=== PATIENT | female | born 1985 | race Caucasian/White ===

== ENCOUNTER 2022-05-09 07:30 | Outpatient (RCR) | payer OTHER, SELFPAY | END 2023-04-23 11:23 | disposition home or self-care (01) | PROVIDERS: PCP Family Medicine; Visit Provider Family Medicine | DX: M54.2 Cervicalgia (principal); Z51.89 Encounter for other specified aftercare | CPT/HCPCS: 97110; 97140 ==

== ENCOUNTER 2022-07-24 12:39 | Outpatient (CLI) | payer OTHER, SELFPAY ==
--- NOTE | 2022-07-24 13:00 | MR_ITS ---
[facility] [address] [facility] [address] Phone:?[phone] Fax:?[phone] Referring Physician Information: Jadiel Vasquez M.D. [address] [facility] [address] Phone:?[phone] Fax:?[phone] Patient:Akbar Cruz Gerson D.O.B:?1985 Sex:?Female Phone:?[phone] [facility] MRN:?[id number] Exam Date:?07/24/2022 ? EXAM: MRI EXAMINATION OF THE RIGHT KNEE CLINICAL INFORMATION: Right knee pain ongoing for several weeks. Status post injury. No history of surgery to this area. TECHNICAL INFORMATION: Coronal PD, T2 and STIR. Sagittal PD and T2 fat saturation. Axial PD and T2 fat saturation images were acquired. INTERPRETATION: Bones: No appreciable subchondral edema signal or cystic change. No evidence for an occult fracture, osseous contusion or stress reaction. No other abnormal bone marrow edema pattern is identified. Ligaments and tendons: The medial collateral ligament is seen to be intact. There are mild changes of soft tissue edema signal along the course of the ligament as may be related to a grade 1 sprain injury. The iliotibial band, fibular collateral ligament, biceps femoris tendon and popliteus tendon all are intact ament is intact. Extensor Mechanism: The patellar and quadriceps tendons are intact. The medial and lateral retinacula are intact. Knee Joint: There is a tiny knee joint effusion. No evidence for a discrete popliteal cyst. There are mild changes of semimembranosus/tibial collateral ligament bursitis. There is no discrete loose body seen within the joint. Medial Compartment: Slight thickened horizontal intrasubstance signal involves the posterior body and continues involving the posterior horn medial meniscus. No evidence for surface extension as tear, though. No displaced flap fragment or parameniscal cyst. There is no focal chondral defect. No other significant changes of chondromalacia. Lateral Compartment: There is no evidence for discrete lateral meniscal tear. No displaced flap fragment or parameniscal cyst. There is no focal chondral defect. No other significant changes of chondromalacia. Patellofemoral articulation: There is a grade 2 appearance of under malacia involving the central midline patella as well as the adjacent portions of the medial and lateral facets. No other significant chondromalacia. CONCLUSION:?The image quality is somewhat degraded by body habitus, but remains diagnostic. 1. Slightly thickened horizontal signal within the posterior body and continuing through the posterior horn medial meniscus. No evidence for surface extension as tear, and may be related to meniscal degeneration or contusion. 2. No evidence for a lateral meniscal tear. The cruciate ligaments are intact. 3. The MCL is seen to be intact. Mild soft tissue inflammatory changes along the course of the ligament as may be related to a grade 1 sprain injury. 4. Localized grade II chondromalacia involves the central patella. There is no chondral defect involving the knee. 5. There is a tiny joint effusion. Mild semimembranosus/tibial collateral ligament bursitis. KES Electronically signed on 07/26/2022 10:48:00 AM by Sulaiman Celaya M.D. Addendum A EXAM: MRI EXAMINATION OF THE RIGHT KNEE Addendum: Request made for review of lesion involving the distal femur. There is an approximate 1.3 cm low T2 signal intensity geographic bone lesion within the medial femoral epicondyle. As best seen on the axial images, this demonstrates irregular and spiculated margins. There are no other geographic bone lesions about the knee. This appearance would be in keeping with a bone island. KEBenito Electronically signed on 08/12/2022 9:49:00 AM by Sulaiman Celaya M.D.
== END 2022-07-24 12:40 | disposition home or self-care (01) ==
LOC: MRI 12:40
PROVIDERS: PCP Family Medicine; Visit Provider Family Medicine
DX: M25.561 Pain in right knee (principal); M22.42 Chondromalacia patellae, left knee; M76.41 Tibial collateral bursitis [Pellegrini-Stieda], right leg
CPT/HCPCS: 73721

== ENCOUNTER 2022-07-31 07:30 | Outpatient (RCR) | payer OTHER, SELFPAY | END 2022-10-04 14:14 | disposition home or self-care (01) | PROVIDERS: PCP Family Medicine; Visit Provider Podiatrist Foot & Ankle Surgery | DX: M76.61 Achilles tendinitis, right leg (principal); Z51.89 Encounter for other specified aftercare | CPT/HCPCS: 97140; 97161; 97760; 97763 ==

== ENCOUNTER 2023-01-01 08:53 | Outpatient (CLI) | payer OTHER, SELFPAY | END 2023-01-01 08:54 | disposition home or self-care (01) | LOC: NFLDREF 08:54 | PROVIDERS: PCP Family Medicine; Visit Provider Registered Nurse | DX: Z01.419 Encounter for gynecological examination (general) (routine) without abnormal findings (principal); Z13.6 Encounter for screening for cardiovascular disorders | CPT/HCPCS: 80061 ==

== ENCOUNTER 2023-09-24 09:29 | Outpatient (CLI) | payer OTHER, SELFPAY ==
--- OUTSIDE RECORDS SUMMARY | 2023-09-24 09:31 | XMS_ITS | Continuity of Care Document ---
Author Name Unknown Organization [facility] Address [address] [place] [address] Phone Care Team Providers Care Special Procedures Tech Name Role Phone Audra ANN, PhD, Leno Unavailable Unavai lable Allergies, Adverse Reactions, Alerts Substance Reaction Status Criticality gluten rash and stomach pain Active No Inf ormation PENICILLIN rash Active No Information Sulfa (Sulfonamide Antibiotics) rash Active No Information Medications Medication Instructions Dosage Effective Dates (start - stop) Status Comments GABAPENTIN (unknown strength) Not Available - Active CYCLOBENZAPRINE HCL (unknown strength) Not Available - Active Procedures Procedure Date Office/Outpatient Visit,New, Mod 2017 Advance Directives Directive Yes / No Effective Date File Name No Information Encounters Encounter Description Practice Location Reason(s) For Visit Diagnoses Date Provider Providers Copied on Encounter [facility], [address], [place], [place], [id number], [place] tel:[phone] [facility] No Information 8 Audra Burr. [facility] [place], [address], [place], [address], [place]. tel:[phone] Office/Outpat ient Visit,, Mod [facility], [address], [place], [place], [id number], [place] tel:[phone] [facility] - [place] Spondylolisth esis, lumbar region 0 8 Tor Duvall. [facility] [place], [address], [place], [place], [id number] , [place]. tel:[phone] Referring Provider: Leno Zhu [facility] [address], [place], [address]. tel:[phone] [facility], [address], [place], [place], [id number], [place] tel:[phone] [facility] [place] back pain Jan- 8 Zhu Leno. [facility], [address], [place], [address], [place]. tel:[phone] Family History Family Member Type Diagnosis Age At Onset No Information Payers Payer name Insurance type Covered republican ID Authoriza tion(s) No Information Social History Type Description Quantity Date Captured Comments Sex Female Smoking Status No Information Chief Complaint And Reason For Visit No Information Reason For Referral Reason For Referral No Information Plan Of Treatment Date Type Action Status Future Order: Radiology Order AP /Lat/Flex/Ext Lumb (APLatFlExL), Ordered on: Ordered History Of Present Illness Encounter Date Complaint History Of Prese nt Illness No Information Functional Status Date Functional Assessmen t No Information Instructions Date Instruction Additional Infor mation No Information Assessments Type Assessment Date No Information Patient Care Teams Name Effective Dates (start - stop) Status Members No Information
--- NOTE | 2023-09-24 09:45 | CRLHL7_ITS ---
For Patients: As a result of the Century Cures Act, medical imaging exams and procedure reports are released immediately into your electronic medical record. You may view this report before your referring provider. If you have questions, please contact your health care provider. INDICATION: First trimester scan, establish dates. TECHNIQUE: Real-time wdae-scale imaging of the pelvis was performed. FINDINGS: Sonographic imaging demonstrates a single living intrauterine gestation. The embryo demonstrates a regular cardiac rate measuring 134 beats per minute. The embryo`s crown-rump length measurement of 1.9 cm corresponds to a gestational age of 8 weeks 2 days with a sonographic due date of 05/03/2024. There is a normal-appearing yolk sac. Myomatous uterus. Multiple fibroids present. Pedunculated anterior fibroid measuring 7.2 x 6.7 x 5.3 centimeters. An anterior fibroid measuring 1.6 x 1.7 x 2 centimeters to the right of the uterus in the superior posterior right uterine fibroid measuring 3 x 2.9 x 3.3 centimeters. IMPRESSION: 1. Early intrauterine gestation at 8 weeks 2 days with ANGELITA of 05/03/2024. 2. Myomatous uterus Dictated by Gunjan Blackwell MD @ 09/29/2023 9:37:54 AM (Electronically Signed)
== END 2023-09-24 09:30 | disposition home or self-care (01) ==
LOC: US 09:30
PROVIDERS: PCP Family Medicine; Visit Provider Registered Nurse
DX: Z34.91 Encounter for supervision of normal pregnancy, unspecified, first trimester (principal); O34.11 Maternal care for benign tumor of corpus uteri, first trimester; Z3A.08 8 weeks gestation of pregnancy
CPT/HCPCS: 76817; 86703; 86706; 86803; 86850; 86900; 86901; 87086; 87340; 87491; 87591

== ENCOUNTER 2023-09-24 11:26 | Outpatient (CLI) | payer OTHER, SELFPAY ==
--- OUTSIDE RECORDS SUMMARY | 2023-09-24 11:29 | XMS_ITS | Continuity of Care Document ---
Author Name Unknown Organization [facility] Address [address] [place] [address] Phone Care Team Providers Care Fire Management Technician Name Role Phone Audra ANN, PhD, Leno [...] on Encounter [facility], [address], [place], [place], [id number], [place] tel:[phone] [facility] No Information 8 Audra Burr. [facility] [place], [address], [place], [address], [place]. tel:[phone] Office/Outpat ient Visit,, Mod [facility], [address], [place], [place], [id number], [place] tel:[phone] [facility] - [place] Spondylolisth esis, lumbar region 0 8 Tor Duvall. [facility] [place], [address], [place], [place], [id number] , [place]. tel:[phone] Referring Provider: Leno Zhu [facility] [address], [place], [address]. tel:[phone] [facility], [address], [place], [place], [id number], [place] tel:[phone] [facility] [place] back pain Jan- 8 Zhu Leno. [facility], [address], [place], [address], [place]. tel:[phone] Family History Family Member Type Diagnosis Age [...]
[2023-09-24 20:24] LABS: Chlamydia DNA Amplified* NOT DETECTED (No Detected); GC DNA Amplified* NOT DETECTED (No Detected)
== END 2023-09-24 11:27 | disposition home or self-care (01) ==
PROVIDERS: PCP Family Medicine; Visit Provider Registered Nurse
DX: Z34.91 Encounter for supervision of normal pregnancy, unspecified, first trimester (principal); O34.11 Maternal care for benign tumor of corpus uteri, first trimester; Z3A.08 8 weeks gestation of pregnancy
CPT/HCPCS: 86592; 86703; 86704; 86706; 86762; 86787; 86803; 86850; 86900; 86901; 87086; 87340; 87491; 87591

== ENCOUNTER 2024-01-14 10:29 | Outpatient (CLI) | payer OTHER, SELFPAY ==
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
--- OUTSIDE RECORDS SUMMARY | 2024-01-14 10:34 | XMS_ITS | Continuity of Care Document ---
Author Name Unknown Organization [facility] Address [address] [place] [address] Phone Care Team Providers Care Aircraft Structural Fitter Name Role Phone Audra ANN, PhD, Leno [...] on Encounter [facility], [address], [place], [place], [id number], [place] tel:[phone] [facility] No Information 8 Audra Burr. [facility] [place], [address], [place], [address], [place]. tel:[phone] Office/Outpat ient Visit,, Mod [facility], [address], [place], [place], [id number], [place] tel:[phone] [facility] [place] Spondylolisth esis, lumbar region 0 8 Tor Duvall. [facility] [place], [address], [place], [place], [id number] , [place]. tel:[phone] Referring Provider: Leno Zhu [facility] [address], [place], [address]. tel:[phone] [facility], [address], [place], [place], [id number], [place] tel:[phone] [facility] [place] back pain Jan- 8 Zhu Leno. [facility], [address], [place], [address], [place]. tel:[phone] Family History Family Member Type Diagnosis Age At Onset No Information Payers Payer name Insurance type Covered libertarian ID Authoriza tion(s) No Information Social History [...]
--- OUTSIDE RECORDS SUMMARY | 2024-01-14 10:35 | XMS_ITS | Encounter Summary ---
Author Name Unknown Organization [facility] Address [address] [place] [address] Care Team Providers Care Benefits Manager Name Role Phone Erin Calvo APRN, C.N.P., D.N.P. Primary Care Provider Reason for Visit * Reason Onset Date Comments Communication 01/12/2024 Encounter Details Date Type Department Care Team (Late st Contact Info) Description 01/12/2024 Clinical Communication Department of Obstetrics and Gynecology in [place], [place] [address] [place] [phone] Shraddha Mccann D.O. [address] [place] [phone] Communication Social History Tobacco Use Types Packs/Day Years Used Date Smoking Tobacco: Never Smokeless Tobacco: Never Alcohol Use Standard Drinks/Week Comments Not Currently 0 (1 standard drink = 0.6 oz pur e alcohol) i only drink once in a while [facility] Utilities Answer Date Recorded In the past 12 months has e electric, gas, oil, or water company threatened to shut off services in your home? No 12/09/2023 Humiliation, Afraid, Rape, and Kick questionnair e Answer Date Recorded Within the last year, have y ou been afraid of your partner or ex-partner? No 04/14/2022 Within the last year, have y ou been humiliated or emotionally abused in other ways by your partner or ex-partner? No Within the last year, have y ou been kicked, hit, slapped, or otherwise physically hurt by your partner or ex-partner? No 04/14/2022 Within the last year, have y ou been raped or forced to have any kind of sexual activity by your partner or ex-partner? No 04/14/2022 Social Connection and Isolation Panel [NHANES] A nswer Date Recorded In a typical week, how many times do you talk on the phone with family, friends, or neighbors? Three times a week 04/14/2022 How often do you get togethe r with friends or relatives? Three times a week 04/14/2022 How often do you attend chur ch or jain services? Never 04/14/2022 Do you belong to any clubs o r organizations such as mandaeism groups, unions, fraternal or athletic groups, or school groups? No 04/14/2022 How often do you attend meet ings of the clubs or organizations you belong to? Never 04/14/2022 Are you , , di vorced, , never , or living with a partner? 04/14/2022 AUDIT-C Answer Date Recorded Q1: How often do you have a drink containing alc ohol? Monthly or less 04/14/2022 Q2: How many drinks containi ng alcohol do you have on a typical day when you are drinking? 1 or 2 04/14/2022 Q3: How often do you have si x or more drinks on one occasion? Never 04/14/2022 Overall Financial Resource Strain (CARDIA) Answe r Date Recorded How hard is it for you to pa y for the very basics like food, housing, medical care, and heating? Not hard at all 02/03/2020 PHQ-2 Answer Date Recorded PHQ-2 Score 0 12/15/2023 [facility]ational Stress Questionnaire Answer Date Recorded Do you feel stress - tense, restless, nervous, or anxious, or unable to sleep at night because your mind is troubled all the time - these days? Not at all 04/14/2022 Exercise Vital Sign Answer Date Recorde d On average, how many days pe r week do you engage in moderate to strenuous exercise (like a brisk walk)? 3 days 12/09/2023 On average, how many minutes do you engage in exercise at this level? 20 min 12/09/2023 Hunger Vital Sign Answer Date Recorded Within the past 12 months, y ou worried that your food would run out before you got the money to buy more. Never true 12/09/19 24 Within the past 12 months, t he food you bought just didn't last and you didn't have money to get more. Never true 12/09/2023 PRAPARE - Transportation Answer Date Re corded In the past 12 months, has l ack of transportation kept you from medical appointments or from getting medications? No 02/2024 In the past 12 months, has l ack of transportation kept you from meetings, work, or from getting things needed for daily living? No 12/09/2023 Depression Answer Date Recor ded PHQ-9 Total Score (max 27) 0 12/14 Nutrition Answer Date Recorded Nutrition: EVOO Fat Source Yes 12/08 On average, how many serving s of fruits and vegetables do you eat per day (serving size is equal to 1 cup or approximately the size of a tennis ball)? 3-5 12/09/2023 Dental Answer Date Recorded Dental: Regular Dentist Yes 12/09/19 Employment Answer Date Recorded Employment status Employed and actively working without restrictions 12/09/2023 Housing Stability Answer Date Recorded What is your living situation today? I have a [facility] place to live 12/09/2023 Education Answer Date Recorded What is the highest level of school you have completed or the highest degree you have received? Associate degree: academic program 02/03/2020 Estimated Date of Delivery Comme nts Yes 05/01/2024 Based on Embryo Transfer Sex and Gender Information Value Date Recorded Sex Assigned at Female 04/14/2022 7:49 PM CDT Gender Identity Female 07/19/2017 10:12 AM CDT Sexual Orientation Straight 07/19/2017 10 :12 AM CDT documented as of this encounter Plan of Treatment Upcoming Encounters Date Type Department Care Team (Latest Contact Info) Description 01/30/2024 7:30 AM CDT Appointment Department of Obstetrics and Gynecology in [place], [place] [address] [place] [phone] Shraddha Mccann D.O. [address] [place] [phone] Discharge Disposition: Home or Self Care 01/30/2024 8:30 AM CDT Routine Department of Obstetrics and Gynecology in [place], [place] [address] [place] [phone] Mayank Morgan M.B.B.S. [address] [place] [phone] 02/26/2024 1:20 PM CDT Appointment Department of Cardiovascular Diseases in [place], [place] [address] [place] [phone] Shraddha Mccann D.OCarlos [address] [place] [phone] Discharge Disposition: Home or Self Care 02/26/2024 2:30 PM CDT Comprehensive Visit Division of Pediatric Cardiology in [place], [place] [address] [place] [phone] Junito Arce M.B.B.S. [address] [place] [phone] 02/26/2024 3:30 PM CDT Appointment Department of Obstetrics and Gynecology in [place], [place] [address] [place] [phone] Shraddha Mccann D.OCarlos [address] [place] [phone] Discharge Disposition: Home or Self Care 02/26/2024 4:00 PM CDT Routine Department of Obstetrics and Gynecology in [place], [place] [address] [place] [phone] Mayank Morgan M.B.B.S. [address] [place] [phone] documented as of this encounter Visit Diagnoses Not on filedocumented in this encounter Additional Health Concerns Assessment Noted Time PHQ-9 Depression Total Score: 0 12/15/19 24 3:08 PM CDT documented as of this encounter Care Teams Benefits Manager Relationship Specialty Start Date End Date Erin Calvo APRN, C.N.P., D.N.P. [address] [place] [phone] PCP - General 08/30/20 documented as of this encounter
--- OUTSIDE RECORDS SUMMARY | 2024-01-14 10:35 | XMS_ITS | Encounter Summary ---
Author Name Unknown Organization [facility] Address [address] [place] [address] Care Team Providers Care Aeroplane Pilot Name Role Phone Erin Calvo APRN C.N.P., D.N.P. Primary Care Provider Encounter Details Date Type Department Care Team (Latest Contact Info) Description 01/07/2024 10:03 AM CDT - 01/07/2024 1:22 PM CDT Hospital Encounter Department of Obstetrics and Gynecology in [place], [place] [address] [place] [phone] Aleksander Keller D.O. [address] [place] [phone] Primigravida Advanced Maternal Age Affecting Management (HCC) Discharge Disposition: Home or Self Care Social History Tobacco Use Types Packs/Day Years Used Date Smoking Tobacco: Never Smokeless Tobacco: Never Alcohol Use Standard Drinks/Week Comments Not Currently 0 (1 standard drink = 0.6 oz pur e alcohol) i only drink once in a while [facility] Utilities Answer Date Recorded In the past 12 months has th e electric, gas, oil, or water company [...] often do you attend chur ch or episcopal services? Never 04/14/2022 Do you belong to any clubs o r organizations such as orthodoxy groups, unions, fraternal or athletic groups, or [...] Answer Date Recorded PHQ-2 Score 0 12/15/2023 [facility] [place] [facility] Occupat ional Health - Occupational Stress Questionnaire Answer [...] money to buy more. Never true 12/09/19 Within the past 12 months, t he [...] your living situation today? I have a [facility] place to live 12/09/2023 Education Answer Date [...] AM CDT documented as of this encounter Medications at Time of Discharge Medication Sig Dispensed Refills Start Date End Date aspirin [address] tablet Take 81 mg by mouth daily. 0 vit calc,iron,folic (PRENAT.VITS,ANDI,MIN-IRON- FOLIC ORAL) Take 1 tablet by mouth daily. 0 07/10/2022 SUMAtriptan (IMITREX) 25 mg tablet Take 25 mg by mouth 2 (two) times a day as needed for migraine. 0 12/22/2022 documented as of this encounter Plan of Treatment Upcoming Encounters Date Type Department Care Team (Latest Contact Info) Description 01/30/2024 7:30 AM CDT Appointment Department of Obstetrics and Gynecology in [place], [place] [address] [place] [phone] Aleksander Keller D.O. [address] [place] [phone] Discharge Disposition: Home or Self Care 01/30/2024 8:30 AM CDT Routine Department of Obstetrics and Gynecology in [place], [place] [address] [place] [phone] Mayank Morgan M.B.B.S. [address] [place] [phone] 02/26/2024 1:20 PM CDT Appointment Department of Cardiovascular Diseases in [place], [place] [address] [place] [phone] Aleksander Keller D.O. [address] [place] [phone] Discharge Disposition: Home or Self Care 02/26/2024 2:30 PM CDT Comprehensive Visit Division of Pediatric Cardiology in [place], [place] [address] [place] [phone] Junito Arce M.B.B.S. [address] [place] [phone] 02/26/2024 3:30 PM CDT Appointment Department of Obstetrics and Gynecology in [place], [place] [address] [place] [phone] Aleksander Keller D.O. [address] [place] [phone] Discharge Disposition: Home or Self Care 02/26/2024 4:00 PM CDT Routine Department of Obstetrics and Gynecology in [place], [place] 200 [place] [phone] Mayank Morgan M.B.B.S. [address] [place] [phone] documented as of this encounter Procedures Procedure Name Priority Date/Time Associated Diagnosis Comments US OB FOLLOW-UP AND OR GROWTH FUNG RAD - Routine (most inpatients and all outpatients) 01/07/2024 11:04 AM CDT Primigravida Advanced Maternal Age Affecting Management (HCC) documented in this encounter Results * US OB Follow-up and or Growth Fung (01/07/2024 11:04 AM CDT) Anatomical Region Laterality Modality Body, Ultrasound OB RST LOS, Ultrasound ARZ LOS N/A Ultrasound Narrative 01/07/2024 12:15 PM CDT KALIE BERMUDEZ OB Exam, 01/07/2024 EXAM INFORMATION Patient Name: ??KALIE BERMUDEZ : ??1985 Age: ??38 yrs Sex: ??Female Ref Phys: ??ALEKSANDER KELLER Exam Date: 01/07/2024 Procedure: US OB FOLLOW-UP AND OR GROWTH FUNG Exam Site: [facility] OB #5 Plurality: 1 OBHx: [G:(1)] ?F Trm:() Pre:() C-Sec:() Ab-I:() Ab-S:() Ect:() Multi:() Sandhya:() INDICATIONS FOR SONOGRAPHY Advanced Maternal age IMPRESSION A transabdominal ultrasound was performed. growth;Single intrauterine with a positive heart in Breech presentation. The measurement corresponds to gestational age at the 89th centile. ?? Normal amniotic fluid. The placenta is anterior fundal with no evidence of Previa. The following structures were seen on today's ultrasound and appeared normal; RVOT, 3VV, 3VT, Aortic arch. Conclusion Normal growth for gestational age. ??Complete normal anatomy ultrasound. MEASUREMENTS ??venkata ??wks [+/-] (Range) % ?? BPD: 5.85 cm ?? 24w0d ??[+/-2.18] ??(5.20 - 6.37) 59% FL: ??4.09 cm ?? 23w2d ??[+/-1.80] ??(3.67 - 4.85) 28% HC: ??22.1 cm ?? 24w1d ??[+/-2.06] ??(19.99 - 23.91) 56% AC: ??20.92 cm ?? 25w3d ??[+/-2.18] ??(16.48 - 21.73) 91% RATIOS ??(Range) % ?? HC/AC: 1.06 ?(1.05 - 1.21) 9% ?? FL/BPD: 0.70 ? FL/AC: 0.20 ? COMPUTATIONS GA: ?? 23w4d [+/-1.40] Method: ??ANGELITA ANGELITA: ??05/01/2024 Sono GA: ??23w5d [+/-1.40] Method: ?? BPD, HC, AC, FL Weight: ??723 gms. ??1 lb 9 oz. ??89% Method: ??BPD, HC, AC, FL OBSERVATIONS Amniotic Fluid Fluid Volume: ??Normal Presentation: ?Breech Size: ?Normal for dates Growth: ??Within normal limits. FHR: ??138 bpm ANATOMY Normal: RVOT, 3VV, 3VT, Aortic arch Preliminary Read by Mayra Hare RFeliberto.M.S. on 01/07/2024 11:03:57 AM. Arcade Attendant: ??Mayra Hare R.D.M.SCarlos Thank You For This Referral Procedure Note Mayank Morgan M.B.B.S. - 01/07/2024 KALIE BERMUDEZ OB Exam, 01/07/2024 EXAM INFORMATION Patient Name: KALIE BERMUDEZ : 1985 Age: 38 yrs Sex: Female Ref Phys: ALEKSANDER KELLER Exam Date: 01/07/2024 Procedure: US OB FOLLOW-UP AND OR GROWTH FUNG Exam Site: [facility] OB #5 Plurality: 1 OBHx: [G:(1)] F Trm:() Pre:() C-Sec:() Ab-I:() Ab-S:() Ect:() Multi:() Sandhya:() INDICATIONS FOR SONOGRAPHY Advanced Maternal age IMPRESSION A transabdominal ultrasound was performed. growth;Single intrauterine with a positive heart inBreech presentation. The measurement corresponds to gestational ageat the 89th centile. Normal amniotic fluid. The placenta is anteriorfundal with no evidence of Previa. The following structures were seen on today's ultrasound and appearednormal; RVOT, 3VV, 3VT, Aortic arch. Conclusion Normal growth for gestational age. Complete normalanatomy ultrasound. MEASUREMENTS venkata wks [+/-] (Range) % BPD: 5.85 cm 24w0d [+/-2.18] (5.20 - 6.37) 59% FL: 4.09 cm 23w2d [+/-1.80] (3.67 - 4.85) 28% HC: 22.1 cm 24w1d [+/-2.06] (19.99 - 23.91) 56% AC: 20.92 cm 25w3d [+/-2.18] (16.48 - 21.73) 91% RATIOS (Range) % HC/AC: 1.06 (1.05 - 1.21) 9% FL/BPD: 0.70 FL/AC: 0.20 COMPUTATIONS GA: 23w4d [+/-1.40] Method: NAGELITA ANGELITA: 05/01/2024 Sono GA: 23w5d [+/-1.40] Method: BPD, HC, AC, FL Weight: 723 gms. 1 lb 9 oz. 89% Method: BPD, HC, AC, FL OBSERVATIONS Amniotic Fluid Fluid Volume: Normal Presentation: Breech Size: Normal for dates Growth: Within normal limits. FHR: 138 bpm ANATOMY Normal: RVOT, 3VV, 3VT, Aortic arch Preliminary Read by Mayra Hare R.D.MCarlosSCarlos on 01/07/2024 11:03:57 AM. Arcade Attendant: Mayra Hare R.D.M.S. Thank You For This Referral Aleksander Keller D.O. IMG OB US PROCEDURES documented in this encounter Visit Diagnoses Diagnosis Primigravida Advanced Maternal Age Affecting Management (HCC) documented in this encounter Additional Health Concerns Assessment Noted Time PHQ-9 Depression Total Score: 0 12/15/19 24 3:08 PM CDT documented as of this encounter Care Teams Aeroplane Pilot Relationship Specialty Start Date End Date Erin Calvo APRN, C.N.P., D.N.P. [address] [place] [phone] PCP - General 08/30/20 documented as of this encounter
--- OUTSIDE RECORDS SUMMARY | 2024-01-14 10:35 | XMS_ITS | Encounter Summary ---
Author Name Unknown Organization [facility] Address [address] [place] [address] Care Team Providers Care Marketing Intelligence Manager Name Role Phone Erin Calvo APRN C.N.PCarlos, D.N.P. Primary Care Provider Reason for Referral * Outpatient (Routine) - Authorized Specialty Diagnoses / Procedures Referred By Kassie cooley Referred To Contact Obstetrics and Gynecology Shraddha Mccann D.O. [address] [place] [phone] [facility] Referral ID Status Reason Start Date Expiration Date V isits Requested Visits Authorized [id number] Authorized 01/09/2024 07/10/2025 1 1 Scheduling Instructions 01/27-01/29 with a Fellow Encounter Details Date Type Department Care Team (Late st Contact Info) Description 01/09/2024 Orders Only Department of Obstetrics and Gynecology in [place], [place] [address] [place] [phone] Rayne Wheatley R.N. [address] [place] [phone] Primigravida Advanced Maternal Age Affecting Management (HCC) (Primary Dx) Social History Tobacco Use Types Packs/Day Years Used Date Smoking Tobacco: Never Smokeless Tobacco: Never Alcohol Use Standard Drinks/Week Comments Not Currently 0 (1 standard drink = 0.6 oz pur e alcohol) i only drink once in a while [facility] Utilities Answer Date Recorded In the [...] often do you attend chur ch or orthodoxy services? Never 04/14/2022 Do you belong to any clubs o r organizations such as buddhism groups, unions, fraternal or athletic groups, or [...] Answer Date Recorded PHQ-2 Score 0 12/15/2023 [facility] [place] of Occupat ional Health - Occupational Stress [...] your living situation today? I have a [facility] place to live 12/09/2023 Education Answer Date [...] Appointment Department of Obstetrics and Gynecology in [place], [place] [address] [place] [phone] Shraddha Mccann D.O. [address] [place] [phone] Discharge Disposition: Home or Self Care 01/30/2024 8:30 AM CDT Routine Department of Obstetrics and Gynecology in [place], [place] [address] [place] [phone] Mayank Morgan M.B.B.S. [address] [place] [phone] 02/26/2024 1:20 PM CDT Appointment Department of Cardiovascular Diseases in [place], [place] [address] [place] [phone] Shraddha Mccann D.O. [address] [place] [phone] Discharge Disposition: Home or Self Care 02/26/2024 2:30 PM CDT Comprehensive Visit Division of Pediatric Cardiology in [place], [place] [address] [place] [phone] Junito Arce M.B.B.S. [address] [place] [phone] 02/26/2024 3:30 PM CDT Appointment Department of Obstetrics and Gynecology in [place], [place] [address] [place] [phone] Shraddha Mccann D.OCarlos [address] [place] [phone] Discharge Disposition: Home or Self Care 02/26/2024 4:00 PM CDT Routine Department of Obstetrics and Gynecology in [place], [place] [address] [place] [phone] Mayank Morgan M.B.B.SCarlos [address] [place] [phone] Scheduled Orders Name Type Priority Associated Diagnoses Orde r Schedule US OB Follow up and or Growth with BPP without NST Imaging RAD - Routine (most inpatients and all outpatients) Primigravida Advanced Maternal Age Affecting Management (HCC) Expected: 01/28/2024, Expires: 04/09/2025 Scheduled Referrals Name Type Priority Associated Diagnoses Order Schedule Obstetrics and Gynecology office visit (clinic) Outpatient Referral Routine Expected: 01/28/2024, Expires: 04/09/2025 documented as of this encounter Visit Diagnoses Diagnosis Primigravida Advanced Maternal Age Affecting Management (HCC)- Primary documented in this encounter Additional Health Concerns Assessment Noted Time PHQ-9 Depression Total Score: 0 12/15/19 24 3:08 PM CDT documented as of this encounter Care Teams Marketing Intelligence Manager Relationship Specialty Start Date End Date Erin Calvo APRN, C.N.P., D.N.P. [address], [place] [phone] PCP - General 08/30/20 documented as of this encounter
--- OUTSIDE RECORDS SUMMARY | 2024-01-14 10:35 | XMS_ITS | Encounter Summary ---
Author Name Unknown Organization [facility] Address [address] [place] [address] Care Team Providers Care Paper Ruler Name Role Phone Erin Calvo APRN, C.N.P., D.N.P. 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 [address] [place] [address] [facility] Referral ID Status Reason Start Date Expiration Date Visits Re quested Visits Authorized [id number] Closed 12/16/2023 06/16/2025 1 1 Encounter Details Date Type Department Care Team (Latest Contact Info) Description 01/07/2024 3:00 PM CDT Comprehensive Visit Division of Pediatric Cardiology in [place], [place] [address] [place] [phone] Junito Arce M.B.B.S. [address] [place] [phone] Primigravida Advanced Maternal Age Affecting Management (HCC) Social History Tobacco Use Types Packs/Day Years Used Date Smoking Tobacco: Never Smokeless Tobacco: Never Alcohol Use Standard Drinks/Week Comments Not Currently 0 (1 standard drink = 0.6 oz pur e alcohol) i only drink once in a while [facility] Utilities Answer Date Recorded In the past 12 months has e [employer], [employer], oil, or water [employer] threatened to shut off services in your [...] often do you attend chur ch or faith services? Never 04/14/2022 Do you belong to any clubs o r organizations such as pentecostal groups, unions, fraternal or athletic groups, or [...] Answer Date Recorded PHQ-2 Score 0 12/15/2023 [facility] of Occupat ional Health - Occupational Stress [...] your living situation today? I have a [facility] place to live 12/09/2023 Education Answer [...] AM CDT documented as of this encounter Consult Notes * Junito Arce M.B.B.S. - 01/07/2024 3:00 PM CDT [facility] Cardiology Consultation Joni Regalado Date of Consultation: 01/07/2024 Patient: Kalie Boss Date of : 1985, Age: 38 y.o. , CSN: [id number] Address: [address] [place] [phone] Referral: Shraddha Mccann D.O. [address] [place] [phone] SUBJECTIVE CHIEF COMPLAINT: cardiovascular screening. HISTORY OF PRESENT ILLNESS: I had the pleasure of meeting Kalie for the first time in our Cardiology Clinic for cardiovascular screening. Kalie is a 38 y.o. at 23w4d of gestation via IVF . Estimated Date of Delivery: 05/01/24. Obstetric ultrasound showed no significant abnormalities but the survey was incomplete in terms of cardiac views and therefore she has been referred for echocardiographic screening. Prior genetic evaluation in this fetus: Low risk NIPT No known family history of congenital heart disease, cardiomyopathy, arrhythmia, sudden premature or early coronary artery disease. Current Medications: aspirin [address] tablet, Take 81 mg by mouth daily. vit calc,iron,folic (PRENAT.VITS,ANDI,[id number] ORAL), Take 1 tablet by mouth daily. SUMAtriptan (IMITREX) 25 mg tablet, Take 25 mg by mouth 2 (two) times a day as needed for migraine. Allergies Allergen Reactions Gluten Other (see comments) and Rash Penicillins Other (see comments) and Hives only, no other systemic symptoms Sulfa (Sulfonamide Antibiotics) Other (see comments) Nickel Rash Past Medical History: Diagnosis Date Amblyopia Bilateral 1989 Leiomyoma (Fibroid) Uterus Migraine Headache with aura depending on type of migraine Other Injury Of Unspecified Body Region April 21 2017 Sprue Celiac Past Surgical History: Procedure Laterality Date EXTRACTION TOOTH OTHER SURGICAL HISTORY 2008 ganglion cyst removal from left wrist OVUM / OOCYTE RETRIEVAL Social History Socioeconomic History Marital status: Spouse name: Leno Highest education level: Associate degree: academic program Tobacco Use Smoking status: Never Smokeless tobacco: Never Vaping Use Vaping Use: never used Substance and Sexual Activity Alcohol use: Not Currently Comment: i only drink once in a while Drug use: No Sexual activity: Yes Partners: Male control/protection: None Social Determinants of Health Food Insecurity: No Food Insecurity (12/09/2023) Hunger Vital Sign Worried About Running Out of Food in the Last Year: Never true Ran Out of Food in the Last Year: Never true Transportation Needs: No Transportation Needs (12/09/2023) PRAPARE - Transportation Lack of Transportation (Medical): No Lack of Transportation (Non-Medical): No Physical Activity: Insufficiently Active (12/09/2023) Exercise Vital Sign Days of Exercise per Week: 3 days Minutes of Exercise per Session: 20 min Intimate Partner Violence: Not At Risk (04/14/2022) Humiliation, Afraid, Rape, and Kick questionnaire Fear of Current or Ex-Partner: No Emotionally Abused: No Physically Abused: No Sexually Abused: No Housing Stability: Low Risk (12/09/2023) Housing Stability Housing: Living Situation: I have a steady place to live Family History Problem Relation Age of Onset Diabetes Mother Borderline Blood clot Mother Diabetes Father Non-Hodgkin's lymphoma Sister Lymphoma Sister Non Hodgkin's Diabetes Maternal Grandmother Diabetes Maternal Grandfather Polycythemia vera Maternal Grandfather Skin cancer Maternal Grandfather Heart disease Paternal Grandfather OBJECTIVE DIAGNOSTICS Echo Narrative: For the complete report, see the Order-Level Documents. Final Impressions 1. echocardiogram performed due to in vitro fertilization. 2. Estimated date of delivery 05/01/2024. Gestational age 23 weeks , 4 days. 3. Ramsay . 4. lie: vertex. 5. echocardiogram reveals normal sinus rhythm at a heart rate of 139 contr/min with frequent conducted premature atrial contractions (occasionally in bigeminal pattern). 6. Normal cardiac anatomy. 7. Normal cardiac dimensions. 8. Normal biventricular function. 9. Normal Doppler velocities. 10. Normal aortic arch. 11. Normal ductal arch. 12. Normal patency of the foramen ovale. 13. Normal umbilical cord Doppler velocities and profile. Three vessel cord. 14. No pericardial effusion. No hydrops. 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 Normal great artery relationships. ASSESSMENT / PLAN #1 IVF #2 Frequent premature atrial contractions (occasionally in bigeminal pattern) #3 Normal cardiac anatomy Kalie is a 38 y.o. at 23w4d of gestation who was referred for echocardiographic screening due to IVF and unable to adequately visualize cardiac views on the prior scans. In summary, the echocardiogram appeared normal in terms of cardiac anatomy but we did notice frequent premature atrial contractions towards the end of the study. All premature atrial contractions or conducted and occasionally they were in a bigeminal pattern. There were otherwise no cardiac abnormalities and normal biventricular size, systolic function and no evidence of any pericardial effusion. I reviewed normal cardiac anatomy and physiology. Therefore I discussed with the family that premature atrial contractions are common during the life and generally suggest an increased risk for congenital cardiac problems therefore it is important to rule out any additional cardiac defects. We were able to rule out any additional major congenital cardiac defects based on the echocardiogram today. PAC's if occurring in an isolated fashion, do not cause any problem but occasionally they can also transform into a faster rhythms call supraventricular tachycardia. On the scan today, there were no runs of tachycardia and most of the premature atrial contractions were happening in an isolated manner which is reassuring. Recommendations: She will continue to follow-up with [facility] and if there are any concerns regarding tachycardia on any of her future follow-up evaluations or heart sounds, we will be very happy to see her back foradditional evaluation sooner. Since the patient is from out of town I discussed with Dr. Mccann and as she will be coming in for occasional ultrasound evaluations with [facility] team; we will be happy to see her for a limited scan during any of those appointments around 28-32 weeks gestation. Generally, there is no need for transthoracic echocardiogram on the unless there are clinical concerns. We do suggest an ECG the baby after if there are any concern for irregular heartbeat on auscultation Limitations: We reviewed the function of the patent foramen ovale and the ductus arteriosus, with typical spontaneous closure of both postnatally. We reviewed, however that a portion of adults have persistent patency of the patent foramen ovale. We discussed that the purpose of echocardiogram is to rule out gross cardiovascular abnormalities and determination of some minor defects is out of the scope offetal echocardiography. The routine limitations of echocardiography were also discussed, namely the inability to rule out small defects of atrial or ventricular septum, coarctation of aorta, valve abnormalities including bicuspid aortic valve, or partial anomalous pulmonary venous return. Thank you for allowing me to see Kalie today. Please feel free to call should any questions or concerns arise. Amna Regalado.S. documented in this encounter Plan of Treatment Upcoming Encounters Date Type Department Care Team (Latest Contact Info) Description 01/30/2024 7:30 AM CDT Appointment Department of Obstetrics and Gynecology in [place], [place] [address] [place] [phone] Shraddha Mccann D.O. [address] [place] [phone] Discharge Disposition: Home or Self Care 01/30/2024 8:30 AM CDT Routine Department of Obstetrics and Gynecology in [place], [place] [address] [place] [phone] Mayank Morgan M.B.B.S. [address] [place] [phone] 02/26/2024 1:20 PM CDT Appointment Department of Cardiovascular Diseases in [place], [place] [address] [place] [phone] Shraddha Mccann D.O. [address] [place] [phone] Discharge Disposition: Home or Self Care 02/26/2024 2:30 PM CDT Comprehensive Visit Division of Pediatric Cardiology in [place], [place] [address] [place] [phone] Junito Arce M.B.B.S. [address] [place] [phone] 02/26/2024 3:30 PM CDT Appointment Department of Obstetrics and Gynecology in [place], [place] [address] [place] [phone] Shraddha Mccann D.O. [address] [place] [phone] Discharge Disposition: Home or Self Care 02/26/2024 4:00 PM CDT Routine Department of Obstetrics and Gynecology in [place], [place] [address] [place] [phone] Mayank Morgan M.B.BCarlosS. [address] [place] [phone] documented as of this encounter Visit Diagnoses Diagnosis Primigravida Advanced Maternal Age Affecting Management (HCC) documented in this encounter Additional Health Concerns Assessment Noted Time PHQ-9 Depression Total Score: 0 12/15/19 24 3:08 PM CDT documented as of this encounter Care Teams Paper Ruler Relationship Specialty Start Date End Date Erin Calvo APRN, C.N.P., D.N.P. [address] [place] [phone] PCP - General 08/30/20 documented as of this encounter
--- OUTSIDE RECORDS SUMMARY | 2024-01-14 10:35 | XMS_ITS | Encounter Summary ---
Author Name Unknown Organization [facility] Address [address] [place] [address] Care Team Providers Care Manager Of Financial Reporting Name Role Phone Erin Calvo APRN, C.N.P., D.N.P. Primary Care Provider Reason for Visit * Reason Onset Date Comments Communication 01/12/2024 Encounter Details Date Type Department Care Team (Late st Contact Info) Description 01/12/2024 Clinical Communication Department of Obstetrics and Gynecology in [place], [place] [address] [place] [phone] Shraddha Mccann D.O. [address] [place] [phone] Communication Social History Tobacco Use Types Packs/Day Years Used Date Smoking Tobacco: Never Smokeless Tobacco: Never Alcohol Use Standard Drinks/Week Comments Not Currently 0 (1 standard drink = 0.6 oz pur e alcohol) i only drink once in a while [facility] Utilities Answer Date Recorded In the past [...] often do you attend chur ch or evangelical services? Never 04/14/2022 Do you belong to any clubs o r organizations such as protestant groups, unions, fraternal or athletic groups, or [...] Answer Date Recorded PHQ-2 Score 0 12/15/2023 [facility] - Occupational Stress Questionnaire Answer [...] your living situation today? I have a [facility] place to live 12/09/2023 Education Answer [...] Appointment Department of Obstetrics and Gynecology in [place], [place] [address] [place] [phone] Shraddha Mccann D.O. [address] [place] [phone] Discharge Disposition: Home or Self Care 01/30/2024 8:30 AM CDT Routine Department of Obstetrics and Gynecology in [place], [place] [address] [place] [phone] Mayank Morgan M.B.B.S. [address] [place] [phone] 02/26/2024 1:20 PM CDT Appointment Department of Cardiovascular Diseases in [place], [place] [address] [place] [phone] Shraddha Mccann D.OCarlos [address] [place] [phone] Discharge Disposition: Home or Self Care 02/26/2024 2:30 PM CDT Comprehensive Visit Division of Pediatric Cardiology in [place], [place] [address] [place] [phone] Junito Arce M.B.B.S. [address] [place] [phone] 02/26/2024 3:30 PM CDT Appointment Department of Obstetrics and Gynecology in [place], [place] [address] [place] [phone] Shraddha Mccann D.OCarlos [address] [place] [phone] Discharge Disposition: Home or Self Care 02/26/2024 4:00 PM CDT Routine Department of Obstetrics and Gynecology in [place], [place] [address] [place] [phone] Mayank Morgan M.B.B.S. [address] [place] [phone] documented as of this encounter Visit Diagnoses Not on filedocumented in this encounter Additional Health Concerns Assessment Noted Time PHQ-9 Depression Total Score: 0 12/15/19 24 3:08 PM CDT documented as of this encounter Care Teams Manager Of Financial Reporting Relationship Specialty Start Date End Date Erin Calvo APRN, C.N.P., D.N.P. [address] [place] [phone] PCP - General 08/30/20 documented as of this encounter
--- OUTSIDE RECORDS SUMMARY | 2024-01-14 10:35 | XMS_ITS | Clinical Summary ---
Author Name Unknown Organization [facility] Address [address] [place] [address] Care Team Providers Care Filter Worker Name Role Phone Erin Calvo APRN, C.N.P., D.N.P. Primary Care Provider Source Comments Patient records contain information from all sites at [facility]. For routine questions regarding patient records, call [phone] during business hours, M-F 8:00 AM - 5:00 PM Central Time. Record requests for emergency care only can be directed to [phone] at any time.[facility] Allergies Active Allergy Reactions Criticality Noted Date Comments Gluten Other (see comments),Rash 07/04/2014 Nickel Rash Low 10/22/2023 Penicillins Other (see comments),Hives only, no other systemic symptoms 12/18/2010 Sulfa (Sulfonamide Antibiotics) Other (see comments) 12/18/2010 Medications Medication Sig Dispensed Refills Start Date End Date Status vit calc,iron,folic (PRENAT.VITS,ANDI,MIN-I ANGEL-FOLIC ORAL) Take 1 tablet by mouth daily. 0 07/10/2022 Active SUMAtriptan (IMITREX) 25 mg tablet Take 25 mg by mouth 2 (two) times a day as needed for migraine. 0 12/22/[address] tablet Take 81 mg by mouth daily. 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 Estimated Date of Delivery Comme nts Yes 05/01/2024 Based on Embryo Transfer Encounters Date Type Department Care Team Description 01/13/2024 Orders Only Department of Obstetrics and Gynecology in [place], [place] [address] [place] [address] Rayne Wheatley R.N. Primigravida Advanced Maternal Age Affecting Management (HCC) (Primary Dx) 01/12/2024 Clinical Communication Department of Obstetrics and Gynecology in [place], [place] [address] [place] [address] Shraddha Keller D.O. Communication 01/12/2024 Clinical Communication Department of Obstetrics and Gynecology in [place], [place] [address] [place] [address] Shraddha Keller D.O. Communication 01/09/2024 Orders Only Department of Obstetrics and Gynecology in [place], [place] [address] [place] [address] Rayne Wheatley R.N. Primigravida Advanced Maternal Age Affecting Management (HCC) (Primary Dx) 01/07/2024 3:00 PM CDT Comprehensive Visit Division of Pediatric Cardiology in [place], [place] [address] [place] [address] Junito Arce M.B.B.S. Primigravida Advanced Maternal Age Affecting Management (HCC) 01/07/2024 1:23 PM CDT - 01/07/2024 11:59 PM CDT Hospital Encounter Department of Cardiovascular Diseases in [place], [place] [address] [place] [address] Shraddha Keller D.O. Primigravida Advanced Maternal Age Affecting Management (HCC) Discharge Disposition: Home or Self Care 01/07/2024 11:00 AM CDT Routine Department of Obstetrics and Gynecology in [place], [place] [address] [place] [address] Shraddha Keller D.O. Mabel Medrano, R.N. Primigravida Advanced Maternal Age Affecting Management (HCC) 01/07/2024 10:03 AM CDT - 01/07/2024 1:22 PM CDT Hospital Encounter Department of Obstetrics and Gynecology in [place], [place] [address] [place] [address] Shraddha Keller D.O. Primigravida Advanced Maternal Age Affecting Management (HCC) Discharge Disposition: Home or Self Care 12/16/2023 4:00 PM CDT Lab Department of Laboratory Medicine and Pathology, [facility] in [place], [place] [address] [place] [phone] Zulema Avila M.D., Ph.D. Primigravida Advanced Maternal Age Affecting Management (HCC) 12/16/2023 3:00 PM CDT Routine Department of Obstetrics and Gynecology in [address] [address] Shraddha Keller D.O. Primigravida Advanced Maternal Age Affecting Management (HCC) (Primary Dx) 12/16/2023 2:00 PM CDT Comprehensive Visit Department of Obstetrics and Gynecology in [place], [place] [address] [place] [phone] Chrystal Araya M.D. Ridder, Paige H MCarlosS., [facility] Genetic Carrier Of Other Disease (Primary Dx); Primigravida Advanced Maternal Age Affecting Management (HCC) 12/16/2023 12:33 PM CDT - 12/16/2023 11:59 PM CDT Hospital Encounter Department of Obstetrics and Gynecology in [place], [place] [address] [place] [address] Chrystal Araya M.D. Primigravida Advanced Maternal Age Affecting Management (HCC) Discharge Disposition: Home or Self Care 12/15/2023 3:30 PM CDT Clinical Communication Virtual Review in [place], [place] [address] [place] [address] Pre-visit Intake 10/29/2023 9:30 AM FLOOR SPECIALIST Nurse Only Department of Obstetrics and Gynecology in [place], [place] [address] [place] [phone] Lashae Pitts R.N. 10/24/2023 Clinical Communication Department of Obstetrics and Gynecology in [place], [place] [address] [place] [phone] Prescheduling, Provider MFM Triage from Last 3 Months Immunizations Name Administration Dates Next Due DTaP (Infanrix, Tripedia) 06/16/2007 Family History Medical History Relation Name Comments Diabetes Father martinez Cruz Diabetes Maternal Grandfather Aydin Zeng Polycythemia vera Maternal Grandfather Aydin Zeng Skin cancer Maternal Grandfather Aydin Zeng Diabetes Maternal Grandmother Blood clot Mother Luna Cruz Diabetes Mother Luna Cruz Borderline Heart disease Paternal Grandfather Lymphoma Sister 1 Malissa Non Hodgkin's Non-Hodgkin's lymphoma Sister 1 Malissa Relation Name Status Comments Father martinez Cruz Alive Maternal Grandfather Aydin Zeng Maternal Grandmother Mother Luna Cruz Alive Other Fetus - In Utero Paternal Grandfather Paternal Grandmother Sister 1 Malissa Alive Sister 2 Alive Social History Tobacco Use Types Packs/Day Years Used Date Smoking Tobacco: Never Smokeless Tobacco: Never Tobacco Cessation:Counseling Given: Not Answered Alcohol Use Standard Drinks/Week Comments Not Currently 0 (1 standard drink = 0.6 oz pur e alcohol) i only drink once in a while [facility] Utilities Answer Date Recorded In the past 12 months has th e [employer], gas, oil, or water [employer] threatened to shut off services in your [...] 04/14/2022 How often do you attend chur or advent services? Never 04/14/2022 Do you belong to any clubs o r organizations such as rastafarian groups, unions, fraternal or athletic groups, or [...] Answer Date Recorded PHQ-2 Score 0 12/15/2023 [facility] - Occupational Stress [...] your living situation today? I have a [facility] place to live 12/09/2023 Education Answer Date [...] Orientation Straight 07/19/2017 10 :12 AM CDT Last Filed Vital Signs Vital Sign Reading Time Taken Comments Blood Pressure 95/63 01/07/2024 10:59 AM CDT Pulse 81 01/07/2024 10:59 AM CDT Temperature 36.9 ??C (98.4 ??F) 01/07/2024 10:59 AM C DT Respiratory Rate 14 06/03/2018 6:34 PM CDT Oxygen Saturation 98% 01/07/2024 10:59 AM CDT Inhaled Oxygen Concentration - - Weight 102 kg (224 lb 13.9 oz) 12/16/2023 2:39 P M CDT Height 168.4 cm (5' 6.3) 08/04/2019 10:39 AM CD T Body Mass Index 35.97 08/04/2019 10:39 AM CDT Plan of Treatment Upcoming Encounters Date Type Department Care Team (Latest Contact Info) Description 01/30/2024 7:30 AM CDT Appointment Department of Obstetrics and Gynecology in [place], [place] [address] [place] [phone] Shraddha Keller D.OCarlos [address] [place] [phone] Discharge Disposition: Home or Self Care 01/30/2024 8:30 AM CDT Routine Department of Obstetrics and Gynecology in [place], [place] [address] [place] [phone] Mayank Morgan M.B.B.S. [address] [place] [phone] 02/26/2024 1:20 PM CDT Appointment Department of Cardiovascular Diseases in [place], [place] [address] [place] [phone] Shraddha Keller D.O. [address] [place] [phone] Discharge Disposition: Home or Self Care 02/26/2024 2:30 PM CDT Comprehensive Visit Division of Pediatric Cardiology in [place], [place] [address] [place] [phone] Junito Arce M.B.B.S. [address] [place] [phone] 02/26/2024 3:30 PM CDT Appointment Department of Obstetrics and Gynecology in [place], [place] [address] [place] [address] Shraddha Keller D.O. [address] [place] [address] Discharge Disposition: Home or Self Care 02/26/2024 4:00 PM CDT Routine Department of Obstetrics and Gynecology in [place], [place] [address] [place] [address] Mayank Morgan M.B.BCarlosS. [address] [place] [phone] Health Maintenance Due Date Last Done Comments HIV Screening 1985 Hepatitis C Screening 1985 Hepatitis B Vaccines (1 of 3 - 19+ 3-dose series) 2004 Lipid (Cholesterol) Screening 07/04/2019 07/04/2014 Cervical Cancer Screening 04/27/2024 04/27/2021, DTaP,Tdap,and Td Vaccines (7 - Td or Tdap) 03/21/2031 03/21/2021, 06/16/2007, 06/16/2007, Additional history exists COVID-19 Vaccine Completed 07/11/2023, , 01/22/2021, Additional history exists Influenza Vaccine Completed 07/11/2023, 07/11/2023 Depression Screening (Annual PHQ-2) Completed 12/15/2023 HPV Vaccines Aged Out No longer eligi ble based on patient's age to complete this topic Pneumococcal vaccine (0-64 years) Aged Out No longer eligible based on patient's age to complete this topic RSV vaccine - (32-36 weeks) or 60+ years (No Doses Required) Completed Procedures Procedure Name Priority Date/Time Associated Diagnosis Comments ECHO 2D WITH COLOR AND DOPPLER Routine 01/07/2024 2:29 PM CDT Primigravida Advanced Maternal Age Affecting Management (HCC) OB FOLLOW-UP AND OR GROWTH FUNG RAD - Routine (most inpatients and all outpatients) 01/07/2024 11:04 AM CDT Primigravida Advanced Maternal Age Affecting Management (HCC) PANORAMA SCREEN Routine 12/16/2023 3:39 PM CDT Primigravida Advanced Maternal Age Affecting Management (HCC) US OB ADVANCED LEVEL FUNG RAD - Routine (most inpatients and all outpatients) 12/16/2023 2:36 PM CDT Primigravida Advanced Maternal Age Affecting Management (HCC) from Last 3 Months Results * ECHO 2D WITH COLOR AND DOPPLER (01/07/2024 2:29 PM CDT) Ejection Fraction [facility] Anatomical Region Laterality Modality Other 01/07/2024 1:25 PM CDT Impressions 01/07/2024 3:18 PM CDT 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 Normal great artery relationships. For the complete report, see the Order-Level Documents. Narrative 01/07/2024 3:18 PM CDT For the complete report, see the Order-Level Documents. Final Impressions 1. echocardiogram performed due to in vitro fertilization. 2. Estimated date of delivery 05/01/2024. ??Gestational age 23 weeks , 4 days. 3. Fung . 4. lie: vertex. 5. echocardiogram reveals [...] cord. 14. No pericardial effusion. No hydrops. Procedure Note Junito Arce M.B.B.S. - 01/07/2024 For the complete report, see the Order-Level Documents. Final Impressions 1. echocardiogram performed due to in vitro fertilization. 2. Estimated date of delivery 05/01/2024. Gestational age 23 weeks , 4days. 3. Fung . 4. lie: vertex. 5. echocardiogram reveals normal sinus rhythm at a heart rate of 139contr/min with frequent conducted premature atrial contractions(occasionally in bigeminal pattern). 6. Normal cardiac anatomy. 7. Normal cardiac dimensions. 8. Normal biventricular function. 9. Normal Doppler velocities. 10. Normal aortic arch. 11. Normal ductal arch. 12. Normal patency of the foramen ovale. 13. Normal umbilical cord Doppler velocities and profile. Three vesselcord. 14. No pericardial effusion. No hydrops. 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 Normal great artery relationships. For the complete report, see the Order-Level Documents. Shraddha Keller D.O. CV ECHO PROCEDURES * US OB Follow-up and or Growth Fung (01/07/2024 11:04 AM CDT) Anatomical Region Laterality Modality Body, Ultrasound OB RST LOS, Ultrasound ARZ LOS N/A Ultrasound Narrative 01/07/2024 12:15 PM CDT KALIE BERMUDEZ OB Exam, 01/07/2024 EXAM INFORMATION Patient Name: ??KALIE BERMUDEZ : ??1985 Age: ??38 yrs Sex: ??Female Ref Phys: ??SHRADDHA KELLER Exam Date: 01/07/2024 Procedure: US OB FOLLOW-UP AND OR GROWTH FUNG Exam Site: [facility] OB #5 Plurality: 1 OBHx: [G:(1)] [...] Mayra Hare RFeliberto.M.S. on 01/07/2024 11:03:57 AM. Fleet Sales Manager: ??Mayra Hare R.D.M.SCarlos Thank You For This Referral Procedure Note Mayank Morgan M.B.B.S. - 01/07/2024 KALIE BERMUDEZ OB Exam, 01/07/2024 EXAM INFORMATION Patient Name: KALIE BERMUDEZ : 1985 Age: 38 yrs Sex: Female Ref Phys: SHRADDHA KELLER Exam Date: 01/07/2024 Procedure: US OB FOLLOW-UP AND OR GROWTH FUNG Exam Site: [facility] OB #5 Plurality: 1 OBHx: [G:(1)] [...] FL/AC: 0.20 COMPUTATIONS GA: 23w4d [+/-1.40] Method: ANGELITA ANGELITA: 05/01/2024 Sono GA: 23w5d [+/-1.40] Method: BPD, HC, AC, FL Weight: 723 gms. 1 lb 9 oz. 89% Method: BPD, HC, AC, FL OBSERVATIONS Amniotic Fluid Fluid Volume: Normal Presentation: Breech Size: Normal for dates Growth: Within normal limits. FHR: 138 bpm ANATOMY Normal: RVOT, 3VV, 3VT, Aortic arch Preliminary Read by Mayra Hare R.D.M.S. on 01/07/2024 11:03:57 AM. Fleet Sales Manager: Mayra Hare R.D.M.SCarlos Thank You For This Referral Shraddha Keller D.O. IMG OB US PROCEDURES * [facility] Screen - Sent Out Lab (12/16/2023 3:39 PM CDT) [facility] Screen SEE COMMENT 12/23/2023 9:06 AM CDT MAURICIO Comment: For final report, select Lab-Send Out Lab Results hyperlink below. Blood (Blood, Venous) 12/16/2023 3:39 PM CDT 12/17/2023 10:23 AM CDT INC. Ese - 12/23/2023 9:06 AM CDT Specimen Information: Specimen ID: [id number] Specimen Type: Blood Specimen Collection Start Date: 12/16/2023 ??3:39 PM Specimen Received Date: 12/17/2023 10:23 AM Specimen ID: [id number] Specimen Type: Blood Specimen Collection Start Date: 12/16/2023 ??3:39 PM Specimen Received Date: 12/17/2023 10:23 AM Zulema Avila M.D., Ph.D. LAB GENETIC TEST ING [facility] [address] [place] [address], [facility] Inc[facility] [place] [address] [place] [address] * US OB Advanced Level Fung (12/16/2023 2:36 PM CDT) Anatomical Region Laterality Modality Body, Ultrasound OB RST LOS, Ultrasound ARZ LOS N/A Ultrasound Narrative 12/16/2023 3:03 PM CDT KALIE BERMUDEZ OB Exam, 12/16/2023 EXAM INFORMATION Patient Name: ??KALIE BERMUDEZ : ??1985 Age: ??37 yrs Sex: ??Female Ref Phys: ??CHRYSTAL SANDRA ARAYA Exam Date: 12/16/2023 Procedure: US OB ADVANCED LEVEL FUNG Exam Site: [facility] OB #[id number] Plurality: 1 INDICATIONS FOR SONOGRAPHY Advanced Maternal age Detailed Survey BMI, IVF IMPRESSION Transabdominal ultrasound was performed. Advanced Anatomy Scan 1. Fung . 2. No abnormalities identified. However, the anatomy survey remains incomplete due to position. Recommend follow up in 1-4 weeks for completion of anatomy survey (see anatomy section of this report for images needing completion). 3. The EFW is >98th percentile. 4. The Placenta is anterior/fundal without evidence of previa. 5. The amniotic fluid appears normal. 6. Limited views of the adnexa without obvious abnormalities. 7. Subserosal fibroid seen on anterior fundal portion of uterus, measuring 5.44 x 3.79 x 5.25 cm. Fibroid is located adjacent to placenta and boarders are hard to define due to maternal body habitus. Consider growth assessments during third trimester. MEASUREMENTS ??venkata ??wks [+/-] (Range) % ?? BPD: 5.19 cm ?? 21w5d ??[+/-1.73] ??(4.19 - 5.36) 92% FL: ??3.69 cm ?? 21w5d ??[+/-1.80] ??(2.80 - 3.98) 84% HC: ??18.95 cm ?? 21w2d ??[+/-1.48] ??(16.25 - 20.17) 77% AC: ??17.51 cm ?? 22w3d ??[+/-2.06] ??(12.79 - 18.05) 94% HL: ??3.36 cm ?? 21w1d ? (2.63 - 3.63) 71% RATIOS ??(Range) % ?? HC/AC: 1.08 ?(1.08 - 1.26) 8% ?? FL/BPD: 0.71 ? FL/AC: 0.21 ? LONG BONES SURVEY ??cm ??wks [+/-] (Range) % ?? Humerus: 3.36 cm ?? 21w1d ? (2.63 - 3.63) 71% Ulna: ?? 3.15 cm ? Radius: 2.56 cm ? Femur: 3.69 cm ?? 21w5d ??[+/-1.80] ??(2.80 - 3.98) 84% Tibia: 3.18 cm ? Fibula: 3.04 cm ? COMPUTATIONS GA: ?? 20w3d [+/-1.40] Method: ??ANGELITA ANGELITA: ??05/01/2024 Sono GA: ??21w3d [+/-1.40] Method: ?? BPD, HC, AC, FL Weight: ??496 gms. ??1 lb 1 oz. ??>98% Method: ??BPD, HC, AC, FL OBSERVATIONS Amniotic Fluid Fluid Volume: ??Normal Placenta: ??Placenta is Anterior, Fundal. ??There is no evidence of a placenta previa. Presentation: ?Cephalic Size: ?Large for dates Growth: ??Large for dates. FHR: ??155 bpm ANATOMY Normal: Sag and Trans Cervical spine, Sag and Trans Thoracic spine, Sag and Trans Lumbar spine, Sag and Trans Sacral spine, Cerebellum, Vermis, Cisterna magna, Cerebral ventricle, Choroid plexus, Nuchal thickness, CSP, Midline falx, Palate, Maxilla, Mandible, Tongue, 4 chamber heart, Interventricular septum, Situs, LVOT, Ductal arch, SVC/IVC, Chest/Heart/lungs, Diaphragm, Anterior abdominal wall, Abdominal cord insertion, Placental cord insert , 3 vessel cord, Stomach, Kidneys (coronal and trans), Renal arteries, Bladder, Face, Upper lip/nose, Profile/Nasal Bone, Orbits/lens, Upper extremities, Lower extremities, Hands, Feet Not Seen: RVOT, 3VV, 3VT, Aortic arch Preliminary Read by Tamiko Mancini on 12/16/2023 2:27:18 PM. Fleet Sales Manager: ??Tamiko Mancini Thank You For This Referral Procedure Note Eliseo Desouza M.D. - 12/16/2023 KALIE BERMUDEZ OB Exam, 12/16/2023 EXAM INFORMATION Patient Name: AIDANKALIE : 1985 Age: 37 yrs Sex: Female Ref Phys: CHRYSTAL ARAYA Exam Date: 12/16/2023 Procedure: US OB ADVANCED LEVEL FUNG Exam Site: [facility] OB #[id number] Plurality: 1 INDICATIONS FOR SONOGRAPHY Advanced Maternal age Detailed Survey BMI, IVF IMPRESSION Transabdominal ultrasound was performed. Advanced Anatomy Scan 1. Fung . 2. No abnormalities identified. However, the anatomy survey remainsincomplete due to position. Recommend follow up in 1-4 weeks forcompletion of anatomy survey (see anatomy section of this report forimages needing completion). 3. The EFW is >98th percentile. 4. The Placenta is anterior/fundal without evidence of previa. 5. The amniotic fluid appears normal. 6. Limited views of the adnexa without obvious abnormalities. 7. Subserosal fibroid seen on anterior fundal portion of uterus, measuring5.44 x 3.79 x 5.25 cm. Fibroid is located adjacent to placenta andboarders are hard to define due to maternal body habitus. Consider fetalgrowth assessments during third trimester. MEASUREMENTS venkata wks [+/-] (Range) % BPD: 5.19 cm 21w5d [+/-1.73] (4.19 - 5.36) 92% FL: 3.69 cm 21w5d [+/-1.80] (2.80 - 3.98) 84% HC: 18.95 cm 21w2d [+/-1.48] (16.25 - 20.17) 77% AC: 17.51 cm 22w3d [+/-2.06] (12.79 - 18.05) 94% HL: 3.36 cm 21w1d (2.63 - 3.63) 71% RATIOS (Range) % HC/AC: 1.08 (1.08 - 1.26) 8% FL/BPD: 0.71 FL/AC: 0.21 LONG BONES SURVEY cm wks [+/-] (Range) % Humerus: 3.36 cm 21w1d (2.63 - 3.63) 71% Ulna: 3.15 cm Radius: 2.56 cm Femur: 3.69 cm 21w5d [+/-1.80] (2.80 - 3.98) 84% Tibia: 3.18 cm Fibula: 3.04 cm COMPUTATIONS GA: 20w3d [+/-1.40] Method: ANGELITA ANGELITA: 05/01/2024 Sono GA: 21w3d [+/-1.40] Method: BPD, HC, AC, FL Weight: 496 gms. 1 lb 1 oz. >98% Method: BPD, HC, AC, FL OBSERVATIONS Amniotic Fluid Fluid Volume: Normal Placenta: Placenta is Anterior, Fundal. There is no evidence of aplacenta previa. Presentation: Cephalic Size: Large for dates Growth: Large for dates. FHR: 155 bpm ANATOMY Normal: Sag and Trans Cervical spine, Sag and Trans Thoracic spine, Sagand Trans Lumbar spine, Sag and Trans Sacral spine, Cerebellum, Vermis,Cisterna magna, Cerebral ventricle, Choroid plexus, Nuchal thickness, CSP,Midline falx, Palate, Maxilla, Mandible, Tongue, 4 chamber heart, Interventricular septum, Situs, LVOT,Ductal arch, SVC/IVC, Chest/Heart/lungs, Diaphragm, Anterior abdominalwall, Abdominal cord insertion, Placental cord insert , 3 vessel cord,Stomach, Kidneys (coronal and trans), Renal arteries, Bladder, Face, Upper lip/nose, Profile/Nasal Bone,Orbits/lens, Upper extremities, Lower extremities, Hands, Feet Not Seen: RVOT, 3VV, 3VT, Aortic arch Preliminary Read by Tamiko Mancini on 12/16/2023 2:27:18 PM. Fleet Sales Manager: Tamiko Mancini Thank You For This Referral Chrystal Araya M.D. IMG OB US [place] OCEDURES from Last 3 Months Care Teams Filter Worker Relationship Specialty Start Date End Date Erin Calvo APRN, C.N.P., D.N.P. [address] [address] PCP - General 08/30/20
--- OUTSIDE RECORDS SUMMARY | 2024-01-14 10:35 | XMS_ITS ---
Author Name Unknown Organization [facility] Address [address] [place] [address] Care Team Providers Care Bass Viol Repairer Name Role Phone Unavailable Unavailable Unavailable Surgery Details Not on file Complications Check Surgery Details section. Procedure Estimated Blood Loss Check Surgery Details section. Procedure Findings Check Surgery Details section. Procedure Specimens Taken Check Surgery Details section.
--- OUTSIDE RECORDS SUMMARY | 2024-01-14 10:35 | XMS_ITS | Referral Summary ---
Author Name Unknown Organization [facility] Address [address] [place] [address] Care Team Providers Care Commercial Helicopter Pilot Name Role Phone Erin Calvo APRN C.N.Yasmany, D.N.P. Primary Care Provider Source Comments Patient records contain information from all sites at [facility]. For routine questions regarding patient records, call [phone] during business hours, M-F 8:00 AM - 5:00 PM Central Time. Record requests for emergency care only can be directed to [phone] at any time.[facility] Encounters Date Type Department Care Team Description 01/13/2024 Orders Only Department of Obstetrics and Gynecology in [place], [place] [address] [place] [address] Rayne Wheatley R.N. 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 Communication 01/12/2024 Clinical Communication Department of Obstetrics and Gynecology in [place], [place] [address] [place] [phone] Shraddha Keller D.O. Communication 01/09/2024 Orders Only Department of Obstetrics and Gynecology in [place], [place] [address] [place] [address] Rayne Wheatley RCarlosN. 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 Mabel Medrano RBerenice. 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 Primigravida Advanced Maternal Age Affecting Management (HCC) 01/07/2024 1:23 PM CDT - 01/07/2024 11:59 PM CDT Hospital Encounter Department of Cardiovascular Diseases in [place], [place] [address] [place] [phone] Shraddha Keller D.O. 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 10/24/2023 Clinical Communication Department of Obstetrics and Gynecology in [address] [phone] Prescheduling, Provider MFM Triage from Last 3 Months Allergies Active Allergy Reactions Criticality Noted Date [...] nts Yes 05/01/2024 Based on Embryo Transfer Immunizations Name Administration Dates Next Due DTaP ([employer], [employer]) 06/16/2007 Social History Tobacco Use Types Packs/Day Years Used Date Smoking Tobacco: Never Smokeless Tobacco: Never Tobacco Cessation:Counseling Given: Not Answered Alcohol Use Standard Drinks/Week Comments Not Currently 0 (1 standard drink = 0.6 oz pur e alcohol) i only drink once in a while [facility] Utilities Answer Date Recorded In the past 12 months has e [employer], gas, oil, or water [employer] threatened to shut off services in your [...] often do you attend chur ch or orthodox services? Never 04/14/2022 Do you belong to any clubs o r organizations such as mandaen groups, unions, fraternal or athletic groups, or [...] Answer Date Recorded PHQ-2 Score 0 12/15/2023 [facility] of Occupat ional Health - Occupational Stress [...] your living situation today? I have a [facility] place to live 12/09/2023 Education Answer [...] Appointment Department of Obstetrics and Gynecology in [place], [place] [address] [place] [address] Shraddha Keller D.O. [address] [place] [phone] Discharge Disposition: Home or Self Care 01/30/2024 8:30 AM CDT Routine Department of Obstetrics and Gynecology in [place], [place] [address] [place] [phone] Mayank Morgan M.B.B.S. [address] [place] [phone] 02/26/2024 1:20 PM CDT Appointment Department of Cardiovascular Diseases in [place], [place] [address] [place] [phone] Shraddha Keller D.O. [address] [place] [phone] Discharge Disposition: Home or Self Care 02/26/2024 2:30 PM CDT Comprehensive Visit Division of Pediatric Cardiology in [place], [place] [address] [place] [phone] Junito Arce M.B.B.S. [address] [place] [phone] 02/26/2024 3:30 PM CDT Appointment Department of Obstetrics and Gynecology in [place], [place] [address] [place] [phone] Shraddha Keller D.OCarlos [address] [place] [phone] Discharge Disposition: Home or Self Care 02/26/2024 4:00 PM CDT Routine Department of Obstetrics and Gynecology in [place], [place] [address] [place] [phone] Mayank Morgan M.B.B.S. 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 OB #5 Plurality: 1 OBHx: [G:(1)] ?F [...] Mayra Hare R.D.MCarlosSCarlos on 01/07/2024 11:03:57 AM. Rework Machine Operator: ??Mayra Hare R.D.M.S. Thank You For This Referral Procedure Note Mayank Morgan M.B.B.S. - 01/07/2024 KALIE BERMUDEZ OB Exam, 01/07/2024 EXAM INFORMATION Patient Name: AIDANKALIE : 1985 Age: 38 yrs Sex: Female Ref Phys: SHRADDHA KELLER Exam Date: 01/07/2024 Procedure: US OB FOLLOW-UP AND OR GROWTH FUNG Exam Site: [facility] OB #5 Plurality: 1 OBHx: [G:(1)] F [...] Aortic arch Preliminary Read by Mayra Hare R.D.M.SCarlos on 01/07/2024 11:03:57 AM. Rework Machine Operator: Mayra Hare R.D.MCarlosSCarlos Thank You For This Referral Shraddha Keller D.O. IMG OB US PROCEDURES * Panorama Screen - Sent Out Lab (12/16/2023 3:39 PM CDT) [facility] Panorama Screen SEE COMMENT 12/23/2023 9:06 AM CDT MAURICIO Comment: For final report, select Lab-Send Out Lab Results hyperlink below. Blood (Blood, Venous) 12/16/2023 3:39 PM CDT 12/17/2023 10:23 AM CDT INC. Ese - 12/23/2023 9:06 AM CDT Specimen Information: Specimen ID: [id number] Specimen Type: Blood Specimen Collection Start Date: 12/16/2023 ??3:39 PM Specimen Received Date: 12/17/2023 10:23 AM Specimen ID: [id number] Specimen Type: Blood Specimen Collection Start Date: 12/16/2023 ??3:39 PM Specimen Received Date: 12/17/2023 10:23 AM Zulema Avila M.D., Ph.D. LAB GENETIC TEST ING [employer] [address] [place] [address], [facility] [employer]IC[employer] [address] [place] [address] * US OB Advanced Level Fung (12/16/2023 2:36 PM CDT) Anatomical Region Laterality Modality Body, Ultrasound OB RST LOS, Ultrasound ARZ LOS N/A Ultrasound Narrative 12/16/2023 3:03 PM CDT KALIE BERMUDEZ OB Exam, 12/16/2023 EXAM INFORMATION Patient Name: ??KALIE BERMUDEZ : ??1985 Age: ??37 yrs Sex: ??Female Ref Phys: ??CHRYSTAL MARRUFOISSE ARAYA Exam Date: 12/16/2023 Procedure: US OB ADVANCED LEVEL FUNG Exam Site: [facility] OB #126 Plurality: 1 INDICATIONS FOR SONOGRAPHY [...] by Tamiko Mancini on 12/16/2023 2:27:18 PM. Rework Machine Operator: ??Tamiko Mancini Thank You For This Referral Procedure Note Eliseo Desouza M.D. - 12/16/2023 KALIE BERMUDEZ OB Exam, 12/16/2023 EXAM INFORMATION Patient Name: KALIE BERMUDEZ : 1985 Age: 37 yrs Sex: Female Ref Phys: CHRYSTAL ARAYA Exam Date: 12/16/2023 Procedure: US OB ADVANCED LEVEL FUNG Exam Site: [facility] OB #126 Plurality: 1 INDICATIONS FOR SONOGRAPHY [...] by Tamiko Mancini on 12/16/2023 2:27:18 PM. Rework Machine Operator: Tamiko Mancini Thank You For This Referral Chrystal VARGAS OB US NE OCEDURES from Last 3 Months Care Teams Commercial Helicopter Pilot Relationship Specialty Start Date End Date Erin Calvo APRN, C.N.P., D.N.P. [address] [place] [address] [facility] - General 08/30/20
--- OUTSIDE RECORDS SUMMARY | 2024-01-14 10:35 | XMS_ITS | Encounter Summary ---
Author Name Unknown Organization [facility] Address [address] [place] [address] Care Team Providers Care Chemistry Faculty Member Name Role Phone Erin Calvo APRN, C.N.PCarlos, D.N.P. Primary Care Provider Encounter Details Date Type Department Care Team (Latest Contact Info) Description 01/07/2024 11:00 AM CDT Routine Department of Obstetrics and Gynecology in [place], [place] [address] [place] [phone] Shraddha Mccann, Yeny [address] [place] [phone] Mabel Medrano R.N. 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 Never 04/14/2022 Do you belong to any clubs o r organizations such as hoahaoism groups, unions, fraternal or athletic groups, or [...] Answer Date Recorded PHQ-2 Score 0 12/15/2023 [facility] of Occupat ional Health - Occupational Stress [...] your living situation today? I have a [facility] place to live 12/09/2023 Education Answer [...] AM CDT documented as of this encounter Last Filed Vital Signs Vital Sign Reading Time Taken Comments Blood Pressure 95/63 01/07/2024 10:59 AM CDT Pulse 81 01/07/2024 10:59 AM CDT Temperature 36.9 ??C (98.4 ??F) 01/07/2024 10:59 AM C DT Respiratory Rate - - Oxygen Saturation 98% 01/07/2024 10:59 AM CDT Inhaled Oxygen Concentration - - Weight - - Height - - Body Mass Index - - documented in this encounter Progress Notes * Mabel Medrano R.N. - 01/07/2024 11:00 AM CDT Patient here for an U/S to complete anatomy. All views obtained. Growth was 89%. Denies headaches, visual changes, epigastric pain, LOF, or vaginal bleeding. No other concerns today. Proceeding to Echo. documented in this encounter Plan of Treatment Upcoming Encounters Date Type Department Care Team (Latest Contact Info) Description 01/30/2024 7:30 AM CDT Appointment Department of Obstetrics and Gynecology in [place], [place] [address] [place] [phone] Shraddha Mccann D.O. [address] [place] [phone] Discharge Disposition: Home or Self Care 01/30/2024 8:30 AM CDT Routine Department of Obstetrics and Gynecology in [place], [place] [address] [place] [phone] Mayank Morgan M.B.B.S. [address] [place] [phone] 02/26/2024 1:20 PM CDT Appointment Department of Cardiovascular Diseases in [place], [place] [address] [place] [phone] Shraddha Mccann D.O. [address] [place] [phone] Discharge Disposition: Home or Self Care 02/26/2024 2:30 PM CDT Comprehensive Visit Division of Pediatric Cardiology in [place], [place] [address] [place] [phone] Junito Arce M.B.B.S. [address] [place] [phone] 02/26/2024 3:30 PM CDT Appointment Department of Obstetrics and Gynecology in [place], [place] [address] [place] [phone] Shraddha Mccann D.O. [address] [place] [phone] Discharge Disposition: Home or Self Care 02/26/2024 4:00 PM CDT Routine Department of Obstetrics and Gynecology in [place], [place] [address] [place] [phone] Mayank Morgan M.B.B.S. 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 [address] [place] [phone] PCP - General 08/30/20 documented as of this encounter
--- OUTSIDE RECORDS SUMMARY | 2024-01-14 10:35 | XMS_ITS | Encounter Summary ---
Author Name Unknown Organization [facility] Address [address] [place] [address] Care Team Providers Care Loan Services Professional Name Role Phone Erin Calvo APRN C.N.P., D.N.P. 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 [address] [place] [address] [facility] Referral ID Status Reason Start Date Expiration Date V isits Requested Visits Authorized [id number] Authorized 01/13/2024 07/14/2025 1 1 * Outpatient (Routine) - Authorized Specialty Diagnoses / Procedures Referred By Contnakul t Referred To Contact Obstetrics and Gynecology Shraddha Mccann D.O. [address] [place] [address] [facility] Referral ID Status Reason Start Date Expiration Date V isits Requested Visits Authorized [id number] Authorized 01/13/2024 07/14/2025 1 1 Encounter Details Date Type Department Care Team (Late st Contact Info) Description 01/13/2024 Orders Only Department of Obstetrics and Gynecology in [place], [place] [address] [place] [phone] Rayne Wheatley R.N. 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 Never 04/14/2022 Do you belong to any clubs o r organizations such as congregation groups, unions, fraternal or athletic groups, or [...] Answer Date Recorded PHQ-2 Score 0 12/15/2023 [facility] of Occupat ional Health - Occupational Stress [...] your living situation today? I have a [facility] place to live 12/09/2023 Education Answer [...] Appointment Department of Obstetrics and Gynecology in [place], [place] [address] [place] [phone] Shraddha Mccann D.O. [address] [place] [phone] Discharge Disposition: Home or Self Care 01/30/2024 8:30 AM CDT Routine Department of Obstetrics and Gynecology in [place], [place] [address] [place] [phone] Mayank Morgan M.B.B.S. [address] [place] [phone] 02/26/2024 1:20 PM CDT Appointment Department of Cardiovascular Diseases in [place], [place] [address] [place] [phone] Shraddha Mccann D.O. [address] [place] [phone] Discharge Disposition: Home or Self Care 02/26/2024 2:30 PM CDT Comprehensive Visit Division of Pediatric Cardiology in [place], [place] [address] [place] [phone] Junito Arce M.B.B.S. [address] [place] [phone] 02/26/2024 3:30 PM CDT Appointment Department of Obstetrics and Gynecology in [place], [place] [address] [place] [phone] Shraddha Mccann D.O. [address] [place] [phone] Discharge Disposition: Home or Self Care 02/26/2024 4:00 PM CDT Routine Department of Obstetrics and Gynecology in [place], [place] [address] [place] [phone] Mayank Morgan M.B.B.S. 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) Expected: 02/24/2024, Expires: 04/13/2025 Echo Echocardiography Routine Primigravida Advanced Maternal Age Affecting Management (HCC) Expected: 02/24/2024, Expires: 04/13/2025 Scheduled Referrals Name Type Priority Associated Diagnoses Order Schedule Obstetrics and Gynecology office visit (clinic) Outpatient Referral Routine Expected: 02/24/2024, Expires: 04/13/2025 Pediatric Cardiology - clinic consult (clinic) Outpatient Referral Routine Primigravida Advanced Maternal Age Affecting Management (HCC) Expected: 02/24/2024, Expires: 04/13/2025 documented as of this encounter Visit Diagnoses Diagnosis Primigravida Advanced Maternal Age Affecting Management (HCC)- Primary documented in this encounter Additional Health Concerns Assessment Noted Time PHQ-9 Depression Total Score: 0 12/15/19 24 3:08 PM CDT documented as of this encounter Care Teams Loan Services Professional Relationship Specialty Start Date End Date Erin Calvo APRN, C.N.P., D.N.P. [address] [place] [phone] PCP - General 08/30/20 documented as of this encounter
--- OUTSIDE RECORDS SUMMARY | 2024-01-14 10:36 | XMS_ITS | Encounter Summary ---
Author Name Unknown Organization [facility] Address [address] [place] [address] Care Team Providers Care Apartment Maintenance Name Role Phone Erin Calvo APRN, C.N.P., D.N.P. Primary Care Provider Reason for Visit * Reason Onset Date Comments Pre-visit Intake 12/15/2023 Encounter Details Date Type Department Care Team (Latest Contact Info) Description 12/15/2023 3:30 PM CDT Clinical Communication Virtual Review in [place], [place] 200 [place] [address] Pre-visit Intake Social History Tobacco Use Types Packs/Day Years Used Date Smoking Tobacco: Never Smokeless Tobacco: Never Tobacco Cessation:Counseling Given: Not Answered Alcohol Use Standard Drinks/Week Comments Not Currently 0 (1 standard drink = 0.6 oz pur e alcohol) i only drink once in a while [facility] Utilities Answer Date Recorded In the past 12 months has [employer], gas, oil, or water [employer] threatened to shut off services in your [...] often do you attend chur ch or oriental orthodox services? Never 04/14/2022 Do you belong to any clubs o r organizations such as confucianist groups, unions, fraternal or athletic groups, or [...] Answer Date Recorded PHQ-2 Score 0 12/15/2023 [facility] of Occupat ional Health - Occupational Stress [...] your living situation today? I have a [facility] place to live 12/09/2023 Education Answer Date [...] Appointment Department of Obstetrics and Gynecology in [place], [place] 200 [place] [phone] Shraddha Mccann D.O. [address] [place] [phone] Discharge Disposition: Home or Self Care 01/30/2024 8:30 AM CDT Routine Department of Obstetrics and Gynecology in [place], [place] [address] [place] [phone] Mayank Morgan M.B.B.S. [address] [place] [phone] 02/26/2024 1:20 PM CDT Appointment Department of Cardiovascular Diseases in [place], [place] [address] [place] [phone] Shraddha Mccann D.OCarlos [address] [place] [phone] Discharge Disposition: Home or Self Care 02/26/2024 2:30 PM CDT Comprehensive Visit Division of Pediatric Cardiology in [place], [place] [address] [place] [phone] Junito Arce M.B.B.S. [address] [place] [phone] 02/26/2024 3:30 PM CDT Appointment Department of Obstetrics and Gynecology in [place], [place] [address] [place] [phone] Shraddha Mccann D.OCarlos [address] [place] [phone] Discharge Disposition: Home or Self Care 02/26/2024 4:00 PM CDT Routine Department of Obstetrics and Gynecology in [place], [place] [address] [place] [phone] Mayank Morgan M.B.B.S. [address] [place] [phone] documented as of this encounter Visit Diagnoses Not on filedocumented in this encounter Additional Health Concerns Assessment Noted Time PHQ-9 Depression Total Score: 0 12/15/19 24 3:08 PM CDT documented as of this encounter Care Teams Apartment Maintenance Relationship Specialty Start Date End Date Erin Calvo APRN, C.N.P., D.N.P. [address] [place] [phone] PCP - General 08/30/20 documented as of this encounter
--- OUTSIDE RECORDS SUMMARY | 2024-01-14 10:36 | XMS_ITS | Encounter Summary ---
Author Name Unknown Organization [facility] Address [address] [place] [address] Care Team Providers Care Hotel Receptionist Name Role Phone Erin Calvo APRN C.N.PCarlos, D.N.P. Primary Care Provider Reason for Referral * Specialty Diagnoses / Procedures Referred By Contac t Referred To Contact Shraddha Keller D.O. 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 [address] [place] [address] [facility] Referral ID Status Reason Start Date Expiration Date Visits Re quested Visits Authorized [id number] Closed 12/16/2023 06/16/2025 1 1 Reason for Visit * Appointment Request (Routine) - Authorized Specialty Diagnoses / Procedures Referred By Kassie cooley Referred To Contact Maternal and Medicine Diagnoses Morbid Obesity (HCC) Primigravida Advanced Maternal Age Affecting Management (HCC) Examination Test With Positive Result (HCC) Rylie Anderson M.D. [address] [place] [phone] Referral ID Status Reason Start Date Expiration Date V isits Requested Visits Authorized [id number] Authorized 10/23/2023 10/22/2024 2 2 Encounter Details Date Type Department Care Team (Latest Contact Info) Description 12/16/2023 3:00 PM CDT Routine Department of Obstetrics and Gynecology in [place], [place] [address] [place] [phone] Shraddha Keller D.O. 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 Never 04/14/2022 Do you belong to any clubs o r organizations such as temple groups, unions, fraternal or athletic groups, or [...] Answer Date Recorded PHQ-2 Score 0 12/15/2023 [facility] of Occupat ional Health - Occupational Stress [...] your living situation today? I have a [facility] place to live 12/09/2023 Education Answer [...] Sign Reading Time Taken Comments Blood Pressure 99/67 12/16/2023 2:39 PM CDT Pulse 70 12/16/2023 2:39 PM CDT Temperature - - Respiratory Rate - - Oxygen Saturation 100% 12/16/2023 2:39 PM CDT Inhaled Oxygen Concentration - - Weight 102 kg (224 lb 13.9 oz) 12/16/2023 2:39 P M CDT Height - - Body Mass Index 35.97 08/04/2019 10:39 AM CDT documented in this encounter Consult Notes * Shraddha Keller D.O. - 12/16/2023 3:00 PM CDT Maternal Medicine Consultation MATTIE Jade is a 37 /o at 20w3d (dated by FET) as a new patient consultation from Dr. Rylie Anderson in [place] for IVF , elevated BMI (BMI 36) She is overall feeling well. Denies regular CTX, LOF, vaginal bleeding. OB History Para Term AB Living 1 SAB IAB Ectopic Molar Multiple Live Births # Outcome Date GA Lbr David/2nd Weight Sex Delivery Anes PTL Lv 1 Current Her antepartum course is complicated by: 1) IVF (Patient Oocyte @36years, Partner Sperm) - transferred 1 euploid embryo, 1st transfer 2) BMI 36 3) Uterine fibroids - 12/15: Subserosal fibroid seen on anterior fundal portion of uterus, measuring 5.44 x 3.79 x 5.25 cm. Fibroid is located adjacent to placenta and boarders are hard to define due to maternal body habitus. Genetics: had PIGT completed (normal), interested in NIPT- ordered today OBJECTIVE VITAL SIGNS PHYSICAL EXAMINATION Gen: NAD, well appearing Chest: non-labored respirations Abdomen: gravid DIAGNOSTICS Advanced Anatomy US 12/15 1. Guido . 2. No abnormalities identified. However, the [...] hard to define due to maternal body habitus.Consider growth assessments during third trimester. Blood Type: Antibody Screen: Lab Results Component Value Date HGB 14.4 12/22/2022 HCT 42.2 12/22/2022 PLT 262 12/22/2022 ASSESSMENT / PLAN Kalie is a 37 /o at 20w3d (dated by FET) as a new patient consultation from Dr. Rylie Anderson in [place] for IVF , elevated BMI (BMI 36). Today, we reviewed the results of her ultrasound- overall no sonographic abnormalities, however completion of anatomy limited due to position. Will plan for completion of anatomy survey in 1-4 weeks, with echocardiogram. In Vitro Fertilization Although most of these pregnancies are uncomplicated, IVF is associated with adverse outcomes primarily caused by the increased risks of prematurity and low birthweight. These rates are often compounded by the higher rates of twinning, but a meta-analysis of guido pregnancies demonstrated that IVF is associated with higher odds of delivery ([facility] Consult Series #60). IVF procedure alone does not appear to lead to higher prevalence of chromosomal anomalies when compared to spontaneous pregnancies, however several factors may play a role in the increased risk, including advanced maternal age and polycystic ovarian syndrome. Regardless of preimplantation genetic testing, we discussed options for genetic testing, including diagnostic testing via amniocentesis. Discussed these procedures. She is interested in proceeding with cell free DNA testing today,which was ordered after genetics consultation. Recommend low dose aspirin for patients with pregnancies achieved with IVF for preeclampsia prophylaxis, due to additional risk factors. She is currently taking this. [place]-analyses demonstrate associations between IVF with or without ICSI and congenital malformations, although it remains unclear if this association is because of infertility, factors associated with procedure or both. Underwent detailed anatomy survey today- still needs completion of some views. In addition, a higher rate of total congenital heart disease (CHD) with IVF with or without ICSI is noted. Due to this, we recommend echocardiogram at 22-24 weeks gestation for pregnancies achieved with IVF and ICSI. This was ordered today. Several implantation disorders are more common with IVF, including higher risk abnormal placental shape, placenta previa (OR 2.72; 95% CI, 2.04-3.04 in guido pregnancies), placenta accreta and marginal or velamentous cord insertion. Careful attention to the placental location, placental shape and cord insertion to rule out placental abnormalities (ie previa, PAS), including vasa previa. Discussed increased risk of small for gestational age (SGA) infants is documented for guido pregnancies achieved with IVF. An assessment of growth in the third trimester, however serial growth ultrasounds are not recommended for the sole indication of IVF. Pregnancies achieved with IVF have a 2-to3- fold increased risk of stillbirth even after controlling for maternal age, parity and multifetal gestations ([facility] consult series #60). Given the increased risk of stillbirth, we suggest weekly surveillance beginning by 36 0/7 weeks of gestation for pregnancies achieved with IVF. Obesity in We discussed the risks of obesity which include the following: Maternal: increased risk for gestational diabetes, pre-eclampsia, section, and infectious morbidity. May be more difficult to administer epidural/spinal, and higher risk for complications ofgeneral anesthesia. Also at increased risk for hemorrhage and surgical complications. : increased risks of congenital anomalies, miscarriage, still . Recommend serial growth ultrasounds and testing for chronic HTN, as above. Seen and evaluated with Dr. Morgan. All questions answered to the best of my ability. Summary of Recommendations: A) Plan to obtain NIPT testing- this was ordered/scheduled today B) Continue daily ASA 81 mg C) Close observation of blood pressure due to increased risk of pre-eclampsia. - Obtain baseline pre-eclampsia labs with proteinuria assessment today D) Obtain echocardiogram at 22-24 weeks gestation- ordered today - plan for completion of anatomy survey at that time E) Obtain third trimester growth ultrasound at 32 weeks gestation F) Initiate weekly testing with NST or BPP starting at 36 weeks gestation Shraddha Keller D.O. PGY5- Maternal Medicine documented in this encounter Plan of Treatment Upcoming Encounters Date Type Department Care Team (Latest Contact Info) Description 01/30/2024 7:30 AM CDT Appointment Department of Obstetrics and Gynecology in [place], [place] [address] [place] [phone] Shraddha Keller D.O. [address] [place] [address] Discharge Disposition: Home or Self Care 01/30/2024 8:30 AM CDT Routine Department of Obstetrics and Gynecology in [place], [place] [address] [place] [phone] Mayank Morgan M.B.B.S. [address] [place] [phone] 02/26/2024 1:20 PM CDT Appointment Department of Cardiovascular Diseases in [place], [place] [address] [place] [phone] Shraddha Keller D.OCarlos [address] [place] [phone] Discharge Disposition: Home or Self Care 02/26/2024 2:30 PM CDT Comprehensive Visit Division of Pediatric Cardiology in [place], [place] [address] [place] [phone] Junito Arce M.B.B.S. [address] [place] [phone] 02/26/2024 3:30 PM CDT Appointment Department of Obstetrics and Gynecology in [place], [place] [address] [place] [phone] Shraddha Keller D.OCarlos [address] [place] [phone] Discharge Disposition: Home or Self Care 02/26/2024 4:00 PM CDT Routine Department of Obstetrics and Gynecology in [place], [place] [address] [place] [phone] Mayank Morgan M.B.B.S. [address] [place] [phone] Scheduled Referrals Name Type Priority Associated Diagnoses Order Schedule Pediatric Cardiology - clinic consult (clinic) Outpatient Referral Routine Primigravida Advanced Maternal Age Affecting Management (HCC) Expected: 01/06/2024 (Approximate), Expires: 03/17/2025 Obstetrics and Gynecology - [facility] education visit (clinic) Outpatient Referral Routine Primigravida Advanced Maternal Age Affecting Management (HCC) Expected: 01/06/2024 (Approximate), Expires: 03/17/2025 documented as of this encounter Results * ECHO 2D WITH COLOR AND DOPPLER (01/07/2024 2:29 PM CDT) Ejection Fraction [facility] Anatomical Region Laterality Modality Other 01/07/2024 1:25 [...] age 23 weeks , 4 days. 3. Guido . 4. lie: vertex. 5. echocardiogram reveals [...] Gestational age 23 weeks , 4days. 3. Guido . 4. lie: vertex. 5. echocardiogram reveals [...] * US OB Follow-up and or Growth Guido (01/07/2024 11:04 AM CDT) Anatomical Region Laterality Modality Body, Ultrasound OB RST LOS, Ultrasound ARZ LOS N/A Ultrasound Narrative 01/07/2024 12:15 PM CDT KALIE BERMUDEZ OB Exam, 01/07/2024 EXAM INFORMATION Patient Name: ??KALIE BERMUDEZ : ??1985 Age: ??38 yrs Sex: ??Female Ref Phys: ??SHRADDHA KELLER Exam Date: 01/07/2024 Procedure: US OB FOLLOW-UP AND OR GROWTH GUIDO Exam Site: [facility] OB #5 Plurality: 1 OBHx: [G:(1)] [...] Aortic arch Preliminary Read by Mayra Hare R.Marley.M.SCarlos on 01/07/2024 11:03:57 AM. Harvest Field Ticketer: ??Mayra Hare R.D.M.S. Thank You For This Referral Procedure Note Mayank Morgan M.B.B.S. - 01/07/2024 KALIE BERMUDEZ Exam, 01/07/2024 EXAM INFORMATION Patient Name: KALIE BERMUDEZ : 1985 Age: 38 yrs Sex: Female Ref Phys: SHRADDHA KELLER Exam Date: 01/07/2024 Procedure: US OB FOLLOW-UP AND OR GROWTH GIUDO Exam Site: [facility] OB #5 Plurality: 1 OBHx: [G:(1)] [...] Mayra Hare R.D.M.S. on 01/07/2024 11:03:57 AM. Harvest Field Ticketer: Mayra Hare R.D.M.S. Thank You For This Referral Shraddha Keller D.O. IMG OB US PROCEDURES documented in this encounter Visit Diagnoses Diagnosis Primigravida Advanced Maternal Age Affecting Management (HCC)- Primary Primigravida Advanced Maternal Age Affecting Management (HCC) Primigravida Advanced Maternal Age Affecting Management (HCC) documented in this encounter Additional Health Concerns Assessment Noted Time PHQ-9 Depression Total Score: 0 12/15/19 24 3:08 PM CDT documented as of this encounter Care Teams Hotel Receptionist Relationship Specialty Start Date End Date Erin Calvo APRN, C.N.P., D.N.P. [address] [place] [phone] PCP - General 08/30/20 documented as of this encounter
--- OUTSIDE RECORDS SUMMARY | 2024-01-14 10:36 | XMS_ITS | Encounter Summary ---
Author Name Unknown Organization [facility] Address [address] [place] [id number] Care Team Providers Care Roll Finisher Name Role Phone Erin Calvo APRN, C.N.P., D.N.P. 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 [address] [place] [phone] [facility] Referral ID Status Reason Start Date Expiration Date Visits Re quested Visits Authorized [id number] Closed 10/29/2023 04/29/2025 1 1 Encounter Details Date Type Department Care Team (Latest Contact Info) Description 12/16/2023 2:00 PM CDT Comprehensive Visit Department of Obstetrics and Gynecology in [place], [place] [address] [place] [phone] Ana M Caro M.D. 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 Never 04/14/2022 Do you belong to any clubs o r organizations such as sikh groups, unions, fraternal or athletic groups, or [...] Date Recorded PHQ-2 Score 0 12/15/2023 [facility] - Occupational Stress Questionnaire Answer Date Recorded [...] your living situation today? I have a [facility] place to live 12/09/2023 Education Answer Date [...] as of this encounter Consult Notes * Kristin Phillips M.S., [facility] - 12/16/2023 2:00 PM CDT Images from the original note were not included. REASON FOR VISIT genetic screening HISTORY OF PRESENT ILLNESS History: Estimated Date of Delivery: 05/01/24 EGA: 20w3d Kalie was referred by Ana M Caro M.D. for genetic counseling to discuss genetic screening options. Kalie is accompanied by her partner, Michael. This was conceived with IVF, at [facility]. Kalie underwent expanded carrier screening before through [facility], including 176 conditions, and she and her partner were not found to be carriers for any of the same disorders. 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 Full report will be scanned into wizboo tab. She also underwent PGT-A, and they transferred a euploid embryo. Ultrasound today: 1. Ramsay . 2. No abnormalities identified. However, the [...] body habitus.Consider growth assessments during third trimester. FAMILY HISTORY A focused family history was obtained from the patient today. Kalie denies a family history of intellectual disability, defects, genetic conditions, multiple miscarriages or stillbirths on her side and her partner's side of the family. There is no reported consanguinity. ASSESSMENT/PLAN #1 37 y.o.-year-old, female referred at approximately 20w3d #2 genetic screening It was a pleasure to meet Kalie today to discuss early genetic screening options. Screening tests are designed to provide an individualized risk but are not definitive diagnostic tests. ANEUPLOIDY SCREENING Aneuploidy screening is used to assist in identifying pregnancies at increased risk for chromosome aneuploidy including, but not limited to, Down syndrome, trisomy 18, trisomy 13, Tan syndrome [id number] deletion syndrome. The underlying etiologies and clinical features of these conditions werereviewed. cell-free DNA testing is a aneuploidy screening option which detects cell-free DNA in a maternal blood sample after 10 weeks gestation. Cell- free DNA is analyzed for over-representation of material from chromosomes 13, 18, and 21. If there is an over-representation of material from one of these chromosomes, a trisomy is suspected. The X and Y chromosomes are also analyzed to determine sex. For sex, trisomy 18, and trisomy 21, the detection rate is 99%. The detection rate for trisomy 13 is 92%. The false positive rate for all conditions is less than 1%. We talked about the difference between PGT-A and NIPT. Cell free DNA screening also assesses the risk for sex chromosome anomalies including Tan syndrome, Klinefelter syndrome, Triple X syndrome and Wesly's (XYY) syndrome. These conditions are highly variable and may or may not significantly alter management. Detection rates are approximately 90- 93% for sex chromosome aneuploidy. Cell free DNA screening can detect some cases of triploidy. In 3-5% of cases, the results are uninformative, and a second sample may be requested or other methods of aneuploidy testing will be recommended. These complications are seen more commonly in women with an elevated BMI (>30). The limitations of genetic screening include that it does not screen for all possible genetic or congenital conditions, a negative result does not ensure an unaffected , and that screening can have unexpected or unintentional findings. A negative result indicates the is a low risk for aneuploidy and a positive result indicates a significantly increased risk. False positives and false negatives are possible. It is recommended that all positive results are followed up by diagnostic testing such as CVS or amniocentesis. Diagnostic tests such as CVS and amniocentesis can provide definitive results about the risk of aneuploidy or other genetic conditions. CVS is typically conducted between 10 and 13 weeks' gestation, has a 1/500 risk for miscarriage, and has a greater than 98% detection rate for aneuploidy. Amniocentesis is performed after 14 weeks' gestation, has a 1/900 risk for miscarriage associated with the procedure, and has an aneuploidy detection rate greater than 99%. Further screening, a level II ultrasound at 18 to 20 weeks' gestation, is also an option to the patient. Approximately 50% of fetuses with Down syndrome and greater than 90% of fetuses with trisomy 13 or 18 display some abnormality that is detectable by a detailed ultrasound at this timeframe in . Greater than 95% of fetuses with a neural tube defect with be detected at this ultrasound. Risk assessment: The risk of chromosome abnormalities in a increases with maternal age. Kalie will be 38 y.o. at the time of delivery, her chance of having a baby with Down syndrome at delivery is 1 in 145. The risk for any chromosome abnormality at delivery is 1 in 125. The actual risk is significantly less, given reportedly normal PGT-A results. CARRIER SCREENING We briefly reviewed the carrier screening which was previously completed. I encouraged Klaie Rodriguez to share their results with their family members. PLAN: Cell free DNA screening was pursued via the Panorama Screen Kalie will complete a blood draw today Kalie verbalized understanding of the above information and is encouraged to contact me with anyadditional questions. Patient Education: The impression and plans were explained in detail. There were no apparent barriers to learning or understanding. Questions were answered. 100% of 10 minutes spent on counseling and coordination of care. Kristin Phillips M.S., NITO documented in this encounter Plan of Treatment Upcoming Encounters Date Type Department Care Team (Latest Contact Info) Description 01/30/2024 7:30 AM CDT Appointment Department of Obstetrics and Gynecology in [place], [place] [address] [place] [phone] Shraddha Mccann D.O. [address] [place] [phone] Discharge Disposition: Home or Self Care 01/30/2024 8:30 AM CDT Routine Department of Obstetrics and Gynecology in [place], [place] [address] [place] [phone] Mayank Morgan M.B.B.S. [address] [place] [phone] 02/26/2024 1:20 PM CDT Appointment Department of Cardiovascular Diseases in [place], [place] [address] [place] [phone] Shraddha Mccann D.O. [address] [place] [phone] Discharge Disposition: Home or Self Care 02/26/2024 2:30 PM CDT Comprehensive Visit Division of Pediatric Cardiology in [place], [place] [address] [place] [phone] Junito Arce M.B.B.S. [address] [place] [phone] 02/26/2024 3:30 PM CDT Appointment Department of Obstetrics and Gynecology in [place], [place] [address] [place] [phone] Shraddha Mccann D.OCarlos [address] [place] [phone] Discharge Disposition: Home or Self Care 02/26/2024 4:00 PM CDT Routine Department of Obstetrics and Gynecology in [place], [place] [address] [place] [phone] Mayank Morgan M.B.B.S. [address] [place] [phone] documented as of this encounter Results * Panorama Screen - Sent Out Lab (12/16/2023 3:39 PM CDT) Panorama Screen SEE COMMENT 12/23/2023 9:06 AM CDT [facility] Comment: For final report, select Lab-Send Out Lab Results hyperlink below. Blood (Blood, Venous) 12/16/2023 3:39 PM CDT 12/17/2023 10:23 AM CDT Narrative [employer] - 12/23/2023 9:06 AM CDT Specimen Information: Specimen ID: [id number] Specimen Type: Blood Specimen Collection Start Date: 12/16/2023 ??3:39 PM Specimen Received Date: 12/17/2023 10:23 AM Specimen ID: [id number] Specimen Type: Blood Specimen Collection Start Date: 12/16/2023 ??3:39 PM Specimen Received Date: 12/17/2023 10:23 AM Zulema Avila M.D., Ph.D. LAB GENETIC TEST ING [employer] [address] [place] [phone], [facility] [employer] [address] [place] [address] documented in this encounter Visit Diagnoses Diagnosis Genetic Carrier Of Other Disease- Primary Primigravida Advanced Maternal Age Affecting Management (HCC) Primigravida Advanced Maternal Age Affecting Management (HCC) documented in this encounter Additional Health Concerns Assessment Noted Time PHQ-9 Depression Total Score: 0 12/15/19 24 3:08 PM CDT documented as of this encounter Care Teams Roll Finisher Relationship Specialty Start Date End Date Erin Calvo APRN, C.N.P., D.N.P. [address] [place] [phone] PCP - General 08/30/20 documented as of this encounter
--- OUTSIDE RECORDS SUMMARY | 2024-01-14 10:36 | XMS_ITS | Encounter Summary ---
Author Name Unknown Organization [facility] Address [address] [place] [address] Care Team Providers Care Cell Preparer Name Role Phone Erin Calvo APRN, C.N.P., D.N.P. Primary Care Provider Encounter Details Date Type Department Care Team (Late st Contact Info) Description 12/16/2023 4:00 PM CDT Lab Department of Laboratory Medicine and Pathology, [facility] in [place], [place] [address] [place] [phone] Zulema Avila M.D., Ph.D. 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 Never 04/14/2022 Do you belong to any clubs o r organizations such as episcopalian groups, unions, fraternal or athletic groups, or [...] Answer Date Recorded PHQ-2 Score 0 12/15/2023 [facility] of Occupat ional Health - Occupational Stress [...] your living situation today? I have a [facility] place to live 12/09/2023 Education Answer [...] Appointment Department of Obstetrics and Gynecology in [place], [place] [address] [place] [address] Shraddha Mccann D.O. [address] [place] [phone] Discharge Disposition: Home or Self Care 01/30/2024 8:30 AM CDT Routine Department of Obstetrics and Gynecology in [place], [place] [address] [place] [phone] Mayank Morgan M.B.B.SCarlos [address] [place] [phone] 02/26/2024 1:20 PM CDT Appointment Department of Cardiovascular Diseases in [place], [place] [address] [place] [phone] Shraddha Mccann D.O. [address] [place] [phone] Discharge Disposition: Home or Self Care 02/26/2024 2:30 PM CDT Comprehensive Visit Division of Pediatric Cardiology in [place], [place] [address] [place] [phone] Junito Arce M.B.B.SCarlos [address] [place] [phone] 02/26/2024 3:30 PM CDT Appointment Department of Obstetrics and Gynecology in [address] [phone] Shraddha Mccann D.O. [address] [place] [phone] Discharge Disposition: Home or Self Care 02/26/2024 4:00 PM CDT Routine Department of Obstetrics and Gynecology in [address] [phone] Mayank Morgan M.B.B.S. 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 Blood (Blood, Venous) 12/16/2023 3:39 PM CDT 12/17/2023 10:23 AM CDT [facility] - 12/23/2023 9:06 AM CDT Specimen Information: Specimen ID: [id number] Specimen Type: Blood Specimen Collection Start Date: 12/16/2023 ??3:39 PM Specimen Received Date: 12/17/2023 10:23 AM Specimen ID: [id number] Specimen Type: Blood Specimen Collection Start Date: 12/16/2023 ??3:39 PM Specimen Received Date: 12/17/2023 10:23 AM Zulema Avila M.D., Ph.D. LAB GENETIC TEST [facility] [employer] [address] [phone], [facility] 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 [address] [place] [phone] PCP - General 08/30/20 documented as of this encounter
--- OUTSIDE RECORDS SUMMARY | 2024-01-14 10:36 | XMS_ITS | Encounter Summary ---
Author Name Unknown Organization [facility] Address [address] [place] [address] Care Team Providers Care Compensation Manager Name Role Phone Erin Calvo APRN, C.N.P., D.N.P. Primary Care Provider Reason for Visit * Reason Onset Date Comments MFM Triage 10/24/2023 Encounter Details Date Type Department Care Team (Late st Contact Info) Description 10/24/2023 Clinical Communication Department of Obstetrics and Gynecology in [place], [place] [address] [place] [address] Prescheduling, Provider MFM Triage Social History Tobacco Use Types Packs/Day Years Used Date Smoking Tobacco: Never Smokeless Tobacco: Never Alcohol Use Standard Drinks/Week Comments No 0 (1 standard drink = 0.6 oz pur e alcohol) Humiliation, Afraid, Rape, and Kick questionnair e [...] often do you attend chur ch or denominational services? Never 04/14/2022 Do you belong to any clubs o r organizations such as confucianism groups, unions, fraternal or athletic groups, or [...] PHQ-2 Answer Date Recorded PHQ-2 Score 0 12/17/2019 [facility] of Occupat ional Health - [...] exercise (like a brisk walk)? 3 days 04/14/2022 On average, how many minutes do you engage in exercise at this level? 20 min 04/14/2022 Hunger Vital Sign Answer Date Recorded Within the past 12 months, y ou worried that your food would run out before you got the money to buy more. Never true 04/14/20 22 Within the past 12 months, t he food you bought just didn't last and you didn't have money to get more. Never true 04/14/2022 PRAPARE - Transportation Answer Date Re corded In the past 12 months, has l ack of transportation kept you from medical appointments or from getting medications? No 04/05 In the past 12 months, has l ack of transportation kept you from meetings, work, or from getting things needed for daily living? No 04/14/2022 Housing Stability Vital Sign Answer Mitchell e Recorded In the last 12 months, was t here a time when you were not able to pay the mortgage or rent on time? No 04/14/2022 In the last 12 months, how many places have you lived? 1 04/14/2022 In the last 12 months, was t here a time when you did not have a steady place to sleep or slept in a longterm (including now)? No 04/14/2022 Nutrition Answer Date Recorded Nutrition: EVOO Fat Source Yes 04/14 On average, how many serving s of fruits and vegetables do you eat per day (serving size is equal to 1 cup or approximately the size of a tennis ball)? 2-3 04/14/2022 Dental Answer Date Recorded Dental: Regular Dentist No 04/14/20 Employment Answer Date Recorded Employment status Employed and actively working without restrictions 04/14/2022 Education Answer Date Recorded What is the highest level of school you have completed or the highest degree you have received? Associate degree: academic program 02/03/2020 Sex and Gender Information Value Date Recorded Sex Assigned at Female 04/14/2022 7:49 PM CDT Gender Identity Female 07/19/2017 10:12 AM CDT Sexual Orientation Straight 07/19/2017 10 :12 AM CDT documented as of this encounter Plan of Treatment Upcoming Encounters Date Type Department Care Team (Latest Contact Info) Description 01/30/2024 7:30 AM CDT Appointment Department of Obstetrics and Gynecology in [place], [place] 200 [place] [phone] Shraddha Mccann D.O. [address] [place] [phone] Discharge Disposition: Home or Self Care 01/30/2024 8:30 AM CDT Routine Department of Obstetrics and Gynecology in [place], [place] [address] [place] [phone] Mayank Morgan M.B.B.S. [address] [place] [phone] 02/26/2024 1:20 PM CDT Appointment Department of Cardiovascular Diseases in [place], [place] [address] [place] [phone] Shraddha Mccann D.OCarlos [address] [place] [phone] Discharge Disposition: Home or Self Care 02/26/2024 2:30 PM CDT Comprehensive Visit Division of Pediatric Cardiology in [address] [phone] Junito Arce M.B.B.S. [address] [place] [phone] 02/26/2024 3:30 PM CDT Appointment Department of Obstetrics and Gynecology in [place], [place] [address] [place] [phone] Shraddha Mccann D.O. [address] [place] [phone] Discharge Disposition: Home or Self Care 02/26/2024 4:00 PM CDT Routine Department of Obstetrics and Gynecology in [address] [phone] Mayank Morgan M.B.B.S. [address] [place] [phone] documented as of this encounter Visit Diagnoses Not on filedocumented in this encounter Additional Health Concerns Assessment Noted Time PHQ-9 Depression Total Score: 7 09/15/20 19 9:36 AM STAFF RN documented as of this encounter Care Teams Compensation Manager Relationship Specialty Start Date End Date Erin Calvo APRN, C.N.P., D.N.P. [address] [place] [phone] PCP - General 08/30/20 documented as of this encounter
--- OUTSIDE RECORDS SUMMARY | 2024-01-14 10:36 | XMS_ITS | Encounter Summary ---
Author Name Unknown Organization [facility] Address [address] [place] [address] Care Team Providers Care Aircraft Instrument Tester Name Role Phone Erin Calvo APRN, C.N.P., D.N.P. 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 200 [place] [address] [facility] Referral ID Status Reason Start Date Expiration Date Visits Re quested Visits Authorized [id number] Closed 10/29/2023 04/29/2025 1 1 Scheduling Instructions Obesity, ivf , AMA did do genetic testing of embryo STRIAL TECHNICIAN Encounter Details Date Type Department Care Team (Late st Contact Info) Description 10/29/2023 9:30 AM INDUSTRIAL TECHNICIAN Nurse Only Department of Obstetrics and Gynecology in [place], [place] [address] [place] [phone] Lashae Pitts, RCarlosNCarlos [address] [place] [phone] Social History Tobacco Use Types Packs/Day Years [...] week 04/14/2022 How often do you attend [facility] or nondenominational services? Never 04/14/2022 Do you belong to any clubs o r organizations such as congregational groups, unions, fraternal or athletic groups, or [...] Answer Date Recorded PHQ-2 Score 0 12/17/2019 [facility] of Occupat ional Health - Occupational Stress [...] money to buy more. Never true 04/14/20 Within the past 12 months, t he [...] place to sleep or slept in a skilled nursing (including now)? No 04/14/2022 Nutrition Answer Date [...] AM CDT documented as of this encounter Progress Notes * Lashae Pitts R.N. - 10/29/2023 9:30 AM CST A chart review was completed with Kalie Bermudez. She is being referred by Dr. Rylie Anderson in [place] for AMA, obesity, IVF preg EDC using transfer date. Using the MFM Indication to be Seen guideline, the timeframe we would like her to be seen is between 12/09 and 12/18. MFM pre-visit orders: Additional appointments were ordered as follows: genetics. These recommendations were discussed with the patient. Kalie Bermudez was informed that the [facility] team will be reaching out to schedule her appointments in the near future. She verbalized understanding and denied any further questions. Lashae Pitts R.N. STRIAL TECHNICIAN documented in this encounter Miscellaneous Notes * Addendum Note - Lashae Pitts R.N. - 10/29/2023 9:30 AM CSTAddended by: LASHAE PITTS on: 10/29/2023 03:07 PM Modules accepted: Orders STRIAL TECHNICIAN documented in this encounter Plan of Treatment Upcoming Encounters Date Type Department Care Team (Latest Contact Info) Description 01/30/2024 7:30 AM CDT Appointment Department of Obstetrics and Gynecology in [place], [place] 200 [place] [phone] Shraddha Mccann D.O. [address] [place] [address] Discharge Disposition: Home or Self Care 01/30/2024 8:30 AM CDT Routine Department of Obstetrics and Gynecology in [place], [place] [address] [place] [phone] Mayank Morgan M.B.B.S. [address] [place] [phone] 02/26/2024 1:20 PM CDT Appointment Department of Cardiovascular Diseases in [place], [place] [address] [place] [phone] Shraddha Mccann D.OCarlos [address] [place] [phone] Discharge Disposition: Home or Self Care 02/26/2024 2:30 PM CDT Comprehensive Visit Division of Pediatric Cardiology in [place], [place] [address] [place] [phone] Junito Arce M.B.B.S. [address] [place] [phone] 02/26/2024 3:30 PM CDT Appointment Department of Obstetrics and Gynecology in [place], [place] [address] [place] [phone] Shraddha Mccann D.OCarlos [address] [place] [phone] Discharge Disposition: Home or Self Care 02/26/2024 4:00 PM CDT Routine Department of Obstetrics and Gynecology in [place], [place] [address] [place] [phone] Mayank Morgan M.B.B.S. 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) Expected: 12/10/2023, Expires: 01/27/2025 documented as of this encounter Results * US OB Advanced Level Fung (12/16/2023 2:36 PM CDT) Anatomical Region Laterality Modality Body, Ultrasound OB RST LOS, Ultrasound ARZ LOS N/A Ultrasound Narrative 12/16/2023 3:03 PM CDT KALIE BERMUDEZ OB Exam, 12/16/2023 EXAM INFORMATION Patient Name: ??KALIE BERMUDEZ : ??1985 Age: ??37 yrs Sex: ??Female Ref Phys: ??CHRYSTAL SANDRA ARAYA Exam Date: 12/16/2023 Procedure: US OB ADVANCED LEVEL FUNG Exam Site: [facility] OB #[id number] Plurality: 1 INDICATIONS FOR SONOGRAPHY [...] by Tamiko Mancini on 12/16/2023 2:27:18 PM. Linen Supply Load Builder: ??Tamiko Mancini Thank You For This Referral Procedure Note Eliseo Desouza M.D. - 12/16/2023 KALIE BERMUDEZ OB Exam, 12/16/2023 EXAM INFORMATION Patient Name: KALIE BERMUDEZ RAINA : 1985 Age: 37 yrs Sex: Female Ref Phys: CHRYSTAL ARAYA Exam Date: 12/16/2023 Procedure: US OB ADVANCED LEVEL FUNG Exam Site: [facility] OB #[id number] Plurality: 1 INDICATIONS FOR SONOGRAPHY [...] by Tamiko Mancini on 12/16/2023 2:27:18 PM. Linen Supply Load Builder: Tamiko Mancini Thank You For This Referral Chrystal Araya M.D. 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 [address] [phone] PCP - General 08/30/20 documented as of this encounter
--- OUTSIDE RECORDS SUMMARY | 2024-01-14 10:36 | XMS_ITS | Encounter Summary ---
Author Name Unknown Organization [facility] Address [address] [place] [phone] Care Team Providers Care Game Programer Name Role Phone Erin Calvo APRN, C.N.P., D.N.P. Primary Care Provider Encounter Details Date Type Department Care Team (Latest Contact Info) Description 12/16/2023 12:33 PM CDT - 12/16/2023 11:59 PM CDT Hospital Encounter Department of Obstetrics and Gynecology in [place], [place] [address] [place] [address] Chrystal Araya M.D. 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 Never 04/14/2022 Do you belong to any clubs o r organizations such as gnosticism groups, unions, fraternal or athletic groups, or [...] Answer Date Recorded PHQ-2 Score 0 12/15/2023 [facility] [place] of Occupat ional Health - Occupational Stress [...] your living situation today? I have a [facility] place to live 12/09/2023 Education Answer [...] Appointment Department of Obstetrics and Gynecology in [place], [place] [address] [place] [phone] Shraddha Mccann D.O. [address] [place] [phone] Discharge Disposition: Home or Self Care 01/30/2024 8:30 AM CDT Routine Department of Obstetrics and Gynecology in [place], [place] [address] [place] [phone] Mayank Morgan M.B.B.S. [address] [place] [phone] 02/26/2024 1:20 PM CDT Appointment Department of Cardiovascular Diseases in [place], [place] [address] [place] [phone] Shraddha Mccann D.O. [address] [place] [phone] Discharge Disposition: Home or Self Care 02/26/2024 2:30 PM CDT Comprehensive Visit Division of Pediatric Cardiology in [place], [place] [address] [place] [phone] Junito Arce M.B.B.S. [address] [place] [phone] 02/26/2024 3:30 PM CDT Appointment Department of Obstetrics and Gynecology in [place], [place] [address] [place] [phone] Shraddha Mccann D.OCarlos [address] [place] [phone] Discharge Disposition: Home or Self Care 02/26/2024 4:00 PM CDT Routine Department of Obstetrics and Gynecology in [place], [place] [address] [place] [phone] Mayank Morgan M.B.B.S. 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 Warp Trucker: ??Tamiko Mancini Thank You For This Referral Procedure Note Eliseo Desouza M.D. - 12/16/2023 KALIE BERMUDEZ OB Exam, 12/16/2023 EXAM INFORMATION Patient Name: KALIE BERMUDEZ : 1985 Age: 37 yrs Sex: Female Ref Phys: CHRYSTAL ARAYA Exam Date: 12/16/2023 Procedure: US OB ADVANCED LEVEL FUNG Exam Site: [facility] OB #126 Plurality: 1 INDICATIONS FOR [...] by Tamiko Mancini on 12/16/2023 2:27:18 PM. 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 [address] [place] [phone] PCP - General 08/30/20 documented as of this encounter
--- OUTSIDE RECORDS SUMMARY | 2024-01-14 10:36 | XMS_ITS | Encounter Summary ---
Author Name Unknown Organization [facility] Address [address] [place] [address] Care Team Providers Care Post Tensioning Ironworker Helper Name Role Phone Erin Calvo APRN, C.N.P., D.N.P. 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 [address] [place] [address] [facility] Referral ID Status Reason Start Date Expiration Date Visits Re quested Visits Authorized [id number] Closed 12/16/2023 12/15/2024 1 1 Encounter Details Date Type Department Care Team (Latest Contact Info) Description 01/07/2024 1:23 PM CDT - 01/07/2024 11:59 PM CDT Hospital Encounter Department of Cardiovascular Diseases in [place], [place] [address] [place] [address] Shraddha Mccann D.O. 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 Never 04/14/2022 Do you belong to [...] Answer Date Recorded PHQ-2 Score 0 12/15/2023 [facility] of Occupat ional Health - Occupational Stress [...] your living situation today? I have a [facility] place to live 12/09/2023 Education Answer [...] Appointment Department of Obstetrics and Gynecology in [place], [place] [address] [place] [phone] Shraddha Mccann D.O. [address] [place] [phone] Discharge Disposition: Home or Self Care 01/30/2024 8:30 AM CDT Routine Department of Obstetrics and Gynecology in [place], [place] [address] [place] [phone] Mayank Morgan M.B.BCarlosS. [address] [place] [phone] 02/26/2024 1:20 PM CDT Appointment Department of Cardiovascular Diseases in [place], [place] [address] [place] [phone] Shraddha Mccann D.O. [address] [place] [phone] Discharge Disposition: Home or Self Care 02/26/2024 2:30 PM CDT Comprehensive Visit Division of Pediatric Cardiology in [place], [place] [address] [place] [phone] Junito Arce M.B.B.S. [address] [place] [phone] 02/26/2024 3:30 PM CDT Appointment Department of Obstetrics and Gynecology in [place], [place] [address] [place] [phone] Shraddha Mccann D.O. [address] [place] [phone] Discharge Disposition: Home or Self Care 02/26/2024 4:00 PM CDT Routine Department of Obstetrics and Gynecology in [place], [place] [address] [place] [phone] Mayank Morgan M.B.B.S. 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 3. Ramsay . 4. lie: vertex. 5. [...] complete report, see the Order-Level Documents. Shraddha A Pone D.O. 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 [address] [place] [address] PCP - General 08/30/20 documented as of this encounter
--- NOTE | 2024-01-14 11:00 | US_ITS ---
Patient: DONNA MONTEMAYOR [facility] Facility:?[facility] Patient ID:?[id number] Site Patient ID:?[id number]. Site :?1985 Study:?US-OB Pelvis OB LMT-01/14/2024 11:38:37 AM Ordering Physician:Ayanna Glasgow Final Report: INDICATION: possible hydrops COMPARISON: 09/24/2023 TECHNIQUE: Real time wade scale imaging of the fetus was performed. FINDINGS: The cervix is closed and measures 3.8 cm. Placenta anterior. Placental edge 12.3 cm from the internal cervical os. Breech position. Renal pelvis measures 2.4 millimeters bilaterally, considered normal. Four-quadrant FROYLAN 23.0 cm. Single deepest pocket 6.8 cm. heart rate 137 beats per minute. IMPRESSION: Amniotic fluid volume is within normal limits. Dictated by Hussein Franco MD @ 01/15/2024 9:32:11 AM Signed by:?Hussein Franco MD @01/15/2024 9:32:11 AM (Electronic Signature)
== END 2024-01-14 10:30 | disposition home or self-care (01) ==
PROVIDERS: PCP Family Medicine; Visit Provider Obstetrics & Gynecology
DX: O36.8390 Maternal care for abnormalities of the fetal heart rate or rhythm, unspecified trimester, not applicable or unspecified (principal)
CPT/HCPCS: 76815

== ENCOUNTER 2024-01-21 12:48 | Outpatient (CLI) | payer OTHER, SELFPAY ==
--- OUTSIDE RECORDS SUMMARY | 2024-01-21 12:50 | XMS_ITS | Encounter Summary ---
Author Name Unknown Organization [facility] Address [address] [place] [address] Care Team Providers Care House Servant Name Role Phone Erin Calvo APRN C.N.P., D.N.P. 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 [address] [place] [address] 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 [address] [place] [address] [facility] Referral ID Status Reason Start Date Expiration Date V isits Requested Visits Authorized [id number] Authorized 01/13/2024 07/14/2025 1 1 * Outpatient (Routine) - Authorized Specialty Diagnoses / Procedures Referred By Contnakul t Referred To Contact Obstetrics and Gynecology Shraddha Mccann D.O. [address] [place] [address] [facility] Referral ID Status Reason Start Date Expiration Date V isits Requested Visits Authorized [id number] Authorized 01/13/2024 07/14/2025 1 1 Encounter Details Date Type Department Care Team (Late st Contact Info) Description 01/13/2024 Orders Only Department of Obstetrics and Gynecology in [place], [place] [address] [place] [phone] Rayne Wheatley R.N. 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 Never 04/14/2022 Do you belong to any clubs o r organizations such as druze groups, unions, fraternal or athletic groups, or [...] Answer Date Recorded PHQ-2 Score 0 12/15/2023 [facility] of Occupat ional Health - Occupational [...] your living situation today? I have a [facility] place to live 12/09/2023 Education [...] Appointment Department of Obstetrics and Gynecology in [place], [place] [address] [place] [phone] Shraddha Mccann D.O. [address] [place] [phone] Discharge Disposition: Home or Self Care 01/30/2024 8:30 AM CDT Routine Department of Obstetrics and Gynecology in [place], [place] [address] [place] [phone] Mayank Morgan M.B.B.S. [address] [place] [phone] 02/26/2024 1:20 PM CDT Appointment Department of Cardiovascular Diseases in [place], [place] [address] [place] [phone] Shraddha Mccann D.O. [address] [place] [phone] Discharge Disposition: Home or Self Care 02/26/2024 2:30 PM CDT Comprehensive Visit Division of Pediatric Cardiology in [place], [place] [address] [place] [phone] Junito Arce M.B.B.S. [address] [place] [phone] 02/26/2024 3:30 PM CDT Appointment Department of Obstetrics and Gynecology in [place], [place] [address] [place] [phone] Shraddha Mccann D.O. [address] [place] [phone] Discharge Disposition: Home or Self Care 02/26/2024 4:00 PM CDT Routine Department of Obstetrics and Gynecology in [place], [place] [address] [place] [phone] Mayank Morgan M.B.B.S. [address] [place] [phone] Scheduled Orders Name Type Priority Associated Diagnoses [...] documented as of this encounter Care Teams House Servant Relationship Specialty Start Date End Date Erin Calvo APRN, C.N.P., D.N.P. [address] [place] [phone] PCP - General 08/30/20 documented as of this encounter
--- OUTSIDE RECORDS SUMMARY | 2024-01-21 12:50 | XMS_ITS | Continuity of Care Document ---
Author Name Unknown Organization [facility] Address [address] [place] [address] Phone Care Team Providers Care Community Association Manager Name Role Phone Audra ANN, PhD, Leno Unavailable Unavai lable Allergies, Adverse Reactions, Alerts Substance Reaction Status Criticality gluten rash and stomach pain Active No Inf ormation PENICILLIN rash Active No Information Sulfa (Sulfonamide Antibiotics) rash Active No Information Medications Medication Instructions Dosage Effective Dates (start - stop) Status Comments CYCLOBENZAPRINE HCL (unknown strength) Not Available - Active GABAPENTIN (unknown strength) Not Available - Active Procedures Procedure Date Office/Outpatient Visit,New, Mod 2017 Advance Directives Directive Yes / No Effective Date File Name No Information Encounters Encounter Description Practice Location Reason(s) For Visit Diagnoses Date Provider Providers Copied on Encounter [facility], [address], [place], [place], [id number], [place] tel:[phone] [facility] No Information 8 Audra Burr. [facility], [address], [place], [address], [place]. tel:[phone] Office/Outpat ient Visit,, Mod [facility], [address], [place], [place], [id number], [place] tel:[phone] [facility] Spondylolisth esis, lumbar region 0 8 Tor Duvall. [facility], [address], [place], [place], [id number] , [place]. tel:[phone] Referring Provider: Leno Zhu [facility] [address], [place], [address]. tel:[phone] [facility], [address], [place], [place], [id number], [place] tel:[phone] [facility] [place] Low back pain Jan- 8 Zhu Leno. [facility], [address], [place], [address], [place]. tel:[phone] Family History Family Member Type Diagnosis Age [...]
--- OUTSIDE RECORDS SUMMARY | 2024-01-21 12:50 | XMS_ITS | Clinical Summary ---
Author Name Unknown Organization [facility] Address [address] [place] [address] Care Team Providers Care Immigration Lawyer Name Role Phone Erin Calvo APRN, C.N.P., D.N.P. Primary Care Provider Source Comments Patient records contain information from all sites at [facility]. For routine questions regarding patient records, call [phone] during business hours, M-F 8:00 AM - 5:00 PM Central Time. Record requests for emergency care only can be directed to [phone] at any time.[facility] Allergies Active Allergy Reactions Criticality Noted Date Comments Gluten Other (see comments),Rash 07/04/2014 Nickel Rash Low 10/22/2023 Penicillins Other (see comments),Hives only, no other systemic symptoms 12/18/2010 Sulfa (Sulfonamide Antibiotics) Other (see comments) 12/18/2010 Medications Medication Sig Dispensed Refills Start Date End Date Status vit calc,iron,folic (PRENAT.VITS,ANDI,MIN-I ANGEL-FOLIC ORAL) Take 1 tablet by mouth daily. 07/10/2022 Active SUMAtriptan (IMITREX) 25 mg tablet Take 25 mg by mouth 2 (two) times a day as needed for migraine. 12/22/[address] tablet Take 81 mg by mouth daily. Active Active Problems Problem Noted Date Diagnosed [...] Only Department of Obstetrics and Gynecology in [place], [place] [address] [place] [address] Rayne Wheatley R.N. 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 Communication 01/12/2024 Clinical Communication Department of Obstetrics and Gynecology in [place], [place] [address] [place] [address] Shraddha Keller D.O. Communication 01/09/2024 Orders Only Department of Obstetrics and Gynecology in [place], [place] [address] [place] [address] Rayne Wheatley RCarlosN. 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 Mabel Medrano RBerenice. 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 Kristin Phillips M.S., 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 10/24/2023 Clinical Communication Department of Obstetrics and Gynecology in [place], [place] [address] [place] [phone] Prescheduling, Provider MFM Triage from Last 3 Months Immunizations Name Administration Dates Next Due DTaP (Infanrix, Tripedia) 06/16/2007 Family History Medical History Relation Name Comments Diabetes Father martinez Montemayor Diabetes Maternal Grandfather Aydin Zeng Polycythemia vera Maternal Grandfather Aydin Zeng Skin cancer Maternal Grandfather Aydin Zeng Diabetes Maternal Grandmother Blood clot Mother Luna Montemayor Diabetes Mother Luna Montemayor Borderline Heart disease Paternal Grandfather Lymphoma Sister 1 Malissa Non Hodgkin's Non-Hodgkin's lymphoma Sister 1 Malissa Relation Name Status Comments Father martinez Montemayor Alive Maternal Grandfather Aydin Zeng Maternal Grandmother Mother Luna Montemayor Alive Other Fetus - In Utero Paternal Grandfather Paternal Grandmother Sister 1 Malissa Alive Sister 2 Alive Social History Tobacco Use Types Packs/Day Years Used Date Smoking Tobacco: Never Smokeless Tobacco: Never Tobacco Cessation:Counseling Given: Not Answered Alcohol Use Standard Drinks/Week Comments Not Currently 0 (1 standard drink = 0.6 oz pur e alcohol) i only drink once in a while [facility] Utilities Answer Date Recorded In the past 12 months has e [employer], gas, oil, or water [employer] threatened to shut off services in your [...] often do you attend chur ch or scientologist services? Never 04/14/2022 Do you belong to any clubs o r organizations such as restoration groups, unions, fraternal or athletic groups, or [...] Answer Date Recorded PHQ-2 Score 0 12/15/2023 [facility] - Occupational [...] your living situation today? I have a [facility] place to live 12/09/2023 Education Answer [...] Appointment Department of Obstetrics and Gynecology in [place], [place] [address] [place] [phone] Shraddha Keller D.O. [address] [place] [phone] Discharge Disposition: Home or Self Care 01/30/2024 8:30 AM CDT Routine Department of Obstetrics and Gynecology in [place], [place] [address] [place] [phone] Mayank Morgan M.B.B.S. [address] [place] [phone] 02/26/2024 1:20 PM CDT Appointment Department of Cardiovascular Diseases in [place], [place] [address] [place] [phone] Shraddha Keller D.O. [address] [place] [phone] Discharge Disposition: Home or Self Care 02/26/2024 2:30 PM CDT Comprehensive Visit Division of Pediatric Cardiology in [place], [place] [address] [place] [phone] Junito Arce M.B.B.S. [address] [place] [phone] 02/26/2024 3:30 PM CDT Appointment Department of Obstetrics and Gynecology in [place], [place] [address] [place] [phone] Shraddha Keller D.O. 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) LIPID PANEL, S Routine 07/04/2014 11:29 AM CDT PATHOLOGY STRAIGHT EDGER CYTOLOGY Routine 07/04/2014 12:00 AM CDT from Last 3 Months or Most Recently Relevant to Health Maintenance Results * ECHO 2D WITH COLOR AND DOPPLER (01/07/2024 2:29 PM CDT) Ejection Fraction [facility] Anatomical Region Laterality Modality Other 01/07/2024 [...] OB Exam, 01/07/2024 EXAM INFORMATION Patient Name: ??SIM-MARYRAMILAKALIE HOPE : ??1985 Age: ??38 yrs Sex: ??Female Ref Phys: ??SHRADDHA KELLER Exam Date: 01/07/2024 Procedure: US OB FOLLOW-UP AND OR GROWTH FUNG Exam Site: [facility] OB #5 Plurality: 1 OBHx: [G:(1)] ?F [...] Mayra Hare R.D.M.SCarlos on 01/07/2024 11:03:57 AM. Industrial Machine Assembler: ??Mayra Hare R.D.M.SCarlos Thank You For This Referral Procedure Note Mayank Morgan M.B.B.S. - 01/07/2024 SIMKALIE ESPINAL OB Exam, 01/07/2024 EXAM INFORMATION Patient Name: KALIE BERMUDEZ RAINA : 1985 Age: 38 yrs Sex: Female Ref Phys: SHRADDHA KELLER Exam Date: 01/07/2024 Procedure: US OB FOLLOW-UP AND OR GROWTH FUNG Exam Site: [facility] OB #5 Plurality: 1 OBHx: [G:(1)] F [...] Mayra Hare R.D.M.S. on 01/07/2024 11:03:57 AM. Industrial Machine Assembler: Mayra Hare R.D.M.SCarlos Thank You For This Referral Shraddha Keller D.O. IMG OB US PROCEDURES * Panorami Screen - Sent Out Lab (12/16/2023 3:39 PM CDT) Pathologist [facility] Screen SEE COMMENT 12/23/2023 9:06 AM CDT MAURICIO Comment: For final report, select Lab-Send Out Lab Results hyperlink below. Blood (Blood, Venous) 12/16/2023 3:39 PM CDT 12/17/2023 10:23 AM CDT Narrative [employer] - 12/23/2023 9:06 AM CDT Specimen Information: Specimen ID: [id number] Specimen Type: Blood Specimen Collection Start Date: 12/16/2023 ??3:39 PM Specimen Received Date: 12/17/2023 10:23 AM Specimen ID: [id number] Specimen Type: Blood Specimen Collection Start Date: 12/16/2023 ??3:39 PM Specimen Received Date: 12/17/2023 10:23 AM Zulema Avila M.D., Ph.D. LAB GENETIC TEST ING [employer] [address] [place] [address], [facility] MAURICIO [employer], Yves. [address] [place] [address] * US OB Advanced Level Fung (12/16/2023 2:36 PM CDT) Anatomical Region Laterality Modality Body, Ultrasound OB RST LOS, Ultrasound ARZ LOS N/A Ultrasound Narrative 12/16/2023 3:03 PM CDT KALIE BERMUDEZ OB Exam, 12/16/2023 EXAM INFORMATION Patient Name: ??KALEI BERMUDEZ : ??1985 Age: ??37 yrs Sex: ??Female Ref Phys: ??CHRYSTAL ARAYA Exam Date: 12/16/2023 Procedure: US OB ADVANCED LEVEL FUNG Exam Site: [facility] OB #126 Plurality: 1 INDICATIONS FOR SONOGRAPHY [...] by Tamiko Mancini on 12/16/2023 2:27:18 PM. Industrial Machine Assembler: ??Tamiko Mancini Thank You For This Referral Procedure Note Eliseo Desouza M.D. - 12/16/2023 KALIE BERMUDEZ OB Exam, 12/16/2023 EXAM INFORMATION Patient Name: KALIE BERMUDEZ RAINA : 1985 Age: 37 yrs Sex: Female Ref Phys: CHRYSTAL ARAYA Exam Date: 12/16/2023 Procedure: US OB ADVANCED LEVEL FUNG Exam Site: [facility] OB #126 Plurality: 1 INDICATIONS FOR SONOGRAPHY [...] by Tamiko Mancini on 12/16/2023 2:27:18 PM. Industrial Machine Assembler: Tamiko Mancini Thank You For This Referral Chrystal Araya M.D. IMG OB US DC OCEDURES * (ABNORMAL) Lipid Panel (07/04/2014 11:29 AM CDT) Calculated LDL 121(H) 0 - 100 MGDL POWERCHART Total Cholesterol/HDL Ratio 4.16 2.20 - 4.40 POWERCHART Cholesterol, Total 187 <=200 MGDL POWERCHART HX HDL 45 40 - 60 MGDL POWERCHART Triglycerides 106 <=150 MGDL POWERCHART HXLDL/HDL 3 POWERCHART Blood 07/04/2014 11:2 9 AM CDT Tomasz Powell M.D. LAB BLOOD ADD-ON POWERCHART * Pathology STRAIGHT EDGER Cytology (07/04/2014 12:00 AM CDT) 07/04/2014 Narrative [facility] - 07/13/2014 2:23 PM CDT [facility] in [place] [address] [facility] [address] [place], [place] ??[phone] Patient Name: KALIE MONTEMAYOR Collected: 07/04/2014 Address: City/State/Zip: [facility] [address] [place], [place] ??[id number] Received: Reported: 07/05/2014 07/11/2014 Soc. Sec. #: ?/Age/Sex 1985 (Age: 28) ??F Physician(s): YUNI POWELL MD Copy To: ? [facility] ??[id number] [address] [facility], ??[place] ??[address] CYTOPATHOLOGY STRAIGHT EDGER REPORT FINAL CYTOLOGIC DIAGNOSIS Pap Smear - ThinPrep: NEGATIVE FOR INTRAEPITHELIAL LESION OR MALIGNANCY ENDOCERVICAL CELLS/COMPONENT PRESENT. SATISFACTORY SPECIMEN FOR EVALUATION. Electronically Signed Out By amb/07/11/2014 MADELYN Brownrobert MD(ASCP) The Pap test is a screening procedure and, as such, is subject to both false positive and false negative results as evidenced by published data. ??It is not a diagnostic test and results should be interpreted in the context of the patient's history and other clinical findings. ??Obtaining periodic Pap tests may help to minimize the consequences of any false negatives that may occur. Procedures/Addenda: HUMAN PAPILLOMA VIRUS TESTING (HPV) ? Date Ordered: ? 07/13/2014 ? Status: ??Signed Out Date Complete: ? 07/13/2014 ? By: ??JANET Ponce CT(ASCP) Date Reported: ? 07/13/2014 INTERPRETATION: Test: CervistaTM High Risk HPV Result: NEGATIVE FOR HIGH RISK HPV Specimen Description: ThinPrep? ? ? Pap Test PreservCyt Solution The FDA-approved Hologic CervistaTM HPV High Risk Test is an in vitro diagnostic test for the qualitative detection of DNA from 14 high-risk Human Papillomavirus (HPV) types (16, 18, 31, 33, 35, 39, 45, 51, 52, 56, 58, 59, 66, and 68) in cervical specimen using the Invader? ? ? chemistry, a signal amplification method for detection of specific nucleic acid sequences. Interpretation for patients with ASC-US cytology: Low likelihood of underlying high-grade CIN2-3 or cancer; results are not intended to prevent women from proceeding to colposcopy. Interpretation for patients with NILM cytology who are over 30 years old: Very low likelihood of underlying high-grade KIRTI or cancer; results do not preclude future HPV infection or cytologic abnormalities with underlying CIN2-3 or cancer. SPECIMEN(S) RECEIVED: Pap Smear - ThinPrep CLINICAL HISTORY: Date of Last PAP: UNKNOWN Other Clinical Conditions: HPV TYPING REQUESTED Tomasz Powell M.D. LAB PAP COPATH [facility] LAB from Last 3 Months or Most Recently Relevant to Health Maintenance Care Teams Immigration Lawyer Relationship Specialty Start Date End Date Erin Calvo APRN, C.N.P., D.N.P. [address] [place] [address] PCP - General 08/30/20
--- OUTSIDE RECORDS SUMMARY | 2024-01-21 12:50 | XMS_ITS | Referral Summary ---
Author Name Unknown Organization [facility] Address [address] [place] [address] Care Team Providers Care Chief Engineer'S Helper Name Role Phone Erin Calvo APRN C.N.Yasmany, D.N.P. Primary Care Provider Source Comments Patient records contain information from all sites at [facility]. For routine questions regarding patient records, call [phone] during business hours, M-F 8:00 AM - 5:00 PM Central Time. Record requests for emergency care only can be directed to [phone] at any time.[facility] Encounters Date Type Department Care Team Description 01/13/2024 Orders Only Department of Obstetrics and Gynecology in [place], [place] [address] [place] [address] Rayne Wheatley R.N. 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 Communication 01/12/2024 Clinical Communication Department of Obstetrics and Gynecology in [place], [place] [address] [place] [phone] Shraddha Keller D.O. Communication 01/09/2024 Orders Only Department of Obstetrics and Gynecology in [place], [place] [address] [place] [address] Rayne Wheatley RCarlosN. 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 Mabel Medrano RBerenice. 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 Primigravida Advanced Maternal Age Affecting Management (HCC) 01/07/2024 1:23 PM CDT - 01/07/2024 11:59 PM CDT Hospital Encounter Department of Cardiovascular Diseases in [place], [place] [address] [place] [phone] Shraddha Keller D.O. 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 10/24/2023 Clinical Communication Department of Obstetrics and Gynecology in [address] [phone] Prescheduling, Provider MFM Triage from Last 3 [...] in a while [facility] [employer] Answer Date Recorded In the past 12 months has e [employer], gas, oil, or water [employer] threatened to shut off services in your [...] week 04/14/2022 How often do you attend formerly [facility] or faith services? Never 04/14/2022 Do you belong to any clubs o r organizations such as mormon groups, unions, fraternal or athletic groups, or [...] Answer Date Recorded PHQ-2 Score 0 12/15/2023 [facility] of Occupat ional Health - [...] your living situation today? I have a [facility] place to live 12/09/2023 Education [...] Appointment Department of Obstetrics and Gynecology in [place], [place] [address] [place] [address] Shraddha Keller D.O. [address] [place] [phone] Discharge Disposition: Home or Self Care 01/30/2024 8:30 AM CDT Routine Department of Obstetrics and Gynecology in [place], [place] [address] [place] [phone] Mayank Morgan M.B.B.S. [address] [place] [phone] 02/26/2024 1:20 PM CDT Appointment Department of Cardiovascular Diseases in [place], [place] [address] [place] [phone] Shraddha Keller D.O. [address] [place] [phone] Discharge Disposition: Home or Self Care 02/26/2024 2:30 PM CDT Comprehensive Visit Division of Pediatric Cardiology in [place], [place] [address] [place] [phone] Junito Arce M.B.B.SCarlos [address] [place] [phone] 02/26/2024 3:30 PM CDT Appointment Department of Obstetrics and Gynecology in [place], [place] [address] [place] [phone] Shraddha Keller D.OCarlos [address] [place] [phone] Discharge Disposition: Home or Self Care 02/26/2024 4:00 PM CDT Routine Department of Obstetrics and Gynecology in [place], [place] [address] [place] [phone] Mayank Morgan M.B.B.S. [address] [place] [phone] Procedures Procedure Name Priority Date/Time Associated Diagnosis [...] S Routine 07/04/2014 11:29 AM CDT PATHOLOGY HIGH WORKER CYTOLOGY Routine 07/04/2014 12:00 AM CDT from Last 3 Months or Most Recently Relevant to Health Maintenance Results * ECHO 2D WITH COLOR AND DOPPLER (01/07/2024 2:29 PM CDT) Ejection Fraction [facility] EILA Anatomical Region Laterality Modality Other 01/07/2024 1:25 [...] FOLLOW-UP AND OR GROWTH FUNG Exam Site: [facility] OB #5 Plurality: 1 OBHx: [G:(1)] [...] Mayra Hare R.D.M.SCarlos on 01/07/2024 11:03:57 AM. Professor Criminal Justice: ??Mayra Hare R.D.M.SCarlos Thank You For This Referral Procedure Note Mayank Morgan M.B.B.S. - 01/07/2024 KALIE BERMUDEZ OB Exam, 01/07/2024 EXAM INFORMATION Patient Name: AIDANKALIE : 1985 Age: 38 yrs Sex: Female Ref Phys: SHRADDHA KELLER Exam Date: 01/07/2024 Procedure: US OB FOLLOW-UP AND OR GROWTH FUNG Exam Site: [facility] OB #5 Plurality: 1 OBHx: [G:(1)] [...] Mayra Hare R.D.MCarlosSCarlos on 01/07/2024 11:03:57 AM. Professor Criminal Justice: Mayra Hare R.D.MCarlosSCarlos Thank You For This Referral Shraddha VARGAS OB US PROCEDURES * Panorama Screen - Sent Out Lab (12/16/2023 3:39 PM CDT) [facility] Panorama Screen SEE COMMENT 12/23/2023 9:06 AM CDT MAUIRCIO Comment: For final report, select Lab-Send Out Lab Results hyperlink below. Blood (Blood, Venous) 12/16/2023 3:39 PM CDT 12/17/2023 10:23 AM CDT Dmitriy ZHOU, CARLOS A. - 12/23/2023 9:06 AM CDT Specimen Information: Specimen ID: [id number] Specimen Type: Blood Specimen Collection Start Date: 12/16/2023 ??3:39 PM Specimen Received Date: 12/17/2023 10:23 AM Specimen ID: [id number] Specimen Type: Blood Specimen Collection Start Date: 12/16/2023 ??3:39 PM Specimen Received Date: 12/17/2023 10:23 AM Zulema Avila M.D., Ph.D. LAB GENETIC TEST [employer] [address] [place] [address], [facility] [employer] [address] [place] [address] * US OB Advanced Level Fung (12/16/2023 2:36 PM CDT) Anatomical Region Laterality Modality Body, Ultrasound OB RST LOS, Ultrasound ARZ LOS N/A Ultrasound Narrative 12/16/2023 3:03 PM CDT KALIE BERMUDEZ OB Exam, 12/16/2023 EXAM INFORMATION Patient Name: ??KALIE BERMUDEZ : ??1985 Age: ??37 yrs Sex: ??Female Ref Phys: ??CHRYSTAL SANDRA ARAYA Exam Date: 12/16/2023 Procedure: US OB ADVANCED LEVEL FUNG Exam Site: [facility] OB #126 Plurality: 1 INDICATIONS FOR [...] by Tamiko Mancini on 12/16/2023 2:27:18 PM. Professor Criminal Justice: ??Tamiko Mancini Thank You For This Referral Procedure Note Eliseo Desouza M.D. - 12/16/2023 KALIE BERMUDEZ OB Exam, 12/16/2023 EXAM INFORMATION Patient Name: KALIE BERMUDEZ : 1985 Age: 37 yrs Sex: Female Ref Phys: CHRYSTAL ARAYA Exam Date: 12/16/2023 Procedure: US OB ADVANCED LEVEL FUNG Exam Site: [facility] OB #126 Plurality: 1 INDICATIONS FOR [...] by Tamiko Mancini on 12/16/2023 2:27:18 PM. Professor Criminal Justice: Tamiko Mancini Thank You For This Referral Chrystal VARGAS OB US AK OCEDURES * (ABNORMAL) Lipid Panel (07/04/2014 11:29 AM CDT) Calculated LDL 121(H) 0 - 100 MGDL POWERCHART Total Cholesterol/HDL Ratio 4.16 2.20 - 4.40 POWERCHART Cholesterol, Total 187 <=200 MGDL POWERCHART HX HDL 45 40 - 60 MGDL POWERCHART Triglycerides 106 <=150 MGDL POWERCHART HXLDL/HDL 3 POWERCHART Blood 07/04/2014 11:2 9 AM CDT Tomasz Powell M.D. LAB BLOOD ADD-ON POWERCHART * Pathology HIGH WORKER Cytology (07/04/2014 12:00 AM CDT) 07/04/2014 Narrative [facility] LAB - 07/13/2014 2:23 PM CDT [facility] in [place] [address] [place], [place] ??[phone] Patient Name: KALIE MONTEMAYOR Collected: 07/04/2014 Address: City/State/Zip: [address] ??[id number] Received: Reported: 07/05/2014 07/11/2014 Soc. Sec. #: ?/Age/Sex 1985 (Age: 28) ??F Physician(s): YUNI POWELL MD Copy To: ? [facility] ??[id number] [address] [facility] ??[address] CYTOPATHOLOGY HIGH WORKER REPORT FINAL CYTOLOGIC DIAGNOSIS Pap Smear - ThinPrep: NEGATIVE FOR INTRAEPITHELIAL LESION OR MALIGNANCY ENDOCERVICAL CELLS/COMPONENT PRESENT. SATISFACTORY SPECIMEN FOR EVALUATION. Electronically Signed Out By amb/07/11/[address](ASCP) The Pap test is a screening procedure [...] Out Date Complete: ? 07/13/2014 ? By: ??[facility](AS[facility]) Date Reported: ? 07/13/2014 INTERPRETATION: Test: [...] Powell M.D. LAB PAP COPATH O [facility] Organization Address City/State/ZIP Co de Phone Number [facility] from Last 3 Months or Most Recently Relevant to Health Maintenance Care Teams Chief Engineer'S Helper Relationship Specialty Start Date End Date Erin Calvo APRN, C.N.P., D.N.P. [address] [place] [address] (work) PCP - General 08/30/20
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
--- OUTSIDE RECORDS SUMMARY | 2024-01-21 12:50 | XMS_ITS ---
Author Name Unknown Organization [facility] Address [address] [place] [address] Care Team Providers Care Prior Authorization Nurse Name Role Phone Unavailable Unavailable Unavailable Surgery Details Not on file Complications Check Surgery Details section. Procedure Estimated Blood Loss Check Surgery Details section. Procedure Findings Check Surgery Details section. Procedure Specimens Taken Check Surgery Details section.
--- OUTSIDE RECORDS SUMMARY | 2024-01-21 12:51 | XMS_ITS | Encounter Summary ---
Author Name Unknown Organization [facility] Address [address] [place] [address] Care Team Providers Care Cosmetic Sales Advisor Name Role Phone Erin Calvo APRN, C.N.P., D.N.P. Primary Care Provider Encounter Details Date Type Department Care Team (Latest Contact Info) Description 12/16/2023 12:33 PM CDT - 12/16/2023 11:59 PM CDT Hospital Encounter Department of Obstetrics and Gynecology in [place], [place] [address] [place] [address] Chrystal Araya M.D. 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 Utilities Answer Date Recorded In [...] often do you attend chur ch or baptism services? Never 04/14/2022 Do you belong to any clubs o r organizations such as bahai groups, unions, fraternal or athletic groups, or [...] Answer Date Recorded PHQ-2 Score 0 12/15/2023 [facility] of Occupat ional Health - Occupational Stress [...] your living situation today? I have a [facility] place to live 12/09/2023 Education Answer [...] tablet Take 81 mg by mouth daily. vit calc,iron,folic (PRENAT.VITS,ANDI,MIN-IRON- FOLIC ORAL) Take 1 tablet by mouth daily. 07/10/2022 SUMAtriptan (IMITREX) 25 mg tablet Take 25 mg by mouth 2 (two) times a day as needed for migraine. 12/22/2022 documented as of this encounter Plan of Treatment Upcoming Encounters Date Type Department Care Team (Latest Contact Info) Description 01/30/2024 7:30 AM CDT Appointment Department of Obstetrics and Gynecology in [place], [place] [address] [place] [phone] Shraddha Mccann D.O. [address] [place] [phone] Discharge Disposition: Home or Self Care 01/30/2024 8:30 AM CDT Routine Department of Obstetrics and Gynecology in [place], [place] [address] [place] [phone] Mayank Morgan M.B.B.S. [address] [place] [phone] 02/26/2024 1:20 PM CDT Appointment Department of Cardiovascular Diseases in [place], [place] [address] [place] [phone] Shraddha Mccann D.O. [address] [place] [phone] Discharge Disposition: Home or Self Care 02/26/2024 2:30 PM CDT Comprehensive Visit Division of Pediatric Cardiology in [place], [place] [address] [place] [phone] Junito Arce M.B.B.S. [address] [place] [phone] 02/26/2024 3:30 PM CDT Appointment Department of Obstetrics and Gynecology in [place], [place] [address] [place] [phone] Shraddha Mccann D.O. [address] [place] [phone] Discharge Disposition: Home or Self Care 02/26/2024 4:00 PM CDT Routine Department of Obstetrics and Gynecology in [place], [place] [address] [place] [phone] Mayank Morgan M.B.B.S. [address] [place] [phone] documented as of this encounter Procedures Procedure [...] US OB ADVANCED LEVEL FUNG Exam Site: [facility] OB #126 Plurality: 1 INDICATIONS FOR SONOGRAPHY [...] by Tamiko Mancini on 12/16/2023 2:27:18 PM. Coordinator Of Online Programs: ??Tamiko Mancini Thank You For This Referral Procedure Note Eliseo Desouza M.D. - 12/16/2023 KALIE BERMUDEZ OB Exam, 12/16/2023 EXAM INFORMATION Patient Name: KALIE BERMUDEZ : 1985 Age: 37 yrs Sex: Female Ref Phys: CHRYSTAL ARAYA Exam Date: 12/16/2023 Procedure: US OB ADVANCED LEVEL FUNG Exam Site: [facility] OB #126 Plurality: 1 INDICATIONS FOR SONOGRAPHY [...] by Tamiko Mancini on 12/16/2023 2:27:18 PM. Coordinator Of Online Programs: Tamiko Mancini Thank You For This Referral Chrystal Araya M.D. 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 [address] [place] [phone] PCP - General 08/30/20 documented as of this encounter
--- OUTSIDE RECORDS SUMMARY | 2024-01-21 12:51 | XMS_ITS | Encounter Summary ---
Author Name Unknown Organization [facility] Address [address] [place] [address] Care Team Providers Care Electrical Tester Battery Name Role Phone Erin Calvo APRN, C.N.P., D.N.P. 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 [address] [place] [address] [facility] Referral ID Status Reason Start Date Expiration Date Visits Re quested Visits Authorized [id number] Closed 10/29/2023 04/29/2025 1 1 Scheduling Instructions Obesity, ivf , AMA did do genetic testing of embryo STRIAL ROBOTICS MECHANIC Encounter Details Date Type Department Care Team (Late st Contact Info) Description 10/29/2023 9:30 AM INDUSTRIAL ROBOTICS MECHANIC Nurse Only Department of Obstetrics and Gynecology in [place], [place] [address] [place] [phone] Lashae Pitts, RCarlosNCarlos [address] [place] [phone] Social History Tobacco Use Types Packs/Day Years [...] week 04/14/2022 How often do you attend [facility] or worship services? Never 04/14/2022 Do you belong to any clubs o r organizations such as judaism groups, unions, fraternal or athletic groups, or [...] Answer Date Recorded PHQ-2 Score 0 12/17/2019 [facility] - Occupational [...] place to sleep or slept in a long term (including now)? No 04/14/2022 Nutrition Answer Date [...] being referred by Dr. Rylie Anderson in [place] for AMA, obesity, IVF preg EDC using [...] any further questions. Lashae Pitts R.N. STRIAL ROBOTICS MECHANIC documented in this encounter Miscellaneous Notes * Addendum Note - Lashae Pitts R.N. - 10/29/2023 9:30 AM CSTAddended by: LASHAE PITTS on: 10/29/2023 03:07 PM Modules accepted: Orders STRIAL ROBOTICS MECHANIC documented in this encounter Plan of Treatment Upcoming Encounters Date Type Department Care Team (Latest Contact Info) Description 01/30/2024 7:30 AM CDT Appointment Department of Obstetrics and Gynecology in [place], [place] 200 [place] [address] Shraddha Mccann D.O. [address] [place] [phone] Discharge Disposition: Home or Self Care 01/30/2024 8:30 AM CDT Routine Department of Obstetrics and Gynecology in [place], [place] [address] [place] [phone] Mayank Morgan M.B.B.S. [address] [place] [phone] 02/26/2024 1:20 PM CDT Appointment Department of Cardiovascular Diseases in [place], [place] [address] [place] [phone] Shraddha Mccann D.OCarlos [address] [place] [phone] Discharge Disposition: Home or Self Care 02/26/2024 2:30 PM CDT Comprehensive Visit Division of Pediatric Cardiology in [place], [place] [address] [place] [phone] Junito Arce M.B.B.S. [address] [place] [phone] 02/26/2024 3:30 PM CDT Appointment Department of Obstetrics and Gynecology in [place], [place] [address] [place] [phone] Shraddha Mccann D.OCarlos [address] [place] [phone] Discharge Disposition: Home or Self Care 02/26/2024 4:00 PM CDT Routine Department of Obstetrics and Gynecology in [place], [place] [address] [place] [phone] Mayank Morgan M.B.B.S. [address] [place] [phone] Scheduled Referrals Name Type Priority Associated Diagnoses [...] US OB ADVANCED LEVEL FUNG Exam Site: [facility]126 Plurality: 1 INDICATIONS FOR [...] by Tamiko Mancini on 12/16/2023 2:27:18 PM. Nutrition Services Worker: ??Tamiko Mancini Thank You For This Referral Procedure Note Eliseo Desouza M.D. - 12/16/2023 KALIE BERMUDEZ OB Exam, 12/16/2023 EXAM INFORMATION Patient Name: KALIE BERMUDEZ RAINA : 1985 Age: 37 yrs Sex: Female Ref Phys: CHRYSTAL ARAYA Exam Date: 12/16/2023 Procedure: US OB ADVANCED LEVEL FUNG Exam Site: [facility]126 Plurality: 1 INDICATIONS FOR [...] by Tamiko Mancini on 12/16/2023 2:27:18 PM. Nutrition Services Worker: Tamiko Mancini Thank You For This Referral Chrystal Araya M.D. 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 [address], [place] [phone] PCP - General 08/30/20 documented as of this encounter
--- OUTSIDE RECORDS SUMMARY | 2024-01-21 12:51 | XMS_ITS | Encounter Summary ---
Author Name Unknown Organization [facility] Address [address] [place] [address] Care Team Providers Care Back End Architect Name Role Phone Erin Calvo APRN, C.N.P., D.N.P. Primary Care Provider Reason for Visit * Reason Onset Date Comments Pre-visit Intake 12/15/2023 Encounter Details Date Type Department Care Team (Latest Contact Info) Description 12/15/2023 3:30 PM CDT Clinical Communication Virtual Review in [place], [place] 200 [place] [address] Pre-visit Intake Social History Tobacco Use Types Packs/Day Years Used Date Smoking Tobacco: Never Smokeless Tobacco: Never Tobacco Cessation:Counseling Given: Not Answered Alcohol Use Standard Drinks/Week Comments Not Currently 0 (1 standard drink = 0.6 oz pur e alcohol) i only drink once in a while [facility] Utilities Answer Date Recorded In the past 12 months has [employer], gas, oil, or water [employer] threatened to shut off services in your [...] often do you attend chur ch or presybeterian services? Never 04/14/2022 Do you belong to any clubs o r organizations such as yazidism groups, unions, fraternal or athletic groups, or [...] Answer Date Recorded PHQ-2 Score 0 12/15/2023 [facility] - Occupational Stress [...] your living situation today? I have a [facility] place to live 12/09/2023 Education Answer [...] Appointment Department of Obstetrics and Gynecology in [place], [place] 200 [place] [phone] Shraddha Mccann D.O. [address] [place] [address] Discharge Disposition: Home or Self Care 01/30/2024 8:30 AM CDT Routine Department of Obstetrics and Gynecology in [place], [place] [address] [place] [phone] Mayank Morgan M.B.B.S. [address] [place] [phone] 02/26/2024 1:20 PM CDT Appointment Department of Cardiovascular Diseases in [place], [place] [address] [place] [phone] Shraddha Mccann D.OCarlos [address] [place] [phone] Discharge Disposition: Home or Self Care 02/26/2024 2:30 PM CDT Comprehensive Visit Division of Pediatric Cardiology in [place], [place] [address] [place] [phone] Junito Arce M.B.B.S. [address] [place] [phone] 02/26/2024 3:30 PM CDT Appointment Department of Obstetrics and Gynecology in [place], [place] [address] [place] [phone] Shraddha Mccann D.OCarlos [address] [place] [phone] Discharge Disposition: Home or Self Care 02/26/2024 4:00 PM CDT Routine Department of Obstetrics and Gynecology in [place], [place] [address] [place] [phone] Mayank Morgan M.B.B.S. [address] [place] [phone] documented as of this encounter Visit Diagnoses Not on filedocumented in this encounter Additional Health Concerns Assessment Noted Time PHQ-9 Depression Total Score: 0 12/15/19 24 3:08 PM CDT documented as of this encounter Care Teams Back End Architect Relationship Specialty Start Date End Date Erin Calvo APRN, C.N.P., D.N.P. [address] [place] [phone] PCP - General 08/30/20 documented as of this encounter
--- OUTSIDE RECORDS SUMMARY | 2024-01-21 12:51 | XMS_ITS | Encounter Summary ---
Author Name Unknown Organization [facility] Address [address] [place] [address] Care Team Providers Care Consulting Psychiatrist Name Role Phone Erin Calvo APRN, C.N.P., D.N.P. Primary Care Provider Reason for Visit * Reason Onset Date Comments Communication 01/12/2024 Encounter Details Date Type Department Care Team (Late st Contact Info) Description 01/12/2024 Clinical Communication Department of Obstetrics and Gynecology in [place], [place] [address] [place] [phone] Shraddha Mccann D.O. [address] [place] [phone] Communication Social History Tobacco Use Types Packs/Day Years Used Date Smoking Tobacco: Never Smokeless Tobacco: Never Alcohol Use Standard Drinks/Week Comments Not Currently 0 (1 standard drink = 0.6 oz pur e alcohol) i only drink once in a while [facility] Utilities Answer Date Recorded In [...] often do you attend chur ch or hindu services? Never 04/14/2022 Do you belong to [...] Answer Date Recorded PHQ-2 Score 0 12/15/2023 [facility] - [facility]ational Stress Questionnaire [...] your living situation today? I have a [employer] place to live 12/09/2023 Education Answer Date [...] Appointment Department of Obstetrics and Gynecology in [place], [place] [address] [place] [phone] Shraddha Mccann D.O. [address] [place] [phone] Discharge Disposition: Home or Self Care 01/30/2024 8:30 AM CDT Routine Department of Obstetrics and Gynecology in [place], [place] [address] [place] [phone] Mayank Morgan M.B.B.S. [address] [place] [phone] 02/26/2024 1:20 PM CDT Appointment Department of Cardiovascular Diseases in [place], [place] [address] [place] [phone] Shraddha Mccann D.OCarlos [address] [place] [phone] Discharge Disposition: Home or Self Care 02/26/2024 2:30 PM CDT Comprehensive Visit Division of Pediatric Cardiology in [place], [place] [address] [place] [phone] Junito Arce M.B.B.S. [address] [place] [phone] 02/26/2024 3:30 PM CDT Appointment Department of Obstetrics and Gynecology in [place], [place] [address] [place] [phone] Shraddha Mccann D.OCarlos [address] [place] [phone] Discharge Disposition: Home or Self Care 02/26/2024 4:00 PM CDT Routine Department of Obstetrics and Gynecology in [place], [place] [address] [place] [phone] Mayank Morgan M.B.B.S. [address] [place] [phone] documented as of this encounter Visit Diagnoses Not on filedocumented in this encounter Additional Health Concerns Assessment Noted Time PHQ-9 Depression Total Score: 0 12/15/19 24 3:08 PM CDT documented as of this encounter Care Teams Consulting Psychiatrist Relationship Specialty Start Date End Date Erin Calvo APRN, C.N.P., D.N.P. [address] [place] [phone] PCP - General 08/30/20 documented as of this encounter
--- OUTSIDE RECORDS SUMMARY | 2024-01-21 12:51 | XMS_ITS | Encounter Summary ---
Author Name Unknown Organization [facility] Address [address] [place] [address] Care Team Providers Care Negative Cleaner Name Role Phone Erin Calvo APRN, C.N.P., D.N.P. 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 [address] [place] [address] [facility] Referral ID Status Reason Start Date Expiration Date Visits Re quested Visits Authorized [id number] Closed 10/29/2023 04/29/2025 1 1 Encounter Details Date Type Department Care Team (Latest Contact Info) Description 12/16/2023 2:00 PM CDT Comprehensive Visit Department of Obstetrics and Gynecology in [place], [place] [address] [place] [phone] Ana M Caro M.D. 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 Never 04/14/2022 Do you [...] PHQ-2 Score 0 12/15/2023 [facility] - Occupational Stress Questionnaire Answer Date Recorded [...] encounter Consult Notes * Kristin Phillips M.S., [facility] - 12/16/2023 2:00 PM CDT Images from the original note were not included. REASON FOR VISIT genetic screening HISTORY OF PRESENT ILLNESS History: Estimated Date of Delivery: 05/01/24 EGA: 20w3d Kalie was referred by Ana M Caro M.D. for genetic counseling to discuss genetic screening options. Kalie is accompanied by her partner, Michael. This was conceived with IVF, at [facility]. Kalie underwent expanded carrier screening before through [facility], including 176 conditions, and she and her partner were not found to be carriers for any of the same disorders. 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 Full report will be scanned into [employer] tab. 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 The underlying etiologies and clinical [...] screening which was previously completed. I encouraged Kalie Rodriguez to share their results with their [...] Department of Obstetrics and Gynecology in [place], [place] [address] [place] [address] Shraddha Mccann D.O. [address] [place] [phone] Discharge Disposition: Home or Self Care 01/30/2024 8:30 AM CDT Routine Department of Obstetrics and Gynecology in [place], [place] [address] [place] [phone] Mayank Morgan M.B.B.S. [address] [place] [phone] 02/26/2024 1:20 PM CDT Appointment Department of Cardiovascular Diseases in [place], [place] [address] [place] [phone] Shraddha Mccann D.O. [address] [place] [phone] Discharge Disposition: Home or Self Care 02/26/2024 2:30 PM CDT Comprehensive Visit Division of Pediatric Cardiology in [place], [place] [address] [place] [phone] Junito Arce M.B.B.S. [address] [place] [phone] 02/26/2024 3:30 PM CDT Appointment Department of Obstetrics and Gynecology in [place], [place] [address] [place] [phone] Shraddha Mccann D.OCarlos [address] [place] [phone] Discharge Disposition: Home or Self Care 02/26/2024 4:00 PM CDT Routine Department of Obstetrics and Gynecology in [place], [place] [address] [place] [phone] Mayank Morgan M.B.B.S. [address] [place] [phone] documented as of this encounter Results * Panorama Screen - Sent Out Lab (12/16/2023 3:39 PM CDT) Panorama Screen SEE COMMENT 12/23/2023 9:06 AM CDT [facility] Comment: For final report, select Lab-Send Out Lab Results hyperlink below. Blood (Blood, Venous) 12/16/2023 3:39 PM CDT 12/17/2023 10:23 AM CDT Narrative [employer] - 12/23/2023 9:06 AM CDT Specimen Information: Specimen ID: [id number] Specimen Type: Blood Specimen Collection Start Date: 12/16/2023 ??3:39 PM Specimen Received Date: 12/17/2023 10:23 AM Specimen ID: [id number] Specimen Type: Blood Specimen Collection Start Date: 12/16/2023 ??3:39 PM Specimen Received Date: 12/17/2023 10:23 AM Zulema Avila M.D., Ph.D. LAB GENETIC TEST ING [employer] [address] [place] [address], [facility] [employer] 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 [address] [place] [phone] PCP - General 08/30/20 documented as of this encounter
--- OUTSIDE RECORDS SUMMARY | 2024-01-21 12:51 | XMS_ITS | Encounter Summary ---
Author Name Unknown Organization [facility] Address [address] [place] [address] Care Team Providers Care Recreational Director Name Role Phone Erin Calvo APRN C.N.P., D.N.P. Primary Care Provider Encounter Details Date Type Department Care Team (Latest Contact Info) Description 01/07/2024 10:03 AM CDT - 01/07/2024 1:22 PM CDT Hospital Encounter Department of Obstetrics and Gynecology in [place], [place] [address] [place] [address] Shraddha Keller D.O. 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 Never 04/14/2022 Do you belong to any clubs o r organizations such as yazidi groups, unions, fraternal or athletic groups, or [...] Answer Date Recorded PHQ-2 Score 0 12/15/2023 [facility] [place] [facility] Occupat ional Health - Occupational Stress [...] your living situation today? I have a [facility] place to live 12/09/2023 Education Answer [...] Appointment Department of Obstetrics and Gynecology in [place], [place] [address] [place] [phone] Shraddha Keller D.O. [address] [place] [phone] Discharge Disposition: Home or Self Care 01/30/2024 8:30 AM CDT Routine Department of Obstetrics and Gynecology in [place], [place] [address] [place] [phone] Mayank Morgan M.B.B.S. [address] [place] [phone] 02/26/2024 1:20 PM CDT Appointment Department of Cardiovascular Diseases in [place], [place] [address] [place] [phone] Shraddha Keller D.O. [address] [place] [phone] Discharge Disposition: Home or Self Care 02/26/2024 2:30 PM CDT Comprehensive Visit Division of Pediatric Cardiology in [place], [place] [address] [place] [phone] Junito Arce M.B.B.S. [address] [place] [phone] 02/26/2024 3:30 PM CDT Appointment Department of Obstetrics and Gynecology in [place], [place] [address] [place] [phone] Shraddha Keller D.O. [address] [place] [phone] Discharge Disposition: Home or Self Care 02/26/2024 4:00 PM CDT Routine Department of Obstetrics and Gynecology in [place], [place] 200 [place] [phone] Mayank Morgan M.B.B.S. [address] [place] [phone] documented as of this encounter Procedures Procedure [...] FOLLOW-UP AND OR GROWTH FUNG Exam Site: [facility] OB #5 Plurality: 1 OBHx: [G:(1)] [...] Mayra Hare RFeliberto.M.S. on 01/07/2024 11:03:57 AM. Miter Sawyer: ??Mayra Hare R.D.M.SCarlos Thank You For This Referral Procedure Note Mayank Morgan M.B.B.S. - 01/07/2024 KALIE BERMUDEZ OB Exam, 01/07/2024 EXAM INFORMATION Patient Name: KALIE BERMUDEZ : 1985 Age: 38 yrs Sex: Female Ref Phys: SHRADDHA KELLER Exam Date: 01/07/2024 Procedure: US OB FOLLOW-UP AND OR GROWTH FUNG Exam Site: [facility] OB #5 Plurality: 1 OBHx: [G:(1)] [...] Mayra Hare R.D.MCarlosSCarlos on 01/07/2024 11:03:57 AM. Miter Sawyer: Mayra Hare R.D.M.S. Thank You For This Referral Shraddha Keller D.O. 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 [address] [place] [phone] PCP - General 08/30/20 documented as of this encounter
--- OUTSIDE RECORDS SUMMARY | 2024-01-21 12:51 | XMS_ITS | Encounter Summary ---
Author Name Unknown Organization [facility] Address [address] [place] [address] Care Team Providers Care Prosthetist Name Role Phone Erin Calvo APRN, C.N.P., D.N.P. Primary Care Provider Encounter Details Date Type Department Care Team (Late st Contact Info) Description 12/16/2023 4:00 PM CDT Lab Department of Laboratory Medicine and Pathology, [facility] in [place], [place] [address] [place] [phone] Zulema Avila M.D., Ph.D. 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 I have a [facility] place to live 12/09/2023 Education [...] Appointment Department of Obstetrics and Gynecology in [place], [place] [address] [place] [address] Shraddha Mccann D.O. [address] [place] [phone] Discharge Disposition: Home or Self Care 01/30/2024 8:30 AM CDT Routine Department of Obstetrics and Gynecology in [place], [place] [address] [place] [phone] Mayank Morgan M.B.B.SCarlos [address] [place] [phone] 02/26/2024 1:20 PM CDT Appointment Department of Cardiovascular Diseases in [place], [place] [address] [place] [phone] Shraddha Mccann D.O. [address] [place] [phone] Discharge Disposition: Home or Self Care 02/26/2024 2:30 PM CDT Comprehensive Visit Division of Pediatric Cardiology in [place], [place] [address] [place] [phone] Junito Arce M.B.B.SCarlos [address] [place] [phone] 02/26/2024 3:30 PM CDT Appointment Department of Obstetrics and Gynecology in [address] [phone] Shraddha Mccann D.O. [address] [place] [phone] Discharge Disposition: Home or Self Care 02/26/2024 4:00 PM CDT Routine Department of Obstetrics and Gynecology in [address] [phone] Mayank Morgan M.B.B.S. [address] [place] [phone] documented as of this encounter Procedures Procedure [...] 9:06 AM CDT Specimen Information: Specimen ID: [id number] Specimen Type: Blood Specimen Collection Start Date: 12/16/2023 ??3:39 PM Specimen Received Date: 12/17/2023 10:23 AM Specimen ID: [id number] Specimen Type: Blood Specimen Collection Start Date: 12/16/2023 ??3:39 PM Specimen Received Date: 12/17/2023 10:23 AM Zulema Avila M.D., Ph.D. LAB GENETIC TEST [facility] [employer] [address] [phone], [facility] [employer] 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 [address] [place] [phone] PCP - General 08/30/20 documented as of this encounter
--- OUTSIDE RECORDS SUMMARY | 2024-01-21 12:51 | XMS_ITS | Encounter Summary ---
Author Name Unknown Organization [facility] Address [address] [place] [address] Care Team Providers Care Ink Blender Name Role Phone Erin Calvo APRN, C.N.PCarlos, D.N.P. Primary Care Provider Encounter Details Date Type Department Care Team (Latest Contact Info) Description 01/07/2024 11:00 AM CDT Routine Department of Obstetrics and Gynecology in [place], [place] [address] [place] [phone] Shraddha Mccann, Yeny [address] [place] [phone] Mabel Medrano R.N. 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 Never 04/14/2022 Do you belong to [...] Answer Date Recorded PHQ-2 Score 0 12/15/2023 [facility] [place] of Occupat ional Health - Occupational Stress [...] your living situation today? I have a [facility] place to live 12/09/2023 Education Answer [...] Appointment Department of Obstetrics and Gynecology in [place], [place] [address] [place] [phone] Shraddha Mccann D.O. [address] [place] [phone] Discharge Disposition: Home or Self Care 01/30/2024 8:30 AM CDT Routine Department of Obstetrics and Gynecology in [place], [place] [address] [place] [address] Mayank Morgan M.B.B.S. [address] [place] [phone] 02/26/2024 1:20 PM CDT Appointment Department of Cardiovascular Diseases in [place], [place] [address] [place] [phone] Shraddha Mccann D.O. [address] [place] [phone] Discharge Disposition: Home or Self Care 02/26/2024 2:30 PM CDT Comprehensive Visit Division of Pediatric Cardiology in [place], [place] [address] [place] [phone] Junito Arce M.B.B.S. [address] [place] [phone] 02/26/2024 3:30 PM CDT Appointment Department of Obstetrics and Gynecology in [place], [place] [address] [place] [phone] Shraddha Mccann D.O. [address] [place] [phone] Discharge Disposition: Home or Self Care 02/26/2024 4:00 PM CDT Routine Department of Obstetrics and Gynecology in [place], [place] [address] [place] [phone] Mayank Morgan M.B.B.S. 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 [address] [place] [phone] PCP - General 08/30/20 documented as of this encounter
--- OUTSIDE RECORDS SUMMARY | 2024-01-21 12:51 | XMS_ITS | Encounter Summary ---
Author Name Unknown Organization [facility] Address [address] [place] [address] Care Team Providers Care Post Graduate Intern Name Role Phone Erin Calvo APRN C.N.P., D.N.P. 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 [address] [place] [address] [facility] Referral ID Status Reason Start Date Expiration Date Visits Re quested Visits Authorized [id number] Closed 12/16/2023 12/15/2024 1 1 Encounter Details Date Type Department Care Team (Latest Contact Info) Description 01/07/2024 1:23 PM CDT - 01/07/2024 11:59 PM CDT Hospital Encounter Department of Cardiovascular Diseases in [place], [place] [address] [place] [address] Shraddha Mccann D.O. 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 Never 04/14/2022 Do you belong to any clubs o r organizations such as denominational groups, unions, fraternal or athletic groups, or [...] Answer Date Recorded PHQ-2 Score 0 12/15/2023 [facility] of Occupat ional Health - Occupational [...] your living situation today? I have a [facility] place to live 12/09/2023 Education Answer [...] Appointment Department of Obstetrics and Gynecology in [place], [place] [address] [place] [phone] Shraddha Mccann D.O. [address] [place] [phone] Discharge Disposition: Home or Self Care 01/30/2024 8:30 AM CDT Routine Department of Obstetrics and Gynecology in [place], [place] [address] [place] [phone] Mayank Morgan M.B.BCarlosS. [address] [place] [phone] 02/26/2024 1:20 PM CDT Appointment Department of Cardiovascular Diseases in [place], [place] [address] [place] [phone] Shraddha Mccann D.O. [address] [place] [phone] Discharge Disposition: Home or Self Care 02/26/2024 2:30 PM CDT Comprehensive Visit Division of Pediatric Cardiology in [place], [place] [address] [place] [phone] Junito Arce M.B.B.S. [address] [place] [phone] 02/26/2024 3:30 PM CDT Appointment Department of Obstetrics and Gynecology in [place], [place] [address] [place] [address] Shraddha Mccann D.O. [address] [place] [phone] Discharge Disposition: Home or Self Care 02/26/2024 4:00 PM CDT Routine Department of Obstetrics and Gynecology in [place], [place] [address] [place] [phone] Mayank Morgan M.B.B.S. 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 Shraddha Mccann D.O. 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 [address] [place] [phone] PCP - General 08/30/20 documented as of this encounter
--- OUTSIDE RECORDS SUMMARY | 2024-01-21 12:51 | XMS_ITS | Encounter Summary ---
Author Name Unknown Organization [facility] Address [address] [place] [address] Care Team Providers Care Cytogenetic Technologist Name Role Phone Erin Calvo APRN, C.N.P., D.N.P. Primary Care Provider Reason for Visit * Reason Onset Date Comments MFM Triage 10/24/2023 Encounter Details Date Type Department Care Team (Late st Contact Info) Description 10/24/2023 Clinical Communication Department of Obstetrics and Gynecology in [place], [place] [address] [place] [address] Prescheduling, Provider MFM Triage Social History Tobacco [...] often do you attend chur ch or anabaptism services? Never 04/14/2022 Do you belong to [...] Answer Date Recorded PHQ-2 Score 0 12/17/2019 [facility] of Occupat ional Health - [...] place to sleep or slept in a usp (including now)? No 04/14/2022 Nutrition Answer Date [...] Appointment Department of Obstetrics and Gynecology in [place], [place] 200 [place] [phone] Shraddha Mccann D.O. [address] [place] [address] Discharge Disposition: Home or Self Care 01/30/2024 8:30 AM CDT Routine Department of Obstetrics and Gynecology in [place], [place] [address] [place] [phone] Mayank Morgan M.B.B.S. [address] [place] [phone] 02/26/2024 1:20 PM CDT Appointment Department of Cardiovascular Diseases in [place], [place] [address] [place] [phone] Shraddha Mccann D.OCarlos [address] [place] [phone] Discharge Disposition: Home or Self Care 02/26/2024 2:30 PM CDT Comprehensive Visit Division of Pediatric Cardiology in [address] [phone] Junito Arce M.B.B.S. [address] [place] [phone] 02/26/2024 3:30 PM CDT Appointment Department of Obstetrics and Gynecology in [place], [place] [address] [place] [phone] Shraddha Mccann D.O. [address] [place] [phone] Discharge Disposition: Home or Self Care 02/26/2024 4:00 PM CDT Routine Department of Obstetrics and Gynecology in [address] [phone] Mayank Morgan M.B.B.S. [address] [place] [phone] documented as of this encounter Visit Diagnoses Not on filedocumented in this encounter Additional Health Concerns Assessment Noted Time PHQ-9 Depression Total Score: 7 09/15/20 19 9:36 AM NONDESTRUCTIVE TESTER documented as of this encounter Care Teams Cytogenetic Technologist Relationship Specialty Start Date End Date Erin Calvo APRN, C.N.P., D.N.P. [address] [place] [phone] PCP - General 08/30/20 documented as of this encounter
--- OUTSIDE RECORDS SUMMARY | 2024-01-21 12:51 | XMS_ITS | Encounter Summary ---
Author Name Unknown Organization [facility] Address [address] [place] [address] Care Team Providers Care Inorganic Chemical Technician Name Role Phone Erin Calvo APRN C.N.PCarlos, D.N.P. Primary Care Provider Reason for Referral * Specialty Diagnoses / Procedures Referred By Contac t Referred To Contact Shraddha Keller D.O. 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 [address] [place] [phone] Referral ID Status Reason Start Date Expiration Date V isits Requested Visits Authorized [id number] Authorized 10/23/2023 10/22/2024 2 2 Encounter Details Date Type Department Care Team (Latest Contact Info) Description 12/16/2023 3:00 PM CDT Routine Department of Obstetrics and Gynecology in [place], [place] [address] [place] [phone] Shraddha Keller D.O. 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 Never 04/14/2022 Do you belong to any clubs o r organizations such as mosque groups, unions, fraternal or athletic groups, or [...] Date Recorded PHQ-2 Score 0 12/15/2023 [facility] of Occupat ional Health - Occupational Stress [...] your living situation today? I have a [facility] place to live 12/09/2023 Education Answer [...] patient consultation from Dr. Rylie Anderson in [place] for IVF , elevated BMI (BMI 36) [...] patient consultation from Dr. Rylie Anderson in [place] for IVF , elevated BMI (BMI 36). [...] is associated with higher odds of delivery ([facility] Consult Series #60). IVF procedure alone does [...] risk factors. She is currently taking this. [place]-analyses demonstrate associations between IVF with or without [...] for maternal age, parity and multifetal gestations ([facility] consult series #60). Given the increased risk [...] Appointment Department of Obstetrics and Gynecology in [place], [place] [address] [place] [phone] Shraddha Keller D.O. [address] [place] [address] Discharge Disposition: Home or Self Care 01/30/2024 8:30 AM CDT Routine Department of Obstetrics and Gynecology in [place], [place] [address] [place] [phone] Mayank Morgan M.B.B.S. [address] [place] [phone] 02/26/2024 1:20 PM CDT Appointment Department of Cardiovascular Diseases in [place], [place] [address] [place] [phone] Shraddha Keller D.OCarlos [address] [place] [phone] Discharge Disposition: Home or Self Care 02/26/2024 2:30 PM CDT Comprehensive Visit Division of Pediatric Cardiology in [place], [place] [address] [place] [phone] Junito Arce M.B.B.S. [address] [place] [phone] 02/26/2024 3:30 PM CDT Appointment Department of Obstetrics and Gynecology in [place], [place] [address] [place] [phone] Shraddha Keller D.OCarlos [address] [place] [phone] Discharge Disposition: Home or Self Care 02/26/2024 4:00 PM CDT Routine Department of Obstetrics and Gynecology in [place], [place] [address] [place] [phone] Mayank Morgan M.B.B.S. 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 Pack Puller: ??Mayra Hare R.D.M.S. Thank You For This Referral Procedure Note Mayank Morgan M.B.B.S. - 01/07/2024 KALIE BERMUDEZ Exam, 01/07/2024 EXAM INFORMATION Patient Name: KALIE BERMUDEZ : 1985 Age: 38 yrs Sex: Female Ref Phys: SHRADDHA KELLER Exam Date: 01/07/2024 Procedure: US OB FOLLOW-UP AND OR GROWTH GUIDO Exam Site: [facility] OB #5 Plurality: 1 OBHx: [G:(1)] F [...] Mayra Hare R.D.M.S. on 01/07/2024 11:03:57 AM. Pack Puller: Mayra Hare R.D.M.S. Thank You For This [...] documented as of this encounter Care Teams Inorganic Chemical Technician Relationship Specialty Start Date End Date Erin Calvo APRN, C.N.P., D.N.P. [address] [place] [phone] PCP - General 08/30/20 documented as of this encounter
--- OUTSIDE RECORDS SUMMARY | 2024-01-21 12:51 | XMS_ITS | Encounter Summary ---
Author Name Unknown Organization [facility] Address [address] [place] [address] Care Team Providers Care Websphere Process Server Developer Name Role Phone Erin Calvo APRN, C.N.P., D.N.P. Primary Care Provider Reason for Visit * Reason Onset Date Comments Communication 01/12/2024 Encounter Details Date Type Department Care Team (Late st Contact Info) Description 01/12/2024 Clinical Communication Department of Obstetrics and Gynecology in [place], [place] [address] [place] [phone] Shraddha Mccann D.O. [address] [place] [phone] Communication Social History Tobacco Use Types Packs/Day Years Used Date Smoking Tobacco: Never Smokeless Tobacco: Never Alcohol Use Standard Drinks/Week Comments Not Currently 0 (1 standard drink = 0.6 oz pur e alcohol) i only drink once in a while [facility] Utilities Answer Date Recorded In [...] often do you attend chur ch or taoism services? Never 04/14/2022 Do you belong to any clubs o r organizations such as episcopal groups, unions, fraternal or athletic groups, or [...] Answer Date Recorded PHQ-2 Score 0 12/15/2023 [facility] - Occupational Stress Questionnaire Answer [...] your living situation today? I have a [facility] place to live 12/09/2023 Education [...] Appointment Department of Obstetrics and Gynecology in [place], [place] [address] [place] [address] Shraddha Mccann D.O. [address] [place] [address] Discharge Disposition: Home or Self Care 01/30/2024 8:30 AM CDT Routine Department of Obstetrics and Gynecology in [place], [place] [address] [place] [phone] Mayank Morgan M.B.B.S. [address] [place] [phone] 02/26/2024 1:20 PM CDT Appointment Department of Cardiovascular Diseases in [place], [place] [address] [place] [phone] Shraddha Mccann D.OCarlos [address] [place] [phone] Discharge Disposition: Home or Self Care 02/26/2024 2:30 PM CDT Comprehensive Visit Division of Pediatric Cardiology in [place], [place] [address] [place] [phone] Junito Arce M.B.B.S. [address] [place] [phone] 02/26/2024 3:30 PM CDT Appointment Department of Obstetrics and Gynecology in [place], [place] [address] [place] [address] Shraddha Mccann D.OCarlos [address] [place] [phone] Discharge Disposition: Home or Self Care 02/26/2024 4:00 PM CDT Routine Department of Obstetrics and Gynecology in [place], [place] [address] [place] [phone] Mayank Morgan M.B.B.S. [address] [place] [phone] documented as of this encounter Visit Diagnoses Not on filedocumented in this encounter Additional Health Concerns Assessment Noted Time PHQ-9 Depression Total Score: 0 12/15/19 24 3:08 PM CDT documented as of this encounter Care Teams Websphere Process Server Developer Relationship Specialty Start Date End Date Erin Calvo APRN, C.N.P., D.N.P. [address] [place] [phone] PCP - General 08/30/20 documented as of this encounter
--- OUTSIDE RECORDS SUMMARY | 2024-01-21 12:51 | XMS_ITS | Encounter Summary ---
Author Name Unknown Organization [facility] Address [address] [place] [address] Care Team Providers Care Environmental Lawyer Name Role Phone Erin Calvo APRN C.N.PCarlos, D.N.P. Primary Care Provider Reason for Referral * Outpatient (Routine) - Authorized Specialty Diagnoses / Procedures Referred By Kassie t Referred To Contact Obstetrics and Gynecology Shraddha Mccann D.O. [address] [place] [phone] [facility] Referral ID Status Reason Start Date Expiration Date V isits Requested Visits Authorized [id number] Authorized 01/09/2024 07/10/2025 1 1 Scheduling Instructions 01/27-01/29 with a Fellow Encounter Details Date Type Department Care Team (Late st Contact Info) Description 01/09/2024 Orders Only Department of Obstetrics and Gynecology in [place], [place] [address] [place] [phone] Rayne Wheatley R.N. 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 Never 04/14/2022 Do you belong to any clubs o r organizations such as advent groups, unions, fraternal or athletic groups, or [...] Answer Date Recorded PHQ-2 Score 0 12/15/2023 [facility] [place] of Occupat ional Health - Occupational Stress [...] your living situation today? I have a [facility] place to live 12/09/2023 Education Answer Date [...] Appointment Department of Obstetrics and Gynecology in [place], [place] [address] [place] [phone] Shraddha Mccann D.O. [address] [place] [phone] Discharge Disposition: Home or Self Care 01/30/2024 8:30 AM CDT Routine Department of Obstetrics and Gynecology in [place], [place] [address] [place] [phone] Mayank Morgan M.B.B.S. [address] [place] [phone] 02/26/2024 1:20 PM CDT Appointment Department of Cardiovascular Diseases in [place], [place] [address] [place] [phone] Shraddha Mccann D.O. [address] [place] [phone] Discharge Disposition: Home or Self Care 02/26/2024 2:30 PM CDT Comprehensive Visit Division of Pediatric Cardiology in [place], [place] [address] [place] [phone] Junito Arce M.B.B.S. [address] [place] [phone] 02/26/2024 3:30 PM CDT Appointment Department of Obstetrics and Gynecology in [place], [place] [address] [place] [phone] Shraddha Mccann D.OCarlos [address] [place] [phone] Discharge Disposition: Home or Self Care 02/26/2024 4:00 PM CDT Routine Department of Obstetrics and Gynecology in [place], [place] [address] [place] [phone] Mayank Morgan M.B.B.SCarlos [address] [place] [phone] Scheduled Orders Name Type Priority Associated Diagnoses [...] documented as of this encounter Care Teams Environmental Lawyer Relationship Specialty Start Date End Date Erin Calvo APRN, C.N.P., D.N.P. [address], [place] [phone] PCP - General 08/30/20 documented as of this encounter
--- OUTSIDE RECORDS SUMMARY | 2024-01-21 12:51 | XMS_ITS | Encounter Summary ---
Author Name Unknown Organization [facility] Address [address] [place] [address] Care Team Providers Care Mix Mill Tender Name Role Phone Erin Calvo APRN, C.N.P., D.N.P. 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 [address] [place] [phone] [facility] Referral ID Status Reason Start Date Expiration Date Visits Re quested Visits Authorized [id number] Closed 12/16/2023 06/16/2025 1 1 Encounter Details Date Type Department Care Team (Latest Contact Info) Description 01/07/2024 3:00 PM CDT Comprehensive Visit Division of Pediatric Cardiology in [place], [place] [address] [place] [phone] Junito Arce M.B.B.S. 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 Never 04/14/2022 Do you belong to any clubs o r organizations such as taoism groups, unions, fraternal or athletic groups, or [...] Answer Date Recorded PHQ-2 Score 0 12/15/2023 [facility] [place] of Occupat ional Health - Occupational Stress [...] your living situation today? I have a [facility] place to live 12/09/2023 Education Answer [...] Arce M.B.B.S. - 01/07/2024 3:00 PM CDT [facility] Cardiology Consultation Joni Regalado Date of Consultation: 01/07/2024 Patient: Kalie Boss Date of : 1985, Age: 38 y.o. , CSN: [id number] Address: [address] [place] [phone] Referral: Shraddha Mccann D.O. [address] [place] [phone] SUBJECTIVE CHIEF COMPLAINT: cardiovascular screening. HISTORY OF [...] 81 mg by mouth daily. vit calc,iron,folic (PRENAT.VITS,ADNI,QWS-HAAP-QQWRQ ORAL), Take 1 tablet by mouth daily. [...] Recommendations: She will continue to follow-up with [facility] and if there are any concerns regarding tachycardia on any of her future follow-up evaluations or heart sounds, we will be very happy to see her back foradditional evaluation sooner. Since the patient is from out of town I discussed with Dr. Mccann and as she will be coming in for occasional ultrasound evaluations with [facility] team; we will be happy to see [...] Appointment Department of Obstetrics and Gynecology in [place], [place] [address] [place] [phone] Shraddha Mccann D.O. [address] [place] [phone] Discharge Disposition: Home or Self Care 01/30/2024 8:30 AM CDT Routine Department of Obstetrics and Gynecology in [place], [place] [address] [place] [phone] Mayank Morgan M.B.B.S. [address] [place] [phone] 02/26/2024 1:20 PM CDT Appointment Department of Cardiovascular Diseases in [place], [place] [address] [place] [phone] Shraddha Mccann D.O. [address] [place] [phone] Discharge Disposition: Home or Self Care 02/26/2024 2:30 PM CDT Comprehensive Visit Division of Pediatric Cardiology in [place], [place] [address] [place] [phone] Junito Arce M.B.B.S. [address] [place] [phone] 02/26/2024 3:30 PM CDT Appointment Department of Obstetrics and Gynecology in [place], [place] [address] [place] [address] Shraddha Mccann D.O. [address] [place] [phone] Discharge Disposition: Home or Self Care 02/26/2024 4:00 PM CDT Routine Department of Obstetrics and Gynecology in [place], [place] [address] [place] [phone] Mayank Morgan M.B.BCarlosS. 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 [address] [place] [phone] PCP - General 08/30/20 documented as of this encounter
--- NOTE | 2024-01-21 13:00 | US_ITS ---
Patient: DONNA MONTEMAYOR [facility] Facility[facility] RIS Patient ID:?[id number] Site Patient ID:?[id number]. Site :?1985 Study:?US-OB Pelvis OB F/U-01/21/2024 1:52:56 PM Ordering Physician:?Ayanna Saldivar Final Report: INDICATION: Possible Hydrops-HX A-Fib seen at [facility] COMPARISON: 01/14/2024 TECHNIQUE: Real-time wade-scale imaging of the pelvis was performed. FINDINGS: Vertex position. Anterior placenta. Stomach is normal. Normal bladder. Renal pelvis measures 2 millimeters bilaterally, considered within normal limits. heart rate 144 beats per minute. FROYLAN 14.9 cm. Single deepest pocket 5.5 cm. Lower uterine segment uterine fibroid measures 4.5 x 3.2 x 4.8 cm. IMPRESSION: Normal amniotic fluid. No evidence of subcutaneous edema. Dictated by Hussein Franco MD @ 01/22/2024 11:27:57 AM Signed by:?Hussein Frnaco MD @01/22/2024 11:27:57 AM (Electronic Signature)
== END 2024-01-21 12:49 | disposition home or self-care (01) ==
LOC: US 12:49
PROVIDERS: PCP Family Medicine; Visit Provider Obstetrics & Gynecology
DX: O36.5930 Maternal care for other known or suspected poor fetal growth, third trimester, not applicable or unspecified (principal)
CPT/HCPCS: 76816

== ENCOUNTER 2024-02-11 07:28 | Outpatient (CLI) | payer OTHER, SELFPAY ==
--- OUTSIDE RECORDS SUMMARY | 2024-02-15 06:34 | XMS_ITS | Clinical Summary ---
Author Name Unknown Organization [facility] Address [place], [place] [address] Care Team Providers Care Spinner Tender Name Role Phone Staff, Other Clinical Primary [...] on 04/21 at 10:10 CDT. Comments Yes Immunizations Name Administration Dates Next Due DTP [...] Comments Blood Pressure 126/74 11/16/2023 6:20 AM [facility] Pulse 85 11/16/2023 6:20 AM [facility] Temperature 37 ??C (98.6 ??F) 11/16/2023 6:20 AM [facility] Respiratory Rate 16 11/16/2023 6:20 AM [facility] Oxygen Saturation 100% 11/16/2023 6:20 AM [facility] Inhaled Oxygen Concentration - - Weight 103.5 kg (228 lb 3.2 oz) 11/16/2023 6:20 AM [facility] Height 160 cm (5' 3) 11/16/2023 6:20 AM [facility] Body Mass Index 40.42 11/16/2023 6:20 AM [facility] Plan of Treatment Health Maintenance Due Date [...] Procedure Name Priority Date/Time Associated Diagnosis Comments FIRE MANAGEMENT OFFICER THIN PREP PAP SCREEN IMAGED Routine 04/27/2021 10:30 AM CDT from Last 3 Months or Most Recently Relevant to Health Maintenance Results * FIRE MANAGEMENT OFFICER THIN PREP PAP SCREEN IMAGED (04/27/2021 10:30 AM CDT) Case Report Gynecologic Cytology Report ? Case: [id number] ? Authorizing Provider: ??Unknown, Doctor ?Collected: ? 04/27/2021 1030 ? Ordering Location: ? [facility] ?Received: ?04/27/2021 1733 ? First Screen: ?Oliverio Tsang ? Pathologist: ? Clair Nye, DO ? Specimen: ?FIRE MANAGEMENT OFFICER ThinPrep Vial Screening, Cervical/Vaginal ? 05/09/2021 3:34 PM CDT [facility] INTERPRETATION/ RESULT NEGATIVE FOR INTRAEPITHELIAL LESION OR MALIGNANCY (NIL) (none) 05/09/2021 3:34 PM T [facility] R NON-NEOPLASTIC FINDING(S) Reactive cellular changes associated with inflammation/repa ir 05/09/2021 3:34 PM CDT [facility] SPECIMEN ADEQUACY Satisfactory for evaluation Endocervical component present 05/09/2021 3:34 PM CDT [facility] HPV REQUEST HPV and PAP 05/09/2021 3:34 PM [facility] Last Pap Date 05/09/2021 3:34 PM T [facility] Comment:unknown Additional Information 05/09/2021 3:34 PM T [facility] Comment: Interpreted at [facility] Central Laboratory - [address], [place] [address] Automated Review Successful 05/09/2021 3:34 PM [facility] Comment:Specimen processed s uccessfully by automated barber device, ThinPrep Imaging System, [employer] ANCILLARY TESTING FIRE MANAGEMENT OFFICER HPV Ordered, Please see separate report 05/09/2021 3:34 PM [facility] Note The pap test is [...] pre-malignant and malignant lesions. 05/09/2021 3:34 PM T [facility] Other (Cervical/Vagina l) 04/27/2021 10:30 AM CDT 04/27/2021 5:33 PM CDT Doctor Unknown PATHOLOGY/CYTOLOGY [employer] LABORATORY-CENTRAL LABORATORY [address] [place] [address], from Last 3 Months or Most Recently Relevant to Health Maintenance Advance Directives * Full Code (Latest Code Status on File) Date Activated Date Inactivated Comments 12/21/2022 11:56 PM 12/22/2022 1:04 PM Question Answer Comments Code Status Discussion: Reviewed Preferences Care Teams Spinner Tender Relationship Specialty Start Date End Date Staff, Other Clinical . PCP - General 01/17/22
--- OUTSIDE RECORDS SUMMARY | 2024-02-15 06:34 | XMS_ITS | Continuity of Care Document ---
Author Name Unknown Organization [facility] Address [address] [place] [address] Phone Care Team Providers Care Instructor Bridge Name Role Phone Audra ANN, PhD, Leno [...] on Encounter [facility], [address], [place], [place], [id number], [place] tel:[phone] [facility] No Information 8 Audra Burr. [facility], [address], [place], [address], [place]. tel:[phone] Office/Outpat ient Visit,, Mod [facility], [address], [place], [place], [id number], [place] tel:[phone] [facility] [place] Spondylolisth esis, lumbar region 0 8 Tor [place]. [facility], [address], [place], [place], [id number] , [place]. tel:[phone] Referring Provider: Leno Zhu [facility] [address], [place], [address]. tel:[phone] [facility], [address], [place], [place], [id number], [place] tel:[phone] [facility] [place] Low back pain Jan- 8 Zhu Leno. [facility], [address], [place], [address], [place]. [phone] Family History Family Member Type Diagnosis Age At Onset No Information Payers Payer name Insurance type Covered democrat ID Authoriza tion(s) No Information Social History [...]
== END 2024-02-11 07:29 | disposition home or self-care (01) ==
LOC: NFLDREF 02-15 06:33
PROVIDERS: PCP Family Medicine; Referring Provider Family Medicine; Visit Provider Obstetrics & Gynecology
DX: Z34.83 Encounter for supervision of other normal pregnancy, third trimester (principal)
CPT/HCPCS: 82951; 82952; 86592

== ENCOUNTER 2024-03-05 09:30 | Inpatient (IN) | payer OTHER, SELFPAY ==
[2024-03-05] VITALS (38 sets, daily range): BP systolic 92–116; BP diastolic 53–70; PULSE 70–112; RESP 14–24; TEMP 36.1–37.1; O2SAT 91–100; BMI 42.2; BMI 42.1
--- OUTSIDE RECORDS SUMMARY | 2024-03-05 10:00 | XMS_ITS | Data Portability ---
Author Organization [place] - [facility], [employer] Address [address] [place] [address] Assessment Encounter Date Assessment Date Assessment LastModified by Organization Details LastModified Time 12/25/2022 12/25/2022 Underwent phenol and alcohol procedures of bilateral Hallux nails as previously documented. Patient will be seen in 2 weeks for a recheck. Not available 12/25/2022 12:24:59 01/08/2023 01/08/2023 Patient was informed that the left Hallux has significant maceration and we will proceed with betadine application on a two times a day basis to dry this location and encourage scab formation. The patient will be seen in 2 weeks for a recheck. Right side is well ahead at this stage in the process. Not available 01/08/2023 10:35:38 01/29/2023 01/29/2023 Patient was informed that the left Hallux has now dried and has stable scab formation present. There is evidence of faith able erythema consistent with post procedure, however no evidence of cardinal signs of infection. The patient was tearful about the recovery process, however was encouraged that no interventions are necessary and that this side is slightly delayed compared to the right at this time. Not available 01/29/2023 16:05:46 Plan of Treatment Reminders Order Date Submit Date Provider Last Modified By Organization Details Last Modified Time Details Appointments None record ed. Lab None record ed. Referral None record ed. Procedures None record ed. Surgeries None record ed. Imaging None record ed. Medication Orders None record ed. Patient TargetsNo targets recorded. Patient InstructionsNo instructions recorded. Reason for Referral None Reported. Problems Name Status Onset Date Resolution Date Notes Provider Name and Address Organization Details Recorded Time Ingrowing nail Active 11/04/19 20 Ingrowing nail; Original Code: [id number] Original Codesystem: SNOMED CT Classifi cation: Medical Con firmation Status: Confirmed Not Available [facility] 12/10/2022 09:17:22 Problem Notes None recorded. Procedures Surgical History Date Name Laterality Status Provider Name and Address Organization Details Recorded Time [address] Aguilar completed Yung Harp, DPM [address] [place], [address], [facility] 12/25/2022 12:24:01 Imaging Results None recorded. Procedure Notes None recorded. Medical Equipment None Reported. Allergies Allergen ID Allergen Name Allergen Category Reaction Reaction Severity Criticality Documentation Date Start Date Code Code System Note Provider Name and Address Organization Details Recorded Time Medicinal product containin g penicilli n and acting as antibacte rial agent (product) medicatio n Not available Not available Not available 12/10/2022 32635 05 SNOMED Comme nt: React ion Class : Aller gy Al lergy Ident ifier : 3 All ergy Categ ory: Aller gy Categ ories Iden tifie r Assig jaz Autho rity: [address] _[place]_F [place] ; Not Available [facility] 3 08:56:33 71076 Substance with sulfonami de structure and antibacte rial mechanism of action (substanc e) medicatio n Not available Not available Not available 12/25/2022 85093 8003 SNOMED Margarita mcdaniel [place] - [facility] 3 11:27:27 54144 nickel environme nt Not available Not available Not available 12/25/2022 91436 29 RxNorm Margarita mcdaniel [place] - [facility] 3 11:27:39 Medications Name Sig Start Date Stop Date Status Note LastModified by Organization Details LastModified Time sumatriptan 25 mg tablet TAKE 1 TABLET BY MOUTH TWICE DAILY NEEDED FOR MIGRAINE OR HEADACHE. GIVE AT MINIMUM OF 2 HOURS APART. MAX DOSE 200MG PER 24 HOURS active Not Available Not Available No t Available methylpredni solone 4 mg tablets in a dose pack FOLLOW PACKAGE DIRECTIONS active Not Available Not Available N ot Available doxycycline hyclate 100 mg tablet TAKE 1 TABLET BY MOUTH TWICE DAILY active Not Available Not Available No t Available nitrofuranto in monohydrate/ macrocrystal s 100 mg capsule TAKE 1 CAPSULE BY MOUTH EVERY 12 HOURS FOR 5 DAYS active Not Available Not Available N ot Available cholecalcife rol (vitamin D3) 1,250 mcg (50,000 unit) capsule TAKE 1 TABSULE BY MOUTH ONCE A WEEK active Not Available Not Available No t Available Vitals Date Recorded Body height Body weight Provider Name and Address Organization Details Last Updated DateTime 12/25/2022 160.02 cm 939657.98 g Margarita Mullen [place] [facility] 12/25/2022 11:31:36 Social History None recorded. Functional Status None recorded. Mental Status None recorded. Family History Nothing Reported. Medical History No medical history recorded. Gynecological HistoryNo gynecological history recorded. Obstetrics History GPAL:G 0 P 0 0 0 0 Past Encounters Encounter ID Performer Location Encounter Start Date Encounter Closed Date Diagnosis/Indication Diagnosis SNOMED-CT Code [id number] [facility] [address] [place] [phone] 12/25/2022 11:29:51 12/26/2022 10:04:28 Ingrowing nail [id number] [facility] [address] [place] [phone] 01/08/2023 10:18:28 01/09/2023 09:56:40 Ingrowing nail [id number] [facility] [address] [place] [phone] 01/29/2023 15:44:49 01/30/2023 09:38:57 Ingrowing nail [id number] Health Concerns Section Related Observation LastModified by Organization Detai ls LastModified Time None Recorded Concern Status LastModified by Organization Details LastModified Time None Recorded Advance Directives Directive None Recorded Payers Encounter Date Sequence Insurance Name Policy Number Policy Taylor Covered Member ID Taylor Member ID Guarantor Name 01/29/2023 1 [employer] (PPO) [employer]B Kalie Leger lack [id number] Kalie Zacariasack 01/08/2023 1 [employer] - [employer] (PPO) IFB Kalie Laddin-Drel lack [id number] Kalie Cruz Drellack 12/25/2022 1 [employer] - [employer] (PPO) IFB Kalie Laddin-Drel lack [id number] Kalie Domínguezllack Notes Date Note Type Note Provider Name and Address Organization Details Recorded Time 12/25/2022 text/html HPI Notes: Art villatoro is a 36 year old new patient female who was previously evaluated by my partner many years prior to undergo phenol and alcohol procedures to the right big toe. Patient mentions that she did notice some regrowth since the initial procedure and she is starting to have the same discomfort that prompted the original procedure to the right big toenail now on the left side. Presents today for definitive treatment. Yung Harp DPM [address] [place] [address], [phone], [facility] 12/25/2022 12:25:01 01/08/2023 text/html HPI Notes: Art villatoro is a 37 year old female established patient who presents to clinic today for re evaluation of bilateral Hallux nail phenol and alcohol procedures performed on 12/25/2022. The patient mentions that she has adhered to the previous recommendations without difficulty and mentions that the right toe has stopped draining, however the left has continued drainage at this time. Yung Harp DPM [address] [place] [address], [phone], [facility] 01/08/2023 10:35:41 01/29/2023 text/html HPI Notes: Art villatoro is a 37 year old female established patient who presents to clinic today for re evaluation of bilateral Hallux nail phenol and alcohol procedures performed on 12/25/2022. The patient mentions that she has adhered to the previous recommendations without difficulty and mentions that the right toe has completely healed, however the left has continued pain. The patient mentions that the left toe has ceased draining since last visit. Yung Harp DPM [address] [place], [address], [place] - [facility] 01/29/2023 16:05:49 OBGyn Episode No OBEpisode recorded.
--- OUTSIDE RECORDS SUMMARY | 2024-03-05 10:00 | XMS_ITS | Continuity of Care Document ---
Author Organization [facility] Address [address] [place] [address] Phone Care Team Providers Care Proofsheet Corrector Name Role Phone Audra ANN, PhD, Leno Edmondson Unavai lable Allergies, Adverse Reactions, Alerts Substance Reaction Status Criticality gluten rash and stomach pain Active No Inf ormation PENICILLIN rash Active No Information Sulfa (Sulfonamide Antibiotics) rash Active No Information Medications Medication Instructions Dosage Effective Dates (start - stop) Status Comments CYCLOBENZAPRINE HCL (unknown strength) Not Available - Active GABAPENTIN (unknown strength) Not Available - Active Procedures Procedure Date Office/Outpatient Visit,[place], [facility] 2017 Advance Directives Directive Yes / No Effective Date File Name No Information Encounters Encounter Description Practice Location Reason(s) For Visit Diagnoses Date Provider Providers Copied on Encounter [facility], [address], [place], [place], [id number], [place] tel:[phone] [facility] No Information 8 Audra Burr. [facility], [address], [place], [address], [place]. [phone] Office/Outpat ient Visit,, [facility], [address], [facility] [place], [place], [id number], [place] tel:[phone] [facility] [place] Spondylolisth esis, lumbar region 0 [address] [place]. [facility], [address], [place], [place], [id number] , [place]. tel:[phone] Referring Provider: Leno Zhu, [facility] [address], [place], [address]. tel:[phone] [facility], [address], [place], [place], [id number], [place] tel:[phone] [facility] [place] [facility] back pain Jan- 8 Audra Burr. [facility], [address], [place], [address], [place]. [phone] Family History Family Member Type Diagnosis Age At Onset No Information Payers Payer name Insurance type Covered green party ID Authoriza tion(s) No Information Social History [...]
--- OUTSIDE RECORDS SUMMARY | 2024-03-05 10:01 | XMS_ITS | Encounter Summary ---
Author Organization [facility] Address [address] [place] [address] Care Team Providers Care Ornament Setter Name Role Phone Erin Calvo APRN C.N.PCarlos, D.N.P. Primary Care Provider Encounter Details Date Type Department Care Team (Latest Contact Info) Description 02/26/2024 3:02 PM CDT - 02/26/2024 11:59 PM CDT Hospital Encounter Department of Obstetrics and Gynecology in [place], [place] [address] [place] [address] Aleksander Keller D.O. [address] [place] [phone] Primigravida Advanced Maternal Age Affecting Management (HCC) Discharge Disposition: Home or Self Care Social History Tobacco Use Types Packs/Day Years Used Date Smoking Tobacco: Never Smokeless Tobacco: Never Alcohol Use Standard Drinks/Week Comments Not Currently 0 (1 standard drink = 0.6 oz pur e alcohol) i only drink once in a while [facility] Utilities Answer Date Recorded In the [...] How often do you attend chur or cheondoism services? Never 04/14/2022 Do you belong to any clubs o r organizations such as cheondoism groups, unions, fraternal or athletic groups, or [...] Answer Date Recorded PHQ-2 Score 0 12/15/2023 [facility] [place] [facility] - Occupational Stress [...] your living situation today? I have a [facility] place to live 12/09/2023 [...] as of this encounter Plan of Treatment Not on file documented as of this encounter Procedures Procedure Name Priority Date/Time Associated Diagnosis Comments US OB FOLLOW-UP AND OR GROWTH FUNG RAD - Routine (most inpatients and all outpatients) 02/26/2024 3:21 PM CDT Primigravida Advanced Maternal Age Affecting Management (HCC) documented in this encounter Results * US OB Follow-up and or Growth Fung (02/26/2024 3:21 PM CDT) Anatomical Region Laterality Modality Body, Ultrasound OB RST LOS, Ultrasound ARZ LOS N/A Ultrasound Narrative 02/26/2024 6:03 PM CDT KALIE BERMUDEZ OB Exam, 02/26/2024 EXAM INFORMATION Patient Name: ??KALIE BERMUDEZ : ??1985 Age: ??38 yrs Sex: ??Female Ref Phys: ??ALEKSANDER KELLER Exam Date: 02/26/2024 Procedure: US OB FOLLOW-UP AND OR GROWTH FUNG Exam Site: [facility] 4 Plurality: 1 LMP: 07/26/2023 GA By LMP: ??30w5d OBHx: [G:(1)] ?F Trm:() Pre:() C-Sec:() Ab-I:() Ab-S:() Ect:() Multi:() Sandhya:() INDICATIONS FOR SONOGRAPHY Advanced Maternal age Increased BMI, growth IMPRESSION Transabdominal ultrasound was performed. Growth Fung in Cephalic presentation. EFW 85%, 1919 grams. ??Incidental reassuring Biophysical Profile score of 8/8 with a MVP of 7.29 cm. MEASUREMENTS ??venkata ??wks [+/-] (Range) % ?? BPD: 8.1 cm ?32w4d ??[+/-3.08] ??(7.15 - 8.33) 88% FL: ??5.62 cm ?? 29w4d ??[+/-2.08] ??(5.41 - 6.59) 10% HC: ??28.59 cm ?? 31w3d ??[+/-2.98] ??(27.09 - 31.01) 32% AC: ??29.68 cm ?? 33w5d ??[+/-2.96] ??(24.10 - 29.36) >98% RATIOS ??(Range) % ?? HC/AC: 0.96 ?(0.97 - 1.18) 3% ?? FL/BPD: 0.69 ? FL/AC: 0.19 ? COMPUTATIONS GA: ?? 30w5d [+/-2.44] Method: ??ANGELITA ANGELITA: ??05/01/2024 Sono GA: ??30w6d [+/-2.44] Method: ?? BPD, HC, AC, FL Weight: ??1919 gms. ??4 lb 3 oz. ??85% Method: ??BPD, HC, AC, FL OBSERVATIONS Amniotic Fluid Fluid Volume: ??Normal MVP: ??7.29 cm Presentation: ?Cephalic Size: ?Normal for dates Growth: ??Within normal limits. FHR: ??137 bpm Biophysical Profile Variables Score: 2=Normal, 0=Abnormal. ?? Movements: ??2 ??Breathing Movements: 2 ?? Tone: ??2 ??Amniotic Fluid Volume: ??2 Total Score = ??8 COMMENTS Preliminary Read by Main Mcpherson, MorganM.S. on 02/26/2024 3:21:09 PM. [place]: ??Main Mcpherson R.D.M.S. Thank You For This Referral Procedure Note Eliseo Desouza M.D. - 02/26/2024 KALIE BERMUDEZ OB Exam, 02/26/2024 EXAM INFORMATION Patient Name: KALIE BERMUDEZ : 1985 Age: 38 yrs Sex: Female Ref Phys: ALEKSANDER KELLER Exam Date: 02/26/2024 Procedure: US OB FOLLOW-UP AND OR GROWTH FUNG Exam Site: [facility] 4 Plurality: 1 LMP: 07/26/2023 GA By LMP: 30w5d OBHx: [G:(1)] F Trm:() Pre:() C-Sec:() Ab-I:() Ab-S:() Ect:() Multi:() Sandhya:() INDICATIONS FOR SONOGRAPHY Advanced Maternal age Increased BMI, growth IMPRESSION Transabdominal ultrasound was performed. Growth Fung in Cephalic presentation. EFW 85%, 1919 grams. Incidentalreassuring Biophysical Profile score of 8 with a MVP of 7.29 cm. MEASUREMENTS venkata wks [+/-] (Range) % BPD: 8.1 cm 32w4d [+/-3.08] (7.15 - 8.33) 88% FL: 5.62 cm 29w4d [+/-2.08] (5.41 - 6.59) 10% HC: 28.59 cm 31w3d [+/-2.98] (27.09 - 31.01) 32% AC: 29.68 cm 33w5d [+/-2.96] (24.10 - 29.36) >98% RATIOS (Range) % HC/AC: 0.96 (0.97 - 1.18) 3% FL/BPD: 0.69 FL/AC: 0.19 COMPUTATIONS GA: 30w5d [+/-2.44] Method: ANGELITA ANGELITA: 05/01/2024 Sono GA: 30w6d [+/-2.44] Method: BPD, HC, AC, FL Weight: 1919 gms. 4 lb 3 oz. 85% Method: BPD, HC, AC, FL OBSERVATIONS Amniotic Fluid Fluid Volume: Normal MVP: 7.29 cm Presentation: Cephalic Size: Normal for dates Growth: Within normal limits. FHR: 137 bpm Biophysical Profile Variables Score: 2=Normal, 0=Abnormal. Movements: 2 Breathing Movements: 2 Tone: 2 Amniotic Fluid Volume: 2 Total Score = 8/8 COMMENTS Preliminary Read by Main Mcpherson R.D.M.S. on 02/26/2024 3:21:09 PM. [place]: Main Mcpherson R.D.MCarlosSCarlos Thank You For This Referral Aleksander Keller D.O. IMG OB US PROCEDURES documented in this encounter Visit Diagnoses Diagnosis Primigravida Advanced Maternal Age Affecting Management (HCC) documented in this encounter Additional Health Concerns Assessment Noted Time PHQ-9 Depression Total Score: 0 12/15/19 24 3:08 PM CDT documented as of this encounter Care Teams Ornament Setter Relationship Specialty Start Date End Date Erin Calvo APRN, C.N.P., D.N.P. [address] [place] [address] PCP - General 08/30/20 documented as of this encounter
--- OUTSIDE RECORDS SUMMARY | 2024-03-05 10:01 | XMS_ITS | Clinical Summary ---
Author Organization [facility] Address [address] [place] [address] Care Team Providers Care Head Charrer Name Role Phone Erin Calvo APRN, C.N.P., D.N.P. Primary Care Provider Source Comments Patient records contain information from all sites at [facility]. For routine questions regarding patient records, call [phone] during business hours, M-F 8:00 AM - 5:00 PM Central Time. Record requests for emergency care only can be directed to [phone] at any time.[facility] Allergies Active Allergy Reactions Criticality Noted Date [...] Encounters Date Type Department Care Team Description 02/26/2024 4:00 PM CDT Routine Department of Obstetrics and Gynecology in [place], [place] [address] [place] [phone] Mayank Morgan M.B.B.S. 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 Primigravida Advanced Maternal Age Affecting Management (HCC) Discharge Disposition: Home or Self Care 02/26/2024 2:30 PM CDT Comprehensive Visit Division of Pediatric Cardiology in [place], [place] [address] [place] [address] Junito Arce M.B.B.S. Primigravida Advanced Maternal Age Affecting Management (HCC) 02/26/2024 1:01 PM CDT - 02/26/2024 3:01 PM CDT Hospital Encounter Department of Cardiovascular Diseases in [place], [place] [address] [place] [phone] Shraddha Keller D.O. Primigravida Advanced Maternal Age Affecting Management (HCC) Discharge Disposition: Home or Self Care 02/22/2024 Patient Self-Triage [facility] CARE Symptom Traditional Chinese Herbalist, Provider 01/30/2024 8:30 AM CDT Routine Department of Obstetrics and Gynecology in [place], [place] [address] [place] [address] Mayank Morgan M.B.B.S. 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 Primigravida Advanced Maternal Age Affecting Management (HCC) Discharge Disposition: Home or Self Care 01/30/2024 Orders Only Department of Obstetrics and Gynecology in [place], [place] [address] [place] [phone] Lashae Pitts R.N. 01/13/2024 Orders Only Department of Obstetrics and Gynecology in [place], [place] [address] [place] [phone] Rayne Wheatley R.N. Primigravida Advanced Maternal Age Affecting Management (HCC) (Primary Dx) 01/12/2024 Clinical Communication Department of Obstetrics and Gynecology in [place], [place] [address] [place] [phone] Shraddha Keller D.O. Communication 01/12/2024 Clinical Communication Department of Obstetrics and Gynecology in [place], [place] [address] [place] [phone] Shraddha Keller D.O. Communication 01/09/2024 Orders Only Department of Obstetrics and Gynecology in [place], [place] [address] [place] [phone] Rayne Wheatley R.N. Primigravida Advanced Maternal Age Affecting Management (HCC) (Primary Dx) 01/07/2024 3:00 PM CDT Comprehensive Visit Division of Pediatric Cardiology in [place], [place] [address] [place] [phone] Junito Arce M.B.B.S. Primigravida Advanced Maternal Age Affecting Management (HCC) 01/07/2024 1:23 PM CDT - 01/07/2024 11:59 PM CDT Hospital Encounter Department of Cardiovascular Diseases in [place], [place] [address] [place] [address] Shraddha Keller D.O. Primigravida Advanced Maternal Age Affecting Management (HCC) Discharge Disposition: Home or Self Care 01/07/2024 11:00 AM CDT Routine Department of Obstetrics and Gynecology in [place], [place] [address] [place] [address] Shraddha Keller D.O. Barby, Theresa A, RBerenice. Primigravida Advanced Maternal Age Affecting Management (HCC) 01/07/2024 10:03 AM CDT - 01/07/2024 1:22 PM CDT Hospital Encounter Department of Obstetrics and Gynecology in [place], [place] [address] [place] [address] Shraddha Keller D.O. Primigravida Advanced Maternal Age Affecting Management (HCC) Discharge Disposition: Home or Self Care 12/16/2023 4:00 PM CDT Lab Department of Laboratory Medicine and Pathology, [facility] in [place], [place] [address] [place] [address] Zulema Avila M.D., Ph.D. Primigravida Advanced Maternal Age Affecting Management (HCC) 12/16/2023 3:00 PM CDT Routine Department of Obstetrics and Gynecology in [place], [place] [address] [place] [address] Shraddha Keller D.O. Primigravida Advanced Maternal Age Affecting Management (HCC) (Primary Dx) 12/16/2023 2:00 PM CDT Comprehensive Visit Department of Obstetrics and Gynecology in [place], [place] [address] [place] [address] Chrystal Araya M.D. Kristin Phillips M.S., [facility] Genetic Carrier Of Other Disease (Primary Dx); Primigravida Advanced Maternal Age Affecting Management (HCC) 12/16/2023 12:33 PM CDT - 12/16/2023 11:59 PM CDT Hospital Encounter Department of Obstetrics and Gynecology in [place], [place] [address] [place] [address] Chrystal Araya M.D. Primigravida Advanced Maternal Age Affecting Management (HCC) Discharge Disposition: Home or Self Care 12/15/2023 3:30 PM CDT Clinical Communication Virtual Review in [place], [place] [address] [place] [address] Pre-visit Intake from Last 3 Months Immunizations Name Administration [...] In the past 12 months has e [employer], gas, oil, or water [employer] threatened to shut off services in your [...] often do you attend chur ch or jew services? Never 04/14/2022 Do you belong to any clubs o r organizations such as religion groups, unions, fraternal or athletic groups, or [...] Answer Date Recorded PHQ-2 Score 0 12/15/2023 [facility] - Occupational [...] Sign Reading Time Taken Comments Blood Pressure 93/66 02/26/2024 4:00 PM CDT Pulse 85 02/26/2024 4:00 PM CDT Temperature 36.7 ??C (98 ??F) 02/26/2024 4:00 PM CDT Respiratory Rate 14 06/03/2018 6:34 PM CDT Oxygen Saturation 98% 02/26/2024 4:00 PM CDT Inhaled Oxygen Concentration - - Weight 108 kg (237 lb 10.5 oz) 02/26/2024 4:00 P M CDT Height 168.4 cm (5' 6.3) 08/04/2019 10:39 AM CD T Body Mass Index 38.01 08/04/2019 10:39 AM CDT Plan of Treatment Health Maintenance Due Date [...] Primigravida Advanced Maternal Age Affecting Management (HCC) ECHO 2D LIMITED DOPPLER Routine 02/26/2024 1:49 PM CDT Primigravida Advanced Maternal Age Affecting Management (HCC) US OB FOLLOW UP WITH BPP W/O NON-STRESS RAD - Routine (most inpatients and all outpatients) 01/30/2024 7:51 AM CDT Primigravida Advanced Maternal Age Affecting Management (HCC) ECHO 2D WITH COLOR AND DOPPLER Routine [...] S Routine 07/04/2014 11:29 AM CDT PATHOLOGY NETWORK ANNOUNCER CYTOLOGY Routine 07/04/2014 12:00 AM CDT from Last 3 Months or Most Recently Relevant to Health Maintenance Results * US OB Follow-up and or Growth Fung (02/26/2024 3:21 PM CDT) Only the most recent of2 resultswithin the time period is included. Anatomical Region Laterality Modality Body, Ultrasound OB RST LOS, Ultrasound ARZ LOS N/A Ultrasound Narrative 02/26/2024 6:03 PM CDT KALIE BERMUDEZ OB Exam, 02/26/2024 EXAM INFORMATION Patient Name: ??KALIE BERMUDEZ : ??1985 Age: ??38 yrs Sex: ??Female Ref Phys: ??SHRADDHA KELLER Exam Date: 02/26/2024 Procedure: US OB FOLLOW-UP AND OR GROWTH FUNG Exam Site: [facility] OB 4 Plurality: 1 LMP: 07/26/2023 GA [...] ??Amniotic Fluid Volume: ??2 Total Score = ??8/8 COMMENTS Preliminary Read by Main Mcpherson R.D.M.S. on 02/26/2024 3:21:09 PM. Boatwright: ??Main Mcpherson R.D.M.S. Thank You For This Referral Procedure Note Eliseo Desouza M.D. - 02/26/2024 SIMKALIE ESPINAL OB Exam, 02/26/2024 EXAM INFORMATION Patient Name: ABELARDO BERMUDEZMANUELA MONIQUE : 1985 Age: 38 yrs Sex: Female Ref Phys: SHRADDHA KELLER Exam Date: 02/26/2024 Procedure: US OB FOLLOW-UP AND OR GROWTH FUNG Exam Site: [facility] OB 4 Plurality: 1 LMP: 07/26/2023 GA By LMP: 30w5d OBHx: [G:(1)] F Trm:() Pre:() C-Sec:() Ab-I:() Ab-S:() Ect:() Multi:() Sandhya:() INDICATIONS FOR SONOGRAPHY Advanced Maternal age Increased BMI, growth IMPRESSION Transabdominal ultrasound was performed. Growth Fung in Cephalic presentation. EFW 85%, 1919 grams. Incidentalreassuring Biophysical Profile score of 8/8 with a [...] Main Mcpherson R.D.M.S. on 02/26/2024 3:21:09 PM. 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 Normal great artery relationships. For the complete report, see the Order-Level Documents. Narrative 02/26/2024 1:59 PM CDT For the complete report, see the Order-Level Documents. Final Impressions 1. echocardiogram performed due to abnormal rhythm; Follow up echo for premature atrial contractions. 2. Estimated date of delivery 05/01/2024. ??Gestational age 30 weeks , 5 days. 3. Fung . 4. lie: vertex. 5. echocardiogram reveals normal sinus rhythm at a heart rate of 129 contr/min. 6. Normal cardiac anatomy. 7. Normal cardiac dimensions. 8. Normal biventricular function. 9. Normal Doppler velocities. 10. Normal patency of the foramen ovale. 11. Normal umbilical cord Doppler velocities and profile. Three vessel cord. 12. No pericardial effusion. No hydrops. 13. Compared to the report of 01/07/2024 the following changes have occurred: The PAC's are no longer present. ??Side by side comparison of images performed. Procedure Note uJnito Arce M.B.B.S. - 02/26/2024 For the complete report, see the Order-Level Documents. Final Impressions 1. echocardiogram performed due to abnormal rhythm; Follow upecho for premature atrial contractions. 2. Estimated date of delivery 05/01/2024. Gestational age 30 weeks , 5days. 3. Fung . 4. lie: vertex. 5. echocardiogram reveals normal sinus rhythm at a heart rate of 129contr/min. 6. Normal cardiac anatomy. 7. Normal cardiac dimensions. 8. Normal biventricular function. 9. Normal Doppler velocities. 10. Normal patency of the foramen ovale. 11. Normal umbilical cord Doppler velocities and profile. Three vesselcord. 12. No pericardial effusion. No hydrops. 13. Compared to the report of 01/07/2024 the following changes haveoccurred: The PAC's are no longer present. Side by side comparison ofimages performed. 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 Normal great artery relationships. For the complete report, see the Order-Level Documents. Shraddha A Pone D.O. CV ECHO PROCEDURES * US OB Follow up and or Growth with BPP without NST (01/30/2024 7:51 AM CDT) Anatomical Region Laterality Modality Body, Ultrasound OB RST LOS, Ultrasound ARZ LOS N/A Ultrasound Narrative 01/30/2024 8:15 AM CDT KALIE BERMUDEZ OB Exam, 01/30/2024 EXAM INFORMATION Patient Name: ??KALIE BERMUDEZ : ??1985 Age: ??38 yrs Sex: ??Female Ref Phys: ??SHRADDHA KELLER Exam Date: 01/30/2024 Procedure: US OB FOLLOW UP WITH BPP W/O NON-STRESS Exam Site: [facility] OB #2 Plurality: 1 OBHx: [G:(1)] ?F Trm:() Pre:() C-Sec:() Ab-I:() Ab-S:() Ect:() Multi:() Sandhya:() INDICATIONS FOR SONOGRAPHY assess heart rate. BPP and Growth. Previous irregular heart rate IMPRESSION Growth Fetus: Live fung intrauterine . Presentation: Breech. Growth: Appropriate for gestational age (EFW 1098 grams, 69th percentile, AC 58th percentile). Amniotic fluid volume: Normal (MVP 5.74 cm). Others: heart beat normal rate and regular rhythm during duration of ??examination. Known subserosal uterine leiomyoma. Biophysical Profile Biophysical profile: 05/13. Conclusion: Live fung intrauterine in breech presentation. Appropriate growth and normal amniotic fluid volume. BPP 05/13. Known subserosal uterine leiomyoma. MEASUREMENTS ??venkata ??wks [+/-] (Range) % ?? BPD: 7.11 cm ?? 28w4d ??[+/-2.18] ??(6.16 - 7.34) 88% FL: ??5.09 cm ?? 27w2d ??[+/-2.08] ??(4.52 - 5.69) 48% HC: ??26.44 cm ?? 28w5d ??[+/-2.06] ??(23.51 - 27.43) 83% AC: ??22.99 cm ?? 27w2d ??[+/-2.18] ??(20.12 - 25.37) 58% CI: ??75.4 ?(71.06 - 85.54) 32% RATIOS ??(Range) % ?? HC/AC: 1.15 ?(1.05 - 1.22) 60% ?? FL/BPD: 0.72 ? FL/AC: 0.22 ? COMPUTATIONS GA: ?? 26w6d [+/-1.80] Method: ??ANGELITA ANGELITA: ??05/01/2024 Sono GA: ??27w4d [+/-1.80] Method: ?? BPD, HC, AC, FL Weight: ??1098 gms. ??2 lb 6 oz. ??69% Method: ??BPD, HC, AC, FL OBSERVATIONS Amniotic Fluid Fluid Volume: ??Normal MVP: ??5.74 cm Presentation: ?Breech Growth: ??Within normal limits. FHR: ??146 bpm Biophysical Profile Variables Score: 2=Normal, 0=Abnormal. ?? Movements: ??2 ??Breathing Movements: 2 ?? Tone: ??2 ??Amniotic Fluid Volume: ??2 Total Score = ??8 COMMENTS Preliminary Read by Chuck Colorado on 01/30/2024 8:06:42 AM. Boatwright: ??Chuck Colorado Thank You For This Referral Procedure Note Chrystal Araya M.D. - 01/30/2024 KALIE BERMUDEZ OB Exam, 01/30/2024 EXAM INFORMATION Patient Name: KALIE BERMUDEZ : 1985 Age: 38 yrs Sex: Female Ref Phys: SHRADDHA KELLER Exam Date: 01/30/2024 Procedure: US OB FOLLOW UP WITH BPP W/O NON-STRESS Exam Site: [facility] OB #2 Plurality: 1 OBHx: [G:(1)] F Trm:() Pre:() C-Sec:() Ab-I:() Ab-S:() Ect:() Multi:() Sandhya:() INDICATIONS FOR SONOGRAPHY assess heart rate. BPP and Growth. Previous irregular heart rate IMPRESSION Growth Fetus: Live fung intrauterine . Presentation: Breech. Growth: Appropriate for gestational age (EFW 1098 grams, 69th percentile,AC 58th percentile). Amniotic fluid volume: Normal (MVP 5.74 cm). Others: heart beat normal rate and regular rhythm during duration ofexamination. Known subserosal uterine leiomyoma. Biophysical Profile Biophysical profile: 05/13. Conclusion: Live fung intrauterine in breech presentation. Appropriate growth and normal amniotic fluid volume. BP 05/13. Known subserosal uterine leiomyoma. MEASUREMENTS venkata wks [+/-] (Range) % BPD: 7.11 cm 28w4d [+/-2.18] (6.16 - 7.34) 88% FL: 5.09 cm 27w2d [+/-2.08] (4.52 - 5.69) 48% HC: 26.44 cm 28w5d [+/-2.06] (23.51 - 27.43) 83% AC: 22.99 cm 27w2d [+/-2.18] (20.12 - 25.37) 58% CI: 75.4 (71.06 - 85.54) 32% RATIOS (Range) % HC/AC: 1.15 (1.05 - 1.22) 60% FL/BPD: 0.72 FL/AC: 0.22 COMPUTATIONS GA: 26w6d [+/-1.80] Method: ANGELITA ANGELITA: 05/01/2024 Sono GA: 27w4d [+/-1.80] Method: BPD, HC, AC, FL Weight: 1098 gms. 2 lb 6 oz. 69% Method: BPD, HC, AC, FL OBSERVATIONS Amniotic Fluid Fluid Volume: Normal MVP: 5.74 cm Presentation: Breech Growth: Within normal limits. FHR: 146 bpm Biophysical Profile Variables Score: 2=Normal, 0=Abnormal. Movements: 2 Breathing Movements: 2 Tone: 2 Amniotic Fluid Volume: 2 Total Score = 8/8 COMMENTS Preliminary Read by Chuck Colorado on 01/30/2024 8:06:42 AM. Boatwright: Chuck Colorado Thank You For This Referral Shraddha Keller D.O. IMG OB US PROCEDURES * ECHO 2D WITH COLOR AND DOPPLER (01/07/2024 2:29 PM CDT) Ejection Fraction [facility] Anatomical Region Laterality Modality Other 01/07/2024 [...] Shraddha Keller D.O. CV ECHO PROCEDURES * [facility] Screen - Sent Out Lab (12/16/2023 3:39 PM CDT) [facility] Screen SEE COMMENT 12/23/2023 9:06 AM CDT MAURICIO Comment: For final report, select Lab-Send Out Lab Results hyperlink below. Blood (Blood, Venous) 12/16/2023 3:39 PM CDT 12/17/2023 10:23 AM CDT [facility] [employer] - 12/23/2023 9:06 AM CDT Specimen Information: Specimen ID: [id number] Specimen Type: Blood Specimen Collection Start Date: 12/16/2023 ??3:39 PM Specimen Received Date: 12/17/2023 10:23 AM Specimen ID: [id number] Specimen Type: Blood Specimen Collection Start Date: 12/16/2023 ??3:39 PM Specimen Received Date: 12/17/2023 10:23 AM Zulema Avila M.D., Ph.D. LAB GENETIC TEST ING [employer] [address] [place] [address], [facility] [employer] [address] [place] [address] * US OB Advanced Level Fung (12/16/2023 2:36 PM CDT) Anatomical Region Laterality Modality Body, Ultrasound OB RST LOS, Ultrasound ARZ LOS N/A Ultrasound Narrative 12/16/2023 3:03 PM CDT KALIE BERMUDEZ OB Exam, 12/16/2023 EXAM INFORMATION Patient Name: ??KALIE BERMUDEZ : ??1985 Age: ??37 yrs Sex: ??Female Ref Phys: ??CHRYSTAL FLORES ARAYA Exam Date: 12/16/2023 Procedure: US OB ADVANCED LEVEL FUNG Exam Site: [facility] OB #126 Plurality: 1 INDICATIONS FOR SONOGRAPHY [...] by Tamiko Mancini on 12/16/2023 2:27:18 PM. Boatwright: ??Tamiko Mancini Thank You For This Referral Procedure Note Eliseo Desouza M.D. - 12/16/2023 KALIE BERMUDEZ OB Exam, 12/16/2023 EXAM INFORMATION Patient Name: KALIE BERMUDEZ : 1985 Age: 37 yrs Sex: Female Ref Phys: CHRYSTAL ARAYA Exam Date: 12/16/2023 Procedure: US OB ADVANCED LEVEL FUNG Exam Site: [facility] OB #126 Plurality: 1 INDICATIONS FOR SONOGRAPHY [...] by Tamiko Mancini on 12/16/2023 2:27:18 PM. Boatwright: Tamiko Mancini Thank You For This Referral Chrystal Araya M.D. IMMary OB US FL OCEDURES * (ABNORMAL) Lipid Panel (07/04/2014 11:29 AM CDT) Calculated LDL 121(H) 0 - 100 MGDL POWERCHART Total Cholesterol/HDL Ratio 4.16 2.20 - 4.40 POWERCHART Cholesterol, Total 187 <=200 MGDL POWERCHART HX HDL 45 40 - 60 MGDL POWERCHART Triglycerides 106 <=150 MGDL POWERCHART HXLDL/HDL 3 POWERCHART Blood 07/04/2014 11:2 9 AM CDT Tomasz Powell M.D. LAB BLOOD ADD-ON POWERCHART * Pathology NETWORK ANNOUNCER Cytology (07/04/2014 12:00 AM CDT) 07/04/2014 Narrative [facility] - 07/13/2014 2:23 PM CDT [facility] in [place] [address] [place], [place] ??[id number] Patient Name: KALIE MONTEMAYOR Collected: 07/04/2014 Address: City/State/Zip: [address] ??[phone] Received: Reported: 07/05/2014 07/11/2014 Soc. Sec. #: ?/Age/Sex 1985 (Age: 28) ??F Physician(s): YUNI POWELL MD Copy To: ? [facility] ??[id number] [address] [facility] [facility], ??[place] ??[address] CYTOPATHOLOGY NETWORK ANNOUNCER REPORT FINAL CYTOLOGIC DIAGNOSIS Pap Smear - ThinPrep: NEGATIVE FOR INTRAEPITHELIAL LESION OR MALIGNANCY ENDOCERVICAL CELLS/COMPONENT PRESENT. SATISFACTORY SPECIMEN FOR EVALUATION. Electronically Signed Out By amb/07/11/[address] [facility] The Pap test is a screening [...] TYPING REQUESTED Tomasz Powell M.D. LAB PAP LUIS VERA [facility] Organization Address City/State/ZIP Co de Phone Number [facility] LAB from Last 3 Months or Most Recently Relevant to Health Maintenance Care Teams Head Charrer Relationship Specialty Start Date End Date Erin Calvo APRN, C.N.P., D.N.P. [address] [place] [phone] [facility] - General 08/30/20
--- OUTSIDE RECORDS SUMMARY | 2024-03-05 10:01 | XMS_ITS ---
Author Organization [facility] Address [address] [place] [address] Care Team Providers Care Golf Course Manager Name Role Phone Unavailable Unavailable Unavailable Surgery Details Not on file Complications Check Surgery Details section. Procedure Estimated Blood Loss Check Surgery Details section. Procedure Findings Check Surgery Details section. Procedure Specimens Taken Check Surgery Details section.
--- OUTSIDE RECORDS SUMMARY | 2024-03-05 10:01 | XMS_ITS | Encounter Summary ---
Author Organization [facility] Address [address] [place] [id number] Care Team Providers Care Claim Inspector Name Role Phone Erin Calvo APRN, C.N.PCarlos, D.N.P. Primary Care Provider Encounter Details Date Type Department Care Team (Late st Contact Info) Description 01/30/2024 Orders Only Department of Obstetrics and Gynecology in [place], [place] [address] [place] [address] Lashae Pitts, RCarlosNCarlos [address] [place] [phone] Social History Tobacco Use Types Packs/Day Years Used Date Smoking Tobacco: Never Smokeless Tobacco: Never Alcohol Use Standard Drinks/Week Comments Not Currently 0 (1 standard drink = 0.6 oz pur e alcohol) i only drink once in a while [facility] Utilities Answer Date Recorded In the past 12 months has [employer], gas, oil, or water [employer] threatened to shut off services in your [...] How often do you attend chur or taoism services? Never 04/14/2022 Do you belong to any clubs o r organizations such as yarsanism groups, unions, fraternal or athletic groups, or [...] Answer Date Recorded PHQ-2 Score 0 12/15/2023 [facility] - Occupational [...] your living situation today? I have a [facility] place to live 12/09/2023 Education Answer [...] on file documented as of this encounter Visit Diagnoses Not on filedocumented in this encounter Additional Health Concerns Assessment Noted Time PHQ-9 Depression Total Score: 0 12/15/19 3:08 PM CDT documented as of this encounter Care Teams Claim Inspector Relationship Specialty Start Date End Date Erin Calvo APRN, C.N.P., D.N.P. [address], [place] [phone] PCP - General 08/30/20 documented as of this encounter
--- OUTSIDE RECORDS SUMMARY | 2024-03-05 10:01 | XMS_ITS | Referral Summary ---
Author Organization [facility] Address [address] [place] [address] Care Team Providers Care Oxygen System Tester Name Role Phone Erin Calvo APRN C.N.Yasmany, D.N.P. Primary Care Provider Source Comments Patient records contain information from all sites at [facility]. For routine questions regarding patient records, call [phone] during business hours, M-F 8:00 AM - 5:00 PM Central Time. Record requests for emergency care only can be directed to [phone] at any time.[facility] Encounters Date Type Department Care Team Description 02/26/2024 2:30 PM CDT Comprehensive Visit Division of Pediatric Cardiology in [place], [place] [address] [place] [address] Junito Arce M.B.B.S. Primigravida Advanced Maternal Age Affecting Management (HCC) 02/26/2024 4:00 PM CDT Routine Department of Obstetrics and Gynecology in [place], [place] [address] [place] [phone] Mayank Morgan M.B.B.S. Maternal Care For Other Suspected Abnormality And Damage Cardiac Anomalies Single Gestation (HCC) (Primary Dx) 02/26/2024 3:02 PM CDT - 02/26/2024 11:59 PM CDT Hospital Encounter Department of Obstetrics and Gynecology in [place], [place] [address] [place] [phone] Shraddha Keller D.O. Primigravida Advanced Maternal Age Affecting Management (HCC) Discharge Disposition: Home or Self Care 02/26/2024 1:01 PM CDT - 02/26/2024 3:01 PM CDT Hospital Encounter Department of Cardiovascular Diseases in [place], [place] [address] [place] [phone] Shraddha Keller D.O. Primigravida Advanced Maternal Age Affecting Management (HCC) Discharge Disposition: Home or Self Care 02/22/2024 Patient Self-Triage [facility] Symptom Assurance Manager Insurance, Provider 01/30/2024 Orders Only Department of Obstetrics and Gynecology in [place], [place] [address] [place] [phone] Lashae Pitts R.N. 01/30/2024 8:30 AM CDT Routine Department of Obstetrics and Gynecology in [address] [phone] Mayank Morgan M.B.B.S. Maternal Care For Other Suspected Abnormality And Damage Cardiac Anomalies Single Gestation (HCC) (Primary Dx) 01/30/2024 7:19 AM CDT - 01/30/2024 11:59 PM CDT Hospital Encounter Department of Obstetrics and Gynecology in [address] [phone] Shraddha Keller D.O. Primigravida Advanced Maternal Age Affecting Management (HCC) Discharge Disposition: Home or Self Care 01/13/2024 Orders Only Department of Obstetrics and Gynecology in [place], [place] [address] [place] [phone] Rayne Whetaley RMandi Primigravida Advanced Maternal Age Affecting Management (HCC) (Primary Dx) 01/12/2024 Clinical Communication Department of Obstetrics and Gynecology in [place], [place] [address] [place] [phone] Shraddha Keller D.O. Communication 01/12/2024 Clinical Communication Department of Obstetrics and Gynecology in [place], [place] [address] [place] [address] Shraddha Keller D.O. Communication 01/09/2024 Orders Only Department of Obstetrics and Gynecology in [place], [place] [address] [place] [address] Rayne Wheatley R.N. Primigravida Advanced Maternal Age Affecting Management (HCC) (Primary Dx) 01/07/2024 10:03 AM CDT - 01/07/2024 1:22 PM CDT Hospital Encounter Department of Obstetrics and Gynecology in [place], [place] [address] [place] [address] Shraddha Keller D.O. Primigravida Advanced Maternal Age Affecting Management (HCC) Discharge Disposition: Home or Self Care 01/07/2024 11:00 AM CDT Routine Department of Obstetrics and Gynecology in [place], [place] [address] [place] [address] Shraddha Keller D.O. Barby, Theresa A, R.N. Primigravida Advanced Maternal Age Affecting Management (HCC) 01/07/2024 3:00 PM CDT Comprehensive Visit Division of Pediatric Cardiology in [place], [place] [address] [place] [address] Junito Arce M.B.B.S. Primigravida Advanced Maternal Age Affecting Management (HCC) 01/07/2024 1:23 PM CDT - 01/07/2024 11:59 PM CDT Hospital Encounter Department of Cardiovascular Diseases in [place], [place] [address] [place] [address] Shraddha Keller D.O. Primigravida Advanced Maternal Age Affecting Management (HCC) Discharge Disposition: Home or Self Care 12/16/2023 4:00 PM CDT Lab Department of Laboratory Medicine and Pathology, [facility], in [place], [place] [address] [place] [address] Zulema Aivla M.D., Ph.D. Primigravida Advanced Maternal Age Affecting Management (HCC) 12/16/2023 2:00 PM CDT Comprehensive Visit Department of Obstetrics and Gynecology in [place], [place] [address] [place] [address] Chrystal Araya M.D. 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 Primigravida Advanced Maternal Age Affecting Management (HCC) Discharge Disposition: Home or Self Care 12/16/2023 3:00 PM CDT Routine Department of Obstetrics and Gynecology in [place], [place] [address] [place] [phone] Shraddha Keller D.O. Primigravida Advanced Maternal Age Affecting Management (HCC) (Primary Dx) 12/15/2023 3:30 PM CDT Clinical Communication Virtual Review in [place], [place] 200 [place] [phone] Pre-visit Intake from Last 3 Months Allergies Active Allergy [...] i only drink once in a while [facility] Utilities Answer Date Recorded In the past 12 months has e [employer], gas, oil, or water [employer] threatened to shut off services in your [...] often do you attend chur ch or caodaism services? Never 04/14/2022 Do you belong to any clubs o r organizations such as anabaptist groups, unions, fraternal or athletic groups, or [...] Answer Date Recorded PHQ-2 Score 0 12/15/2023 [facility] - Occupational Stress Questionnaire Answer Date [...] your living situation today? I have a [facility] place to live 12/09/2023 Education [...] 08/04/2019 10:39 AM CDT Plan of Treatment Not on file Procedures Procedure Name Priority Date/Time Associated Diagnosis [...] S Routine 07/04/2014 11:29 AM CDT PATHOLOGY HERBOLOGIST CYTOLOGY Routine 07/04/2014 12:00 AM CDT from [...] OR GROWTH FUNG Exam Site: [facility] OB 4 Plurality: 1 LMP: 07/26/2023 GA [...] ??Amniotic Fluid Volume: ??2 Total Score = ??05/13 COMMENTS Preliminary Read by Main Mcpherson R.D.M.SCarlos on 02/26/2024 3:21:09 PM. Web Site Admin: ??Main Mcpherson R.D.MCarlosSCarlos Thank You For This Referral Procedure Note Eliseo Desouza M.D. - 02/26/2024 AIDAN KALIE RAINA OB Exam, 02/26/2024 EXAM INFORMATION Patient Name: KALIE BERMUDEZ RAINA : 1985 Age: 38 yrs Sex: Female Ref Phys: SHRADDHA KELLER Exam Date: 02/26/2024 Procedure: US OB FOLLOW-UP AND OR GROWTH FUNG Exam Site: [facility] OB 4 Plurality: 1 LMP: 07/26/2023 GA [...] 8/8 COMMENTS Preliminary Read by Main Mcpherson R.D.MCarlosSCarlos on 02/26/2024 3:21:09 PM. Web Site Admin: Main Mcpherson R.D.M.S. Thank You For This Referral Shraddha A Pone D.O. IMG OB US PROCEDURES * ECHO 2D LIMITED DOPPLER (02/26/2024 1:49 PM CDT) Ejection Fraction [facility] Anatomical Region Laterality Modality Echocardiography 02/26/2024 [...] side comparison of images performed. Procedure Note Junito Arce M.B.B.S. - 02/26/2024 For the complete [...] OB Exam, 01/30/2024 EXAM INFORMATION Patient Name: ??JACKIKALIE BARRIENTOS : ??1985 Age: ??38 yrs Sex: ??Female Ref Phys: ??SHRADDHA KELLER Exam Date: 01/30/2024 Procedure: US OB FOLLOW UP WITH BPP W/O NON-STRESS Exam Site: [facility] OB #2 Plurality: 1 OBHx: [G:(1)] ?F [...] Score = ??8/8 COMMENTS Preliminary Read by Chuck Colorado on 01/30/2024 8:06:42 AM. Web Site Admin: ??Chuck Colorado Thank You For This Referral Procedure Note Chrystal Araya M.D. - 01/30/2024 SIMKALIE ESPINAL OB Exam, 01/30/2024 EXAM INFORMATION Patient Name: KALIE BERMUDEZ RAINA : 1985 Age: 38 yrs Sex: Female Ref Phys: SHRADDHA Bianca KELLER Exam Date: 01/30/2024 Procedure: US OB FOLLOW UP WITH BPP W/O NON-STRESS Exam Site: [facility] OB #2 Plurality: 1 OBHx: [G:(1)] F [...] BPP 05/13. Known subserosal uterine leiomyoma. MEASUREMENTS venkata [...] by Chuck Colorado on 01/30/2024 8:06:42 AM. Web Site Admin: Chuck Colorado Thank You For This Referral Shraddha Keller D.O. IMG OB US PROCEDURES * ECHO 2D WITH COLOR AND DOPPLER (01/07/2024 2:29 PM CDT) Ejection Fraction CV [facility] Anatomical Region Laterality Modality Other 01/07/2024 1:25 [...] see the Order-Level Documents. Shraddha Keller D.O. ECHO PROCEDURES * [facility] Screen - Sent Out Lab (12/16/2023 3:39 PM CDT) [facility] Screen SEE COMMENT 12/23/2023 9:06 AM CDT MAURIC[facility] Comment: For final report, select Lab-Send Out Lab Results hyperlink below. Blood (Blood, Venous) 12/16/2023 3:39 PM CDT 12/17/2023 10:23 AM CDT Narrative [employer] - 12/23/2023 9:06 AM CDT Specimen Information: Specimen ID: [id number] Specimen Type: Blood Specimen Collection Start Date: 12/16/2023 ??3:39 PM Specimen Received Date: 12/17/2023 10:23 AM Specimen ID: [id number] Specimen Type: Blood Specimen Collection Start Date: 12/16/2023 ??3:39 PM Specimen Received Date: 12/17/2023 10:23 AM Zulema Avila M.D., Ph.D. LAB GENETIC TEST ING [employer] [address] [place] [address], [facility] [employer] [address] [place] [address] * US OB Advanced Level Fung (12/16/2023 [...] ADVANCED LEVEL FUNG Exam Site: [facility] OB #126 Plurality: 1 INDICATIONS FOR [...] by Tamiko Mancini on 12/16/2023 2:27:18 PM. Web Site Admin: ??Tamiko Mancini Thank You For This Referral Procedure Note Eliseo Desouza M.D. - 12/16/2023 KALIE BERMUDEZ OB Exam, 12/16/2023 EXAM INFORMATION Patient Name: KALIE BERMUDEZ : 1985 Age: 37 yrs Sex: Female Ref Phys: CHRYSTAL ARAYA Exam Date: 12/16/2023 Procedure: US OB ADVANCED LEVEL FUNG Exam Site: [facility] OB #126 Plurality: 1 INDICATIONS FOR [...] by Tamiko Mancini on 12/16/2023 2:27:18 PM. Web Site Admin: Tamiko Mancini Thank You For This Referral Chrystal Araya M.D. IMG OB US DE OCEDURES * (ABNORMAL) Lipid Panel (07/04/2014 11:29 AM CDT) Calculated LDL 121(H) 0 - 100 MGDL POWERCHART Total Cholesterol/HDL Ratio 4.16 2.20 - 4.40 POWERCHART Cholesterol, Total 187 <=200 MGDL POWERCHART HX HDL 45 40 - 60 MGDL POWERCHART Triglycerides 106 <=150 MGDL POWERCHART HXLDL/HDL 3 POWERCHART Blood 07/04/2014 11:2 9 AM CDT Tomasz Powell M.D. LAB BLOOD ADD-ON POWERCHART * Pathology HERBOLOGIST Cytology (07/04/2014 12:00 AM CDT) 07/04/2014 Narrative [facility] - 07/13/2014 2:23 PM CDT [facility] in [place] [address] ??[phone] Patient Name: KALIE MONTEMAYOR Collected: 07/04/2014 [facility]: [facility]/State/Zip: [address] ??[id number] Received: Reported: 07/05/2014 07/11/2014 Soc. Sec. #: ?/Age/Sex 1985 (Age: 28) ??F Physician(s): YUNI POWELL MD Copy To: ? [facility] ??[id number] [facility], ??[place] ??[address] CYTOPATHOLOGY HERBOLOGIST REPORT FINAL CYTOLOGIC DIAGNOSIS Pap Smear - ThinPrep: NEGATIVE FOR INTRAEPITHELIAL LESION OR MALIGNANCY ENDOCERVICAL CELLS/COMPONENT PRESENT. SATISFACTORY SPECIMEN FOR EVALUATION. Electronically Signed Out By amb/07/11/[address](ASCP) The Pap test is a screening [...] Date Complete: ? 07/13/2014 ? By: ??JANET Ropertenisha CT(ASCP) Date Reported: ? 07/13/2014 INTERPRETATION: Test: CervistaTM High Risk HPV Result: NEGATIVE FOR HIGH RISK HPV Specimen Description: ThinPrep? ? ? Pap Test PreservCyt Solution The FDA-approved [employer]ic CervistaTM HPV High Risk Test is an [...] Powell M.D. LAB PAP [facility] from Last 3 Months or Most Recently Relevant to Health Maintenance Care Teams Oxygen System Tester Relationship Specialty Start Date End Date Erin Clavo APRN, C.N.P., D.N.P. [address] [place] [address] PCP - General 08/30/20
--- OUTSIDE RECORDS SUMMARY | 2024-03-05 10:01 | XMS_ITS | Encounter Summary ---
Author Organization [facility] Address [address] [place] [address] Care Team Providers Care Brokerage Clerk Name Role Phone Erin Calvo APRN C.N.PCarlos, D.N.P. Primary Care Provider Reason for Visit * Reason Comments Routine Visit MFM * Outpatient (Routine) - Closed Specialty Diagnoses / Procedures Referred By Kassie cooley Referred To Contact Obstetrics and Gynecology Shraddha Mccann D.O. [address] [place] [phone] [facility] Referral ID Status Reason Start Date Expiration Date Visits Re quested Visits Authorized [id number] Closed 01/13/2024 07/14/2025 1 1 Encounter Details Date Type Department Care Team (Latest Contact Info) Description 02/26/2024 4:00 PM CDT Routine Department of Obstetrics and Gynecology in [place], [place] [address] [place] [phone] Mayank Morgan M.B.BCarlosS. [address] [place] [phone] Maternal Care For Other Suspected Abnormality And Damage Cardiac Anomalies Single Gestation (HCC) (Primary Dx) Social History Tobacco Use Types Packs/Day Years Used Date Smoking Tobacco: Never Smokeless Tobacco: Never Alcohol Use Standard Drinks/Week Comments Not Currently 0 (1 standard drink = 0.6 oz pur e alcohol) i only drink once in a while [facility] Utilities Answer Date Recorded In the past 12 months has e [employer], gas, oil, or water company threatened to [...] often do you attend chur ch or mandaeism services? Never 04/14/2022 Do you belong to any clubs o r organizations such as evangelical groups, unions, fraternal or athletic groups, or [...] Answer Date Recorded PHQ-2 Score 0 12/15/2023 [facility] - Occupational Stress Questionnaire Answer Date [...] ??F) 02/26/2024 4:00 PM CDT Respiratory Rate - - Oxygen Saturation 98% 02/26/2024 4:00 PM CDT Inhaled Oxygen Concentration - - Weight 108 kg (237 lb 10.5 oz) 02/26/2024 4:00 P M CDT Height - - Body Mass Index 38.01 08/04/2019 10:39 AM CDT documented in this encounter Progress Notes * Mayank Morgan M.B.B.S. - 02/26/2024 4:00 PM CDT SUBJECTIVE CHIEF COMPLAINT / REASON FOR VISIT Kalie Monique Karyn is a 38 y.o. . No LMP recorded. Patient is . Her Estimated Date of Delivery: 05/01/24 determined by LMP consistent with 8 week ultrasound. Gestational age is 30w5d. She returns today for follow-up in the setting of cardiac arrhythmia. 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 PACs. OBJECTIVE VITAL SIGNS Vitals: 02/26/24 1600 BP: 93/66 Pulse: 85 Temp: 36.7 ??C SpO2: 98% DIAGNOSTICS Ultrasound: 02/26/24 Growth Ramsay in Cephalic presentation. Composite biometry consistent with gestational age. EFW 85%, 1919 grams. Incidental reassuring Biophysical Profile score of 8/8 with a MVP of 7.29 cm. echo:02/26/24 Final Impressions 1. echocardiogram performed due to abnormal rhythm; Follow up echo for premature atrialcontractions. 2. Estimated date of delivery 05/01/2024. Gestational age 30 weeks , 5 days. 3. Ramsay . 4. lie: vertex. [...] occurred: The PAC's are no longer present. Side by side comparison of images performed. 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 Normal great artery relationships. ASSESSMENT / PLAN Medical Problems Problem List Body Mass Index 40.0 To 44.9 Adult ([facility]) Body mass index (BMI) 40.0-44.9, adult\.br\Rule activated problem due to BMI 40- 44 posted on 04/21 at 10:10 CDT. 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 Kalie Eneida Boss is here today for follow-up in the setting of PACs. I discussed with Kalie and her partner today's ultrasound and echo findings including normal growth and fluid and resolution of cardiac arrhythmia. No further follow-up is recommended at [facility] in [place]. Delivery can be conducted locally. Gestational age at delivery and mode of delivery as per usual obstetrical indications. I personally spent 10 minutes in care of the patient today. Time includes both non face to face andface to face patient care. Amna Chung.S. Maternal- Medicine documented in this encounter Plan of Treatment Not on file documented as of this encounter Visit Diagnoses Diagnosis Maternal Care For Other Suspected Abnormality And Damage Cardiac Anomalies Single Gestation (HCC)- Primary documented in this encounter Additional Health Concerns Assessment Noted Time PHQ-9 Depression Total Score: 0 12/15/19 24 3:08 PM CDT documented as of this encounter Care Teams Brokerage Clerk Relationship Specialty Start Date End Date Erin Calvo APRN, C.N.P., D.N.P. [address] [place] [phone] PCP - General 08/30/20 documented as of this encounter
--- OUTSIDE RECORDS SUMMARY | 2024-03-05 10:01 | XMS_ITS | Clinical Summary ---
Author Organization [facility] Address [place], [place] [address] Care Team Providers Care Professor Of Music Name Role Phone Staff, Other Clinical Primary [...] Comments Blood Pressure 126/74 11/16/2023 6:20 AM CIVIL DRAFTSMAN Pulse 85 11/16/2023 6:20 AM CIVIL DRAFTSMAN Temperature 37 ??C (98.6 ??F) 11/16/2023 6:20 AM CIVIL DRAFTSMAN Respiratory Rate 16 11/16/2023 6:20 AM CIVIL DRAFTSMAN Oxygen Saturation 100% 11/16/2023 6:20 AM CIVIL DRAFTSMAN Inhaled Oxygen Concentration - - Weight 103.5 kg (228 lb 3.2 oz) 11/16/2023 6:20 AM CIVIL DRAFTSMAN Height 160 cm (5' 3) 11/16/2023 6:20 AM CIVIL DRAFTSMAN Body Mass Index 40.42 11/16/2023 6:20 AM CIVIL DRAFTSMAN Plan of Treatment Health Maintenance Due Date [...] Procedure Name Priority Date/Time Associated Diagnosis Comments RESEARCH AND DEVELOPMENT TESTER THIN PREP PAP SCREEN IMAGED Routine 04/27/2021 10:30 AM CDT from Last 3 Months or Most Recently Relevant to Health Maintenance Results * RESEARCH AND DEVELOPMENT TESTER THIN PREP PAP SCREEN IMAGED (04/27/2021 10:30 AM CDT) Case Report Gynecologic Cytology Report ? Case: [id number] ? Authorizing Provider: ??Unknown, Doctor ?Collected: ? 04/27/2021 1030 ? Ordering Location: ? [facility] ?Received: ?04/27/2021 1733 ? First Screen: ?Trinh, Oliverio ? Pathologist: ? Clair Nye, DO ? Specimen: ?RESEARCH AND DEVELOPMENT TESTER ThinPrep Vial Screening, Cervical/Vaginal ? 05/09/2021 3:34 PM CDT [facility] INTERPRETATION/ RESULT NEGATIVE FOR INTRAEPITHELIAL LESION OR MALIGNANCY (NIL) (none) 05/09/2021 3:34 PM CDT [facility] R NON-NEOPLASTIC FINDING(S) Reactive cellular changes associated with inflammation/repa ir 05/09/2021 3:34 PM CDT [facility] SPECIMEN ADEQUACY Satisfactory for evaluation Endocervical component present 05/09/2021 3:34 PM CDT [facility] HPV REQUEST HPV and PAP 05/09/2021 3:34 PM CDT [facility] Last Pap Date 05/09/2021 3:34 PM T [facility] Comment:unknown Additional Information 05/09/2021 3:34 PM CDT [facility] Comment: Interpreted at [facility] Laboratory - [address] [address] Automated Review Successful 05/09/2021 3:34 PM CDT [facility] Comment:Specimen processed s uccessfully by automated accounts payable specialist device, ThinPrep Imaging System, [employer] ANCILLARY TESTING RESEARCH AND DEVELOPMENT TESTER HPV Ordered, Please see separate report 05/09/2021 3:34 PM T [facility] Note The pap test is a [...] and malignant lesions. 05/09/2021 3:34 PM CDT [facility] Other (Cervical/Vagina l) 04/27/2021 10:30 AM CDT 04/27/2021 5:33 PM CDT Doctor Unknown PATHOLOGY/CYTOLOGY [facility] [address] [place] [address], from Last 3 Months or Most Recently Relevant to Health Maintenance Advance Directives * Full Code (Latest Code Status on File) Date Activated Date Inactivated Comments 12/21/2022 11:56 PM 12/22/2022 1:04 PM Question Answer Comments Code Status Discussion: Reviewed Preferences Care Teams Professor Of Music Relationship Specialty Start Date End Date Staff, Other Clinical . PCP - General 01/17/22
--- OUTSIDE RECORDS SUMMARY | 2024-03-05 10:01 | XMS_ITS | Encounter Summary ---
Author Organization [facility] Address [address] [place] [address] Care Team Providers Care Remedy Developer Name Role Phone Erin Calvo APRN, C.N.P., D.N.P. Primary Care Provider Encounter Details Date Type Department Care Team (Late st Contact Info) Description 02/22/2024 Patient Self-Triage [facility] Symptom Cross Country/Track And Field Coach, Provider Social History Tobacco Use Types Packs/Day Years Used Date Smoking Tobacco: Never Smokeless Tobacco: Never Alcohol Use Standard Drinks/Week Comments Not Currently 0 (1 standard drink = 0.6 oz pur e alcohol) i only drink once in a while [facility] Utilities Answer Date Recorded In the [...] often do you attend chur ch or restoration services? Never 04/14/2022 Do you belong to any clubs o r organizations such as zoroastrian groups, unions, fraternal or athletic groups, or [...] Answer Date Recorded PHQ-2 Score 0 12/15/2023 [facility] ional Health - [...] living situation today? I have a [facility] place to live 12/09/2023 Education Answer Date [...] documented as of this encounter Care Teams Remedy Developer Relationship Specialty Start Date End Date Erin Calvo APRN, C.N.P., D.N.P. [address] [place] [phone] PCP - General 08/30/20 documented as of this encounter
--- OUTSIDE RECORDS SUMMARY | 2024-03-05 10:01 | XMS_ITS | Encounter Summary ---
Author Organization [facility] Address [address] [place] [address] Care Team Providers Care Field Insurance Sales Manager Name Role Phone Erin Calvo APRN C.N.PCarlos, D.N.P. 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 [address] [place] [address] [facility] Referral ID Status Reason Start Date Expiration Date Visits Re quested Visits Authorized [id number] Closed 01/13/2024 01/12/2025 1 1 Reason for Visit * Outpatient (Routine) - Closed Specialty Diagnoses / Procedures Referred By Contac t Referred To Contact Diagnoses Primigravida Advanced Maternal Age Affecting Management (HCC) Procedures Echo Shraddha Mccann D.O. [address] [place] [address] [facility] Referral ID Status Reason Start Date Expiration Date Visits Re quested Visits Authorized [id number] Closed 01/13/2024 01/12/2025 1 1 Encounter Details Date Type Department Care Team (Latest Contact Info) Description 02/26/2024 1:01 PM CDT - 02/26/2024 3:01 PM CDT Hospital Encounter Department of Cardiovascular Diseases in [place], [place] [address] [place] [address] Shraddha Mcacnn D.O. [address] [place] [address] Primigravida Advanced Maternal Age Affecting Management (HCC) Discharge Disposition: Home or Self Care Social History Tobacco Use Types Packs/Day Years Used Date Smoking Tobacco: Never Smokeless Tobacco: Never Alcohol Use Standard Drinks/Week Comments Not Currently 0 (1 standard drink = 0.6 oz pur e alcohol) i only drink once in a while [facility] Utilities Answer Date Recorded In the past 12 months has e [employer], gas, oil, or water [employer] threatened to shut off services in your [...] often do you attend chur ch or sikh services? Never 04/14/2022 Do you belong to [...] Answer Date Recorded PHQ-2 Score 0 12/15/2023 [facility] - [...] Priority Date/Time Associated Diagnosis Comments ECHO 2D LIMITED DOPPLER Routine 02/26/2024 1:49 PM CDT Primigravida Advanced Maternal Age Affecting Management (HCC) documented in this encounter Results * ECHO 2D LIMITED DOPPLER (02/26/2024 1:49 PM CDT) Ejection Fraction [facility] Anatomical Region Laterality Modality Echocardiography 02/26/2024 [...] Gestational age 30 weeks , 5days. 3. Ramsay . 4. lie: vertex. 5. [...] complete report, see the Order-Level Documents. Shraddha BOWMAN ECHO PROCEDURES documented in this encounter Visit Diagnoses Diagnosis Primigravida Advanced Maternal Age Affecting Management (HCC) documented in this encounter Additional Health Concerns Assessment Noted Time PHQ-9 Depression Total Score: 0 12/15/19 24 3:08 PM CDT documented as of this encounter Care Teams Field Insurance Sales Manager Relationship Specialty Start Date End Date Erin Calvo APRN, C.N.P., D.N.P. [address] [place] [address] PCP - General 08/30/20 documented as of this encounter
--- OUTSIDE RECORDS SUMMARY | 2024-03-05 10:01 | XMS_ITS | Encounter Summary ---
Author Organization [facility] Address [address] [place] [address] Care Team Providers Care Quarrying Manager Name Role Phone Erin Calvo APRN C.N.PCarlos, D.N.P. 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 [address] [place] [address] [facility] Referral ID Status Reason Start Date Expiration Date Visits Re quested Visits Authorized [id number] Closed 01/13/2024 07/14/2025 1 1 * Outpatient (Routine) - Closed Specialty Diagnoses / Procedures Referred By Contnakul t Referred To Contact Obstetrics and Gynecology Shraddha Keller D.O. [address] [place] [address] [facility] Referral ID Status Reason Start Date Expiration Date Visits Re quested Visits Authorized [id number] Closed 01/13/2024 07/14/2025 1 1 Encounter Details Date Type Department Care Team (Late st Contact Info) Description 01/13/2024 Orders Only Department of Obstetrics and Gynecology in [place], [place] [address] [place] [address] Rayne Wheatley R.N. 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 Never 04/14/2022 Do you belong to any clubs o r organizations such as latter-day groups, unions, fraternal or athletic groups, or [...] Answer Date Recorded PHQ-2 Score 0 12/15/2023 [facility] - [...] your living situation today? 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) Expected: 02/24/2024, Expires: 04/13/2025 documented as of this encounter Results * US OB Follow-up and or Growth Fung (02/26/2024 3:21 PM CDT) Anatomical Region Laterality Modality Body, Ultrasound OB RST LOS, Ultrasound ARZ LOS N/A Ultrasound Narrative 02/26/2024 6:03 PM CDT KALIE BERMUDEZ OB Exam, 02/26/2024 EXAM INFORMATION Patient Name: ??KALIE BERMUDEZ : ??1985 Age: ??38 yrs Sex: ??Female Ref Phys: ??SHRADDHASNOW BAINSShannan Exam Date: 02/26/2024 Procedure: US OB FOLLOW-UP AND OR GROWTH FUNG Exam Site: [facility] 4 Plurality: 1 LMP: 07/26/2023 GA [...] Main Mcpherson R.D.M.SCarlos on 02/26/2024 3:21:09 PM. Bracelet Maker Novelty: ??Main Mcpherson R.D.MCarlosSCarlos Thank You For This Referral Procedure Note Eliseo Desouza M.D. - 02/26/2024 KALIE BERMUDEZ OB Exam, 02/26/2024 EXAM INFORMATION Patient Name: AIDAN KALIE MONIQUE : 1985 Age: 38 yrs Sex: Female Ref Phys: SHRADDHA KELLER Exam Date: 02/26/2024 Procedure: US OB FOLLOW-UP AND OR GROWTH FUNG Exam Site: [facility] 4 Plurality: 1 LMP: 07/26/2023 GA By LMP: 30w5d OBHx: [G:(1)] F Trm:() Pre:() C-Sec:() Ab-I:() Ab-S:() Ect:() Multi:() Sandhya:() INDICATIONS FOR SONOGRAPHY Advanced Maternal age Increased BMI, growth IMPRESSION Transabdominal ultrasound was performed. Growth Fnug in Cephalic presentation. EFW 85%, 1919 grams. [...] Main Mcpherson R.D.MCarlosSCarlos on 02/26/2024 3:21:09 PM. Bracelet Maker Novelty: Main Mcpherson R.D.M.S. Thank You For This Referral Shraddha Keller D.O. IMG OB US PROCEDURES * ECHO 2D LIMITED DOPPLER (02/26/2024 1:49 PM CDT) Ejection Fraction [facility] Anatomical Region Laterality Modality Echocardiography 02/26/2024 [...] of images performed. Procedure Note Junito Arce M.B.BCarlosS. - 02/26/2024 For the complete report, see [...] Documents. Shraddha Keller D.O. 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 [address] [place] [address] PCP - General 08/30/20 documented as of this encounter
--- OUTSIDE RECORDS SUMMARY | 2024-03-05 10:01 | XMS_ITS | Encounter Summary ---
Author Organization [facility] Address [address] [place] [address] Care Team Providers Care Log Buncher Name Role Phone Erin Calvo APRN, C.N.PCarlos, D.N.P. 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 [address] [place] [address] [facility] Referral ID Status Reason Start Date Expiration Date Visits Re quested Visits Authorized [id number] Closed 01/13/2024 07/14/2025 1 1 Encounter Details Date Type Department Care Team (Latest Contact Info) Description 02/26/2024 2:30 PM CDT Comprehensive Visit Division of Pediatric Cardiology in [place], [place] [address] [place] [phone] Junito Arce M.B.B.S. 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 Never 04/14/2022 Do you belong to [...] Answer Date Recorded PHQ-2 Score 0 12/15/2023 [facility] - Occupational Stress Questionnaire Answer Date [...] your living situation today? [facility] 12/09/2023 Education Answer Date [...] as of this encounter Progress Notes * Junito Arce M.B.B.S. - 02/26/2024 2:30 PM CDT [facility] Cardiology Consultation Joni Regalado Date of Consultation: 02/26/2024 Patient: Kalie Boss Date of : 1985, Age: 38 y.o. , CSN: [id number] Address: [address] [place] [address] Referral: Shraddha Mccann D.O. [address] [place] [address] SUBJECTIVE CHIEF COMPLAINT: cardiovascular screening. HISTORY OF PRESENT ILLNESS: I had the pleasure of meeting Kalie for the first time in our Cardiology Clinic for cardiovascular screening. Kalie is a 38 y.o. at 30 weeks and 5 days of gestation via IVF . Estimated Date of Delivery: 05/01/24. Obstetric ultrasound showed no significant abnormalities but the survey was incomplete in terms of cardiac views and therefore she has been referred for echocardiographic screening. Her echocardiogram was normal in terms of cardiac anatomy butshowed concern for multiple frequent premature atrial contractions in a bigeminal pattern due to which she was advised to have a follow-up evaluation. Prior genetic evaluation in this fetus: Low risk NIPT No known family history of congenital heart disease, cardiomyopathy, arrhythmia, sudden premature or early coronary artery disease. Current Medications: aspirin [address] tablet, Take 81 mg by mouth daily. vit calc,iron,folic (PRENAT.VITS,ANDI,FRL-YBZT-WOPHU ORAL), Take 1 tablet by mouth daily. [...] Laterality Date EXTRACTION TOOTH OTHER SURGICAL HISTORY 2007 ganglion cyst removal from left wrist OVUM / OOCYTE RETRIEVAL Social History Socioeconomic History Marital status: Spouse name: Leno Highest education level: Associate degree: academic program Tobacco Use Smoking status: Never Smokeless tobacco: Never Vaping Use Vaping status: never used Substance and Sexual Activity Alcohol [...] place to live Family History Problem Relation Name Age of Onset Diabetes Mother Luna Cruz Borderline Blood clot Mother Luna Cruz Diabetes Father martinez Cruz Non-Hodgkin's lymphoma Sister Malissa Lymphoma Sister Malissa Non Hodgkin's Diabetes Maternal Grandmother Diabetes Maternal Grandfather Aydin Zeng Polycythemia vera Maternal Grandfather Aydin Zeng Skin cancer Maternal Grandfather Aydin Zeng Heart disease Paternal Grandfather OBJECTIVE DIAGNOSTICS 1. echocardiogram performed due to abnormal rhythm; [...] Side by side comparison of images performed. ASSESSMENT / PLAN #1 IVF #2 Premature atrial contractions, likely resolved #3 Normal cardiac anatomy Kalie is a 38 y.o. at 30 weeks gestation who was was initially referred for echocardiographic screening due to IVF and was noted to have normal cardiac anatomy but frequent premature atrial contractions which were occasionally in a bigeminal pattern. She has here for afollow-up evaluation. Her follow-up echocardiogram today revealed no evidence of any rhythm abnormalities or premature atrial contractions. Moreover during her follow-up with primary obstetric team as well as MFM team, there has been no concerns for any irregular heart rate or faster heart rate. echocardiogram revealed normal biventricular size, systolic function and no evidence of any pericardial effusionwhich is also very reassuring. Therefore I discussed with the family that premature atrial contractions are common during the life and generally are self-resolving in settings of no additional cardiac abnormalities. On the scan today, there were no premature atrial contractions or runs of tachycardia which suggest that they have likely self-resolved. Recommendations: No need for a follow-up echocardiogram considering reassuring study today. She will continue to follow up with her primary OB/MFM team and if there are any concerns or tachycardia, we are always happy to see her back. Based on the echocardiogram today, local delivery should be perfectly reasonable as long as MFM team agrees. Generally, there is no need for transthoracic [...] call should any questions or concerns arise. Davy Regalado. 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 [address], [place] [address] PCP - General 08/30/20 documented as of this encounter
--- OUTSIDE RECORDS SUMMARY | 2024-03-05 10:01 | XMS_ITS | Encounter Summary ---
Author Organization [facility] Address [address] [place] [address] Care Team Providers Care Hand Rigger Name Role Phone Erin Calvo APRN C.N.PCarlos, D.N.P. Primary Care Provider Reason for Visit * Outpatient (Routine) - Closed Specialty Diagnoses / Procedures Referred By Kassie cooley Referred To Contact Obstetrics and Gynecology Shraddha Mccann D.O. [address] [place] [phone] [facility] Referral ID Status Reason Start Date Expiration Date Visits Re quested Visits Authorized [id number] Closed 01/09/2024 07/10/2025 1 1 Encounter Details Date Type Department Care Team (Latest Contact Info) Description 01/30/2024 8:30 AM CDT Routine Department of Obstetrics and Gynecology in [place], [place] [address] [place] [phone] Mayank Morgan M.B.BCarlosS. [address] [place] [phone] Maternal Care For Other Suspected Abnormality And Damage Cardiac Anomalies Single Gestation (HCC) (Primary Dx) Social History Tobacco Use Types Packs/Day Years Used Date Smoking Tobacco: Never Smokeless Tobacco: Never Alcohol Use Standard Drinks/Week Comments Not Currently 0 (1 standard drink = 0.6 oz pur e alcohol) i only drink once in a while [facility] Utilities Answer Date Recorded In the past 12 months has th e electric, [employer], oil, or water [employer] threatened to shut off services in your [...] often do you attend chur ch or mormonism services? Never 04/14/2022 Do you belong to any clubs o r organizations such as oriental orthodox groups, unions, fraternal or athletic groups, or [...] Sign Reading Time Taken Comments Blood Pressure 100/68 01/30/2024 8:01 AM CDT Pulse 82 01/30/2024 8:01 AM CDT Temperature - - Respiratory Rate - - Oxygen Saturation 99% 01/30/2024 8:01 AM CDT Inhaled Oxygen Concentration - - Weight 106 kg (233 lb 11 oz) 01/30/2024 8:01 AM CDT Height - - Body Mass Index 37.38 08/04/2019 10:39 AM CDT documented in this encounter Progress Notes * Mayank Morgan M.B.B.S. - 01/30/2024 8:30 AM CDT SUBJECTIVE CHIEF COMPLAINT / REASON FOR VISIT Kalie CruzGerson is a 38 y.o. . No LMP recorded. Patient is . Her Estimated Date of Delivery: 05/01/24 determined by embryo transfer . Gestational age is 26w6d. She returnstoday for ultrasound assessment of growth and heart pattern. HISTORY OF PRESENT CONDITION #1 Body Mass Index 40.0 To 44.9 Adult ([facility]) #2 frequent PACs OBJECTIVE VITAL SIGNS There were no vitals filed for this visit. DIAGNOSTICS Ultrasound: 01/30/24 IMPRESSION Growth Fetus: Live guido intrauterine . Presentation: Breech. Growth: Appropriate for gestational age (EFW 1098 grams, 69th percentile, AC 58th percentile). Amniotic fluid volume: Normal (MVP 5.74 cm). Others: heart beat normal rate and regular rhythm during duration of examination. Known subserosal uterine leiomyoma. Biophysical Profile Biophysical profile: 05/13. Conclusion: Live guido intrauterine in breech presentation. Appropriate growth and normal amniotic fluid volume. BPP 05/13. Known subserosal uterine leiomyoma. ASSESSMENT / PLAN Medical Problems Problem List Body Mass Index 40.0 To 44.9 Adult ([facility]) Body mass index (BMI) 40.0-44.9, adult\.br\Rule activated problem due to BMI 40- 44 posted on 04/21 at 10:10 CDT. 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 Kalie is a 37 /o at 26w6d (dated by FET) Is being seen by [facility] for complicated by elevated BMI of 36, IVF conception and frequent PACs. She underwent advanced level anatomy ultrasound that was completed at reported as normal. echo was performed and reported normal anatomy with multiple episodes of PACs occasionally in bigeminy pattern. With recommended follow-up of the heart pattern during . Cell free DNA was reported as low risk. She is currently on aspirin 81 mg for preeclampsia prevention. Her baseline preeclampsia testing was normal. Kalie did not undergo early diabetes screening, however she has a random glucose of 140 the was performed few weeks ago. We will obtain GTT 100 g testing. Her ultrasound today showed normal growth and normal heart pattern with no PACs documented. Summary of Recommendations: Continue daily ASA 81 mg I recommend to forego the glucose challenge test considering the glucose level of her random testing. Therefore I recommend to obtain GTT 100 mg. If abnormal, initiation gestational diabetes protocol. Obtain third trimester growth ultrasound at 32 weeks gestation Initiate weekly testing with NST or BPP starting at 36 weeks gestation. Testing can be initiated at 32 weeks if she developed gestational diabetes or hypertension. Delivery planning will be contingent on the progression of the and development of preeclampsia and or gestational diabetes. She would like to deliver in [facility], She is scheduled for echo next month is theecho was normal apart from occasional PACs a local delivery is appropriate. I personally spent 20 minutes in care of the patient today. Time includes both non face to face andface to face patient care. Amna Chung.S. Maternal- medicine documented in this encounter Plan of Treatment Not on file documented as of this encounter Visit Diagnoses Diagnosis Maternal Care For Other Suspected Abnormality And Damage Cardiac Anomalies Single Gestation (HCC)- Primary documented in this encounter Additional Health Concerns Assessment Noted Time PHQ-9 Depression Total Score: 0 12/15/19 24 3:08 PM CDT documented as of this encounter Care Teams Hand Rigger Relationship Specialty Start Date End Date Erin Calvo APRN, C.N.P., D.N.P. [address] [place] [phone] PCP - General 08/30/20 documented as of this encounter
--- OUTSIDE RECORDS SUMMARY | 2024-03-05 10:01 | XMS_ITS | Encounter Summary ---
Author Organization [facility] Address [address] [place] [address] Care Team Providers Care City Planning Engineer Name Role Phone Erin Calvo APRN C.N.PCarlos, D.N.P. Primary Care Provider Encounter Details Date Type Department Care Team (Latest Contact Info) Description 01/30/2024 7:19 AM CDT - 01/30/2024 11:59 PM T Hospital Encounter Department of Obstetrics and Gynecology in [place], [place] [address] [place] [address] Aleksander Keller D.O. 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 Never 04/14/2022 Do you belong to any clubs o r organizations such as samaritan groups, unions, fraternal or athletic groups, or [...] Recorded PHQ-2 Score 0 12/15/2023 [facility] of Occupat ional Health - Occupational Stress [...] your living situation today? 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) documented in this encounter Results * US OB Follow up and or Growth with BPP without NST (01/30/2024 7:51 AM CDT) Anatomical Region Laterality Modality Body, Ultrasound OB RST LOS, Ultrasound ARZ LOS N/A Ultrasound Narrative 01/30/2024 8:15 AM CDT KALIE BERMUDEZ OB Exam, 01/30/2024 EXAM INFORMATION Patient Name: ??KALIE BERMUDEZ : ??1985 Age: ??38 yrs Sex: ??Female Ref Phys: ??ALEKSANDER KELLER Exam Date: 01/30/2024 Procedure: US OB FOLLOW UP WITH BPP W/O NON-STRESS Exam Site: [facility] OB #2 Plurality: 1 OBHx: [G:(1)] ?F Trm:() Pre:() C-Sec:() Ab-I:() Ab-S:() Ect:() Multi:() Sandhya:() INDICATIONS FOR SONOGRAPHY assess heart rate. BPP and Growth. Previous irregular heart rate IMPRESSION Growth Fetus: Live guido intrauterine . [...] by Chuck [place] on 01/30/2024 8:06:42 AM. Alemite Operator: ??Chuck [place] Thank You For This Referral Procedure Note Ana M Caro M.D. - 01/30/2024 KALIE BERMUDEZ OB Exam, 01/30/2024 EXAM INFORMATION Patient Name: SIMKALIE ESPINAL : 1985 Age: 38 yrs Sex: Female Ref Phys: ALEKSANDER Valenzuela KRISHNA Exam Date: 01/30/2024 Procedure: US OB FOLLOW UP WITH BPP W/O NON-STRESS Exam Site: [facility] OB #2 Plurality: 1 OBHx: [G:(1)] F Trm:() Pre:() C-Sec:() Ab-I:() Ab-S:() Ect:() Multi:() Sandhya:() INDICATIONS FOR SONOGRAPHY assess heart rate. BPP and Growth. Previous irregular heart rate IMPRESSION Growth Fetus: Live guido intrauterine . [...] by Chuck Colorado on 01/30/2024 8:06:42 AM. Alemite Operator: Chuck Colorado Thank You For This Referral Aleksander Keller D.O. 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 [address] [place] [phone] PCP - General 08/30/20 documented as of this encounter
--- OUTSIDE RECORDS SUMMARY | 2024-03-05 10:02 | XMS_ITS | Encounter Summary ---
Author Organization [facility] Address [address] [place] [address] Care Team Providers Care Sports Health Club Membership Advisors Name Role Phone Erin Calvo APRN C.N.PCarlos, D.N.P. Primary Care Provider Encounter Details Date Type Department Care Team (Latest Contact Info) Description 01/07/2024 10:03 AM CDT - 01/07/2024 1:22 PM T Hospital Encounter Department of Obstetrics and Gynecology in [place], [place] [address] [place] [address] Aleksander Keller D.O. 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 Never 04/14/2022 Do you belong to any clubs o r organizations such as zoroastrianism groups, unions, fraternal or athletic groups, or [...] Date Recorded PHQ-2 Score 0 12/15/2023 [facility] of Occupat ional Health - Occupational Stress [...] your living situation today? I have a [facility] place to live 12/09/2023 Education Answer [...] ??38 yrs Sex: ??Female Ref Phys: ??ALEKSANDER KLELER Exam Date: 01/07/2024 Procedure: US OB FOLLOW-UP [...] Mayra Hare R.Marley.M.SCarlos on 01/07/2024 11:03:57 AM. Dial Painter: ??Mayra Hare R.D.M.S. Thank You For This [...] Mayra Hare R.D.MCarlosSCarlos on 01/07/2024 11:03:57 AM. Dial Painter: Mayra Hare R.D.M.S. Thank You For This Referral Aleksander Keller D.O. 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 [address] [place] [phone] PCP - General 08/30/20 documented as of this encounter
--- OUTSIDE RECORDS SUMMARY | 2024-03-05 10:02 | XMS_ITS | Encounter Summary ---
Author Organization [facility] Address [address] [place] [address] Care Team Providers Care Account Supervisor Name Role Phone Erin Calvo APRN, C.N.P., D.N.P. Primary Care Provider Reason for Visit * Reason Onset Date Comments Pre-visit Intake 12/15/2023 Encounter Details Date Type Department Care Team (Latest Contact Info) Description 12/15/2023 3:30 PM CDT Clinical Communication Virtual Review in [place], [place] [address] [place] [address] Pre-visit Intake Social History Tobacco Use Types Packs/Day Years Used Date Smoking Tobacco: Never Smokeless Tobacco: Never Tobacco Cessation:Counseling Given: Not Answered Alcohol Use Standard Drinks/Week Comments Not Currently 0 (1 standard drink = 0.6 oz pur e alcohol) i only drink once in a while [facility] Utilities Answer Date Recorded In the past 12 months has [id number], gas, oil, or water [employer] threatened to shut off services in your [...] often do you attend chur ch or christianity services? Never 04/14/2022 Do you belong to [...] Answer Date Recorded PHQ-2 Score 0 12/15/2023 [facility] of Occupat ional Health - Occupational [...] your living situation today? I have a [facility] place to live 12/09/2023 Education Answer [...] documented as of this encounter Care Teams Account Supervisor Relationship Specialty Start Date End Date Erin Calvo APRN, C.N.P., D.N.P. [address] [place] [phone] PCP - General 08/30/20 documented as of this encounter
--- OUTSIDE RECORDS SUMMARY | 2024-03-05 10:02 | XMS_ITS | Encounter Summary ---
Author Organization [facility] Address [address] [place] [address] Care Team Providers Care Anthropometrist Name Role Phone Erin Calvo APRN, C.N.P., D.N.P. Primary Care Provider Encounter Details Date Type Department Care Team (Latest Contact Info) Description 12/16/2023 12:33 PM CDT - 12/16/2023 11:59 PM CDT Hospital Encounter Department of Obstetrics and Gynecology in [place], [place] [address] [place] [address] Chrystal Araya M.D. 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 Never 04/14/2022 Do you belong to [...] Answer Date Recorded PHQ-2 Score 0 12/15/2023 [facility] of Occupat ional Health - Occupational Stress [...] your living situation today? I [facility] a [facility] place [facility] 12/09/2023 Education [...] ADVANCED LEVEL FUNG Exam Site: [facility] OB #126 Plurality: 1 INDICATIONS FOR [...] by Tamiko Mancini on 12/16/2023 2:27:18 PM. Piling Cutter: ??Tamiko Mancini Thank You For This Referral Procedure Note Eliseo Desouza M.D. - 12/16/2023 KALIE BERMUDEZ OB Exam, 12/16/2023 EXAM INFORMATION Patient Name: KALIE BERMUDEZ : 1985 Age: 37 yrs Sex: Female Ref Phys: CHRYSTAL ARAYA Exam Date: 12/16/2023 Procedure: US OB ADVANCED LEVEL FUNG Exam Site: [facility] OB #126 Plurality: 1 INDICATIONS FOR [...] by Tamiko Mancini on 12/16/2023 2:27:18 PM. 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 [address] [place] [phone] PCP - General 08/30/20 documented as of this encounter
--- OUTSIDE RECORDS SUMMARY | 2024-03-05 10:02 | XMS_ITS | Encounter Summary ---
Author Organization [facility] Address [address] [place] [address] Care Team Providers Care Tufting Machine Fixer Name Role Phone Erin Calvo APRN, C.N.P., D.N.P. Primary Care Provider Reason for Visit * Reason Onset Date Comments Communication 01/12/2024 Encounter Details Date Type Department Care Team (Late st Contact Info) Description 01/12/2024 Clinical Communication Department of Obstetrics and Gynecology in [place], [place] [address] [place] [phone] Shraddha Mccann D.O. [address] [place] [phone] Communication Social History Tobacco Use Types Packs/Day Years Used Date Smoking Tobacco: Never Smokeless Tobacco: Never Alcohol Use Standard Drinks/Week Comments Not Currently 0 (1 standard drink = 0.6 oz pur e alcohol) i only drink once in a while [facility] Utilities Answer Date Recorded In the past [...] Answer Date Recorded PHQ-2 Score 0 12/15/2023 [facility] of Occupat ional Health - Occupational [...] your living situation today? I have a [facility] place to live 12/09/2023 Education [...] documented as of this encounter Care Teams Tufting Machine Fixer Relationship Specialty Start Date End Date Erin Calvo APRN, C.N.P., D.N.P. [address] [place] [phone] PCP - General 08/30/20 documented as of this encounter
--- OUTSIDE RECORDS SUMMARY | 2024-03-05 10:02 | XMS_ITS | Encounter Summary ---
Author Organization [facility] Address [address] [place] [address] Care Team Providers Care Hide Inspector And Sorter Name Role Phone Erin Calvo APRN C.N.PCarlos, D.N.P. 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 [address] [place] [address] [facility] Referral ID Status Reason Start Date Expiration Date Visits Re quested Visits Authorized [id number] Closed 10/29/2023 04/29/2025 1 1 Encounter Details Date Type Department Care Team (Latest Contact Info) Description 12/16/2023 2:00 PM CDT Comprehensive Visit Department of Obstetrics and Gynecology in [place], [place] [address] [place] [phone] Ana M Caro M.D. 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 REASON FOR VISIT genetic screening HISTORY OF PRESENT ILLNESS History: Estimated Date of Delivery: 05/01/24 EGA: 20w3d Kalie was referred by Ana M Caro M.D. for genetic counseling to discuss genetic screening options. Kalie is accompanied by her partner, Michael. This was conceived with IVF, at [facility]. Kalie underwent expanded carrier screening before through [employer], including 176 conditions, and she and her partner were not found to be carriers for any of the same disorders. 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 Full report will be scanned into [employer] tab. 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 The underlying etiologies and clinical [...] on file documented as of this encounter Results * Panorama Screen - Sent Out Lab (12/16/2023 3:39 PM CDT) Panorama Screen SEE COMMENT 12/23/2023 9:06 AM CDT [facility] Comment: For final report, select Lab-Send Out Lab Results hyperlink below. Blood (Blood, Venous) 12/16/2023 3:39 PM CDT 12/17/2023 10:23 AM CDT Narrative [employer] - 12/23/2023 9:06 AM CDT Specimen Information: Specimen ID: [id number] Specimen Type: Blood Specimen Collection Start Date: 12/16/2023 ??3:39 PM Specimen Received Date: 12/17/2023 10:23 AM Specimen ID: [id number] Specimen Type: Blood Specimen Collection Start Date: 12/16/2023 ??3:39 PM Specimen Received Date: 12/17/2023 10:23 AM Zulema Avila M.D., Ph.D. LAB GENETIC TEST ING [employer] [address] [place] [address], [facility] [employer] 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 [address] [place] [phone] PCP - General 08/30/20 documented as of this encounter
--- OUTSIDE RECORDS SUMMARY | 2024-03-05 10:02 | XMS_ITS | Encounter Summary ---
Author Organization [facility] Address [address] [place] [address] Care Team Providers Care Register Of Deeds Name Role Phone Erin Calvo APRN, C.N.PCarlos, D.N.P. 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 [address] [place] [address] [facility] Referral ID Status Reason Start Date Expiration Date Visits Re quested Visits Authorized [id number] Closed 12/16/2023 06/16/2025 1 1 Encounter Details Date Type Department Care Team (Latest Contact Info) Description 01/07/2024 3:00 PM CDT Comprehensive Visit Division of Pediatric Cardiology in [place], [place] [address] [place] [phone] Junito Arce M.B.B.S. 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 Never 04/14/2022 Do you belong to [...] Date Recorded PHQ-2 Score 0 12/15/2023 [facility] of Occupat ional [facility] - Occupational Stress Questionnaire Answer [...] your living situation today? [facility] 12/09/2023 Education Answer Date [...] Arce M.B.B.S. - 01/07/2024 3:00 PM CDT [facility] Cardiology Consultation Joni Regalado Date of Consultation: 01/07/2024 Patient: Kalie Boss Date of : 1985, Age: 38 y.o. , CSN: [id number] Address: [address] [place] [phone] Referral: Shraddha Mccann D.O. [address] [place] [address] SUBJECTIVE CHIEF COMPLAINT: cardiovascular screening. HISTORY OF [...] 81 mg by mouth daily. vit calc,iron,folic (PRENAT.VITS,ANDI,[id number] ORAL), Take 1 tablet by mouth daily. [...] Recommendations: She will continue to follow-up with [facility] and if there are any concerns regarding tachycardia on any of her future follow-up evaluations or heart sounds, we will be very happy to see her back foradditional evaluation sooner. Since the patient is from out of town I discussed with Dr. Mccann and as she will be coming in for occasional ultrasound evaluations with [facility] team; we will be happy to [...] call should any questions or concerns arise. Charles RegaladoS. 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 [address] [place] [phone] PCP - General 08/30/20 documented as of this encounter
--- OUTSIDE RECORDS SUMMARY | 2024-03-05 10:02 | XMS_ITS | Encounter Summary ---
Author Organization [facility] Address [address] [place] [address] Care Team Providers Care Manager Animation Name Role Phone Erin Calvo APRN C.N.PCarlos, D.N.P. Primary Care Provider Reason for Referral * Specialty Diagnoses / Procedures Referred By Contac t Referred To Contact Shraddha Keller D.O. 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 [address] [place] [phone] Referral ID Status Reason Start Date Expiration Date V isits Requested Visits Authorized [id number] Authorized 10/23/2023 10/22/2024 2 2 Encounter Details Date Type Department Care Team (Latest Contact Info) Description 12/16/2023 3:00 PM CDT Routine Department of Obstetrics and Gynecology in [place], [place] [address] [place] [phone] Shraddha Keller D.O. 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 Never 04/14/2022 Do you belong to any clubs o r organizations such as religious groups, unions, fraternal or athletic groups, or [...] Answer Date Recorded PHQ-2 Score 0 12/15/2023 [facility] [place] of Occupat ional Health - Occupational Stress [...] your living situation today? I have a [facility] place to live 12/09/2023 Education Answer [...] patient consultation from Dr. Rylie Anderson in [place] for IVF , elevated BMI (BMI 36) [...] patient consultation from Dr. Rylie Anderson in [place] for IVF , elevated BMI (BMI 36). [...] is associated with higher odds of delivery ([facility] Consult Series #60). IVF procedure alone [...] risk factors. She is currently taking this. [place]-analyses demonstrate associations between IVF with or without [...] for maternal age, parity and multifetal gestations ([facility] consult series #60). 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 on 01/07/2024 11:03:57 AM. Transportation Engineer: ??Mayra Hare R.D.M.S. Thank You For This Referral Procedure Note Mayank Morgan M.B.B.S. - 01/07/2024 KALIE BERMUDEZ OB Exam, 01/07/2024 EXAM INFORMATION Patient Name: KALIE BERMUDEZ : 1985 Age: 38 yrs Sex: Female Ref Phys: SHRADDHA KELLER Exam Date: 01/07/2024 Procedure: US OB FOLLOW-UP AND OR GROWTH GUIDO Exam Site: [facility] OB #5 Plurality: 1 OBHx: [G:(1)] [...] Mayra Hare R.D.M.S. on 01/07/2024 11:03:57 AM. Transportation Engineer: Mayra Hare R.D.M.SCarlos Thank You For This [...] as of this encounter Care Teams Manager Animation Relationship Specialty Start Date End Date Erin Calvo APRN, C.N.P., D.N.P. [address] [place] [phone] PCP - General 08/30/20 documented as of this encounter
--- OUTSIDE RECORDS SUMMARY | 2024-03-05 10:02 | XMS_ITS | Encounter Summary ---
Author Organization [facility] Address [address] [place] [address] Care Team Providers Care Associate Financial Advisor Name Role Phone Erin Calvo APRN, C.N.PCarlos, D.N.P. Primary Care Provider Encounter Details Date Type Department Care Team (Latest Contact Info) Description 01/07/2024 11:00 AM CDT Routine Department of Obstetrics and Gynecology in [place], [place] [address] [place] [phone] Shraddha Mccann D.O. [address] [place] [phone] Mabel Medrano R.N. 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 I have a [facility] place to live 12/09/2023 Education Answer [...] documented as of this encounter Care Teams Associate Financial Advisor Relationship Specialty Start Date End Date Erin Calvo APRN, C.N.P., D.N.P. [address] [place] [phone] PCP - General 08/30/20 documented as of this encounter
--- OUTSIDE RECORDS SUMMARY | 2024-03-05 10:02 | XMS_ITS | Encounter Summary ---
Author Organization [facility] Address [address] [place] [address] Care Team Providers Care Multimedia Coordinator Name Role Phone Erin Calvo APRN C.N.PCarlos, D.N.P. Primary Care Provider Encounter Details Date Type Department Care Team (Late st Contact Info) Description 12/16/2023 4:00 PM CDT Lab Department of Laboratory Medicine and Pathology, [facility] in [place], [place] [address] [place] [phone] Zulema Avila M.D., Ph.D. 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 Utilities Answer Date Recorded In the past [...] How often do you attend chur or bahai services? Never 04/14/2022 Do you [...] PHQ-2 Score 0 12/15/2023 [facility] [place] of Occupat ional Health - Occupational Stress [...] situation today? I have a [facility] place to live 12/09/2023 Education Answer [...] 9:06 AM CDT Specimen Information: Specimen ID: [id number] Specimen Type: Blood Specimen Collection Start Date: 12/16/2023 ??3:39 PM Specimen Received Date: 12/17/2023 10:23 AM Specimen ID: [id number] Specimen Type: Blood Specimen Collection Start Date: 12/16/2023 ??3:39 PM Specimen Received Date: 12/17/2023 10:23 AM Zulema Avila M.D., Ph.D. LAB GENETIC TEST [facility] [employer] [address] [place] [phone], [facility] [employer] 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 [address] [place] [phone] PCP - General 08/30/20 documented as of this encounter
--- OUTSIDE RECORDS SUMMARY | 2024-03-05 10:02 | XMS_ITS | Encounter Summary ---
Author Organization [facility] Address [address] [place] [address] Care Team Providers Care Collections Rep Name Role Phone Erin Calvo APRN C.N.PCarlos, D.N.P. 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 [address] [place] [phone] [facility] Referral ID Status Reason Start Date Expiration Date Visits Re quested Visits Authorized [id number] Closed 12/16/2023 12/15/2024 1 1 Encounter Details Date Type Department Care Team (Latest Contact Info) Description 01/07/2024 1:23 PM CDT - 01/07/2024 11:59 PM CDT Hospital Encounter Department of Cardiovascular Diseases in [place], [place] [address] [place] [phone] Shraddha Mccann D.O. 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) Discharge Disposition: Home or Self Care Social History Tobacco Use Types Packs/Day Years Used Date Smoking Tobacco: Never Smokeless Tobacco: Never Alcohol Use Standard Drinks/Week Comments Not Currently 0 (1 standard drink = 0.6 oz pur e alcohol) i only drink once in a while [facility] Utilities Answer Date Recorded In the past 12 months has e [employer], gas, oil, or water [employer] threatened to shut off services in your [...] any clubs o r organizations such as roman catholic groups, unions, fraternal or athletic groups, or [...] 0 12/15/2023 [facility] of Occupat ional Health - Occupational [...] DOPPLER (01/07/2024 2:29 PM CDT) Ejection Fraction [facility] Anatomical Region Laterality Modality Other 01/07/2024 [...] documented as of this encounter Care Teams Collections Rep Relationship Specialty Start Date End Date Erin Calvo APRN, C.N.P., D.N.P. [address] [place] [phone] PCP - General 08/30/20 documented as of this encounter
--- OUTSIDE RECORDS SUMMARY | 2024-03-05 10:02 | XMS_ITS | Encounter Summary ---
Author Organization [facility] Address [address] [place] [address] Care Team Providers Care Cementer Machine Name Role Phone Erin Calvo APRN C.N.PCarlos, D.N.P. Primary Care Provider Reason for Referral * Outpatient (Routine) - Closed Specialty Diagnoses / Procedures Referred By Kassie cooley Referred To Contact Obstetrics and Gynecology Shraddha Keller D.O. [address] [place] [phone] [facility] Referral ID Status Reason Start Date Expiration Date Visits Re quested Visits Authorized [id number] Closed 01/09/2024 07/10/2025 1 1 Scheduling Instructions 01/27-01/29 with a Fellow Encounter Details Date Type Department Care Team (Late st Contact Info) Description 01/09/2024 Orders Only Department of Obstetrics and Gynecology in [place], [place] [address] [place] [phone] Rayne Wheatley R.N. [address] [place] [phone] Primigravida Advanced Maternal Age Affecting Management (HCC) (Primary Dx) Social History Tobacco Use Types Packs/Day Years Used Date Smoking Tobacco: Never Smokeless Tobacco: Never Alcohol Use Standard Drinks/Week Comments Not Currently 0 (1 standard drink = 0.6 oz pur e alcohol) i only drink once in a while [facility] Utilities Answer Date Recorded In [...] any clubs o r organizations such as catholic groups, unions, fraternal or athletic groups, [...] Answer Date Recorded PHQ-2 Score 0 12/15/2023 [facility] of Occupat ional [facility] - Occupational Stress Questionnaire Answer Date Recorded [...] Expires: 04/09/2025 documented as of this encounter Results * US OB Follow [...] BPP W/O NON-STRESS Exam Site: [facility] OB #2 Plurality: 1 OBHx: [G:(1)] [...] Score = ??05/13 COMMENTS Preliminary Read by Chuck Colorado on 01/30/2024 8:06:42 AM. Sheriff'S Detective: ??Chuck Colorado Thank You For This Referral Procedure Note Ana M Caro M.D. - 01/30/2024 KALIE BERMUDEZ OB Exam, 01/30/2024 EXAM INFORMATION Patient Name: KALIE BERMUDEZ RAINA : 1985 Age: 38 yrs Sex: Female Ref Phys: SHRADDHA Valenzuela HERSONShannan Exam Date: 01/30/2024 Procedure: US OB FOLLOW UP WITH BPP W/O NON-STRESS Exam Site: [facility] OB #2 Plurality: 1 OBHx: [G:(1)] [...] by Chuck Colorado on 01/30/2024 8:06:42 AM. Sheriff'S Detective: Chuck Colorado Thank You For This Referral Shraddha VARGAS OB US PROCEDURES documented in this encounter Visit Diagnoses Diagnosis Primigravida Advanced Maternal Age Affecting Management (HCC)- Primary Primigravida Advanced Maternal Age Affecting Management (HCC) documented in this encounter Additional Health Concerns Assessment Noted Time PHQ-9 Depression Total Score: 0 12/15/19 24 3:08 PM CDT documented as of this encounter Care Teams Cementer Machine Relationship Specialty Start Date End Date Erin Calvo APRN, C.N.P., D.N.P. [address] [facility] [place] [phone] PCP - General 08/30/20 documented as of this encounter
--- OUTSIDE RECORDS SUMMARY | 2024-03-05 10:02 | XMS_ITS | Encounter Summary ---
Author Organization [facility] Address [address] [place] [address] Care Team Providers Care Supervisor Telephone Answering Service Name Role Phone Erin Calvo APRN, C.N.P., D.N.P. Primary Care Provider Reason for Visit * Reason Onset Date Comments Communication 01/12/2024 Encounter Details Date Type Department Care Team (Late st Contact Info) Description 01/12/2024 Clinical Communication Department of Obstetrics and Gynecology in [place], [place] [address] [place] [phone] Shraddha Mccann D.O. [address] [place] [phone] Communication Social History Tobacco Use Types Packs/Day Years Used Date Smoking Tobacco: Never Smokeless Tobacco: Never Alcohol Use Standard Drinks/Week Comments Not Currently 0 (1 standard drink = 0.6 oz pur e alcohol) i only drink once in a while [facility] Utilities Answer Date Recorded In [...] often do you attend chur ch or shinto services? Never 04/14/2022 Do you belong to any clubs o r organizations such as amish groups, unions, fraternal or athletic groups, or [...] Answer Date Recorded PHQ-2 Score 0 12/15/2023 [facility] of Occupat ional Health - Occupational [...] documented as of this encounter Care Teams Supervisor Telephone Answering Service Relationship Specialty Start Date End Date Erin Calvo APRN, C.N.P., D.N.P. [address] [place] [phone] PCP - General 08/30/20 documented as of this encounter
--- OUTSIDE RECORDS SUMMARY | 2024-03-05 10:03 | XMS_ITS | Continuity of Care Document ---
Author Organization [facility] Address [address] [place] [address] Phone Care Team Providers Care Preventative Maintenance Technician Name Role Phone Audra ANN, PhD, [...] - Active Procedures Procedure Date Office/Outpatient Visit,[place] [facility] [place] Advance Directives Directive Yes / No Effective Date File Name No Information Encounters Encounter Description Practice Location Reason(s) For Visit Diagnoses Date Provider Providers Copied on Encounter [facility], [address], [place], [place], [id number], [place] tel:[phone] [facility] No Information 8 Audra Burr. [facility] [place], [address], [place], [address], [place]. [phone] Office/Outpat ient Visit,, [facility] [place] [facility], [address], [facility] [place], [place], [id number], [place] tel:[phone] [facility] [place] Spondylolisth esis, lumbar region 0 8 Tor [place]. [facility] [place], [address], [place], [place], [id number] , [place]. tel:[phone] Referring Provider: Leno Zhu, [facility] [address], [place], [address]. tel:[phone] [facility], [address], [place], [place], [id number], [place] tel:[phone] [facility] [place] Low back pain Jan- 8 Audra Burr. [facility], [address], [place], [address], [place]. [phone] Family History Family Member Type Diagnosis Age [...]
[2024-03-05] MEDS: BETAMETHASONE SOD PHOS/ACETATE 6 MG/ML ML 12 MG IM (10:39)
[2024-03-05] MEDS: MAGNESIUM IV 2 GM/50 ML PIGGYBACK IVPB (10:43)
[2024-03-05 10:50] LABS: Basophils Percent Auto 0.1 % (0.0-3.0); Hematocrit 38.3 % (33.0-51.0); Hemoglobin* 13.6 gm/dL (12.0-16.0); Immature Granulocytes Pct Auto 0.4 %; Lymphocytes Percent Auto 5.3 % (20-44); Mean Corpuscular HGB Conc 36 gm/dL (32-36); Mean Corpuscular Hemoglobin 31 pg (26-34); Mean Corpuscular Volume 87 fL (80-100); Monocytes Percent Auto 2.1 % (0.0-11.0); Neutrophils Percent Auto 92.1 % (42.0-72.0); Platelet Count* 321 K/uL (140-440); RDW Coefficient of Variation % 12.1 % (11.5-15.5); Red Blood Count 4.41 m/uL (4.00-5.20)
[2024-03-05] MEDS: LACTATED RINGERS 1000 ML 1,000 ML 1200 ML IV (10:50)
[2024-03-05 10:51] LABS: Slide Review Reflex No
[2024-03-05] MEDS: MAGNESIUM Infusion 40 GM/1,000 ML IV.SOLN IVPB (11:04)
[2024-03-05 11:09] LABS: Chloride* 109 mmol/L (96-114); Potassium* 3.4 mmol/L (3.6-5.1); Sodium* 134 mmol/L (135-149)
[2024-03-05 11:10] LABS: Prothrombin Time 13.8 Seconds
[2024-03-05 11:11] LABS: Creatinine* 0.4 mg/dL (0.5-1.5); Est. Creatinine Clearance* 157.75; Estimated Glomerular Filt Rate 130 ml/min
[2024-03-05 11:12] LABS: Alanine Aminotransferase* 22 U/L (4-35); Alkaline Phosphatase* 316 U/L (40-150); Anion Gap 8 mEq/L (7-15); Aspartate Amino Transferase* 27 U/L (12-35); Bilirubin Total* 1.2 mg/dL (0.1-1.5); Blood Urea Nitrogen* 5 mg/dL (5-24); Carbon Dioxide* 17 mmol/L (20-32); Glucose* 124 mg/dL (60-115); Total Protein* 7.7 g/dL (6.0-8.3)
[2024-03-05 11:13] LABS: Calcium* 9.2 mg/dL (8.4-10.6)
[2024-03-05] MEDS: OXYTOCIN 30 unit/500 ML in NS 30 UNIT/500 ML BAG 300 UNIT IVPB (12:25)
[2024-03-05] MEDS: LIDOCAINE 1 % PF 30 ML INJECTION (12:29)
[2024-03-05 13:16] LABS: Fibrinogen* 672 mg/dL (200-450)
--- NOTE | 2024-03-05 14:00 | P.OBHP_ITS ---
OB - H&P: HPI Labor/Induction History of Present Illness Time Seen by Provider: 10:10 (Late documentation due to patient care.) Date Seen: 03/05/24 Chief Complaint: The patient is a 38 year old 1 now para 0101 at 31 6/7 weeks gestation by IVF transfer date, who presents with painful uterine contractions, vaginal bleeding. Chief complaint: 32 weeks , bowel obstruction : 1 Para: 1 Date of last menstrual period: 07/26/23 Estimated date of delivery: 05/01/24 Gestational age based on last menstrual period: 31 Narrative: Kalie Nieto is a 38 year old female 1 now para 0101 at 31 6/7 weeks gestation by IVF transfer date, who presents with painful uterine contractions, vaginal bleeding. Patient visibly presenting signs of labor and nurse checked her cervix and was found 8cm, 100%, 0 station. I was called in emergently for delivery. Specific Issues/Plans G 1 P 0 # Conceived through in-vitro fertilization * Low-dose baby aspirin recommended * Genetic counseling 12/16/2023 completed, cell free DNA screening obtained: Low risk NIPT * Level 2 ultrasound with echo - [facility] per pt preference (see summary below) * This week (01/13/24) and next week [facility] wants pt to have a limited US for heart rate and hydrops completed here with a provider appt. -If tachycardia/bradycardia pt should follow up with [facility] The following week the pt will see [facility] for a follow up. * [facility] note on 01/29, growth US WNL and no PACs seen - see below * Growth ultrasound at 32 weeks: ordered * Weekly NST or BPP starting at 36 weeks- FORM Completed # Frequent PACs * 01/13 echo WNL structurally, PACs seen * [ ] repeat echo (late February) scheduled * Consider EKG on , see cardiology note for details # Advanced maternal age * Genetic screening : Declines, as she states she completed CCS screening prior to IVF transfer * Level 2 ultrasound (see above): 12/16/2023 # BMI of 39.5 * Hemoglobin A1c 5.2 * Recommend daily baby aspirin starting at 12 weeks to reduce risk of preeclampsia - ongoing * Per [facility] - skip 1 hour, proceed to 3hr GTT due to elevated random glucose (140mg/dL) * Follow up 3 hour GTT # Uterine fibroids * Three fibroids seen at 1st OB visit. Will continue to monitor throughout . 1. 1.6 x 1.7 x 2.0 cm. 2. 3.0 x 2.9 x 3.3 cm. 3. 7.2 x 6.7 x 5.3 cm. * Subserosal fibroid anterior fundal 5.4 x 3.8 x 5.3 cm, also fibroid adjacent to placenta (difficult visualization) * Consider growth ultrasound during third trimester # Rubella non-immune. Rec. PP vaccine. # HepS non-immune. Low risk, no need to repeat vax at this time. Ultrasounds: 12/16/2023 Level 2: No anomalies, EFW >98%, suboptimal visualization of RVOT, 3VV, 3VT, Aortic arch 01/07/2024 Follow up and echo: See scanned report. Multiple PACs. Follow recommendations above. Flu: Completed Covid: Up-to-date according to patient History of Present Dating criteria: other (IVF) care: good care Ultrasounds: normal 1st trimester US and normal mid trimester US (PACs noted, monitored for ) Abnormal ultrasound findings: echo due to IVF history: normal anatomy, found frequent PACs and recommended US follow up to r/o development of hydrops- this was completed in [place] and normal. FU at the end of January showed normal growth and no evidence of PACs. Recommended a f/u echo at the end of February. complications: labor Labs Blood type: A (+) positive Rubella: nonimmune RPR/VDLR: nonreactive GBS status: unknown HBsAG: negative Review of Systems Status of ROS: Reports: 10 or more systems reviewed and unremarkable except as noted in History and below Meds Home Medications and Allergies Home Medications ?Medication ?Instructions ?Recorded ?Confirmed ?Type prenat.vits,raymundo,[id number] 1 tab PO QDAY 07/10/22 03/05/24 History aspirin 81 mg tablet,delayed 81 mg PO QDAY 10/22/23 03/05/24 History release (Adult Aspirin Regimen) Allergies Allergy/AdvReac Type Severity Reaction Status Date / Time nickel Allergy Mild Rash Verified 03/05/24 14:16 Penicillins Allergy Unknown Hives Verified 03/05/24 14:16 Sulfa (Sulfonamide Allergy Unknown Hives Verified 03/05/24 14:16 Antibiotics) Gluten Meal Allergy Unknown Hives Uncoded 02/25/24 09:46 OB - H&P: Exam Physical Exam: Vital signs: Temp Pulse Resp BP Pulse Ox O2 Del Method 98.1 F 88 16 116/54 L 99 Room Air 03/05/24 12:55 03/05/24 13:56 03/05/24 13:56 03/05/24 13:56 03/05/24 12:24 03/05/24 09:37 Narrative: VITAL SIGNS: As noted above. GENERAL APPEARANCE: Alert, cooperative female in no acute distress. MOOD & AFFECT: Normal. ABDOMEN: Gravid, non tender. : Bloody show, anterior rim, 0 station. Vertex palpated. Confirmed vertex by bedside US. Intact. EXTREMITIES: Nonedematous. Well perfused. Nontender. NST: 125bpm/moderate variability/positive accelerations/sporadic variables/regular firm uterine contractions OB - Results Labs Labs: Short CBC 03/05/24 Range/Units 10:37 WBC 22.40 H (4.50-11.00) K/uL Hgb 13.6 (12.0-16.0) gm/dL Hct 38.3 (33.0-51.0) % Plt Count 321 (140-440) K/uL BMP 03/05/24 10:37 Sodium 134 L Potassium 3.4 L Chloride 109 Carbon Dioxide 17 L BUN 5 Creatinine 0.4 L Glucose 124 H Calcium 9.2 Liver Function 03/05/24 Range/Units 10:37 Total Bilirubin 1.2 (0.1-1.5) mg/dL AST 27 (12-35) U/L ALT 22 (4-35) U/L Alkaline Phosphatase 316 H (40-150) U/L Albumin 4.0 (3.3-5.0) g/dL OB - Problem Based A/P Additional Plan (1) labor in third trimester: Status: Acute Plan 1. labor- active. -Unstable for transport. Will allow delivery. Bleeding at this moment not concerning for placental abruption, (neither NST) but at this advanced cervical dilation and symptomatology will not recommend tocolysis. -IV access established, magnesium sulfate 6g bolus given for neuroprotection given. Maintenance until delivery. -GBS prophylaxis: Vancomycin, GBS unknown and significant allergy to penicillin. -First dose of betamethasone given. -[facility] called in for labor-who called NICU team for transport. -Pain management: Nitrous for the moment. -Labs collected, to include coagulations and toxicology. -Placenta cultures and to pathology. Delivery/Labor/Induction Plan Plan: expectant management
--- NOTE | 2024-03-05 15:42 | W.PM.OBVAGDE ---
OB Procedure Vag Delivery Mother Details Mother Details: The patient is a 38 year-old, 1, Para 1, admitted on 03/05/24 at 31 6/7 weeks gestation in active labor. Patient had concerns about constipation since yesterday but thought she was doing well until today at 0330 when she woke up from pain and at around 0630 had an episode of vaginal bleeding. After bleeding episode patient decided to come in for evaluation. Upon evaluation at labor and delivery patient was found with painful uterine contractions and 8cm dilated. : 1 Para: 1 Weeks Gestation: 31.6 Admission Date: 03/05/24 Additional Details Amniotic Membrane Status: AROM (Patient 10cm dilated, pushing involuntarily and not managing labor pain well with only nitrous oxide, NICU team at bedside and I then had concerns about significant leukocytosis-labs upon arrival. ) Amniotic Membrane Rupture Date: 03/05/24 Amniotic Membrane Rupture Time: 11:59 Amniotic Membrane Fluid Description: Clear (Minimal amount of amniotic fluid noted right after rupture and after delivery. ) Analgesia/Anesthesia Type: Nitrous Oxide Waterbirth: No Pitcoin: No Delivery augmentation: rupture of membranes Labor Onset: 03:30 Complete: 11:38 Pushin:34 Heart: heart tones during second stage were category 1. Delivery Details Delivery Date: 03/05/24 Delivery Time: 12:21 Route of delivery: Infant Gender: Male Viability: Alive; Heart Rate Present Position at Delivery: OA Delivery Details: Delivered over intact perineum via spontaneous vaginal delivery. was placed on maternal abdomen.? Cord was clamped and cut after a 30 second delay. Nose and mouth were bulb suctioned.? Infant weight 4 pounds 5 ounces. 1 Minute Interval Total Score: 6 5 Minute Interval Total Score: 8 10 Minute Interval Total Score: 8 Additional Details Shoulder Dystocia: No Placenta Delivery Time: 12:24 Placental Delivery Description: Spontaneous Delivery repair: Vicryl Procedure Done: Global Blood Loss: 300 Laceration: Vaginal - 1st Degree (Vaginal and perineal both first degree repaired with Vicryl 3-0.) Episiotomy Description: None Blood Loss Measurement Type: QBL Bakri Used: No Sponge/Need Count Correct: Yes Cord Vessel Description: 3 Vessels Event Summary Status: Mother and infant were stable after delivery. NICU team present for delivery. Initial assessment and resuscitation interventions completed by NICU team. Baby was transferred to NICU on nasal cannula. Disposition: floor
--- NOTE | 2024-03-05 16:55 | ED_ITS ---
HPI - General Adult General Chief complaint: Abdominal Pain Stated complaint: 32 weeks , bowel obstruction Time Seen by Provider: 03/05/24 10:15 History of Present Illness HPI narrative: This patient presented to ER triage. She was not seen by an ER provider but was sent straight to labor and delivery for obstetric evaluation. Related Data Home Medications ?Medication ?Instructions ?Recorded ?Confirmed prenat.vits,raymundo,[id number] 1 tab PO QDAY 07/10/22 03/05/24 aspirin 81 mg tablet,delayed 81 mg PO QDAY 10/22/23 03/05/24 release (Adult Aspirin Regimen) Allergies Allergy/AdvReac Type Severity Reaction Status Date / Time nickel Allergy Mild Rash Verified 03/05/24 14:16 Penicillins Allergy Unknown Hives Verified 03/05/24 14:16 Sulfa (Sulfonamide Allergy Unknown Hives Verified 03/05/24 14:16 Antibiotics) Gluten Meal Allergy Unknown Hives Uncoded 02/25/24 09:46 PFSH PFS Medical History (Updated 03/05/24 @ 15:05 by Leonila Murray MD) History of hysterosalpingogram ?Z98.890 - Other specified postprocedural states (ICD-10) Surgical History (Updated 09/24/23 @ 13:00 by Alae Addison CNP) H/O wrist surgery ?Z98.890 - Other specified postprocedural states (ICD-10) H/O arthroscopy of shoulder ?Z98.890 - Other specified postprocedural states (ICD-10) Family History Grandfather Stroke Diabetes Sister Non-Hodgkin lymphoma Grandmother Diabetes Mother Diabetes Social History (Updated 09/24/23 @ 11:01 by Sammi Doe LPN, [employer]) What is your current living situation?: I presently have a place to live Problems where you live: no known problems In the past 12 months, utilities in danger of being shut off: no In past 12 months, lack of transportation kept you from medical appts, meetings, work, or getting things needed for daily living: no In the past 12 mos, have been you worried that your food would run out before you had money to buy more?: never true In the past 12 mos, the food you bought just didn't last and you didn't have money to buy more?: never true Smoking Status: Never smoker How often does anyone, including family, friends and others, physically hurt you : never How often does anyone, including family, friends and others, insult or talk down to you: never How often does anyone, including family, friends and others, threaten you with harm: never How often does anyone, including family, friends and others, scream or curse at you: never Little interest or pleasure in doing things: not at all Feeling down, depressed, or hopeless: not at all Exam Const: Vital Signs, click to edit/add: Vital Signs - 24 hr 03/05/24 09:37 03/05/24 10:21 03/05/24 10:26 Temperature 97 F L Pulse Rate [Pulse Oximeter] 75 Respiratory Rate 24 Blood Pressure [Ri ght Upper Arm] 108/63 Pulse Oximetry 100 100 94 Oxygen Delivery Me thod Room Air 03/05/24 10:59 Temperature Pulse Rate [Pulse Oximeter] Respiratory Rate Blood Pressure [Ri ght Upper Arm] Pulse Oximetry 99 Oxygen Delivery Me thod Course Vital Signs Vital signs: Initial Vital Signs Temperature 97 F L 03/05/24 09:37 Temperature Source Temporal Artery Scan 03/05/24 09:37 Pulse Rate 75 03/05/24 09:37 Respiratory Rate 24 03/05/24 09:37 Blood Pressure 108/63 03/05/24 09:37 Blood Pressure Mean 78 03/05/24 09:37 Pulse Oximetry 100 03/05/24 09:37 Oxygen Delivery Method Room Air 03/05/24 09:37 Vital Signs Temperature 97 F L 03/05/24 09:37 Pulse Rate 75 03/05/24 09:37 Respiratory Rate 24 03/05/24 09:37 Blood Pressure 108/63 03/05/24 09:37 Pulse Oximetry 100 03/05/24 09:37 Oxygen Delivery Method Room Air 03/05/24 09:37 Temperature 97.9 F 03/05/24 14:24 Pulse Rate 82 03/05/24 14:25 Respiratory Rate 16 03/05/24 14:24 Blood Pressure 98/56 L 03/05/24 14:25 Pulse Oximetry 99 03/05/24 12:24 Oxygen Delivery Method Room Air 03/05/24 09:37 Medications Administered Medications: Generic Name Dose Route Start Last Admin Trade Name Freq PRN Reason Stop Dose Admin Lactated Ringer's 1,000 mls @ 125 mls/hr 03/05/24 10:25 03/05/24 12:21 Lactated Ringers 1000 Ml IV Infused .Q8H JUAN MANUEL Infusion Oxytocin 30 unit in 500 mls @ 300 mls/hr 03/05/24 10:30 03/05/24 14:22 Oxytocin 30 Unit/500 Ml In Ns IVPB Infused CONT JUAN MANUEL Infusion Magnesium Sulfate 40 gm in 1,000 mls @ 50 mls/hr 03/05/24 11:00 03/05/24 12:25 Magnesium Infusion IVPB Infused .Q20H JUAN MANUEL Infusion 2 GM/HR Lidocaine HCl 30 ml 03/05/24 10:21 03/05/24 12:29 Lidocaine 1 % Pf 30 Ml INJECTION 30 ml ONCE PRN Administration Discontinued Medications Generic Name Dose Route Start Last Admin Trade Name Freq PRN Reason Stop Dose Admin Betamethasone Acet/Betameth SodPhos 12 mg 03/05/24 10:22 03/05/24 10:39 Betamethasone Sod Phos/Acetate 6 Mg/Ml Ml IM 03/05/24 10:23 12 mg ONCE ONE Administration Vancomycin HCl 2,000 mg/ 520 mls @ 260 mls/hr 03/05/24 10:45 03/05/24 14:22 Sodium Chloride IVPB Infused Q8H JUAN MANUEL Infusion Protocol Magnesium Sulfate 2 gm in 50 mls @ 300 mls/hr 03/05/24 10:41 03/05/24 10:59 Magnesium Iv IVPB 03/05/24 10:50 Infused ONCE ONE Infusion Magnesium Sulfate 4 gm 03/05/24 10:40 03/05/24 10:21 Magnesium Sulf 4 G/100 Ml Bag IVPB 03/05/24 10:41 4 gm ONCE ONE Administration Medical Decision Making Lab Data Labs: Lab Results 03/05/24 Range/Units 10:37 WBC 22.40 H (4.50-11.00) K/uL RBC 4.41 (4.00-5.20) m/uL Hgb 13.6 (12.0-16.0) gm/dL Hct 38.3 (33.0-51.0) % MCV 87 (80-100) fL MCH 31 (26-34) pg MCHC 36 (32-36) gm/dL RDW Coeff of Alyce 12.1 (11.5-15.5) % Plt Count 321 (140-440) K/uL Neut % (Auto) 92.1 H (42.0-72.0) % Lymph % (Auto) 5.3 L (20-44) % [place] % (Auto) 2.1 (0.0-11.0) % Eos % (Auto) 0.0 (0.0-7.0) % Baso % (Auto) 0.1 (0.0-3.0) % Neut # (Auto) 20.60 H (1.7-7.0) K/uL Lymph # (Auto) 1.20 (0.90-2.90) K/uL [place] # (Auto) 0.50 (0.00-0.90) K/UL Eos # (Auto) 0.00 (0.00-0.50) K/uL Baso # (Auto) 0.00 (0.00-0.30) K/uL Abs Immat Gran (auto) 0.10 (0.00-0.30) K/uL Imm/Tot Granulo (auto) 0.4 % INR 1.00 (0.91-1.10) Fibrinogen 672 H (200-450) mg/dL Sodium 134 L (135-149) mmol/L Potassium 3.4 L (3.6-5.1) mmol/L Chloride 109 (96-114) mmol/L Carbon Dioxide 17 L (20-32) mmol/L Anion Gap 8 (7-15) mEq/L BUN 5 (5-24) mg/dL Creatinine 0.4 L (0.5-1.5) mg/dL Estimated Creat Clear 157.75 Estimated GFR 130 ml/min Glucose 124 H (60-115) mg/dL Calcium 9.2 (8.4-10.6) mg/dL Total Bilirubin 1.2 (0.1-1.5) mg/dL AST 27 (12-35) U/L ALT 22 (4-35) U/L Alkaline Phosphatase 316 H (40-150) U/L Total Protein 7.7 (6.0-8.3) g/dL Albumin 4.0 (3.3-5.0) g/dL Blood Type O Positive Antibody Screen NEGATIVE Discharge Plan Discharge Patient Disposition: Admit to OB
[2024-03-05 18:05] LABS: Amphetamine Screen Urine Negative (Negative); Barbiturate Screen Urine Negative (Negative); Benzodiazepines Screen Urine Negative (Negative); Cannabinoid Screen Urine Negative (Negative); Cocaine Screen Urine Negative (Negative); Methadone Screen Urine Negative (Negative); Methamphetamines Screen Urine Negative (Negative); Opiate Screen Urine Negative (Negative); Oxycodone Screen Urine Negative (Negative); Phencyclidine Screen Urine Negative (Negative); Tricyclic Antidepressant Urine Negative (Negative)
[2024-03-05] MEDS: MEASLES,MUMPS,RUBELLA VACC/PF 1 DOSE INJ 1 EACH SUBCUT (21:45)
[2024-03-06 04:40] VITALS: BP 96/63; PULSE 63; RESP 16; TEMP 36.7; O2SAT 97
[2024-03-06 08:06] LABS: Hemoglobin* 11.6 gm/dL (12.0-16.0)
--- NOTE | 2024-03-06 08:49 | PM.OBDSVD1 ---
DS: Providers Provider Time Seen by Provider: 08:49 Date Seen: 03/06/24 Date of admission: 03/05/24 10:59 Primary care physician: Jadiel Vasquez MD Admitting Clinician: Leonila Murray MD Attending Physician on discharge: Leonila Murray MD Date of Discharge: 03/06/24 DS: Diagnosis Discharge Diagnosis (1) delivery: Status: Deleted (2) labor with delivery: Status: Acute Exam Narrative: Exam Narrative: GENERAL APPEARANCE: Pleasant, [race], well-groomed woman in no acute distress. VITAL SIGNS: as noted in nursing notes LUNGS: Clear to auscultation bilaterally without wheezes, rales or rhonchi. HEART: Regular rate and rhythm with normal S1 and S2. No gallop, rub or murmur. ABDOMEN: Soft, nontender, nondistended, with normal bowels sounds throughout. FUNDUS: 3 cm below the umbilicus in the midline, firm. EXTREMITIES: No cyanosis, clubbing, or edema. No varicosities. NEUROLOGIC: Normal gait and balance. Normal deep tendon reflexes at bilateral patella 2+/2, equal without clonus. PSYCHIATRIC: alert and oriented x3. Normal speech pattern, eye contact and affect. SKIN: Warm, dry, and well perfused. Good turgor. No lesions, nodules or rashes. Const: Vital Signs, click to edit/add: Vital Signs - 24 hr 03/05/24 09:37 03/05/24 10:21 03/05/24 10:26 Temperature 97 F L Pulse Rate Pulse Rate [Pulse Oximeter] 75 Respiratory Rate 24 Blood Pressure Blood Pressure [Le ft Arm] Blood Pressure [Ri ght Upper Arm] 108/63 Pulse Oximetry 100 100 94 Oxygen Delivery Me thod Room Air 03/05/24 10:59 03/05/24 11:04 03/05/24 11:09 Temperature Pulse Rate Pulse Rate [Pulse Oximeter] Respiratory Rate Blood Pressure Blood Pressure [Le ft Arm] Blood Pressure [Ri ght Upper Arm] Pulse Oximetry 99 100 100 Oxygen Delivery Me thod 03/05/24 11:14 03/05/24 11:19 03/05/24 11:24 Temperature Pulse Rate Pulse Rate [Pulse Oximeter] Respiratory Rate Blood Pressure Blood Pressure [Le ft Arm] Blood Pressure [Ri ght Upper Arm] Pulse Oximetry 99 100 97 Oxygen Delivery Me thod 03/05/24 11:29 03/05/24 11:34 03/05/24 11:34 Temperature 98.2 F Pulse Rate Pulse Rate [Pulse Oximeter] Respiratory Rate Blood Pressure Blood Pressure [Le ft Arm] Blood Pressure [Ri ght Upper Arm] Pulse Oximetry 99 100 Oxygen Delivery Me thod 03/05/24 11:37 03/05/24 11:39 03/05/24 11:41 Temperature Pulse Rate 74 Pulse Rate [Pulse Oximeter] Respiratory Rate Blood Pressure 109/64 Blood Pressure [Le ft Arm] Blood Pressure [Ri ght Upper Arm] Pulse Oximetry 100 91 Oxygen Delivery Me thod 03/05/24 11:44 03/05/24 11:49 03/05/24 11:54 Temperature Pulse Rate Pulse Rate [Pulse Oximeter] Respiratory Rate Blood Pressure Blood Pressure [Le ft Arm] Blood Pressure [Ri ght Upper Arm] Pulse Oximetry 98 99 99 Oxygen Delivery Me thod 03/05/24 11:59 03/05/24 12:00 03/05/24 12:04 Temperature Pulse Rate Pulse Rate [Pulse Oximeter] Respiratory Rate Blood Pressure Blood Pressure [Le ft Arm] Blood Pressure [Ri ght Upper Arm] Pulse Oximetry 97 93 97 Oxygen Delivery Me thod 03/05/24 12:09 03/05/24 12:14 03/05/24 12:19 Temperature Pulse Rate Pulse Rate [Pulse Oximeter] Respiratory Rate Blood Pressure Blood Pressure [Le ft Arm] Blood Pressure [Ri ght Upper Arm] Pulse Oximetry 99 99 97 Oxygen Delivery Me thod 03/05/24 12:20 03/05/24 12:24 03/05/24 12:25 Temperature Pulse Rate 83 Pulse Rate [Pulse Oximeter] Respiratory Rate Blood Pressure 107/60 Blood Pressure [Le ft Arm] Blood Pressure [Ri ght Upper Arm] Pulse Oximetry 92 99 Oxygen Delivery Me thod 03/05/24 12:25 03/05/24 12:40 03/05/24 12:40 Temperature Pulse Rate Pulse Rate [Pulse Oximeter] Respiratory Rate 16 16 Blood Pressure 108/67 Blood Pressure [Le ft Arm] Blood Pressure [Ri ght Upper Arm] Pulse Oximetry Oxygen Delivery Me thod 03/05/24 12:55 03/05/24 12:55 03/05/24 13:10 Temperature 98.1 F Pulse Rate 82 79 Pulse Rate [Pulse Oximeter] Respiratory Rate 16 Blood Pressure 92/53 L 96/54 L Blood Pressure [Le ft Arm] Blood Pressure [Ri ght Upper Arm] Pulse Oximetry Oxygen Delivery Pr thod 03/05/24 13:10 03/05/24 13:25 03/05/24 13:25 Temperature Pulse Rate 78 Pulse Rate [Pulse Oximeter] Respiratory Rate 16 16 Blood Pressure 100/56 L Blood Pressure [Le ft Arm] Blood Pressure [Ri ght Upper Arm] Pulse Oximetry Oxygen Delivery Pr thod 03/05/24 13:40 03/05/24 13:40 03/05/24 13:56 Temperature Pulse Rate 83 88 Pulse Rate [Pulse Oximeter] Respiratory Rate 16 Blood Pressure 100/60 116/54 L Blood Pressure [Le ft Arm] Blood Pressure [Ri ght Upper Arm] Pulse [facility]ximetry [facility] 13:56 03/05/24 14:10 03/05/24 14:10 Temperature Pulse Rate 83 Pulse Rate [Pulse Oximeter] Respiratory Rate 16 16 Blood Pressure 102/53 L Blood Pressure [Le ft Arm] Blood Pressure [Ri ght Upper Arm] Pulse Oximetry [facility] 03[facility] 14:24 03/05/24 14:25 03/05/24 17:41 Temperature 97.9 F 98.7 F Pulse Rate 82 Pulse Rate [Pulse Oximeter] 97 Respiratory Rate 16 16 Blood Pressure 98/56 L Blood Pressure [Le ft Arm] 106/65 Blood Pressure [Ri ght Upper Arm] Pulse Oximetry 97 [facility] 03/05/24 21:05 03/05/24 23:53 03/06/24 04:40 Temperature 97.9 F 98.7 F 98.0 F Pulse Rate Pulse Rate [Pulse Oximeter] 72 85 63 Respiratory Rate 16 14 16 Blood Pressure Blood Pressure [Le ft Arm] 94/61 107/70 96/63 Blood Pressure [Ri ght Upper Arm] Pulse Oximetry 96 96 97 [facility] Room Air Room Air OB - DS: Summary Hospital Course Hospital Course: The patient is a 38 year old G 1P 0101 at 31 and 6/7 weeks gestation that was admitted to the Center on 03/05/24 for labor and delivery. She had an uncomplicated vaginal delivery. She delivered a viable male infant. She is expressing breast milk and giving milk by bottle. The infant was transferred to [facility]. the patient has done well. She would like to be discharged today. Time spent discussing smoking cessation with patient: 3 to 10 minutes Peripartum Data Infant delivery method: Vaginal Laceration description: None complications: none [place] Gender: Male Status at Discharge Functional status at discharge: independent ambulation Overall status at discharge: patient is back to baseline Time Spent with Patient Time attestation: Total time spent providing and/or coordinating discharge services: Time spent: Less than 30 minutes Discharge Plan Discharge Disposition: Home, Self-Care Date of Admission: 03/05/24 10:59 Attending Provider on Discharge: Rebecca Vidales Primary Care Provider: Jadiel Vasquez Condition: Stable Anticipated Discharge Date/Time: 03/06/24 10:00 Discharge Medications: New docusate sodium 100 mg Capsule 100 mg PO BID PRN (Reason: constipation) Qty: 100 0RF ibuprofen 600 mg Tablet 600 mg PO Q6H PRNQty: 30 0RF Continued prenat.vits,raymundo,[id number] Tablet 1 tab PO QDAY Discontinued aspirin [Adult Aspirin Regimen] 81 mg tablet,delayed release (DR/EC) 81 mg PO QDAY Discharge Orders: Discharge Order (Routine); Ordered 03/06/24 Ordered By: Rebecca Vidales Patient Education: Vaginal Delivery (DC) Additional Instructions: ACTIVITY RESTRICTIONS: Nothing vaginally for 6 weeks: no tampons/intercourse Off of work/school for a minimum of 6 weeks Symptoms to report to doctor: -Bleeding that saturates more than one pad per hour ?-Passing clots larger than the size of a golf ball ?-Pain not relieved by prescribed medication ?-Fever above 100.4 degrees Fahrenheit ?-A foul vaginal odor ?-Difficulty in emotions, mood and functions ?-Thoughts of hurting yourself and/or ?-Painful, reddened area in your breast ?-Any drainage, redness or tenderness in your IV/epidural site ?-Severe headache that doesn't improve after taking medications ?-Changes in vision, including temporary loss of vision, blurred vision, and/or light sensitivity ?-Upper abdominal pain (usually under ribs on the right side) ?-Decrease in urination or painful, frequent urinating ?-Chest pain ?-Shortness of breath ?-Tenderness or pain with redness and/swelling in the calf(s) of your leg Follow-up: 1. [facility] in 2 weeks for optional visit. Review control options, screen for anxiety/depression, discuss infant care concerns. 2. A 6 week visit for an annual physical exam. consultation services are available to all mothers and babies for the first year after delivery.? To make an appointment, please call [phone]. Activity Level: Other Discharge Diet: Regular Follow Up Appointments: [facility] [Provider Group] Jadiel Vasquez MD [Primary Care Provider] - Forms: MyHealth Info Instructions
[2024-03-06 09:01] VITALS: BP 103/69; PULSE 68; RESP 16; O2SAT 97
[2024-03-07 00:57] LABS: Rapid Plasma Reagin (RPR) Non Reactive (Non Reactive)
--- OUTSIDE RECORDS SUMMARY | 2024-03-15 11:47 | XMS_ITS | Clinical Summary ---
Author Organization [facility] Address [address] [place] [address] Care Team Providers Care Restaurant Busser Name Role Phone Erin Calvo APRN, C.N.P., D.N.P. Primary Care Provider Source Comments Patient records contain information from all sites at [facility]. For routine questions regarding patient records, call [phone] during business hours, M-F 8:00 AM - 5:00 PM Central Time. Record requests for emergency care only can be directed to [phone] at any time.[facility] Allergies Active Allergy Reactions Criticality Noted Date [...] Routine Department of Obstetrics and Gynecology in [place], [place] [address] [place] [phone] Mayank Morgan M.B.B.S. 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 Primigravida Advanced Maternal Age Affecting Management (HCC) Discharge Disposition: Home or Self Care 02/26/2024 2:30 PM CDT Comprehensive Visit Division of Pediatric Cardiology in [place], [place] [address] [place] [address] Junito Arce M.B.B.S. Primigravida Advanced Maternal Age Affecting Management (HCC) 02/26/2024 1:01 PM CDT - 02/26/2024 3:01 PM CDT Hospital Encounter Department of Cardiovascular Diseases in [place], [place] [address] [place] [phone] Shraddha Keller D.O. Primigravida Advanced Maternal Age Affecting Management (HCC) Discharge Disposition: Home or Self Care 02/22/2024 Patient Self-Triage [facility] Symptom Clinical Pharmacy Specialist, Provider 01/30/2024 8:30 AM CDT Routine Department of Obstetrics and Gynecology in [place], [place] [address] [place] [address] Mayank Morgan M.B.B.S. Maternal Care For Other Suspected Abnormality And Damage Cardiac Anomalies Single Gestation (HCC) (Primary Dx) 01/30/2024 7:19 AM CDT - 01/30/2024 11:59 PM CDT Hospital Encounter Department of Obstetrics and Gynecology in [place], [place] [address] [place] [phone] Shraddha Keller D.O. Primigravida Advanced Maternal Age Affecting Management (HCC) Discharge Disposition: Home or Self Care 01/30/2024 Orders Only Department of Obstetrics and Gynecology in [place], [place] [address] [place] [phone] Lashae Pitts R.N. 01/13/2024 Orders Only Department of Obstetrics and Gynecology in [place], [place] [address] [place] [phone] Rayne Wheatley R.N. Primigravida Advanced Maternal Age Affecting Management (HCC) (Primary Dx) 01/12/2024 Clinical Communication Department of Obstetrics and Gynecology in [place], [place] [address] [place] [phone] Shraddha Keller D.O. Communication 01/12/2024 Clinical Communication Department of Obstetrics and Gynecology in [place], [place] [address] [place] [phone] Shraddha Keller D.O. Communication 01/09/2024 Orders Only Department of Obstetrics and Gynecology in [place], [place] [address] [place] [phone] Rayne Wheatley R.N. Primigravida Advanced Maternal Age Affecting Management (HCC) (Primary Dx) 01/07/2024 3:00 PM CDT Comprehensive Visit Division of Pediatric Cardiology in [place], [place] [address] [place] [phone] Junito Arce M.B.B.S. Primigravida Advanced Maternal Age Affecting Management (HCC) 01/07/2024 1:23 PM CDT - 01/07/2024 11:59 PM CDT Hospital Encounter Department of Cardiovascular Diseases in [place], [place] [address] [place] [address] Shraddha Keller D.O. Primigravida Advanced Maternal Age Affecting Management (HCC) Discharge Disposition: Home or Self Care 01/07/2024 11:00 AM CDT Routine Department of Obstetrics and Gynecology in [place], [place] [address] [place] [address] Shraddha Keller D.O. Barby, Theresa A, RBerenice. Primigravida Advanced Maternal Age Affecting Management (HCC) 01/07/2024 10:03 AM CDT - 01/07/2024 1:22 PM CDT Hospital Encounter Department of Obstetrics and Gynecology in [place], [place] [address] [place] [address] Shraddha Keller D.O. Primigravida Advanced Maternal Age Affecting Management (HCC) Discharge Disposition: Home or Self Care 12/16/2023 4:00 PM CDT Lab Department of Laboratory Medicine and Pathology, [facility] in [place], [place] [address] [place] [address] Zulema Avila M.D., Ph.D. Primigravida Advanced Maternal Age Affecting Management (HCC) 12/16/2023 3:00 PM CDT Routine Department of Obstetrics and Gynecology in [place], [place] [address] [place] [address] Shraddha Keller D.O. Primigravida Advanced Maternal Age Affecting Management (HCC) (Primary Dx) 12/16/2023 2:00 PM CDT Comprehensive Visit Department of Obstetrics and Gynecology in [place], [place] [address] [place] [address] Chrystal Araya M.D. 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 Primigravida Advanced Maternal Age Affecting Management (HCC) Discharge Disposition: Home or Self Care 12/15/2023 3:30 PM CDT Clinical Communication Virtual Review in [place], [place] [address] [place] [phone] Pre-visit Intake from Last 3 Months Immunizations [...] i only drink once in a while [facility] Utilities Answer Date Recorded In the past 12 months has e [employer], gas, oil, or water [employer] threatened to shut off services in your [...] often do you attend chur ch or lutheran services? Never 04/14/2022 Do you belong to [...] Answer Date Recorded PHQ-2 Score 0 12/15/2023 [facility] of Occupat ional Health - Occupational Stress [...] living situation today? I have a [place] to live 12/09/2023 Education Answer Date [...] S Routine 07/04/2014 11:29 AM CDT PATHOLOGY PULLER OVER CYTOLOGY Routine 07/04/2014 12:00 AM CDT from [...] AND OR GROWTH FUNG Exam Site: [facility] 4 Plurality: 1 LMP: 07/26/2023 GA [...] Main Mcpherson R.D.M.S. on 02/26/2024 3:21:09 PM. Sports Equipment Racker: ??Main Mcpherson R.D.M.S. Thank You For This Referral Procedure Note Eliseo Desouza M.D. - 02/26/2024 SIMKALIE ESPINAL OB Exam, 02/26/2024 EXAM INFORMATION Patient Name: ABELARDO BERMUDEZMANUELA MONIQUE : 1985 Age: 38 yrs Sex: Female Ref Phys: SHRADDHA KELLER Exam Date: 02/26/2024 Procedure: US OB FOLLOW-UP AND OR GROWTH FUNG Exam Site: [facility] OB 4 Plurality: 1 LMP: 07/26/2023 GA [...] Main Mcpherson R.D.M.S. on 02/26/2024 3:21:09 PM. Sports Equipment Racker: Main Mcpherson R.D.MCarlosSCarlos Thank You For This Referral Shraddha VARGAS OB US PROCEDURES * ECHO 2D LIMITED DOPPLER (02/26/2024 1:49 PM CDT) Ejection Fraction [facility] Anatomical Region Laterality Modality Echocardiography 02/26/2024 1:02 [...] WITH BPP W/O NON-STRESS Exam Site: [facility] OB #2 Plurality: 1 OBHx: [G:(1)] ?F [...] by Chuck Colorado on 01/30/2024 8:06:42 AM. Sports Equipment Racker: ??Chuck Colorado Thank You For This Referral Procedure Note Chrystal Araya M.D. - 01/30/2024 KALIE BERMUDEZ OB Exam, 01/30/2024 EXAM INFORMATION Patient Name: KALIE BERMUDEZ : 1985 Age: 38 yrs Sex: Female Ref Phys: SHRADDHA KELLER Exam Date: 01/30/2024 Procedure: US OB FOLLOW UP WITH BPP W/O NON-STRESS Exam Site: [facility] #2 Plurality: 1 OBHx: [G:(1)] F [...] by Chuck Colorado on 01/30/2024 8:06:42 AM. Sports Equipment Racker: Chuck Colorado Thank You For This Referral Shraddha Keller D.O. IMG OB US PROCEDURES * ECHO 2D WITH COLOR AND DOPPLER (01/07/2024 2:29 PM CDT) Ejection Fraction [facility] Anatomical Region Laterality Modality Other 01/07/2024 1:25 [...] Shraddha Keller D.O. CV ECHO PROCEDURES * [facility] Screen - Sent Out Lab (12/16/2023 3:39 PM CDT) [facility] Screen SEE COMMENT 12/23/2023 9:06 AM CDT MAURICIO Comment: For final report, select Lab-Send Out Lab Results hyperlink below. Blood (Blood, Venous) 12/16/2023 3:39 PM CDT 12/17/2023 10:23 AM CDT [facility] [employer] - 12/23/2023 9:06 AM CDT Specimen Information: Specimen ID: [id number] Specimen Type: Blood Specimen Collection Start Date: 12/16/2023 ??3:39 PM Specimen Received Date: 12/17/2023 10:23 AM Specimen ID: [id number] Specimen Type: Blood Specimen Collection Start Date: 12/16/2023 ??3:39 PM Specimen Received Date: 12/17/2023 10:23 AM Zulema Avila M.D., Ph.D. LAB GENETIC TEST ING [employer] [address] [place] [address], [facility] [employer] [address] [place] [address] * US OB Advanced Level Fung (12/16/2023 [...] OB ADVANCED LEVEL FUNG Exam Site: [facility] #126 Plurality: 1 INDICATIONS FOR SONOGRAPHY [...] by Tamiko Mancini on 12/16/2023 2:27:18 PM. Sports Equipment Racker: ??Tamiko Mancini Thank You For This Referral Procedure Note Eliseo Desouza M.D. - 12/16/2023 KALIE BERMUDEZ OB Exam, 12/16/2023 EXAM INFORMATION Patient Name: KALIE BERMUDEZ : 1985 Age: 37 yrs Sex: Female Ref Phys: CHRYSTAL ARAYA Exam Date: 12/16/2023 Procedure: US OB ADVANCED LEVEL FUNG Exam Site: [facility] #126 Plurality: 1 INDICATIONS FOR SONOGRAPHY [...] by Tamiko Mancini on 12/16/2023 2:27:18 PM. Sports Equipment Racker: Tamiko Mancini Thank You For This Referral Chrystal Araya M.D. IMMary OB US IA OCEDURES * (ABNORMAL) Lipid Panel (07/04/2014 11:29 AM CDT) Calculated LDL 121(H) 0 - 100 MGDL POWERCHART Total Cholesterol/HDL Ratio 4.16 2.20 - 4.40 POWERCHART Cholesterol, Total 187 <=200 MGDL POWERCHART HX HDL 45 40 - 60 MGDL POWERCHART Triglycerides 106 <=150 MGDL POWERCHART HXLDL/HDL 3 POWERCHART Blood 07/04/2014 11:2 9 AM CDT Tomasz Powell M.D. LAB BLOOD ADD-ON POWERCHART * Pathology PULLER OVER Cytology (07/04/2014 12:00 AM CDT) 07/04/2014 Narrative [facility] - 07/13/2014 2:23 PM CDT [facility] in [place] [address] [place], [place] ??[phone] Patient Name: KALIE MONTEMAYOR Collected: 07/04/2014 Address: City/State/Zip: [address] ??[id number] Received: Reported: 07/05/2014 07/11/2014 Soc. Sec. #: ?/Age/Sex 1985 (Age: 28) ??F Physician(s): YUNI POWELL MD Copy To: ? [facility] ??[id number] [address] [facility], ??[place] ??[address] CYTOPATHOLOGY PULLER OVER REPORT FINAL CYTOLOGIC DIAGNOSIS Pap Smear - ThinPrep: NEGATIVE FOR INTRAEPITHELIAL LESION OR MALIGNANCY ENDOCERVICAL CELLS/COMPONENT PRESENT. SATISFACTORY SPECIMEN FOR EVALUATION. Electronically Signed Out By amb/07/11/[address] [facility] The Pap test is a screening [...] Tomasz Powell M.D. LAB PAP LUIS VERA [facility] Organization Address City/State/ZIP Co de Phone Number [facility] from Last 3 Months or Most Recently Relevant to Health Maintenance Care Teams Restaurant Busser Relationship Specialty Start Date End Date Erin Calvo APRN, C.N.P., D.N.P. [address] [place] [phone] [facility] - General 08/30/20
--- OUTSIDE RECORDS SUMMARY | 2024-03-15 11:47 | XMS_ITS | Clinical Summary ---
Author Organization [employer] [facility] [employer] [facility] Address [place], [place] [address] Care Team Providers Care Friction Welding Machine Operator Name Role Phone Staff, Other Clinical Primary [...] Encounters Date Type Department Care Team Description 03/05/2024 Lab Requisition [facility] [phone] Leonila Murray MD from Last 3 Months Immunizations Name Administration [...] Outcome GA Total Labor Labor/2nd/3rd Weight Sex Type Anes PTL Sandhya A1 A5 Name Clin Current Last Filed Vital Signs Vital Sign Reading Time Taken Comments Blood Pressure 126/74 11/16/2023 6:20 AM CLAIM INVESTIGATOR Pulse 85 11/16/2023 6:20 AM CLAIM INVESTIGATOR Temperature 37 ??C (98.6 ??F) 11/16/2023 6:20 AM CLAIM INVESTIGATOR Respiratory Rate 16 11/16/2023 6:20 AM CLAIM INVESTIGATOR Oxygen Saturation 100% 11/16/2023 6:20 AM CLAIM INVESTIGATOR Inhaled Oxygen Concentration - - Weight 103.5 kg (228 lb 3.2 oz) 11/16/2023 6:20 AM CLAIM INVESTIGATOR Height 160 cm (5' 3) 11/16/2023 6:20 AM CLAIM INVESTIGATOR Body Mass Index 40.42 11/16/2023 6:20 AM CLAIM INVESTIGATOR Plan of Treatment Health Maintenance Due Date [...] Procedure Name Priority Date/Time Associated Diagnosis Comments LAB TRACKING EVENT Routine 03/05/2024 12 :24 PM CDT PATH TISSUE EXAM PLACENTA Routine 03/05/2024 12:24 PM CDT CONDUCTOR FREIGHT THIN PREP PAP SCREEN IMAGED Routine 04/27/2021 10:30 AM CDT from Last 3 Months or Most Recently Relevant to Health Maintenance Results * LAB TRACKING EVENT (03/05/2024 12:24 PM CDT) Other (Other) Client Collect / Unknown 03/05/2024 12:24 PM CDT 03/05/2024 9:45 PM CDT Leonila Murray MD LAB BILL Conrado [facility] [address] [place] [address], * PATH TISSUE EXAM PLACENTA (03/05/2024 12:24 PM CDT) Case Report Pathology Report ?Case: [id number] ? Authorizing Provider: ??Leonila Murray ??Collected: ? 03/05/2024 1224 ? M, MD ? Ordering Location: ? [facility] ?Received: ?03/06/2024 0609 ? Pathologist: ? Vasile Huntley MD ? Specimen: ?Products of Conception ? 03/09/2024 5:04 PM CDT [facility] Final Diagnosis A) PLACENTA, VAGINAL DELIVERY: 1. Third trimester guido placenta with the following characteristics: ? a. Weight: 340 grams (31 week 10-90th percentile weight range, 269 - 411 grams) ? b. Membranes/ surface: ?Negative for chorioamnionitis ? c. Umbilical cord: ?Three vessel cord ?Negative for funisitis ? d. Disc/Villi: ?Chorionic villi consistent with gestational age ?Negative for villitis ?Placental disc without infarcts ? e. Decidua/basal plate: ?No diagnostic abnormalities identified 03/09/2024 5:04 PM T [facility] Clinical Information Indications for Placental Examination by Pathology / indications: Prematurity Infectious specimen (e.g. maternal HIV or HCV): No Clinical information: Date of delivery: 03/05/2024 Time of delivery: 1221 Type of delivery: Vaginal Live born:Yes Gestational age: 31.6 weeks weight of (s): 1945 grams Sex of (s): ??Male Pertinent Maternal History: Maternal parity: Diabetes: No Hypertension: No Eclampsia: No Smoking: No 03/09/2024 5:04 PM T [facility] Gross Description A) Received fresh labeled with the patient's name and date of , is a 340 gram, 18.5 x 15.5 x 2.5 cm guido placenta. The surface is blue-wade with normal vasculature. The 17.0 cm long, 1.6 cm diameter trivascular umbilical cord is eccentrically inserted 5.5 cm from the nearest edge of the placental plate. The umbilical cord averages 1.5 turns per 10 cm with no lesions or masses identified. The extraplacental membranes are zepeda-pink, smooth and glistening with marginal insertion. The maternal surface is complete with red-brown, uniform cotyledons and less than 5% calcifications. ??Sectioning reveals dark red, spongy parenchyma with no lesions or masses identified. Transfer And Pumphouse Operator sections are submitted: 1. ?? membranes and insertion 2. ??Umbilical cord 3. ??Central section of placental parenchyma with umbilical cord insertion, full-thickness 4-5. Central section of placental parenchyma, full-thickness Time and date in formalin: 1515 on 03/08/2024 JKT 03/08/2024 ?? 03/09/2024 5:04 PM CDT [facility] Microscopic Description The final diagnosis is based on microscopic examination of appropriate sections of all specimens. 03/09/2024 5:04 PM CDT [facility] Additional Information Interpreted at [facility], Central Laboratory - [address], [place] [address] 03/09/2024 5:04 PM CDT [facility] LAB[facility] Tissue (Products of Conception) 03/05/2024 12:24 PM CDT 03/06/2024 6:09 AM CDT Leonila Murray MD PATHOLOGY/ CYTOLOGY [facility] [address] [place] [address], * CONDUCTOR FREIGHT THIN PREP PAP SCREEN IMAGED (04/27/2021 10:30 AM CDT) Case Report Gynecologic Cytology Report ? Case: [id number] ? Authorizing Provider: ??Unknown, Doctor ?Collected: ? 04/27/2021 1030 ? Ordering Location: ? [facility] ?Received: ?04/27/2021 1733 ? First Screen: ?Trinh, Oliverio ? Pathologist: ? Clair Nye, DO ? Specimen: ?CONDUCTOR FREIGHT ThinPrep Vial Screening, Cervical/Vaginal ? 05/09/2021 3:34 PM CDT [facility] INTERPRETATION/ RESULT NEGATIVE FOR INTRAEPITHELIAL LESION OR MALIGNANCY (NIL) (none) 05/09/2021 3:34 PM CDT [facility] R NON-NEOPLASTIC FINDING(S) Reactive cellular changes associated with inflammation/repa ir 05/09/2021 3:34 PM CDT [facility] SPECIMEN ADEQUACY Satisfactory for evaluation Endocervical component present 05/09/2021 3:34 PM CDT [facility] HPV REQUEST HPV and PAP 05/09/2021 3:34 PM CDT [facility] Last Pap Date 05/09/2021 3:34 PM CDT [facility] Comment:unknown Additional Information 05/09/2021 3:34 PM CDT [facility] Comment: Interpreted at [facility] Central Laboratory - [address], [place] [address] Automated Review Successful 05/09/2021 3:34 PM CDT [facility] Comment:Specimen processed s uccessfully by automated tear down man device, ThinPrep Imaging System, [employer] ANCILLARY TESTING CONDUCTOR FREIGHT HPV Ordered, Please see separate report 05/09/2021 3:34 PM T [facility] Note The pap test is a screening technique, not a diagnostic procedure. It is used primarily to screen for squamous cancers and precursor lesions. Published studies have shown that it is subject to both false negative and false positive results. The pap test should not be used as the sole means to diagnose or exclude pre-malignant and malignant lesions. 05/09/2021 3:34 PM CDT [facility] Other (Cervical/Vagina l) 04/27/2021 10:30 AM CDT 04/27/2021 5:33 PM CDT Doctor Unknown PATHOLOGY/CYTOLOGY Performing Organization Address [facility]/State/ZIP Co de Phone Number [facility] [address] [place] [address], [place] from Last 3 Months or Most Recently Relevant to Health Maintenance Advance Directives * Full Code (Latest Code Status on File) Date Activated Date Inactivated Comments 12/21/2022 11:56 PM 12/22/2022 1:04 PM Question Answer Comments Code Status Discussion: Reviewed Preferences Care Teams Friction Welding Machine Operator Relationship Specialty Start Date End Date Staff, Other Clinical . PCP - General 01/17/22
--- OUTSIDE RECORDS SUMMARY | 2024-03-15 11:47 | XMS_ITS | Continuity of Care Document ---
Author Organization [facility] Address [address] [place] [address] Phone Care Team Providers Care Hand Shoes Sewer Name Role Phone Audra ANN, PhD, Leno [...] - Active Procedures Procedure Date [place]patient Visit[place] [facility] [place] Advance Directives Directive Yes / No Effective Date File Name No Information Encounters Encounter Description Practice Location Reason(s) For Visit Diagnoses Date Provider Providers Copied on Encounter [facility], [address], [place], [place], [id number], [place] tel:[phone] [facility] No Information 8 Audra Burr. [facility] [place], [address], [place], [address], [place]. tel:[phone] Office/Outpat ient Visit,, [facility], [address], [facility] [place], [id number], [place] tel:[phone] [facility] [place] Spondylolisth esis, lumbar region 0 8 Tor Duvall. [facility] [place], [address], [place], [place], [id number] , [place]. tel:[phone] Referring Provider: Leno Zhu, [facility] [address], [place], [address]. tel:[phone] [facility], [address], [place], [place], [id number], [place] tel:[phone] [facility] [place] Low back pain Jan- 8 Audra Burr. [facility], [address], [place], [address], [place]. [phone] Family History Family Member Type Diagnosis Age At Onset No Information Payers Payer name Insurance type Covered constitution party ID Authoriza tion(s) No Information Social [...]
--- OUTSIDE RECORDS SUMMARY | 2024-03-15 11:48 | XMS_ITS | Encounter Summary ---
Author Organization [facility] Address [address] [place] [address] Care Team Providers Care Senior Energy Market Coordinator Name Role Phone Erin Calvo APRN, C.N.P., D.N.P. Primary Care Provider Reason for Visit * Reason Onset Date Comments Communication 01/12/2024 Encounter Details Date Type Department Care Team (Late st Contact Info) Description 01/12/2024 Clinical Communication Department of Obstetrics and Gynecology in [place], [place] [address] [place] [phone] Shraddha Mccann D.O. [address] [place] [phone] Communication Social History Tobacco Use Types Packs/Day Years Used Date Smoking Tobacco: Never Smokeless Tobacco: Never Alcohol Use Standard Drinks/Week Comments Not Currently 0 (1 standard drink = 0.6 oz pur e alcohol) i only drink once in a while [facility] Utilities Answer Date Recorded In [...] often do you attend chur ch or rastafari services? Never 04/14/2022 Do you belong to [...] Answer Date Recorded PHQ-2 Score 0 12/15/2023 [facility] of Occupat ional Health - Occupational [...] documented as of this encounter Care Teams Senior Energy Market Coordinator Relationship Specialty Start Date End Date Erin Calvo APRN, C.N.P., D.N.P. [address] [place] [phone] PCP - General 08/30/20 documented as of this encounter
--- OUTSIDE RECORDS SUMMARY | 2024-03-15 11:48 | XMS_ITS | Encounter Summary ---
Author Organization [facility] Address [address] [place] [address] Care Team Providers Care Automobile Bumper Straightener Name Role Phone Erin Calvo APRN C.N.PCarlos, D.N.P. Primary Care Provider Encounter Details Date Type Department Care Team (Latest Contact Info) Description 02/26/2024 3:02 PM CDT - 02/26/2024 11:59 PM CDT Hospital Encounter Department of Obstetrics and Gynecology in [place], [place] [address] [place] [address] Aleksander Keller D.O. 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 Utilities Answer Date Recorded In the [...] How often do you attend chur or jewish services? Never 04/14/2022 Do you belong to [...] Answer Date Recorded PHQ-2 Score 0 12/15/2023 [facility] of Occupat ional Health - Occupational Stress [...] OR GROWTH FUNG Exam Site: [facility] OB 4 Plurality: 1 LMP: 07/26/2023 [...] = ??8 COMMENTS Preliminary Read by Main Mcphreson, MorganM.S. on 02/26/2024 3:21:09 PM. Thickener Operator: ??Main Mcpherson R.D.M.S. Thank You For This Referral Procedure Note Eliseo Desouza M.D. - 02/26/2024 KALIE BERMUDEZ OB Exam, 02/26/2024 EXAM INFORMATION Patient Name: KALIE BERMUDEZ : 1985 Age: 38 yrs Sex: Female Ref Phys: ALEKSANDER KELLER Exam Date: 02/26/2024 Procedure: US OB FOLLOW-UP AND OR GROWTH FUNG Exam Site: [facility] OB 4 Plurality: 1 LMP: 07/26/2023 [...] Main Mcpherson R.D.M.S. on 02/26/2024 3:21:09 PM. Thickener Operator: Main Mcpherson R.D.MCarlosSCarlos Thank You For This Referral Aleksander Keller D.O. 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 [address] [place] [phone] PCP - General 08/30/20 documented as of this encounter
--- OUTSIDE RECORDS SUMMARY | 2024-03-15 11:48 | XMS_ITS | Encounter Summary ---
Author Organization [facility] Address [address] [place] [address] Care Team Providers Care Clin Application Specialist Name Role Phone Erin Calvo APRN, C.N.P., D.N.P. Primary Care Provider Encounter Details Date Type Department Care Team (Late st Contact Info) Description 02/22/2024 Patient Self-Triage [facility]CTED [facility] Symptom Children'S Aide, Provider Social History Tobacco Use Types Packs/Day Years Used Date Smoking Tobacco: Never Smokeless Tobacco: Never Alcohol Use Standard Drinks/Week Comments Not Currently 0 (1 standard drink = 0.6 oz pur e alcohol) i only drink once in a while [facility] Utilities Answer Date Recorded In the [...] often do you attend chur ch or judaism services? Never 04/14/2022 Do you belong to any clubs o r organizations such as taoist groups, unions, fraternal or athletic groups, or [...] your living situation today? I have a [facility] place to live 12/09/2023 Education Answer [...] documented as of this encounter Care Teams Clin Application Specialist Relationship Specialty Start Date End Date Erin Calvo APRN, C.N.P., D.N.P. [address] [place] [phone] PCP - General 08/30/20 documented as of this encounter
--- OUTSIDE RECORDS SUMMARY | 2024-03-15 11:48 | XMS_ITS | Encounter Summary ---
Author Organization [facility] Address [address] [place] [address] Care Team Providers Care Self Pay Representative Name Role Phone Erin Calvo APRN C.N.PCarlos, D.N.P. Primary Care Provider Encounter Details Date Type Department Care Team (Latest Contact Info) Description 01/30/2024 7:19 AM CDT - 01/30/2024 11:59 PM T Hospital Encounter Department of Obstetrics and Gynecology in [place], [place] [address] [place] [address] Aleksander Keller D.O. 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) Discharge Disposition: Home or Self Care Social History Tobacco Use Types Packs/Day Years Used Date Smoking Tobacco: Never Smokeless Tobacco: Never Alcohol Use Standard Drinks/Week Comments Not Currently 0 (1 standard drink = 0.6 oz pur e alcohol) i only drink once in a while [facility] Utilities Answer Date Recorded In the [...] any clubs o r organizations such as orthodox groups, unions, fraternal or athletic groups, [...] Answer Date Recorded PHQ-2 Score 0 12/15/2023 [facility] of Occupat ional Health - Occupational Stress [...] your living situation today? I have a [facility] place to live 12/09/2023 Education Answer [...] UP WITH BPP W/O NON-STRESS Exam Site: [facility] OB #2 Plurality: 1 OBHx: [G:(1)] [...] by Chuck Colorado on 01/30/2024 8:06:42 AM. Wearing Apparel Shaker: ??Chuck Colorado Thank You For This Referral Procedure Note Ana M Caro M.D. - 01/30/2024 KALIE BERMUDEZ OB Exam, 01/30/2024 EXAM INFORMATION Patient Name: SIMKALIE ESPINAL : 1985 Age: 38 yrs Sex: Female Ref Phys: ALEKSANDER Valenzuela KRISHNA Exam Date: 01/30/2024 Procedure: US OB FOLLOW UP WITH BPP W/O NON-STRESS Exam Site: [facility] OB #2 Plurality: 1 OBHx: [G:(1)] [...] Score = 8/8 COMMENTS Preliminary Read by Chcuk Colorado on 01/30/2024 8:06:42 AM. Wearing Apparel Shaker: Chuck Colorado Thank You For This Referral Aleksander Keller D.O. 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 [address] [place] [phone] PCP - General 08/30/20 documented as of this encounter
--- OUTSIDE RECORDS SUMMARY | 2024-03-15 11:48 | XMS_ITS | Encounter Summary ---
Author Organization [facility] Address [address] [place] [address] Care Team Providers Care Freight Inspector Name Role Phone Erin Calvo APRN C.N.PCarlos, D.N.P. Primary Care Provider Reason for Visit * Reason Comments Routine Visit MFM * Outpatient (Routine) - Closed Specialty Diagnoses / Procedures Referred By Kassie cooley Referred To Contact Obstetrics and Gynecology Shraddha Mccann D.O. [address] [place] [phone] [facility] Referral ID Status Reason Start Date Expiration Date Visits Re quested Visits Authorized [id number] Closed 01/13/2024 07/14/2025 1 1 Encounter Details Date Type Department Care Team (Latest Contact Info) Description 02/26/2024 4:00 PM CDT Routine Department of Obstetrics and Gynecology in [place], [place] [address] [place] [phone] Mayank Morgan M.B.BCarlosS. 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 Never 04/14/2022 Do you belong to any clubs o r organizations such as quaker groups, unions, fraternal or athletic groups, or [...] 0 12/15/2023 [facility] - Occupational Stress Questionnaire Answer [...] Body Mass Index 40.0 To 44.9 Adult ([facility]) #2 Pain Myofascial #3 Spondylosis Lumbar Without [...] Body Mass Index 40.0 To 44.9 Adult ([facility]) Body mass index (BMI) 40.0-44.9, [...] No further follow-up is recommended at [facility] in [place]. Delivery can be conducted locally. Gestational age [...] documented as of this encounter Care Teams Freight Inspector Relationship Specialty Start Date End Date Erin Calvo APRN, C.N.P., D.N.P. [address] [place] [phone] PCP - General 08/30/20 documented as of this encounter
--- OUTSIDE RECORDS SUMMARY | 2024-03-15 11:48 | XMS_ITS | Encounter Summary ---
Author Organization [facility] Address [address] [place] [address] Care Team Providers Care Supervisor Reinforced Steel Placing Name Role Phone Erin Calvo APRN C.N.PCarlos, D.N.P. 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 [address] [place] [address] 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 [address] [place] [address] [facility] Referral ID Status Reason Start Date Expiration Date Visits Re quested Visits Authorized [id number] Closed 12/16/2023 12/15/2024 1 1 Encounter Details Date Type Department Care Team (Latest Contact Info) Description 01/07/2024 1:23 PM CDT - 01/07/2024 11:59 PM CDT Hospital Encounter Department of Cardiovascular Diseases in [place], [place] [address] [place] [address] Shraddha Mccann D.O. 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 Never 04/14/2022 Do you belong to any clubs o r organizations such as jainism groups, unions, fraternal or athletic groups, or [...] (01/07/2024 2:29 PM CDT) Ejection Fraction [facility] Anatomical Region Laterality Modality Other 01/07/2024 [...] as of this encounter Care Teams Supervisor Reinforced Steel Placing Relationship Specialty Start Date End Date Erin Calvo APRN, C.N.P., D.N.P. [address] [place] [phone] PCP - General 08/30/20 documented as of this encounter
--- OUTSIDE RECORDS SUMMARY | 2024-03-15 11:48 | XMS_ITS | Encounter Summary ---
Author Organization [facility] Address [address] [place] [address] Care Team Providers Care Metal Buffer Name Role Phone Erin Calvo APRN C.N.PCarlos, D.N.P. Primary Care Provider Encounter Details Date Type Department Care Team (Latest Contact Info) Description 01/07/2024 10:03 AM CDT - 01/07/2024 1:22 PM T Hospital Encounter Department of Obstetrics and Gynecology in [place], [place] [address] [place] [address] Aleksander Keller D.O. 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 Never 04/14/2022 Do you [...] Answer Date Recorded PHQ-2 Score 0 12/15/2023 [facility] [place] of Occupat ional Health - Occupational Stress [...] FOLLOW-UP AND OR GROWTH FUNG Exam Site: [facility] OB #5 Plurality: 1 OBHx: [G:(1)] [...] Mayra Hare R.Marley.M.SCarlos on 01/07/2024 11:03:57 AM. Development Mechanic: ??Mayra Hare R.D.M.S. Thank You For This Referral Procedure Note Mayank Morgan M.B.B.S. - 01/07/2024 KALIE BERMUDEZ Exam, 01/07/2024 EXAM INFORMATION Patient Name: KALIE BERMUDEZ : 1985 Age: 38 yrs Sex: Female Ref Phys: ALEKSANDER KELLER Exam Date: 01/07/2024 Procedure: US OB FOLLOW-UP AND OR GROWTH FUNG Exam Site: [facility] OB #5 Plurality: 1 OBHx: [G:(1)] [...] FL/AC: 0.20 COMPUTATIONS GA: 23w4d [+/-1.40] Method: ANGELIAT ANGELITA: 05/01/2024 Sono GA: 23w5d [+/-1.40] Method: BPD, HC, AC, FL Weight: 723 gms. 1 lb 9 oz. 89% Method: BPD, HC, AC, FL OBSERVATIONS Amniotic Fluid Fluid Volume: Normal Presentation: Breech Size: Normal for dates Growth: Within normal limits. FHR: 138 bpm ANATOMY Normal: RVOT, 3VV, 3VT, Aortic arch Preliminary Read by Mayra Hare R.D.MCarlosSCarlos on 01/07/2024 11:03:57 AM. Development Mechanic: Mayra Hare R.D.M.S. Thank You For This Referral Aleksander Keller D.O. 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 [address] [place] [phone] PCP - General 08/30/20 documented as of this encounter
--- OUTSIDE RECORDS SUMMARY | 2024-03-15 11:48 | XMS_ITS ---
Author Organization [facility] Address [address] [place] [address] Care Team Providers Care Oxidized Finish Plater Name Role Phone Unavailable Unavailable Unavailable Surgery Details Not on file Complications Check Surgery Details section. Procedure Estimated Blood Loss Check Surgery Details section. Procedure Findings Check Surgery Details section. Procedure Specimens Taken Check Surgery Details section.
--- OUTSIDE RECORDS SUMMARY | 2024-03-15 11:48 | XMS_ITS | Encounter Summary ---
Author Organization [facility] Address [address] [place] [address] Care Team Providers Care Sole Stainer Name Role Phone Erin Calvo APRN, C.N.PCarlos, D.N.P. Primary Care Provider Encounter Details Date Type Department Care Team (Late st Contact Info) Description 01/30/2024 Orders Only Department of Obstetrics and Gynecology in [place], [place] [address] [place] [address] Lashae Pitts, RCarlosNCarlos [address] [place] [phone] Social History Tobacco Use Types Packs/Day Years Used Date Smoking Tobacco: Never Smokeless Tobacco: Never Alcohol Use Standard Drinks/Week Comments Not Currently 0 (1 standard drink = 0.6 oz pur e alcohol) i only drink once in a while [facility] Utilities Answer Date Recorded In the past 12 months has [employer], gas, oil, or water [employer] threatened to shut off services in your [...] How often do you attend chur or adventism services? Never 04/14/2022 Do you belong to any clubs o r organizations such as synagogue groups, unions, fraternal or athletic groups, or [...] Answer Date Recorded PHQ-2 Score 0 12/15/2023 [facility] of Occupat ional Health - Occupational Stress [...] documented as of this encounter Care Teams Sole Stainer Relationship Specialty Start Date End Date Erin Calvo APRN, C.N.P., D.N.P. [address] [phone] PCP - General 08/30/20 documented as of this encounter
--- OUTSIDE RECORDS SUMMARY | 2024-03-15 11:48 | XMS_ITS | Encounter Summary ---
Author Organization [facility] Address [address] [place] [address] Care Team Providers Care Top Screw Name Role Phone Erin Calvo APRN, C.N.PCarlos, D.N.P. 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 [address] [place] [address] [facility] Referral ID Status Reason Start Date Expiration Date Visits Re quested Visits Authorized [id number] Closed 12/16/2023 06/16/2025 1 1 Encounter Details Date Type Department Care Team (Latest Contact Info) Description 01/07/2024 3:00 PM CDT Comprehensive Visit Division of Pediatric Cardiology in [place], [place] [address] [place] [phone] Junito Arce M.B.B.S. 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 Never 04/14/2022 Do you belong to [...] Answer Date Recorded PHQ-2 Score 0 12/15/2023 [facility] of Occupat ional [facility] - Occupational Stress Questionnaire [...] your living situation today? [facility] 12/09/2023 Education Answer [...] Arce M.B.B.S. - 01/07/2024 3:00 PM CDT [facility] Cardiology Consultation Joni Regalado Date of Consultation: 01/07/2024 Patient: Kalie Boss Date of : 1985, Age: 38 y.o. , CSN: [id number] Address: [address] [place] [phone] Referral: Shraddha Mccann D.O. [address] [place] [address] SUBJECTIVE CHIEF COMPLAINT: cardiovascular screening. HISTORY OF [...] 81 mg by mouth daily. vit calc,iron,folic (PRENAT.VITS,ANDI,DBW-DCOS-UBUSR ORAL), Take 1 tablet by mouth daily. [...] Recommendations: She will continue to follow-up with [facility] and if there are any concerns regarding tachycardia on any of her future follow-up evaluations or heart sounds, we will be very happy to see her back foradditional evaluation sooner. Since the patient is from out of town I discussed with Dr. Mccann and as she will be coming in for occasional ultrasound evaluations with [facility] team; we will be happy to [...] documented as of this encounter Care Teams Top Screw Relationship Specialty Start Date End Date Erin Calvo APRN, C.N.P., D.N.P. [address] [place] [phone] PCP - General 08/30/20 documented as of this encounter
--- OUTSIDE RECORDS SUMMARY | 2024-03-15 11:48 | XMS_ITS | Encounter Summary ---
Author Organization [facility] Address [address] [place] [address] Care Team Providers Care Flat Surfacer Jewel Name Role Phone Erin Calvo APRN C.N.PCarlos, D.N.P. 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 [address] [place] [address] [facility] Referral ID Status Reason Start Date Expiration Date Visits Re quested Visits Authorized [id number] Closed 01/13/2024 01/12/2025 1 1 Encounter Details Date Type Department Care Team (Latest Contact Info) Description 02/26/2024 1:01 PM CDT - 02/26/2024 3:01 PM CDT Hospital Encounter Department of Cardiovascular Diseases in [place], [place] [address] [place] [address] Shraddha Mccann D.O. 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 of Occupat ional Health - [...] DOPPLER (02/26/2024 1:49 PM CDT) Ejection Fraction [facility] Anatomical Region Laterality Modality Echocardiography 02/26/2024 [...] documented as of this encounter Care Teams Flat Surfacer Jewel Relationship Specialty Start Date End Date Erin Calvo APRN, C.N.P., D.N.P. [address] [place] [phone] PCP - General 08/30/20 documented as of this encounter
--- OUTSIDE RECORDS SUMMARY | 2024-03-15 11:48 | XMS_ITS | Encounter Summary ---
Author Organization [facility] Address [address] [place] [phone] Care Team Providers Care Statistician Name Role Phone Erin Calvo APRN, C.N.PCarlos, D.N.P. 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 [address] [place] [address] [facility] Referral ID Status Reason Start Date Expiration Date Visits Re quested Visits Authorized [id number] Closed 01/13/2024 07/14/2025 1 1 Encounter Details Date Type Department Care Team (Latest Contact Info) Description 02/26/2024 2:30 PM CDT Comprehensive Visit Division of Pediatric Cardiology in [place], [place] [address] [place] [phone] Junito Arce M.B.B.S. 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 Never 04/14/2022 Do you belong to [...] Answer Date Recorded PHQ-2 Score 0 12/15/2023 [facility] Occupat ional [facility] - Occupational Stress Questionnaire Answer Date [...] living situation today? [facility] 12/09/2023 Education Answer Date [...] Arce M.B.B.S. - 02/26/2024 2:30 PM CDT [facility] Cardiology Consultation Joni Regalado Date of Consultation: 02/26/2024 Patient: Kalie Bsos Date of : 1985, Age: 38 y.o. , CSN: [id number] Address: [address] [place] [phone] Referral: Shraddha Mccann D.O. [address] [place] [address] SUBJECTIVE CHIEF COMPLAINT: cardiovascular screening. HISTORY OF [...] 81 mg by mouth daily. vit calc,iron,folic (PRENAT.VITS,ANDI,MZT-RORD-RLQPH ORAL), Take 1 tablet by mouth daily. [...] Name Age of Onset Diabetes Mother Luna rCuz Borderline Blood clot Mother Luna Cruz Diabetes Father matrinez Cruz Non-Hodgkin's lymphoma Sister Malissa Lymphoma Sister [...] documented as of this encounter Care Teams Statistician Relationship Specialty Start Date End Date Erin Calvo APRN, C.N.P., D.N.P. [address], [place] [phone] PCP - General 08/30/20 documented as of this encounter
--- OUTSIDE RECORDS SUMMARY | 2024-03-15 11:48 | XMS_ITS | Encounter Summary ---
Author Organization [facility] Address [address] [place] [address] Care Team Providers Care Sink Cutter Name Role Phone Erin Calvo APRN C.N.PCarlos, D.N.P. Primary Care Provider Reason for Visit * Outpatient (Routine) - Closed Specialty Diagnoses / Procedures Referred By Kassie cooley Referred To Contact Obstetrics and Gynecology Shraddha Mccann D.O. [address] [place] [phone] [facility] Referral ID Status Reason Start Date Expiration Date Visits Re quested Visits Authorized [id number] Closed 01/09/2024 07/10/2025 1 1 Encounter Details Date Type Department Care Team (Latest Contact Info) Description 01/30/2024 8:30 AM CDT Routine Department of Obstetrics and Gynecology in [place], [place] [address] [place] [phone] Mayank Morgan M.B.BCarlosS. 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 Never 04/14/2022 Do you belong to [...] Answer Date Recorded PHQ-2 Score 0 12/15/2023 [facility] Occupat ional Health - Occupational [...] Body Mass Index 40.0 To 44.9 Adult ([facility]) #2 frequent PACs OBJECTIVE VITAL [...] Body Mass Index 40.0 To 44.9 Adult ([facility]) Body mass index (BMI) 40.0-44.9, [...] (dated by FET) Is being seen by [facility] for complicated by elevated BMI of 36, [...] diabetes. She would like to deliver in [facility], She is scheduled for echo next month [...] documented as of this encounter Care Teams Sink Cutter Relationship Specialty Start Date End Date Erin Calvo APRN, C.N.P., D.N.P. [address] [place] [phone] PCP - General 08/30/20 documented as of this encounter
--- OUTSIDE RECORDS SUMMARY | 2024-03-15 11:48 | XMS_ITS | Encounter Summary ---
Author Organization [facility] Address [address] [place] [address] Care Team Providers Care Club Attendant Name Role Phone Erin Calvo APRN C.N.PCarlos, D.N.P. 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 [address] [place] [address] [facility] Referral ID Status Reason Start Date Expiration Date Visits Re quested Visits Authorized [id number] Closed 01/13/2024 07/14/2025 1 1 * Outpatient (Routine) - Closed Specialty Diagnoses / Procedures Referred By Contnakul t Referred To Contact Obstetrics and Gynecology Shraddha Keller D.O. [address] [place] [address] [facility] Referral ID Status Reason Start Date Expiration Date Visits Re quested Visits Authorized [id number] Closed 01/13/2024 07/14/2025 1 1 Encounter Details Date Type Department Care Team (Late st Contact Info) Description 01/13/2024 Orders Only Department of Obstetrics and Gynecology in [place], [place] [address] [place] [phone] Rayne Wheatley R.N. 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 I have a [facility] place to live 12/09/2023 Education Answer [...] AND OR GROWTH FUNG Exam Site: [facility] OB 4 Plurality: 1 LMP: 07/26/2023 [place] [...] Main Mcpherson R.D.M.SCarlos on 02/26/2024 3:21:09 PM. Valve Setter: ??Main Mcpherson R.D.MCarlosSCarlos Thank You For This Referral Procedure Note Eliseo Desouza M.D. - 02/26/2024 KALIE BERMUDEZ OB Exam, 02/26/2024 EXAM INFORMATION Patient Name: AIDAN KALIE MONIQUE : 1985 Age: 38 yrs Sex: Female Ref Phys: SHRADDHA KELLER Exam Date: 02/26/2024 Procedure: US OB FOLLOW-UP AND OR GROWTH FUNG Exam Site: [facility] OB 4 Plurality: 1 LMP: 07/26/2023 GA [...] Main Mcpherson R.D.MCarlosSCarlos on 02/26/2024 3:21:09 PM. Valve Setter: Main Mcpherson R.D.M.S. Thank You For This Referral Shraddha Keller D.O. IMG OB US PROCEDURES * ECHO 2D LIMITED DOPPLER (02/26/2024 1:49 PM CDT) Ejection Fraction [facility] Anatomical Region Laterality Modality Echocardiography 02/26/2024 1:02 [...] documented as of this encounter Care Teams Club Attendant Relationship Specialty Start Date End Date Erin Calvo APRN, C.N.P., D.N.P. [address] [place] [phone] PCP - General 08/30/20 documented as of this encounter
--- OUTSIDE RECORDS SUMMARY | 2024-03-15 11:48 | XMS_ITS | Referral Summary ---
Author Organization [facility] Address [address] [place] [address] Care Team Providers Care Yard Coupler Name Role Phone Erin Calvo APRN C.N.Yasmany, D.N.P. Primary Care Provider Source Comments Patient records contain information from all sites at [facility]. For routine questions regarding patient records, call [phone] during business hours, M-F 8:00 AM - 5:00 PM Central Time. Record requests for emergency care only can be directed to [phone] at any time.[facility] Encounters Date Type Department Care Team Description 02/26/2024 2:30 PM CDT Comprehensive Visit Division of Pediatric Cardiology in [place], [place] [address] [place] [address] Junito Arce M.B.B.S. Primigravida Advanced Maternal Age Affecting Management (HCC) 02/26/2024 4:00 PM CDT Routine Department of Obstetrics and Gynecology in [place], [place] [address] [place] [phone] Mayank Morgan M.B.B.S. 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 Primigravida Advanced Maternal Age Affecting Management (HCC) Discharge Disposition: Home or Self Care 02/26/2024 1:01 PM CDT - 02/26/2024 3:01 PM CDT Hospital Encounter Department of Cardiovascular Diseases in [place], [place] [address] [place] [phone] Shraddha Keller D.O. Primigravida Advanced Maternal Age Affecting Management (HCC) Discharge Disposition: Home or Self Care 02/22/2024 Patient Self-Triage [facility] Symptom Explosive Man, Provider 01/30/2024 Orders Only Department of Obstetrics and Gynecology in [place], [place] [address] [place] [phone] Lashae Pitts R.N. 01/30/2024 8:30 AM CDT Routine Department of Obstetrics and Gynecology in [address] [phone] Mayank Morgan M.B.B.S. 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 Primigravida Advanced Maternal Age Affecting Management (HCC) Discharge Disposition: Home or Self Care 01/13/2024 Orders Only Department of Obstetrics and Gynecology in [place], [place] [address] [place] [phone] Rayne Wheatley RMandi Primigravida Advanced Maternal Age Affecting Management (HCC) (Primary Dx) 01/12/2024 Clinical Communication Department of Obstetrics and Gynecology in [place], [place] [address] [place] [phone] Shraddha Keller D.O. Communication 01/12/2024 Clinical Communication Department of Obstetrics and Gynecology in [place], [place] [address] [place] [address] Shraddha Keller D.O. Communication 01/09/2024 Orders Only Department of Obstetrics and Gynecology in [place], [place] [address] [place] [address] Rayne Wheatley R.N. Primigravida Advanced Maternal Age Affecting Management (HCC) (Primary Dx) 01/07/2024 10:03 AM CDT - 01/07/2024 1:22 PM CDT Hospital Encounter Department of Obstetrics and Gynecology in [place], [place] [address] [place] [address] Shraddha Keller D.O. Primigravida Advanced Maternal Age Affecting Management (HCC) Discharge Disposition: Home or Self Care 01/07/2024 11:00 AM CDT Routine Department of Obstetrics and Gynecology in [place], [place] [address] [place] [address] Shraddha Keller D.O. Barby, Theresa A, R.N. Primigravida Advanced Maternal Age Affecting Management (HCC) 01/07/2024 3:00 PM CDT Comprehensive Visit Division of Pediatric Cardiology in [place], [place] [address] [place] [address] Junito Arce M.B.B.S. Primigravida Advanced Maternal Age Affecting Management (HCC) 01/07/2024 1:23 PM CDT - 01/07/2024 11:59 PM CDT Hospital Encounter Department of Cardiovascular Diseases in [place], [place] [address] [place] [address] Shraddha Keller D.O. Primigravida Advanced Maternal Age Affecting Management (HCC) Discharge Disposition: Home or Self Care 12/16/2023 4:00 PM CDT Lab Department of Laboratory Medicine and Pathology, [facility], in [place], [place] [address] [place] [address] Zulema Avila M.D., Ph.D. Primigravida Advanced Maternal Age Affecting Management (HCC) 12/16/2023 2:00 PM CDT Comprehensive Visit Department of Obstetrics and Gynecology in [place], [place] [address] [place] [address] Chrystal Araya M.D. 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 Primigravida Advanced Maternal Age Affecting Management (HCC) Discharge Disposition: Home or Self Care 12/16/2023 3:00 PM CDT Routine Department of Obstetrics and Gynecology in [place], [place] [address] [place] [phone] Shraddha Keller D.O. Primigravida Advanced Maternal Age Affecting Management (HCC) (Primary Dx) 12/15/2023 3:30 PM CDT Clinical Communication Virtual Review in [place], [place] [address] [place] [phone] Pre-visit Intake from Last 3 Months Allergies [...] i only drink once in a while [facility] Utilities Answer Date Recorded In the past 12 months has e [employer], gas, oil, or water [employer] threatened to shut off services in your [...] often do you attend chur ch or scientology services? Never 04/14/2022 Do you [...] Answer Date Recorded PHQ-2 Score 0 12/15/2023 [facility] of Occupat ional [facility] - Occupational Stress Questionnaire Answer Date [...] your living situation today? I have a [facility] place to live 12/09/2023 Education [...] S Routine 07/04/2014 11:29 AM CDT PATHOLOGY SEPARATOR OPERATOR CYTOLOGY Routine 07/04/2014 12:00 AM CDT from [...] AND OR GROWTH FUNG Exam Site: [facility] OB 4 Plurality: 1 LMP: 07/26/2023 [...] Main Mcpherson R.D.M.SCarlos on 02/26/2024 3:21:09 PM. Advertising Operations Coordinator: ??Main Mcpherson R.D.MCarlosSCarlos Thank You For This Referral Procedure Note Eliseo Desouza M.D. - 02/26/2024 AIDAN KALIE RAINA OB Exam, 02/26/2024 EXAM INFORMATION Patient Name: KALIE BERMUDEZ RAINA : 1985 Age: 38 yrs Sex: Female Ref Phys: SHRADDHA KELLER Exam Date: 02/26/2024 Procedure: US OB FOLLOW-UP AND OR GROWTH FUNG Exam Site: [facility] OB 4 Plurality: 1 LMP: 07/26/2023 [...] Main Mcpherson R.D.MCarlosSCarlos on 02/26/2024 3:21:09 PM. Advertising Operations Coordinator: Main Mcpherson R.D.M.S. Thank You For This Referral Shraddha A Pone D.O. IMG OB US PROCEDURES * ECHO 2D LIMITED DOPPLER (02/26/2024 1:49 PM CDT) Ejection Fraction [facility] Anatomical Region Laterality Modality Echocardiography 02/26/2024 [...] UP WITH BPP W/O NON-STRESS Exam Site: [facility] OB #2 Plurality: 1 OBHx: [G:(1)] [...] by Chuck Colorado on 01/30/2024 8:06:42 AM. Advertising Operations Coordinator: ??Chuck Colorado Thank You For This Referral Procedure Note Chrystal Araya M.D. - 01/30/2024 SIMKALIE ESPINAL OB Exam, 01/30/2024 EXAM INFORMATION Patient Name: KALIE BERMUDEZ RAINA : 1985 Age: 38 yrs Sex: Female Ref Phys: SHRADDHA Bianca KELLER Exam Date: 01/30/2024 Procedure: US OB FOLLOW UP WITH BPP W/O NON-STRESS Exam Site: [facility] OB #2 Plurality: 1 OBHx: [G:(1)] [...] by Chuck Colorado on 01/30/2024 8:06:42 AM. Advertising Operations Coordinator: Chuck Colorado Thank You For This Referral [...] Documents. Shraddha Keller D.O. ECHO PROCEDURES * [facility] Screen - Sent Out Lab (12/16/2023 3:39 PM CDT) [facility] Screen SEE COMMENT 12/23/2023 9:06 AM CDT [facility] Comment: For final report, select Lab-Send Out Lab Results hyperlink below. Blood (Blood, Venous) 12/16/2023 3:39 PM CDT 12/17/2023 10:23 AM CDT Narrative [employer] - 12/23/2023 9:06 AM CDT Specimen Information: Specimen ID: [id number] Specimen Type: Blood Specimen Collection Start Date: 12/16/2023 ??3:39 PM Specimen Received Date: 12/17/2023 10:23 AM Specimen ID: [id number] Specimen Type: Blood Specimen Collection Start Date: 12/16/2023 ??3:39 PM Specimen Received Date: 12/17/2023 10:23 AM Zulema Avila M.D., Ph.D. LAB GENETIC TEST ING [employer] [address] [place] [address], [facility] [employer] [address] [place] [address] * US OB Advanced Level Fung (12/16/2023 2:36 PM CDT) Anatomical Region Laterality Modality Body, Ultrasound OB RST LOS, Ultrasound ARZ LOS N/A Ultrasound Narrative 12/16/2023 3:03 PM CDT KALIE BERMUDEZ OB Exam, 12/16/2023 EXAM INFORMATION Patient Name: ??KALIE BERMUDEZ : ??1985 Age: ??37 yrs Sex: ??Female Ref Phys: ??CHRYSTAL ARAYA Exam Date: 12/16/2023 Procedure: US OB ADVANCED LEVEL FUNG Exam Site: [facility] OB #126 Plurality: 1 INDICATIONS FOR [...] by Tamiko Mancini on 12/16/2023 2:27:18 PM. Advertising Operations Coordinator: ??Tamiko Mancini Thank You For This Referral Procedure Note Eliseo Desouza M.D. - 12/16/2023 KALIE BERMUDEZ OB Exam, 12/16/2023 EXAM INFORMATION Patient Name: KALIE BERMUDEZ : 1985 Age: 37 yrs Sex: Female Ref Phys: CHRYSTAL ARAYA Exam Date: 12/16/2023 Procedure: US OB ADVANCED LEVEL FUNG Exam Site: [facility] OB #126 Plurality: 1 INDICATIONS FOR [...] by Tamiko Mancini on 12/16/2023 2:27:18 PM. Advertising Operations Coordinator: Tamiko Mancini Thank You For This Referral Chrystal Araya M.D. IMG OB US [place] OCEDURES * (ABNORMAL) Lipid Panel (07/04/2014 11:29 AM CDT) Calculated LDL 121(H) 0 - 100 MGDL POWERCHART Total Cholesterol/HDL Ratio 4.16 2.20 - 4.40 POWERCHART Cholesterol, Total 187 <=200 MGDL POWERCHART HX HDL 45 40 - 60 MGDL POWERCHART Triglycerides 106 <=150 MGDL POWERCHART HXLDL/HDL 3 POWERCHART Blood 07/04/2014 11:2 9 AM CDT Tomasz Powell M.D. LAB BLOOD ADD-ON POWERCHART * Pathology SEPARATOR OPERATOR Cytology (07/04/2014 12:00 AM CDT) 07/04/2014 Narrative [facility] - 07/13/2014 2:23 PM CDT [facility] in [place] [address] ??[phone] Patient Name: KALIE MONTEMAYOR Collected: 07/04/2014 Address: [facility]/State/Zip: [address] ??[phone] Received: Reported: 07/05/2014 07/11/2014 Soc. Sec. #: ?/Age/Sex 1985 (Age: 28) ??F Physician(s): YUNI POWELL MD Copy To: ? [facility] ??[id number] [facility], ??[place] ??[address] CYTOPATHOLOGY SEPARATOR OPERATOR REPORT FINAL CYTOLOGIC DIAGNOSIS Pap Smear - [...] ? Pap Test PreservCyt Solution The FDA-approved [employer] CervistaTM HPV High Risk Test is an [...] Powell M.D. LAB PAP COPATH O [facility] LAB from Last 3 Months or Most Recently Relevant to Health Maintenance Care Teams Yard Coupler Relationship Specialty Start Date End Date Erin Calvo APRN, C.N.P., D.N.P. [address] [place] [address] PCP - General 08/30/20
--- OUTSIDE RECORDS SUMMARY | 2024-03-15 11:48 | XMS_ITS | Encounter Summary ---
Author Organization [facility] Address [address] [place] [address] Care Team Providers Care Flight Engineer Performance Qualified Name Role Phone Erin Calvo APRN, C.N.P., D.N.P. Primary Care Provider Reason for Visit * Reason Onset Date Comments Communication 01/12/2024 Encounter Details Date Type Department Care Team (Late st Contact Info) Description 01/12/2024 Clinical Communication Department of Obstetrics and Gynecology in [place], [place] [address] [place] [phone] Shraddha Mccann D.O. [address] [place] [phone] Communication Social History Tobacco Use Types Packs/Day Years Used Date Smoking Tobacco: Never Smokeless Tobacco: Never Alcohol Use Standard Drinks/Week Comments Not Currently 0 (1 standard drink = 0.6 oz pur e alcohol) i only drink once in a while [facility] Utilities Answer Date Recorded In [...] Answer Date Recorded PHQ-2 Score 0 12/15/2023 [facility] of Occupat ional Health - [...] your living situation today? I have a [facility] place to live 12/09/2023 Education [...] documented as of this encounter Care Teams Flight Engineer Performance Qualified Relationship Specialty Start Date End Date Erin Calvo APRN, C.N.P., D.N.P. [address] [place] [phone] PCP - General 08/30/20 documented as of this encounter
--- OUTSIDE RECORDS SUMMARY | 2024-03-15 11:48 | XMS_ITS | Encounter Summary ---
Author Organization [facility] Address [address] [place] [address] Care Team Providers Care Deodorizer Operator Name Role Phone Erin Calvo APRN, C.N.PCarlos, D.N.P. Primary Care Provider Encounter Details Date Type Department Care Team (Latest Contact Info) Description 01/07/2024 11:00 AM CDT Routine Department of Obstetrics and Gynecology in [place], [place] [address] [place] [phone] Shraddha Mccann D.O. [address] [place] [phone] Mabel Medrano R.N. [address] [place] [phone] Primigravida Advanced Maternal Age Affecting Management (HCC) [...] any clubs o r organizations such as sabianist groups, unions, fraternal or athletic groups, or [...] 0 12/15/2023 [facility] [place] of Occupat ional Health - Occupational Stress [...] your living situation today? I have a [facility] place to live 12/09/2023 Education Answer [...] documented as of this encounter Care Teams Deodorizer Operator Relationship Specialty Start Date End Date Erin Calvo APRN, C.N.P., D.N.P. [address] [place] [phone] PCP - General 08/30/20 documented as of this encounter
--- OUTSIDE RECORDS SUMMARY | 2024-03-15 11:48 | XMS_ITS | Encounter Summary ---
Author Organization [facility] Address [address] [place] [address] Care Team Providers Care Color Card Maker Name Role Phone Erin Calvo APRN C.N.PCarlos, D.N.P. Primary Care Provider Reason for Referral * Outpatient (Routine) - Closed Specialty Diagnoses / Procedures Referred By Kassie cooley Referred To Contact Obstetrics and Gynecology Shraddha Keller D.O. [address] [place] [phone] [facility] Referral ID Status Reason Start Date Expiration Date Visits Re quested Visits Authorized [id number] Closed 01/09/2024 07/10/2025 1 1 Scheduling Instructions 01/27-01/29 with a Fellow Encounter Details Date Type Department Care Team (Late st Contact Info) Description 01/09/2024 Orders Only Department of Obstetrics and Gynecology in [place], [place] [address] [place] [phone] Rayne Wheatley R.N. [address] [place] [phone] Primigravida Advanced Maternal Age Affecting Management (HCC) (Primary Dx) Social History Tobacco Use Types Packs/Day Years Used Date Smoking Tobacco: Never Smokeless Tobacco: Never Alcohol Use Standard Drinks/Week Comments Not Currently 0 (1 standard drink = 0.6 oz pur e alcohol) i only drink once in a while [facility] Utilities Answer Date Recorded In the [...] often do you attend chur ch or protestant services? Never 04/14/2022 Do you belong to [...] Answer Date Recorded PHQ-2 Score 0 12/15/2023 [facility] of Occupat ional [facility] [...] WITH BPP W/O NON-STRESS Exam Site: [facility] OB #2 Plurality: 1 OBHx: [G:(1)] ?F [...] by Chuck Colorado on 01/30/2024 8:06:42 AM. Operational Risk Consultant: ??Chuck Colorado Thank You For This Referral Procedure Note Ana M Caro M.D. - 01/30/2024 KALIE BERMUDEZ OB Exam, 01/30/2024 EXAM INFORMATION Patient Name: KALIE BERMUDEZ RAINA : 1985 Age: 38 yrs Sex: Female Ref Phys: SHRADDHA Valenzuela HERSONShannan Exam Date: 01/30/2024 Procedure: US OB FOLLOW UP WITH BPP W/O NON-STRESS Exam Site: [facility] OB #2 Plurality: 1 OBHx: [G:(1)] F [...] by Chuck Colorado on 01/30/2024 8:06:42 AM. Operational Risk Consultant: Chuck Colorado Thank You For This Referral Shraddha VARGAS OB US PROCEDURES documented in this encounter Visit Diagnoses Diagnosis Primigravida Advanced Maternal Age Affecting Management (HCC)- Primary Primigravida Advanced Maternal Age Affecting Management (HCC) documented in this encounter Additional Health Concerns Assessment Noted Time PHQ-9 Depression Total Score: 0 12/15/19 24 3:08 PM CDT documented as of this encounter Care Teams Color Card Maker Relationship Specialty Start Date End Date Erin Calvo APRN, C.N.P., D.N.P. [address] [place] [phone] PCP - General 08/30/20 documented as of this encounter
--- OUTSIDE RECORDS SUMMARY | 2024-03-15 11:49 | XMS_ITS | Encounter Summary ---
Author Organization [facility] Address [address] [place] [address] Care Team Providers Care Language Tutor Name Role Phone Erin Calvo APRN C.N.PCarlos, D.N.P. Primary Care Provider Encounter Details Date Type Department Care Team (Late st Contact Info) Description 12/16/2023 4:00 PM CDT Lab Department of Laboratory Medicine and Pathology, [facility] in [place], [place] [address] [place] [phone] Zulema Avila M.D., Ph.D. [address] [place] [phone] Primigravida Advanced Maternal Age Affecting Management (HCC) Social History Tobacco Use Types Packs/Day Years Used Date Smoking Tobacco: Never Smokeless Tobacco: Never Alcohol Use Standard Drinks/Week Comments Not Currently 0 (1 standard drink = 0.6 oz pur e alcohol) i only drink once in a while [facility] Utilities Answer Date Recorded In the [...] How often do you attend chur or shinto services? Never 04/14/2022 Do you belong to any clubs o r organizations such as jewish groups, unions, fraternal or athletic groups, or [...] Date Recorded PHQ-2 Score 0 12/15/2023 [facility] [place] of Occupat ional Health - Occupational Stress [...] your living situation today? I have a [facility] place to live 12/09/2023 Education Answer [...] 9:06 AM CDT Specimen Information: Specimen ID: [id number] Specimen Type: Blood Specimen Collection Start Date: 12/16/2023 ??3:39 PM Specimen Received Date: 12/17/2023 10:23 AM Specimen ID: [id number] Specimen Type: Blood Specimen Collection Start Date: 12/16/2023 ??3:39 PM Specimen Received Date: 12/17/2023 10:23 AM Zulema Avila M.D., Ph.D. LAB GENETIC TEST [facility] [address] [place] [address], [facility] [address] [place] [address] documented in this encounter Visit Diagnoses Diagnosis Primigravida Advanced Maternal Age Affecting Management (HCC) documented in this encounter Additional Health Concerns Assessment Noted Time PHQ-9 Depression Total Score: 0 12/15/19 24 3:08 PM CDT documented as of this encounter Care Teams Language Tutor Relationship Specialty Start Date End Date Erin Calvo APRN, C.N.P., D.N.P. [address] [place] [phone] PCP - General 08/30/20 documented as of this encounter
--- OUTSIDE RECORDS SUMMARY | 2024-03-15 11:49 | XMS_ITS | Encounter Summary ---
Author Organization [facility] Address [address] [place] [address] Care Team Providers Care Report Developer Name Role Phone Erin Calvo APRN, C.N.P., D.N.P. Primary Care Provider Reason for Visit * Reason Onset Date Comments Pre-visit Intake 12/15/2023 Encounter Details Date Type Department Care Team (Latest Contact Info) Description 12/15/2023 3:30 PM CDT Clinical Communication Virtual Review in [place], [place] [address] [place] [phone] Pre-visit Intake Social History Tobacco Use Types Packs/Day Years Used Date Smoking Tobacco: Never Smokeless Tobacco: Never Tobacco Cessation:Counseling Given: Not Answered Alcohol Use Standard Drinks/Week Comments Not Currently 0 (1 standard drink = 0.6 oz pur e alcohol) i only drink once in a while [facility] Utilities Answer Date Recorded In the past 12 months has [employer], gas, oil, or water [employer] threatened to shut off services in your [...] 0 12/15/2023 [facility] of Occupat ional Health - [...] your living situation today? I have a [facility] place to live 12/09/2023 Education Answer [...] documented as of this encounter Care Teams Report Developer Relationship Specialty Start Date End Date Erin Calvo APRN, C.N.P., D.N.P. [address] [place] [phone] PCP - General 08/30/20 documented as of this encounter
--- OUTSIDE RECORDS SUMMARY | 2024-03-15 11:49 | XMS_ITS | Encounter Summary ---
Author Organization [facility] Address [address] [place] [address] Care Team Providers Care Log Haul Chain Feeder Name Role Phone Erin Calvo APRN C.N.PCarlos, D.N.P. 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 [address] [place] [phone] [facility] Referral ID Status Reason Start Date Expiration Date Visits Re quested Visits Authorized [id number] Closed 10/29/2023 04/29/2025 1 1 Encounter Details Date Type Department Care Team (Latest Contact Info) Description 12/16/2023 2:00 PM CDT Comprehensive Visit Department of Obstetrics and Gynecology in [place], [place] [address] [place] [phone] Ana M Caro M.D. 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 Management (HCC) Social History Tobacco Use Types Packs/Day Years Used Date Smoking Tobacco: Never Smokeless Tobacco: Never Alcohol Use Standard Drinks/Week Comments Not Currently 0 (1 standard drink = 0.6 oz pur e alcohol) i only drink once in a while [facility] Utilities Answer Date Recorded In [...] Answer Date Recorded PHQ-2 Score 0 12/15/2023 [facility] of Occupat ional [facility] - Occupational Stress Questionnaire Answer Date [...] encounter Consult Notes * Kristin Phillips M.S., [facility] - 12/16/2023 2:00 PM CDT Images from the original note were not included. REASON FOR VISIT genetic screening HISTORY OF PRESENT ILLNESS History: Estimated Date of Delivery: 05/01/24 EGA: 20w3d Kalie was referred by Ana M Caro M.D. for genetic counseling to discuss genetic screening options. Kalie is accompanied by her partner, Michael. This was conceived with IVF, at [facility]. Kalie underwent expanded carrier screening before through [employer], including 176 conditions, and she and her partner were not found to be carriers for any of the same disorders. 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 Full report will be scanned into [employer] tab. 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 The underlying etiologies and clinical [...] 9:06 AM CDT Specimen Information: Specimen ID: [id number] Specimen Type: Blood Specimen Collection Start Date: 12/16/2023 ??3:39 PM Specimen Received Date: 12/17/2023 10:23 AM Specimen ID: [id number] Specimen Type: Blood Specimen Collection Start Date: 12/16/2023 ??3:39 PM Specimen Received Date: 12/17/2023 10:23 AM Zulema Avila M.D., Ph.D. LAB GENETIC TEST [facility] [address] [place] [address], [facility] 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 [address] [place] [phone] PCP - General 08/30/20 documented as of this encounter
--- OUTSIDE RECORDS SUMMARY | 2024-03-15 11:49 | XMS_ITS | Encounter Summary ---
Author Organization [facility] Address [address] [place] [address] Care Team Providers Care Aws Solution Architect Name Role Phone Erin Calvo APRN, C.N.P., D.N.P. Primary Care Provider Encounter Details Date Type Department Care Team (Latest Contact Info) Description 12/16/2023 12:33 PM CDT - 12/16/2023 11:59 PM CDT Hospital Encounter Department of Obstetrics and Gynecology in [place], [place] [address] [place] [phone] Chrystal Araya M.D. 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 Never 04/14/2022 Do you belong to [...] Answer Date Recorded PHQ-2 Score 0 12/15/2023 [facility] [place] of Occupat ional Health - [...] ADVANCED LEVEL FUNG Exam Site: [facility] OB #126 Plurality: 1 INDICATIONS FOR [...] by Tamiko Mancini on 12/16/2023 2:27:18 PM. Print Finishing Worker: ??Tamiko Mancini Thank You For This Referral Procedure Note Eliseo Desouza M.D. - 12/16/2023 KALIE BERMUDEZ OB Exam, 12/16/2023 EXAM INFORMATION Patient Name: KALIE BERMUDEZ : 1985 Age: 37 yrs Sex: Female Ref Phys: CHRYSTAL ARAYA Exam Date: 12/16/2023 Procedure: US OB ADVANCED LEVEL FUNG Exam Site: [facility] OB #126 Plurality: 1 INDICATIONS FOR [...] by Tamiko Mancini on 12/16/2023 2:27:18 PM. 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 [address] [place] [phone] PCP - General 08/30/20 documented as of this encounter
--- OUTSIDE RECORDS SUMMARY | 2024-03-15 11:49 | XMS_ITS | Encounter Summary ---
Author Organization [facility] Address [address] [place] [address] Care Team Providers Care Cell Efficiency Supervisor Name Role Phone Erin Calvo APRN C.N.PCarlos, D.N.P. Primary Care Provider Reason for Referral * Specialty Diagnoses / Procedures Referred By Contac t Referred To Contact Shraddha Keller D.O. 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 [address] [place] [phone] Referral ID Status Reason Start Date Expiration Date V isits Requested Visits Authorized [id number] Authorized 10/23/2023 10/22/2024 2 2 Encounter Details Date Type Department Care Team (Latest Contact Info) Description 12/16/2023 3:00 PM CDT Routine Department of Obstetrics and Gynecology in [place], [place] [address] [place] [phone] Shraddha Keller D.O. 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 Never 04/14/2022 Do you belong to any clubs o r organizations such as baptism groups, unions, fraternal or athletic groups, or [...] Answer Date Recorded PHQ-2 Score 0 12/15/2023 [facility] [place] of Occupat ional Health - Occupational Stress [...] patient consultation from Dr. Rylie Anderson in [place] for IVF , elevated BMI (BMI 36) [...] patient consultation from Dr. Rylie Anderson in [place] for IVF , elevated BMI (BMI 36). [...] is associated with higher odds of delivery ([facility] Consult Series #60). IVF procedure alone does [...] risk factors. She is currently taking this. [place]-analyses demonstrate associations between IVF with or without [...] for maternal age, parity and multifetal gestations ([facility] consult series #60). Given the increased risk [...] DOPPLER (01/07/2024 2:29 PM CDT) Ejection Fraction [facility] Anatomical Region Laterality Modality Other 01/07/2024 [...] Ultrasound Narrative 01/07/2024 12:15 PM CDT KALIE BERUMDEZ OB Exam, 01/07/2024 EXAM INFORMATION Patient Name: ??KALIE BERMUDEZ : ??1985 Age: ??38 yrs Sex: ??Female Ref Phys: ??SHRADDHA KELLER Exam Date: 01/07/2024 Procedure: US OB FOLLOW-UP AND OR GROWTH GUIDO Exam Site: [facility] OB #5 Plurality: 1 OBHx: [...] Mayra Hare, R.Marley.M.S. on 01/07/2024 11:03:57 AM. Central Office Technician: ??Mayra Hare R.D.M.S. Thank You For This Referral Procedure Note Mayank Morgan M.B.B.S. - 01/07/2024 KALIE BERMUDEZ OB Exam, 01/07/2024 EXAM INFORMATION Patient Name: KALIE BERMUDEZ : 1985 Age: 38 yrs Sex: Female Ref Phys: SHRADDHA KELLER Exam Date: 01/07/2024 Procedure: US OB FOLLOW-UP AND OR GROWTH GUIDO Exam Site: [facility] OB #5 Plurality: 1 OBHx: [...] Mayra Hare R.D.M.S. on 01/07/2024 11:03:57 AM. Central Office Technician: Mayra Hare R.D.M.SCarlos Thank You For This [...] as of this encounter Care Teams Cell Efficiency Supervisor Relationship Specialty Start Date End Date Erin Calvo APRN, C.N.P., D.N.P. [address] [place] [phone] PCP - General 08/30/20 documented as of this encounter
== END 2024-03-06 09:43 | disposition home or self-care (01) | DRG 807 ==
LOC: ED 09:59 → OB OUT 09:59 → OB 09:59 → OB OUT 10:59 → OB 15:02
PROVIDERS: Admitting Provider Obstetrics & Gynecology; Emergency Provider Emergency Medicine; PCP Family Medicine; Visit Provider Obstetrics & Gynecology
DX: O60.14X0 Preterm labor third trimester with preterm delivery third trimester, not applicable or unspecified (principal); Z37.0 Single live birth; O34.13 Maternal care for benign tumor of corpus uteri, third trimester; D25.2 Subserosal leiomyoma of uterus; O67.9 Intrapartum hemorrhage, unspecified; O70.0 First degree perineal laceration during delivery; Z3A.31 31 weeks gestation of pregnancy
CPT/HCPCS: 36415; 76815; 80053; 80306; 85018; 85025; 85384; 85610; 86592; 86850; 86900; 86901; 88307; 99281; G0463; J0702; J2001; J3370; J3475; J7030; J7120

== ENCOUNTER 2025-09-13 08:18 | Day surgery (SDC) | payer OTHER, SELFPAY ==
[2025-09-13] VITALS (12 sets, daily range): BP systolic 106–117; BP diastolic 48–69; PULSE 72–90; RESP 14–18; TEMP 36.3–36.8; O2SAT 91–99; BMI 48.6
[2025-09-13 09:28] LABS: Ur HCG Qualitative* Negative (Negative)
[2025-09-13] MEDS: LACTATED RINGERS 1000 ML 1,000 ML 100 ML IV (09:30)
[2025-09-13] MEDS: SODIUM CHLORIDE 0.9 % (FLUSH) 10 ML SYRINGE IVF (09:31)
--- NOTE | 2025-09-13 09:36 | P.ORPRC_ITS ---
Procedure Note Date of procedure: 09/13/25 Procedure: PREOPERATIVE DIAGNOSES: 1. Left shoulder subacromial/subdeltoid bursitis 2. Left shoulder calcific tendinitis POSTOPERATIVE DIAGNOSES: 1. Left shoulder subacromial/subdeltoid bursitis NAME OF OPERATION: 1. Left shoulder arthroscopic limited glenohumeral debridement 2. Left shoulder arthroscopic subacromial/subdeltoid bursectomy SURGEON: Neptali Fields MD BILINGUAL CUSTOMER SERVICE SPECIALIST: Martha Raymond P.A.-C.. An social research assistant was critical for this case to aide in patient positioning, suture manipulation, arm positioning, instrument positioning, and closure. ANESTHESIA: General plus preoperative supraclavicular block. IMPLANTS: None COMPLICATIONS: None ESTIMATED BLOOD LOSS: 5 mL INDICATIONS: The patient is a pleasant, 39 well female who has experienced chronic left shoulder pain that has been increasing in recent time. Physical exam and imaging were consistent with left shoulder subacromial bursitis and calcific tendinitis. Given these findings and failure to improve with nonoperative management, recommendation was made for surgery. FINDINGS: Exam under anesthesia revealed stable shoulder with full passive shoulder range of motion. The diagnostic arthroscopy revealed grade 2 and grade 3 chondral changes of the glenoid with healthy-appearing chondral surface of the humeral head. There was minor degenerative tearing of the superior labrum but superior labrum was stable. Biceps tendon was normal in appearance and well- positioned without any subluxation. Anterior and posterior labrum were intact. Mild fraying of the upper subscapularis with intact footprint. Rotator cuff was intact. No loose bodies were identified within the pouch or subscapularis recess. In the subacromial space, there was diffuse inflamed bursal tissue. No significant calcifications are identified. Bursal sided rotator cuff was intact. PROCEDURE: Following a thorough discussion of risks, benefits, and alternatives, consent was obtained and the operative shoulder was marked. A supraclavicular nerve block was performed by anesthesia staff in preop holding. The patient was brought to the operating room and placed supine on the operating table. Induction of anesthesia was completed, and patient was given IV Ancef pr eoperatively for prophylaxis. Patient was placed into the beach chair position. Head was placed in padded movable bulkhead installer in neutral alignment, and all bony prominences were well padded. The operative shoulder and upper extremity were prepped and draped in the appropriate sterile fashion using ChloraPrep. A surgical time-out was performed confirming patient identity, surgical site, surgical procedure. The anterior, posterior, lateral portal sites were injected with 0.25% Marcaine with epinephrine. The glenohumeral joint was injected with 40 mL of normal saline using an 18g spinal needle from a posterior approach. Posterior portal was established. Anterior portal was established after localization with a spinal needle and a 7.0 mm cannula was placed here. Diagnostic arthroscopy was then performed with findings as noted above. Arthroscopic shaver was used to debride the frayed aspects of the superior labrum. After debridement of the superior labrum, labrum was probed and confirmed to be stable. Biceps tendon was intact and stable. There was mild fraying of the upper border of the subscapularis, which was debrided with the motorized shaver. After debridement remnant subscapularis tendon was intact. The camera was then moved to the subacromial space. A lateral portal was established after localization of spinal needle. There was diffuse inflamed subacromial and subdeltoid bursal tissue, which was completely debrided using a combination of the motorized shaver and radiofrequency ablator. Following subacromial/subdeltoid bursectomy, the rotator cuff was thoroughly expected. Rotator cuff was confirmed to be intact. Rotator cuff was probed and no calcifications were identified. The acromial and subdeltoid spaces were inspected and there were no calcifications identified. The mini C-arm was then utilized, and images showed no calcifications around the rotator cuff or proximal humerus. Instruments were removed. Excess fluid was drained, closure performed with 3-0 nylon simple interrupted sutures. Dressings were applied. Simple sling applied. The patient was awoken from anesthesia and transferred to the PACU in stable condition. PLAN: 1. Discharged to home day of surgery. 2. Ice for pain and swelling. 3. Tylenol and oxycodone as needed for pain control. 4. Sling as needed for comfort. -Remove sling several times daily for shoulder, elbow, wrist, and finger range of motion exercises. -May advance activities as tolerated without restrictions. 5. Follow-up in orthopedic clinic in 10-14 days for wound check and suture removal. 6. Will initiate formal physical therapy in 1-2 weeks postoperatively per the [facility]/Debridement Rehabilitation Protocol
--- NOTE | 2025-09-13 09:36 | W.PM.H&PU ---
History & Physical Update History & Physical Update H&P Reviewed and patient assessed: No changes noted
[2025-09-13] MEDS: MIDAZOLAM HCL 1 MG/ML inj IVP (09:40)
--- NOTE | 2025-09-13 09:41 | SUR.PREOP ---
TIME?OUT:?0935 PT/RN/MDA?VERIFICATION?OF?SURGICAL?SITE,?PROCEDURE,?AND?CONSENT OBTAINED?PRIOR?TO?INVASIVE?PROCEDURE.
--- NOTE | 2025-09-13 10:54 | W.PM.NB ---
Nerve Block Nerve Block Time Seen by Provider: 09:35 Date Seen: 09/13/25 Type of block requested by surgeon for post-operative analgesia: supraclavicular Side: left Time out performed: Yes Verification of patient name: Yes Verification of date of : Yes Site marking: site marked Name of person performing procedure: Dioni Continuous monitoring Was continuous monitoring of O2 sat, B/P, quality assurance monitor body, recorded every 15 minutes?: Yes Procedure Checklist: sterile prep, needles and gloves Ultrasound guided. Images saved: Yes Medications given in 5ml increments after negative aspiration: Ropivicaine %: 0.5 mL: 15 Needle gauge: 22 Precedex (mcg): 25 Patient tolerated procedure well: Yes Block Charges Block Charge (with Pro Fee): Brachial Plexus Use of Ultrasound Machine for Block: Yes- US Guidance/pain block
--- NOTE | 2025-09-13 10:55 | P.ANES_ITS ---
Anesthesia Charges Start Date/Time Anesthesia Start Date: 09/13/25 Anesthesia Start Time: 10:20 Stop Date/Time Anesthesia Stop Date: 09/13/25 Anesthesia Stop Time: 12:17 Coding CPT Codes CPT Codes: ANESTH SURGERY OF SHOULDER - 09866 ([id number]) P3 - PATIENT W/SEVERE SYS DISEASE, QK - PLASTERER SPOT 2-4 CNCRNT ANES PROC, QX - TRAFFIC OPERATIONS MANAGER SVC W/ MD MED DIRECTION
--- NOTE | 2025-09-13 10:55 | W.ANESCHARGE ---
Anesthesia Charges Start Date/Time Anesthesia Start Date: 09/13/25 Anesthesia Start Time: 10:20 Stop Date/Time Anesthesia Stop Date: 09/13/25 Anesthesia Stop Time: 12:17 Coding CPT Codes CPT Codes: ANESTH SURGERY OF SHOULDER - 51349 ([id number]) P3 - PATIENT W/SEVERE SYS DISEASE, QK - FOREIGN EXCHANGE CLERK 2-4 CNCRNT ANES PROC, QX - ANIME ARTIST SVC W/ MD MED DIRECTION
[2025-09-13] MEDS: EPINEPHrine 1 MG in SODIUM CHLORIDE IRRIG SOLUTION 3,000 ML 3001 MG IRRIGATION (11:00)
[2025-09-13] MEDS: LACTATED RINGERS 1000 ML 1,000 ML 125 ML IV (11:54)
--- NOTE | 2025-09-13 12:19 | P.ANES_ITS ---
Anesthesia Charges Start Date/Time Anesthesia Start Date: 09/13/25 Anesthesia Start Time: 10:20 Stop Date/Time Anesthesia Stop Date: 09/13/25 Anesthesia Stop Time: 12:17 Coding CPT Codes CPT Codes: ANESTH SURGERY OF SHOULDER - 50662 ([id number]) P3 - PATIENT W/SEVERE SYS DISEASE, QK - METAL LEAF LAYER 2-4 CNCRNT ANES PROC
--- NOTE | 2025-09-13 12:19 | W.ANESCHARGE ---
Anesthesia Charges Start Date/Time Anesthesia Start Date: 09/13/25 Anesthesia Start Time: 10:20 Stop Date/Time Anesthesia Stop Date: 09/13/25 Anesthesia Stop Time: 12:17 Coding CPT Codes CPT Codes: ANESTH SURGERY OF SHOULDER - 28341 ([id number]) P3 - PATIENT W/SEVERE SYS DISEASE, QK - SUPERVISOR FISHING 2-4 CNCRNT ANES PROC
[2025-09-13] MEDS: ONDANSETRON 2 MG/ML inj 4 MG IVP (12:30)
== END 2025-09-13 14:00 | disposition home or self-care (01) ==
LOC: OR 08:19
PROVIDERS: Anesthesiology; PCP Family Medicine; Visit Provider Orthopaedic Surgery
PROC: (CPT 29805; principal; 2025-09-13 10:15)
DX: M75.52 Bursitis of left shoulder (principal); M75.32 Calcific tendinitis of left shoulder; G89.18 Other acute postprocedural pain
CPT/HCPCS: 29822; 29826; 01630; 64415; 73030; 76000; 76942; 81025; J0169; J0690; J1100; J2250; J2371; J2405; J2704; J2710; J2795; J3010; J3490; J7120; L3670